=== PATIENT | female | born 1935 | race Caucasian/White ===

== ENCOUNTER 2019-11-23 06:30 | Outpatient (REF) | payer MEDICARE, SELFPAY ==
[2019-11-23 10:46] LABS: INTERNATIONAL NORM RATIO 2.3 (0.9-1.1); Prothrombin Time 27.6 SEC (10.8-13.0)
== END 2019-11-23 06:31 | disposition home or self-care (01) ==
LOC: HO.LHD 06:30
PROVIDERS: Visit Provider Internal Medicine
DX: I26.99 Other pulmonary embolism without acute cor pulmonale (principal)
CPT/HCPCS: 36415; 85610

== ENCOUNTER 2019-11-30 04:01 | Outpatient (REF) | payer MEDICARE, SELFPAY ==
[2019-11-30 10:23] LABS: INTERNATIONAL NORM RATIO 2.7 (0.9-1.1); Prothrombin Time 32.3 SEC (10.8-13.0)
== END 2019-11-30 04:02 | disposition home or self-care (01) ==
LOC: HO.LHD 04:01
PROVIDERS: Visit Provider Internal Medicine
DX: I26.99 Other pulmonary embolism without acute cor pulmonale (principal)
CPT/HCPCS: 36415; 85610

== ENCOUNTER 2019-12-14 06:52 | Outpatient (REF) | payer MEDICARE, SELFPAY ==
[2019-12-14 11:09] LABS: INTERNATIONAL NORM RATIO 2.3 (0.9-1.1)
== END 2019-12-14 06:53 | disposition home or self-care (01) ==
LOC: HO.LHD 06:52
PROVIDERS: Visit Provider Internal Medicine
DX: I26.99 Other pulmonary embolism without acute cor pulmonale (principal)
CPT/HCPCS: 36415; 85610

== ENCOUNTER 2019-12-23 07:10 | Outpatient (REF) | payer MEDICARE, SELFPAY ==
[2019-12-23 10:54] LABS: INTERNATIONAL NORM RATIO 2.2 (0.9-1.1); Prothrombin Time 25.9 SEC (10.8-13.0)
== END 2019-12-23 07:11 | disposition home or self-care (01) ==
LOC: HO.LHD 07:10
PROVIDERS: Visit Provider Internal Medicine
DX: I26.99 Other pulmonary embolism without acute cor pulmonale (principal)
CPT/HCPCS: 36415; 85610

== ENCOUNTER 2020-01-04 05:35 | Outpatient (REF) | payer MEDICARE, SELFPAY ==
[2020-01-04 11:07] LABS: INTERNATIONAL NORM RATIO 2.5 (0.9-1.1); Prothrombin Time 29.7 SEC (10.8-13.0)
== END 2020-01-04 05:36 | disposition home or self-care (01) ==
LOC: HO.LHD 05:35
PROVIDERS: Visit Provider Internal Medicine
DX: I26.99 Other pulmonary embolism without acute cor pulmonale (principal)
CPT/HCPCS: 36415; 85610

== ENCOUNTER 2020-01-25 08:30 | Outpatient (REF) | payer MEDICARE, SELFPAY ==
[2020-01-25 11:19] LABS: INTERNATIONAL NORM RATIO 2.7 (0.9-1.1); Prothrombin Time 31.9 SEC (10.8-13.0)
== END 2020-01-25 08:31 | disposition home or self-care (01) ==
LOC: HO.LHD 08:30
PROVIDERS: Visit Provider Internal Medicine
DX: I26.99 Other pulmonary embolism without acute cor pulmonale (principal)
CPT/HCPCS: 36415; 85610

== ENCOUNTER 2020-02-01 05:40 | Outpatient (REF) | payer MEDICARE, SELFPAY ==
[2020-02-01 11:01] LABS: INTERNATIONAL NORM RATIO 3.7 (0.9-1.1); Prothrombin Time 44.4 SEC (10.8-13.0)
== END 2020-02-01 05:41 | disposition home or self-care (01) ==
LOC: HO.LHD 05:40
PROVIDERS: Visit Provider Internal Medicine
DX: I26.99 Other pulmonary embolism without acute cor pulmonale (principal)
CPT/HCPCS: 36415; 85610

== ENCOUNTER 2020-02-09 08:03 | Outpatient (REF) | payer MEDICARE, SELFPAY ==
[2020-02-09 11:00] LABS: INTERNATIONAL NORM RATIO 3.4 (0.9-1.1); Prothrombin Time 40.3 SEC (10.8-13.0)
== END 2020-02-09 08:04 | disposition home or self-care (01) ==
LOC: HO.LHD 08:03
PROVIDERS: Visit Provider Internal Medicine
DX: I26.99 Other pulmonary embolism without acute cor pulmonale (principal)
CPT/HCPCS: 36415; 85610

== ENCOUNTER 2020-02-13 08:39 | Outpatient (REF) | payer MEDICARE, SELFPAY ==
[2020-02-13 11:50] LABS: INTERNATIONAL NORM RATIO 1.4 (0.9-1.1); Prothrombin Time 16.5 SEC (10.8-13.0)
== END 2020-02-13 08:40 | disposition home or self-care (01) ==
LOC: HO.LHD 08:39
PROVIDERS: Visit Provider Internal Medicine
DX: I26.99 Other pulmonary embolism without acute cor pulmonale (principal)
CPT/HCPCS: 36415; 85610

== ENCOUNTER 2020-02-20 | Outpatient (REF) | payer MEDICARE, SELFPAY ==
[2020-02-20 11:22] LABS: INTERNATIONAL NORM RATIO 1.8 (0.9-1.1); Prothrombin Time 21.8 SEC (10.8-13.0)
== END 2020-02-20 00:01 | disposition home or self-care (01) ==
LOC: HO.LHD
PROVIDERS: Visit Provider Internal Medicine
DX: I26.99 Other pulmonary embolism without acute cor pulmonale (principal)
CPT/HCPCS: 36415; 85610

== ENCOUNTER 2020-02-29 | Outpatient (REF) | payer MEDICARE, SELFPAY ==
[2020-02-29 11:16] LABS: Hematocrit 41.5 % (37-47); Mean Corpuscular HGB Conc 31.3 g/dl (31.0-35.0); Mean Corpuscular Hemoglobin 28.7 pg (27.0-33.0); Mean Corpuscular Volume 91.6 fL (80-98); Mean Platelet Volume 11.2 fL (9.4-12.3); Platelet Count 214 X10*3/uL (160-400); Red Blood Count 4.53 X10*6/uL (4.20-5.50); Red Cell Distribution Width 14.3 % (11.0-16.0)
[2020-02-29 11:23] LABS: WBC ABN SCTR FOR CBC 1
[2020-02-29 11:28] LABS: Estimated Average Glucose 163 mg/dL; Hemoglobin A1c % 7.3 %; INTERNATIONAL NORM RATIO 2.2 (0.9-1.1); Prothrombin Time 26.1 SEC (10.8-13.0)
[2020-02-29 11:41] LABS: Alanine Aminotransferase 17 U/L (0-31); Albumin Level 3.7 g/dL (3.5-5.0); Alkaline Phosphatase 75 U/L (39-117); Anion Gap 12 (12-20); Aspartate Amino Transferase 15 U/L (5-31); Bilirubin Total 1.1 mg/dL (0.0-1.0); Blood Urea Nitrogen 17 mg/dL (9-16); Calcium 8.5 mg/dL (8.4-10.2); Carbon Dioxide 27 mmol/L (22-29); Chloride 107 mmol/L (96-108); Cholesterol 139 mg/dL; Estimated Glomerular Filt Rate > 60; Glucose Fasting 141 mg/dL (60-99); HDL Cholesterol 56 mg/dL; LDL Cholesterol Calculated 64 mg/dl; Potassium 4.2 mmol/l (3.3-5.1); Sodium 142 mmol/L (135-145); Total Protein 6.3 g/dL (6.5-8.0); Triglycerides 98 mg/dL
[2020-02-29 11:56] LABS: Creatinine Urine 87.87 mg/dL; Microalbum/Creatinine Ratio Ur 9.1 ug/mg cr
[2020-02-29 12:03] LABS: TSH reflex Free T4 0.26 mIU/mL (0.32-4.0)
[2020-02-29 12:37] LABS: Free T4 (Free Thyroxine) 1.32 ng/dL (0.71-1.85)
[2020-02-29 13:13] LABS: Band Neutrophils Percent 3 % (3-5); Eosinophils Percent Manual 9 % (0-4); Lymphocytes Percent Manual 37 % (20-40); Monocytes Percent Manual 9 % (2-11); Neutrophils Percent Manual 42 % (45-73)
[2020-02-29 13:14] LABS: RBC Morphology NOTED
[2020-02-29 13:15] LABS: Macrocytosis 1+; Platelet Estimate NORMAL (NORMAL); Platelet Morphology Comment NORMAL
[2020-02-29 14:46] LABS: Eosinophils Absolute Manual 0.4 X10*3/UL (0.0-0.8); Lymphocytes Absolute Manual 1.5 X10*3/uL (0.6-4.8); Monocytes Absolute Manual 0.4 X10*3/uL (0.0-1.2); Neutrophils Absolute Manual 1.8 X10*3/uL (2.2-7.9); White Blood Count 4.1 X10*3/uL (4.8-10.8)
== END 2020-02-29 00:01 | disposition home or self-care (01) ==
LOC: HO.LHD
PROVIDERS: Visit Provider Internal Medicine
DX: E11.9 Type 2 diabetes mellitus without complications (principal); I10 Essential (primary) hypertension; I25.10 Atherosclerotic heart disease of native coronary artery without angina pectoris; E03.9 Hypothyroidism, unspecified; I26.99 Other pulmonary embolism without acute cor pulmonale
CPT/HCPCS: 36415; 80053; 80061; 82043; 83036; 84439; 84443; 85007; 85027; 85610

== ENCOUNTER 2020-03-13 13:39 | Outpatient (REF) | payer MEDICARE, SELFPAY ==
[2020-03-13 09:53] LABS: INTERNATIONAL NORM RATIO 4.2 (0.9-1.1); Prothrombin Time 50.1 SEC (10.8-13.0)
== END 2020-03-13 13:40 | disposition home or self-care (01) ==
LOC: HO.LHD 13:39
PROVIDERS: Visit Provider Internal Medicine
DX: I26.99 Other pulmonary embolism without acute cor pulmonale (principal); Z79.01 Long term (current) use of anticoagulants
CPT/HCPCS: 36415; 85610

== ENCOUNTER 2020-03-21 | Outpatient (REF) | payer MEDICARE, SELFPAY ==
[2020-03-21 10:56] LABS: INTERNATIONAL NORM RATIO 3.5 (0.9-1.1); Prothrombin Time 41.9 SEC (10.8-13.0)
== END 2020-03-21 00:01 | disposition home or self-care (01) ==
LOC: HO.LHD
PROVIDERS: Visit Provider Internal Medicine
DX: I26.99 Other pulmonary embolism without acute cor pulmonale (principal)
CPT/HCPCS: 36415; 85610

== ENCOUNTER 2020-03-28 05:05 | Outpatient (REF) | payer MEDICARE, SELFPAY ==
[2020-03-28 11:27] LABS: INTERNATIONAL NORM RATIO 3.6 (0.9-1.1); Prothrombin Time 43.9 SEC (10.8-13.0)
== END 2020-03-28 05:06 | disposition home or self-care (01) ==
LOC: HO.LHD 05:05
PROVIDERS: Visit Provider Internal Medicine
DX: I26.99 Other pulmonary embolism without acute cor pulmonale (principal)
CPT/HCPCS: 36415; 85610

== ENCOUNTER 2020-04-04 00:25 | Outpatient (REF) | payer MEDICARE, SELFPAY ==
[2020-04-04 12:25] LABS: INTERNATIONAL NORM RATIO 2.1 (0.9-1.1); Prothrombin Time 25.4 SEC (10.8-13.0)
== END 2020-04-04 00:26 | disposition home or self-care (01) ==
LOC: HO.LHD 00:25
PROVIDERS: Visit Provider Internal Medicine
DX: I26.99 Other pulmonary embolism without acute cor pulmonale (principal)
CPT/HCPCS: 36415; 85610

== ENCOUNTER 2020-04-11 00:48 | Outpatient (REF) | payer MEDICARE, SELFPAY ==
[2020-04-11 10:55] LABS: INTERNATIONAL NORM RATIO 2.7 (0.9-1.1); Prothrombin Time 31.9 SEC (10.8-13.0)
== END 2020-04-11 00:49 | disposition home or self-care (01) ==
LOC: HO.LHD 00:48
PROVIDERS: Visit Provider Internal Medicine
DX: I26.99 Other pulmonary embolism without acute cor pulmonale (principal)
CPT/HCPCS: 36415; 85610

== ENCOUNTER 2020-04-18 07:49 | Outpatient (REF) | payer MEDICARE, SELFPAY ==
[2020-04-18 11:54] LABS: Hematocrit 39.2 % (37-47); Hemoglobin 12.1 g/dl (12.0-16.0); Mean Corpuscular HGB Conc 30.9 g/dl (31.0-35.0); Mean Corpuscular Hemoglobin 28.3 pg (27.0-33.0); Mean Corpuscular Volume 91.8 fL (80-98); Platelet Count 198 X10*3/uL (160-400); Red Blood Count 4.27 X10*6/uL (4.20-5.50); Red Cell Distribution Width 14.3 % (11.0-16.0)
[2020-04-18 12:01] LABS: INTERNATIONAL NORM RATIO 2.6 (0.9-1.1); Prothrombin Time 31.6 SEC (10.8-13.0); WBC ABN SCTR FOR CBC 1; White Blood Count 5.2 X10*3/uL (4.8-10.8)
[2020-04-18 12:30] LABS: Band Neutrophils Percent 3 % (3-5); Eosinophils Absolute Manual 0.1 X10*3/UL (0.0-0.8); Eosinophils Percent Manual 2 % (0-4); Lymphocytes Absolute Manual 0.7 X10*3/uL (0.6-4.8); Lymphocytes Percent Manual 13 % (20-40); Monocytes Absolute Manual 0.7 X10*3/uL (0.0-1.2); Monocytes Percent Manual 14 % (2-11); Neutrophils Absolute Manual 3.7 X10*3/uL (2.2-7.9); Neutrophils Percent Manual 68 % (45-73)
[2020-04-18 12:31] LABS: Platelet Estimate NORMAL (NORMAL); Platelet Morphology Comment NORMAL; RBC Morphology NOTED
[2020-04-18 12:32] LABS: Basophilic Stippling 1+; Macrocytosis 1+; Polychromasia 1+
== END 2020-04-18 07:50 | disposition home or self-care (01) ==
LOC: HO.LHD 07:49
PROVIDERS: Visit Provider Internal Medicine
DX: I26.99 Other pulmonary embolism without acute cor pulmonale (principal); E11.9 Type 2 diabetes mellitus without complications; I10 Essential (primary) hypertension; I25.10 Atherosclerotic heart disease of native coronary artery without angina pectoris
CPT/HCPCS: 36415; 85007; 85025; 85027; 85610

== ENCOUNTER 2020-04-25 07:37 | Outpatient (REF) | payer MEDICARE, SELFPAY ==
[2020-04-25 12:19] LABS: INTERNATIONAL NORM RATIO 3.3 (0.9-1.1); Prothrombin Time 39.6 SEC (10.8-13.0)
== END 2020-04-25 07:38 | disposition home or self-care (01) ==
LOC: HO.LHD 07:37
PROVIDERS: Visit Provider Internal Medicine
DX: I26.99 Other pulmonary embolism without acute cor pulmonale (principal)
CPT/HCPCS: 36415; 85610

== ENCOUNTER 2020-05-02 07:08 | Outpatient (REF) | payer MEDICARE, SELFPAY ==
[2020-05-02 12:31] LABS: INTERNATIONAL NORM RATIO 2.6 (0.9-1.1); Prothrombin Time 30.7 SEC (10.8-13.0)
== END 2020-05-02 07:09 | disposition home or self-care (01) ==
LOC: HO.LHD 07:08
PROVIDERS: Visit Provider Internal Medicine
DX: I26.99 Other pulmonary embolism without acute cor pulmonale (principal)
CPT/HCPCS: 36415; 85610

== ENCOUNTER 2020-05-16 07:13 | Outpatient (REF) | payer MEDICARE, SELFPAY ==
[2020-05-16 11:04] LABS: INTERNATIONAL NORM RATIO 2.4 (0.9-1.1)
== END 2020-05-16 07:14 | disposition home or self-care (01) ==
LOC: HO.LHD 07:13
PROVIDERS: Visit Provider Internal Medicine
DX: I26.99 Other pulmonary embolism without acute cor pulmonale (principal); Z79.01 Long term (current) use of anticoagulants; Z51.81 Encounter for therapeutic drug level monitoring
CPT/HCPCS: 36415; 85610

== ENCOUNTER 2020-05-30 01:35 | Outpatient (REF) | payer MEDICARE, SELFPAY ==
[2020-05-30 10:46] LABS: INTERNATIONAL NORM RATIO 2.2 (0.9-1.1)
== END 2020-05-30 01:36 | disposition home or self-care (01) ==
LOC: HO.LHD 01:35
PROVIDERS: Visit Provider Internal Medicine
DX: I26.99 Other pulmonary embolism without acute cor pulmonale (principal); Z79.01 Long term (current) use of anticoagulants; Z51.81 Encounter for therapeutic drug level monitoring
CPT/HCPCS: 36415; 85610

== ENCOUNTER 2020-06-06 00:34 | Outpatient (REF) | payer MEDICARE, SELFPAY ==
[2020-06-06 10:59] LABS: INTERNATIONAL NORM RATIO 2.5 (0.9-1.1); Prothrombin Time 29.8 SEC (10.8-13.0)
== END 2020-06-06 00:35 | disposition home or self-care (01) ==
LOC: HO.LHD 00:34
PROVIDERS: Visit Provider Internal Medicine
DX: I26.99 Other pulmonary embolism without acute cor pulmonale (principal)
CPT/HCPCS: 36415; 85610

== ENCOUNTER 2020-06-13 00:24 | Outpatient (REF) | payer MEDICARE, SELFPAY ==
[2020-06-13 10:48] LABS: Prothrombin Time 23.9 SEC (10.8-13.0)
== END 2020-06-13 00:25 | disposition home or self-care (01) ==
LOC: HO.LHD 00:24
PROVIDERS: Visit Provider Internal Medicine
DX: I26.99 Other pulmonary embolism without acute cor pulmonale (principal); Z79.01 Long term (current) use of anticoagulants; Z51.81 Encounter for therapeutic drug level monitoring
CPT/HCPCS: 36415; 85610

== ENCOUNTER 2020-06-20 00:08 | Outpatient (REF) | payer MEDICARE, SELFPAY ==
[2020-06-20 12:13] LABS: INTERNATIONAL NORM RATIO 2.2 (0.9-1.1); Prothrombin Time 26.7 SEC (10.8-13.0)
== END 2020-06-20 00:09 | disposition home or self-care (01) ==
LOC: HO.LHD 00:08
PROVIDERS: Visit Provider Internal Medicine
DX: I26.99 Other pulmonary embolism without acute cor pulmonale (principal)
CPT/HCPCS: 36415; 85610

== ENCOUNTER 2020-06-27 00:28 | Outpatient (REF) | payer MEDICARE, SELFPAY ==
[2020-06-27 11:01] LABS: INTERNATIONAL NORM RATIO 2.2 (0.9-1.1); Prothrombin Time 26.9 SEC (10.8-13.0)
== END 2020-06-27 00:29 | disposition home or self-care (01) ==
LOC: HO.LHD 00:28
PROVIDERS: Visit Provider Internal Medicine
DX: I26.99 Other pulmonary embolism without acute cor pulmonale (principal)
CPT/HCPCS: 36415; 85610

== ENCOUNTER 2020-07-11 00:11 | Outpatient (REF) | payer MEDICARE, SELFPAY ==
[2020-07-11 10:46] LABS: INTERNATIONAL NORM RATIO 2.8 (0.9-1.1); Prothrombin Time 33.6 SEC (10.8-13.0)
== END 2020-07-11 00:12 | disposition home or self-care (01) ==
LOC: HO.LHD 00:11
PROVIDERS: Visit Provider Internal Medicine
DX: I26.99 Other pulmonary embolism without acute cor pulmonale (principal)
CPT/HCPCS: 36415; 85610

== ENCOUNTER 2020-07-25 01:24 | Outpatient (REF) | payer MEDICARE, SELFPAY ==
[2020-07-25 10:39] LABS: INTERNATIONAL NORM RATIO 2.5 (0.9-1.1); Prothrombin Time 29.7 SEC (10.8-13.0)
== END 2020-07-25 01:25 | disposition home or self-care (01) ==
LOC: HO.LHD 01:24
PROVIDERS: Visit Provider Internal Medicine
DX: I26.99 Other pulmonary embolism without acute cor pulmonale (principal)
CPT/HCPCS: 36415; 85610

== ENCOUNTER 2020-08-08 01:16 | Outpatient (REF) | payer MEDICARE, SELFPAY ==
[2020-08-08 10:41] LABS: INTERNATIONAL NORM RATIO 2.9 (0.9-1.1); Prothrombin Time 34.4 SEC (10.8-13.0)
== END 2020-08-08 01:17 | disposition home or self-care (01) ==
LOC: HO.LHD 01:16
PROVIDERS: Visit Provider Internal Medicine
DX: I26.99 Other pulmonary embolism without acute cor pulmonale (principal)
CPT/HCPCS: 36415; 85610

== ENCOUNTER 2020-08-22 | Outpatient (REF) | payer MEDICARE, SELFPAY ==
[2020-08-22 11:44] LABS: Prothrombin Time 23.2 SEC (9.9-13.0)
== END 2020-08-22 00:01 | disposition home or self-care (01) ==
LOC: HO.10HDLNP
PROVIDERS: Visit Provider Internal Medicine
DX: I26.99 Other pulmonary embolism without acute cor pulmonale (principal)
CPT/HCPCS: 85610

== ENCOUNTER 2020-08-29 07:00 | Outpatient (REF) | payer MEDICARE, SELFPAY ==
[2020-08-29 10:56] LABS: INTERNATIONAL NORM RATIO 2.3 (0.9-1.1); Prothrombin Time 26.5 SEC (9.9-13.0)
== END 2020-08-29 07:01 | disposition home or self-care (01) ==
LOC: HO.LHD 07:00
PROVIDERS: Visit Provider Internal Medicine
DX: I26.99 Other pulmonary embolism without acute cor pulmonale (principal)
CPT/HCPCS: 36415; 85610

== ENCOUNTER 2020-09-05 06:29 | Outpatient (REF) | payer MEDICARE, SELFPAY ==
[2020-09-05 10:45] LABS: INTERNATIONAL NORM RATIO 2.2 (0.9-1.1); Prothrombin Time 25.4 SEC (9.9-13.0)
[2020-09-05 10:56] LABS: Estimated Average Glucose 163 mg/dL; Hemoglobin A1c % 7.3 %
[2020-09-05 11:27] LABS: Alanine Aminotransferase 11 U/L (0-31); Albumin Level 3.6 g/dL (3.5-5.0); Alkaline Phosphatase 70 U/L (39-117); Anion Gap 12 (12-20); Aspartate Amino Transferase 15 U/L (5-31); Bilirubin Total 1.4 mg/dL (0.0-1.0); Blood Urea Nitrogen 17 mg/dL (9-16); Calcium 8.9 mg/dL (8.4-10.2); Carbon Dioxide 27 mmol/L (22-29); Chloride 107 mmol/L (96-108); Estimated Glomerular Filt Rate > 60; Glucose Fasting 154 mg/dL (60-99); Potassium 4.2 mmol/L (3.3-5.1); Sodium 142 mmol/L (135-145); Total Protein 6.2 g/dL (6.5-8.0)
[2020-09-05 11:41] LABS: TSH reflex Free T4 1.36 uIU/mL (0.32-4.0)
== END 2020-09-05 06:30 | disposition home or self-care (01) ==
LOC: HO.LHD 06:29
PROVIDERS: Visit Provider Internal Medicine
DX: I26.99 Other pulmonary embolism without acute cor pulmonale (principal); E03.9 Hypothyroidism, unspecified; E11.9 Type 2 diabetes mellitus without complications; I11.0 Hypertensive heart disease with heart failure; I50.30 Unspecified diastolic (congestive) heart failure
CPT/HCPCS: 36415; 80053; 83036; 84443; 85610

== ENCOUNTER 2020-09-12 07:38 | Outpatient (REF) | payer MEDICARE, SELFPAY ==
[2020-09-12 11:03] LABS: INTERNATIONAL NORM RATIO 2.7 (0.9-1.1); Prothrombin Time 31.8 SEC (9.9-13.0)
== END 2020-09-12 07:39 | disposition home or self-care (01) ==
LOC: HO.LHD 07:38
PROVIDERS: Family Medicine; Visit Provider Internal Medicine
DX: I26.99 Other pulmonary embolism without acute cor pulmonale (principal)
CPT/HCPCS: 36415; 85610

== ENCOUNTER 2020-09-26 07:14 | Outpatient (REF) | payer MEDICARE, SELFPAY ==
[2020-09-26 11:26] LABS: INTERNATIONAL NORM RATIO 2.6 (0.9-1.1); Prothrombin Time 30.6 SEC (9.9-13.0)
== END 2020-09-26 07:15 | disposition home or self-care (01) ==
LOC: HO.LHD 07:14
PROVIDERS: Visit Provider Internal Medicine
DX: I26.99 Other pulmonary embolism without acute cor pulmonale (principal)
CPT/HCPCS: 36415; 85610

== ENCOUNTER 2020-10-02 07:49 | Outpatient (REF) | payer MEDICARE, SELFPAY ==
[2020-10-02 10:12] LABS: INTERNATIONAL NORM RATIO 2.5 (0.9-1.1); Prothrombin Time 29.3 SEC (9.9-13.0)
== END 2020-10-02 07:50 | disposition home or self-care (01) ==
LOC: HO.LHD 07:49
PROVIDERS: Visit Provider Internal Medicine
DX: I26.99 Other pulmonary embolism without acute cor pulmonale (principal)
CPT/HCPCS: 36415; 85610

== ENCOUNTER 2020-10-10 05:00 | Outpatient (REF) | payer MEDICARE, SELFPAY ==
[2020-10-10 12:03] LABS: INTERNATIONAL NORM RATIO 2.6 (0.9-1.1); Prothrombin Time 30.2 SEC (9.9-13.0)
== END 2020-10-10 05:01 ==
LOC: HO.LHD 05:00
PROVIDERS: Visit Provider Internal Medicine
DX: I26.99 Other pulmonary embolism without acute cor pulmonale (principal)
CPT/HCPCS: 36415; 85610

== ENCOUNTER 2020-10-24 07:05 | Outpatient (REF) | payer MEDICARE, SELFPAY ==
[2020-10-24 11:04] LABS: INTERNATIONAL NORM RATIO 2.7 (0.9-1.1); Prothrombin Time 31.9 SEC (9.9-13.0)
== END 2020-10-24 07:06 | disposition home or self-care (01) ==
LOC: HO.LHD 07:05
PROVIDERS: Visit Provider Internal Medicine
DX: I26.99 Other pulmonary embolism without acute cor pulmonale (principal)
CPT/HCPCS: 36415; 85610

== ENCOUNTER 2020-11-07 13:30 | Outpatient (REF) | payer MEDICARE, SELFPAY ==
[2020-11-07 11:49] LABS: Prothrombin Time 35.1 SEC (9.9-13.0)
== END 2020-11-07 13:31 | disposition home or self-care (01) ==
LOC: HO.LHD 13:30
PROVIDERS: Visit Provider Internal Medicine
DX: I26.99 Other pulmonary embolism without acute cor pulmonale (principal)
CPT/HCPCS: 36415; 85610

== ENCOUNTER 2020-11-15 13:32 | Outpatient (REF) | payer MEDICARE, SELFPAY ==
[2020-11-14 10:36] LABS: INTERNATIONAL NORM RATIO 2.3 (0.9-1.1); Prothrombin Time 26.7 SEC (9.9-13.0)
== END 2020-11-15 13:33 | disposition home or self-care (01) ==
LOC: HO.LDS 13:32
PROVIDERS: Visit Provider Internal Medicine
DX: I26.99 Other pulmonary embolism without acute cor pulmonale (principal)
CPT/HCPCS: 36415; 85610

== ENCOUNTER 2020-11-21 12:25 | Outpatient (REF) | payer MEDICARE, SELFPAY ==
[2020-11-21 11:20] LABS: INTERNATIONAL NORM RATIO 2.3 (0.9-1.1); Prothrombin Time 26.1 SEC (9.9-13.0)
== END 2020-11-21 12:26 | disposition home or self-care (01) ==
LOC: HO.LHD 12:25
PROVIDERS: Visit Provider Internal Medicine
DX: I26.99 Other pulmonary embolism without acute cor pulmonale (principal)
CPT/HCPCS: 36415; 85610

== ENCOUNTER 2020-11-28 08:05 | Outpatient (REF) | payer MEDICARE, SELFPAY ==
[2020-11-28 11:08] LABS: INTERNATIONAL NORM RATIO 3.1 (0.9-1.1)
== END 2020-11-28 08:06 | disposition home or self-care (01) ==
LOC: HO.LHD 08:05
PROVIDERS: Visit Provider Internal Medicine
DX: I26.99 Other pulmonary embolism without acute cor pulmonale (principal)
CPT/HCPCS: 36415; 85610

== ENCOUNTER 2020-12-07 07:43 | Outpatient (REF) | payer MEDICARE, SELFPAY ==
[2020-12-06 11:17] LABS: INTERNATIONAL NORM RATIO 2.1 (0.9-1.1)
== END 2020-12-07 07:44 | disposition home or self-care (01) ==
LOC: HO.LHD 07:43
PROVIDERS: Visit Provider Internal Medicine
DX: I26.99 Other pulmonary embolism without acute cor pulmonale (principal)
CPT/HCPCS: 36415; 85610

== ENCOUNTER 2020-12-12 13:41 | Outpatient (REF) | payer MEDICARE, SELFPAY ==
[2020-12-12 11:04] LABS: INTERNATIONAL NORM RATIO 2.3 (0.9-1.1); Prothrombin Time 26.6 SEC (9.9-13.0)
== END 2020-12-12 13:42 | disposition home or self-care (01) ==
LOC: HO.LHD 13:41
PROVIDERS: Visit Provider Internal Medicine
DX: I26.99 Other pulmonary embolism without acute cor pulmonale (principal); Z79.01 Long term (current) use of anticoagulants
CPT/HCPCS: 36415; 85610

== ENCOUNTER 2020-12-19 13:23 | Outpatient (REF) | payer MEDICARE, SELFPAY ==
[2020-12-19 11:03] LABS: Hematocrit 41.9 % (37.0-47.0); Hemoglobin 13.1 g/dl (12.0-16.0); Mean Corpuscular HGB Conc 31.3 g/dl (31.0-35.0); Mean Corpuscular Hemoglobin 28.4 pg (27.0-33.0); Mean Corpuscular Volume 90.7 fL (80.0-98.0); Mean Platelet Volume 11.3 fL (9.4-12.3); Platelet Count 224 X10*3/uL (160-400); Red Blood Count 4.62 X10*6/uL (4.20-5.50); Red Cell Distribution Width 14.2 % (11.0-16.0)
[2020-12-19 11:09] LABS: WBC ABN SCTR FOR CBC 1
[2020-12-19 11:10] LABS: INTERNATIONAL NORM RATIO 2.1 (0.9-1.1); Prothrombin Time 24.8 SEC (9.9-13.0)
[2020-12-19 11:40] LABS: Band Neutrophils Percent 0 % (3-5); Eosinophils Percent Manual 2 % (0-4); Lymphocytes Percent Manual 18 % (20-40); Monocytes Percent Manual 16 % (2-11); Neutrophils Percent Manual 64 % (45-73)
[2020-12-19 11:41] LABS: Platelet Estimate NORMAL (NORMAL); Platelet Morphology Comment NORMAL; RBC Morphology NORMAL
[2020-12-19 11:45] LABS: Eosinophils Absolute Manual 0.1 X10*3/uL (0.0-0.4); Lymphocytes Absolute Manual 0.7 X10*3/uL (1.2-4.9); Monocytes Absolute Manual 0.7 X10*3/uL (0.1-1.2); Neutrophils Absolute Manual 2.6 X10*3/uL (2.0-8.3); White Blood Count 4.1 X10*3/uL (4.8-10.8)
== END 2020-12-19 13:24 | disposition home or self-care (01) ==
LOC: HO.LHD 13:23
PROVIDERS: Internal Medicine; Visit Provider Internal Medicine
DX: I26.99 Other pulmonary embolism without acute cor pulmonale (principal); E11.9 Type 2 diabetes mellitus without complications; I10 Essential (primary) hypertension; I25.10 Atherosclerotic heart disease of native coronary artery without angina pectoris
CPT/HCPCS: 36415; 85007; 85025; 85027; 85610

== ENCOUNTER 2021-01-01 07:14 | Outpatient (REF) | payer MEDICARE, SELFPAY ==
[2021-01-01 10:10] LABS: INTERNATIONAL NORM RATIO 2.5 (0.9-1.1); Prothrombin Time 29.1 SEC (9.9-13.0)
[2021-01-01 10:32] LABS: Hematocrit 39.8 % (37.0-47.0); Hemoglobin 12.7 g/dl (12.0-16.0); Mean Corpuscular HGB Conc 31.9 g/dl (31.0-35.0); Mean Corpuscular Hemoglobin 28.7 pg (27.0-33.0); Mean Platelet Volume 10.9 fL (9.4-12.3); Platelet Count 197 X10*3/uL (160-400); Red Blood Count 4.42 X10*6/uL (4.20-5.50)
[2021-01-01 10:34] LABS: WBC ABN SCTR FOR CBC 1
[2021-01-01 11:28] LABS: Band Neutrophils Percent 0 % (3-5); Eosinophils Percent Manual 4 % (0-4); Lymphocytes Percent Manual 29 % (20-40); Monocytes Percent Manual 11 % (2-11); Neutrophils Percent Manual 56 % (45-73)
[2021-01-01 11:31] LABS: Platelet Estimate NORMAL (NORMAL); Platelet Morphology Comment NORMAL; RBC Morphology NORMAL
[2021-01-01 13:27] LABS: Eosinophils Absolute Manual 0.2 X10*3/uL (0.0-0.4); Lymphocytes Absolute Manual 1.1 X10*3/uL (1.2-4.9); Monocytes Absolute Manual 0.4 X10*3/uL (0.1-1.2); Neutrophils Absolute Manual 2.1 X10*3/uL (2.0-8.3); White Blood Count 3.8 X10*3/uL (4.8-10.8)
== END 2021-01-01 07:15 | disposition home or self-care (01) ==
LOC: HO.LHD 07:14
PROVIDERS: Visit Provider Internal Medicine
DX: I26.99 Other pulmonary embolism without acute cor pulmonale (principal)
CPT/HCPCS: 36415; 85007; 85025; 85027; 85610

== ENCOUNTER 2021-01-16 12:28 | Outpatient (REF) | payer MEDICARE, SELFPAY ==
[2021-01-16 10:56] LABS: Hematocrit 38.1 % (37.0-47.0); Hemoglobin 12.1 g/dl (12.0-16.0); Mean Corpuscular HGB Conc 31.8 g/dl (31.0-35.0); Mean Corpuscular Hemoglobin 28.5 pg (27.0-33.0); Mean Corpuscular Volume 89.9 fL (80.0-98.0); Mean Platelet Volume 11.2 fL (9.4-12.3); Platelet Count 197 X10*3/uL (160-400); Red Blood Count 4.24 X10*6/uL (4.20-5.50); White Blood Count 4.3 X10*3/uL (4.8-10.8)
[2021-01-16 11:34] LABS: Band Neutrophils Percent 2 % (3-5); Basophils Percent Manual 1 % (0-2); Eosinophils Absolute Manual 0.1 X10*3/uL (0.0-0.4); Eosinophils Percent Manual 3 % (0-4); Lymphocytes Absolute Manual 0.6 X10*3/uL (1.2-4.9); Lymphocytes Percent Manual 13 % (20-40); Monocytes Absolute Manual 0.3 X10*3/uL (0.1-1.2); Monocytes Percent Manual 7 % (2-11); Neutrophils Absolute Manual 3.3 X10*3/uL (2.0-8.3); Neutrophils Percent Manual 74 % (45-73)
[2021-01-16 11:35] LABS: RBC Morphology NORMAL
[2021-01-16 11:36] LABS: Platelet Estimate NORMAL (NORMAL); Platelet Morphology Comment NORMAL
== END 2021-01-16 12:29 | disposition home or self-care (01) ==
LOC: HO.LHD 12:28
PROVIDERS: Visit Provider Internal Medicine
DX: I26.99 Other pulmonary embolism without acute cor pulmonale (principal); Z79.01 Long term (current) use of anticoagulants
CPT/HCPCS: 36415; 85007; 85027; 85610

== ENCOUNTER 2021-01-23 07:18 | Outpatient (REF) | payer MEDICARE, SELFPAY ==
[2021-01-23 11:12] LABS: Hemoglobin 12.3 g/dl (12.0-16.0); Mean Corpuscular HGB Conc 31.5 g/dl (31.0-35.0); Mean Corpuscular Hemoglobin 28.3 pg (27.0-33.0); Mean Corpuscular Volume 89.9 fL (80.0-98.0); Platelet Count 200 X10*3/uL (160-400); Red Blood Count 4.34 X10*6/uL (4.20-5.50); Red Cell Distribution Width 13.7 % (11.0-16.0)
[2021-01-23 11:14] LABS: WBC ABN SCTR FOR CBC 1
[2021-01-23 11:26] LABS: INTERNATIONAL NORM RATIO 1.7 (0.9-1.1); Prothrombin Time 19.4 SEC (9.9-13.0)
[2021-01-23 11:58] LABS: Band Neutrophils Percent 0 % (3-5); Basophils Percent Manual 1 % (0-2); Eosinophils Percent Manual 3 % (0-4); Lymphocytes Percent Manual 31 % (20-40); Monocytes Percent Manual 9 % (2-11); Neutrophils Percent Manual 56 % (45-73)
[2021-01-23 12:02] LABS: Macrocytosis 1+ (5-14) /OIF; Platelet Estimate NORMAL (NORMAL); Platelet Morphology Comment NORMAL; RBC Morphology NOTED
[2021-01-23 12:05] LABS: Eosinophils Absolute Manual 0.1 X10*3/uL (0.0-0.4); Monocytes Absolute Manual 0.3 X10*3/uL (0.1-1.2); Neutrophils Absolute Manual 1.8 X10*3/uL (2.0-8.3); White Blood Count 3.3 X10*3/uL (4.8-10.8)
== END 2021-01-23 07:19 | disposition home or self-care (01) ==
LOC: HO.LHD 07:18
PROVIDERS: Visit Provider Internal Medicine
DX: I26.99 Other pulmonary embolism without acute cor pulmonale (principal)
CPT/HCPCS: 36415; 85007; 85027; 85610

== ENCOUNTER 2021-01-30 06:10 | Outpatient (REF) | payer MEDICARE, SELFPAY ==
[2021-01-30 11:23] LABS: INTERNATIONAL NORM RATIO 2.2 (0.9-1.1); Prothrombin Time 25.6 SEC (9.9-13.0)
== END 2021-01-30 06:11 | disposition home or self-care (01) ==
LOC: HO.LHD 06:10
PROVIDERS: Visit Provider Internal Medicine
DX: I26.99 Other pulmonary embolism without acute cor pulmonale (principal)
CPT/HCPCS: 36415; 85610

== ENCOUNTER 2021-02-06 10:44 | Outpatient (REF) | payer MEDICARE, SELFPAY ==
[2021-02-06 10:19] LABS: Hematocrit 36.8 % (37.0-47.0); Hemoglobin 11.6 g/dl (12.0-16.0); Mean Corpuscular HGB Conc 31.5 g/dl (31.0-35.0); Mean Corpuscular Hemoglobin 28.4 pg (27.0-33.0); Mean Corpuscular Volume 90.2 fL (80.0-98.0); Mean Platelet Volume 10.9 fL (9.4-12.3); Platelet Count 169 X10*3/uL (160-400); Red Blood Count 4.08 X10*6/uL (4.20-5.50)
[2021-02-06 10:20] LABS: WBC ABN SCTR FOR CBC 1
[2021-02-06 10:27] LABS: INTERNATIONAL NORM RATIO 2.7 (0.9-1.1); Prothrombin Time 30.8 SEC (9.9-13.0)
[2021-02-06 10:56] LABS: Band Neutrophils Percent 0 % (3-5); Basophils Percent Manual 2 % (0-2); Eosinophils Percent Manual 4 % (0-4); Lymphocytes Percent Manual 34 % (20-40); Monocytes Percent Manual 9 % (2-11); Neutrophils Percent Manual 51 % (45-73)
[2021-02-06 10:57] LABS: Hypochromasia 1+ (5-14) /OIF; Platelet Estimate NORMAL (NORMAL); Platelet Morphology Comment NORMAL; RBC Morphology NOTED
[2021-02-06 10:58] LABS: Basophils Abs Manual 0.1 X10*3/uL (0.0-0.2); Eosinophils Absolute Manual 0.1 X10*3/uL (0.0-0.4); Lymphocytes Absolute Manual 1.2 X10*3/uL (1.2-4.9); Monocytes Absolute Manual 0.3 X10*3/uL (0.1-1.2); Neutrophils Absolute Manual 1.7 X10*3/uL (2.0-8.3); White Blood Count 3.4 X10*3/uL (4.8-10.8)
== END 2021-02-06 10:45 | disposition home or self-care (01) ==
LOC: HO.LHD 10:44
PROVIDERS: Visit Provider Internal Medicine
DX: I26.99 Other pulmonary embolism without acute cor pulmonale (principal)
CPT/HCPCS: 36415; 85007; 85027; 85610

== ENCOUNTER 2021-02-21 11:15 | Outpatient (REF) | payer MEDICARE, SELFPAY ==
[2021-02-20 11:44] LABS: Hematocrit 38.6 % (37.0-47.0); Hemoglobin 12.1 g/dl (12.0-16.0); Mean Corpuscular HGB Conc 31.3 g/dl (31.0-35.0); Mean Corpuscular Hemoglobin 28.3 pg (27.0-33.0); Mean Corpuscular Volume 90.4 fL (80.0-98.0); Mean Platelet Volume 10.8 fL (9.4-12.3); Platelet Count 165 X10*3/uL (160-400); Red Blood Count 4.27 X10*6/uL (4.20-5.50)
[2021-02-20 11:46] LABS: WBC ABN SCTR FOR CBC 1
[2021-02-20 11:53] LABS: INTERNATIONAL NORM RATIO 2.4 (0.9-1.1); Prothrombin Time 27.6 SEC (9.9-13.0)
[2021-02-20 12:10] LABS: Band Neutrophils Percent 0 % (3-5); Lymphocytes Percent Manual 20 % (20-40); Monocytes Percent Manual 10 % (2-11); Neutrophils Percent Manual 70 % (45-73)
[2021-02-20 12:11] LABS: Lymphocytes Absolute Manual 0.7 X10*3/uL (1.2-4.9); Monocytes Absolute Manual 0.4 X10*3/uL (0.1-1.2); Neutrophils Absolute Manual 2.5 X10*3/uL (2.0-8.3); Platelet Estimate NORMAL (NORMAL); Platelet Morphology Comment NORMAL; RBC Morphology NORMAL; White Blood Count 3.5 X10*3/uL (4.8-10.8)
== END 2021-02-21 11:16 | disposition home or self-care (01) ==
LOC: HO.LHD 11:15
PROVIDERS: Visit Provider Internal Medicine
DX: I26.99 Other pulmonary embolism without acute cor pulmonale (principal)
CPT/HCPCS: 36415; 85007; 85027; 85610

== ENCOUNTER 2021-02-27 07:53 | Outpatient (REF) | payer MEDICARE, SELFPAY ==
[2021-02-27 12:30] LABS: Hematocrit 39.5 % (37.0-47.0); Hemoglobin 12.4 g/dl (12.0-16.0); Mean Corpuscular HGB Conc 31.4 g/dl (31.0-35.0); Mean Corpuscular Hemoglobin 28.5 pg (27.0-33.0); Mean Corpuscular Volume 90.8 fL (80.0-98.0); Mean Platelet Volume 11.3 fL (9.4-12.3); Platelet Count 212 X10*3/uL (160-400); Red Blood Count 4.35 X10*6/uL (4.20-5.50); Red Cell Distribution Width 14.1 % (11.0-16.0)
[2021-02-27 12:39] LABS: INTERNATIONAL NORM RATIO 2.2 (0.9-1.1)
[2021-02-27 12:56] LABS: WBC ABN SCTR FOR CBC 1
[2021-02-27 13:09] LABS: Band Neutrophils Percent 2 % (3-5); Eosinophils Percent Manual 3 % (0-4); Lymphocytes Percent Manual 28 % (20-40); Monocytes Percent Manual 14 % (2-11); Neutrophils Percent Manual 53 % (45-73)
[2021-02-27 13:10] LABS: RBC Morphology NOTED
[2021-02-27 13:11] LABS: Acanthocytes 1+ (0-2) /OIF; Platelet Estimate NORMAL (NORMAL); Platelet Morphology Comment NORMAL
[2021-02-27 13:19] LABS: Eosinophils Absolute Manual 0.1 X10*3/uL (0.0-0.4); Lymphocytes Absolute Manual 1.1 X10*3/uL (1.2-4.9); Monocytes Absolute Manual 0.6 X10*3/uL (0.1-1.2); Neutrophils Absolute Manual 2.2 X10*3/uL (2.0-8.3)
== END 2021-02-27 07:54 | disposition home or self-care (01) ==
LOC: HO.LHD 07:53
PROVIDERS: Visit Provider Internal Medicine
DX: I26.99 Other pulmonary embolism without acute cor pulmonale (principal)
CPT/HCPCS: 36415; 85007; 85027; 85610

== ENCOUNTER 2021-03-13 12:02 | Outpatient (REF) | payer MEDICARE, SELFPAY ==
[2021-03-13 12:34] LABS: Hematocrit 39.4 % (37.0-47.0); Hemoglobin 12.4 g/dl (12.0-16.0); Mean Corpuscular HGB Conc 31.5 g/dl (31.0-35.0); Mean Corpuscular Hemoglobin 28.2 pg (27.0-33.0); Mean Corpuscular Volume 89.7 fL (80.0-98.0); Mean Platelet Volume 10.7 fL (9.4-12.3); Platelet Count 199 X10*3/uL (160-400); Red Blood Count 4.39 X10*6/uL (4.20-5.50); Red Cell Distribution Width 14.2 % (11.0-16.0)
[2021-03-13 12:40] LABS: WBC ABN SCTR FOR CBC 1; White Blood Count 3.4 X10*3/uL (4.8-10.8)
[2021-03-13 12:43] LABS: INTERNATIONAL NORM RATIO 2.2 (0.9-1.1); Prothrombin Time 25.8 SEC (9.9-13.0)
[2021-03-13 13:27] LABS: Band Neutrophils Percent 3 % (3-5); Basophils Percent Manual 1 % (0-2); Eosinophils Absolute Manual 0.1 X10*3/uL (0.0-0.4); Eosinophils Percent Manual 2 % (0-4); Lymphocytes Absolute Manual 0.8 X10*3/uL (1.2-4.9); Lymphocytes Percent Manual 24 % (20-40); Monocytes Absolute Manual 0.3 X10*3/uL (0.1-1.2); Monocytes Percent Manual 8 % (2-11); Neutrophils Absolute Manual 2.2 X10*3/uL (2.0-8.3); Neutrophils Percent Manual 62 % (45-73)
[2021-03-13 13:28] LABS: Platelet Estimate NORMAL (NORMAL); Platelet Morphology Comment NORMAL; RBC Morphology NORMAL
[2021-03-13 13:29] LABS: Alanine Aminotransferase 16 U/L (0-31); Albumin Level 3.6 g/dL (3.5-5.0); Alkaline Phosphatase 66 U/L (39-117); Anion Gap 9 (12-20); Aspartate Amino Transferase 17 U/L (5-31); Bilirubin Total 1.5 mg/dL (0.0-1.0); Blood Urea Nitrogen 19 mg/dL (9-16); Calcium 8.6 mg/dL (8.4-10.2); Carbon Dioxide 28 mmol/L (22-29); Chloride 108 mmol/L (96-108); Cholesterol 137 mg/dL; Estimated Glomerular Filt Rate > 60; Glucose Fasting 154 mg/dL (60-99); HDL Cholesterol 47 mg/dL; LDL Cholesterol Calculated 70 mg/dl; Potassium 4.3 mmol/L (3.3-5.1); Sodium 141 mmol/L (135-145); Total Protein 6.2 g/dL (6.5-8.0); Triglycerides 102 mg/dL
[2021-03-13 13:35] LABS: Estimated Average Glucose 163 mg/dL; Hemoglobin A1c % 7.3 %
[2021-03-13 13:39] LABS: TSH reflex Free T4 0.83 uIU/mL (0.32-4.0); Vitamin D 25-OH Total 14.5 ng/mL (>30)
[2021-03-13 14:05] LABS: Folate 11.5 ng/mL (> or = 4.0); Vitamin B12 439 pg/mL (200-900)
== END 2021-03-13 12:03 | disposition home or self-care (01) ==
LOC: HO.LHD 12:02
PROVIDERS: Visit Provider Internal Medicine
DX: E11.9 Type 2 diabetes mellitus without complications (principal); E78.5 Hyperlipidemia, unspecified; I10 Essential (primary) hypertension; I26.99 Other pulmonary embolism without acute cor pulmonale; I25.10 Atherosclerotic heart disease of native coronary artery without angina pectoris
CPT/HCPCS: 36415; 80053; 80061; 82306; 82607; 82746; 83036; 84443; 85007; 85027; 85610

== ENCOUNTER 2021-03-27 12:55 | Outpatient (REF) | payer MEDICARE, SELFPAY ==
[2021-03-27 10:56] LABS: Hematocrit 38.3 % (37.0-47.0); Hemoglobin 12.1 g/dl (12.0-16.0); Mean Corpuscular HGB Conc 31.6 g/dl (31.0-35.0); Mean Corpuscular Hemoglobin 28.3 pg (27.0-33.0); Mean Corpuscular Volume 89.5 fL (80.0-98.0); Mean Platelet Volume 10.9 fL (9.4-12.3); Platelet Count 200 X10*3/uL (160-400); Red Blood Count 4.28 X10*6/uL (4.20-5.50); Red Cell Distribution Width 14.4 % (11.0-16.0); White Blood Count 3.6 X10*3/uL (4.8-10.8)
[2021-03-27 11:01] LABS: INTERNATIONAL NORM RATIO 2.3 (0.9-1.1); Prothrombin Time 27.1 SEC (9.9-13.0)
[2021-03-27 11:31] LABS: Band Neutrophils Percent 1 % (3-5); Basophils Percent Manual 1 % (0-2); Eosinophils Percent Manual 1 % (0-4); Lymphocytes Absolute Manual 1.2 X10*3/uL (1.2-4.9); Lymphocytes Percent Manual 33 % (20-40); Monocytes Absolute Manual 0.5 X10*3/uL (0.1-1.2); Monocytes Percent Manual 13 % (2-11); Neutrophils Absolute Manual 1.9 X10*3/uL (2.0-8.3); Neutrophils Percent Manual 51 % (45-73)
[2021-03-27 11:34] LABS: Platelet Estimate NORMAL (NORMAL); Platelet Morphology Comment NORMAL; RBC Morphology NORMAL
== END 2021-03-27 12:56 | disposition home or self-care (01) ==
LOC: HO.LHD 12:55
PROVIDERS: Visit Provider Internal Medicine
DX: I26.99 Other pulmonary embolism without acute cor pulmonale (principal)
CPT/HCPCS: 36415; 85007; 85025; 85027; 85610

== ENCOUNTER 2021-04-10 13:08 | Outpatient (REF) | payer MEDICARE, SELFPAY ==
[2021-04-10 11:43] LABS: Hematocrit 39.3 % (37.0-47.0); Hemoglobin 12.1 g/dl (12.0-16.0); Mean Corpuscular HGB Conc 30.8 g/dl (31.0-35.0); Mean Corpuscular Hemoglobin 27.9 pg (27.0-33.0); Mean Corpuscular Volume 90.8 fL (80.0-98.0); Platelet Count 193 X10*3/uL (160-400); Red Blood Count 4.33 X10*6/uL (4.20-5.50); Red Cell Distribution Width 14.4 % (11.0-16.0)
[2021-04-10 11:46] LABS: WBC ABN SCTR FOR CBC 1
[2021-04-10 11:47] LABS: White Blood Count 3.6 X10*3/uL (4.8-10.8)
[2021-04-10 12:11] LABS: Atypical Lymphs Percent Manual 1 % (0-6); Band Neutrophils Percent 1 % (3-5); Eosinophils Percent Manual 1 % (0-4); Lymphocytes Absolute Manual 1.3 X10*3/uL (1.2-4.9); Lymphocytes Percent Manual 36 % (20-40); Monocytes Absolute Manual 0.1 X10*3/uL (0.1-1.2); Monocytes Percent Manual 3 % (2-11); Neutrophils Absolute Manual 2.1 X10*3/uL (2.0-8.3); Neutrophils Percent Manual 58 % (45-73)
[2021-04-10 12:12] LABS: INTERNATIONAL NORM RATIO 2.2 (0.9-1.1); Prothrombin Time 25.2 SEC (9.9-13.0)
[2021-04-10 12:13] LABS: Platelet Estimate NORMAL (NORMAL); Platelet Morphology Comment NORMAL; RBC Morphology NORMAL
== END 2021-04-10 13:09 | disposition home or self-care (01) ==
LOC: HO.LHD 13:08
PROVIDERS: Visit Provider Internal Medicine
DX: I26.99 Other pulmonary embolism without acute cor pulmonale (principal)
CPT/HCPCS: 36415; 85007; 85025; 85027; 85610

== ENCOUNTER 2021-04-24 12:11 | Outpatient (REF) | payer MEDICARE, SELFPAY ==
[2021-04-24 12:52] LABS: Hematocrit 39.3 % (37.0-47.0); Hemoglobin 12.3 g/dl (12.0-16.0); Mean Corpuscular HGB Conc 31.3 g/dl (31.0-35.0); Mean Corpuscular Hemoglobin 28.4 pg (27.0-33.0); Mean Corpuscular Volume 90.8 fL (80.0-98.0); Platelet Count 189 X10*3/uL (160-400); Red Blood Count 4.33 X10*6/uL (4.20-5.50); Red Cell Distribution Width 14.6 % (11.0-16.0)
[2021-04-24 12:57] LABS: INTERNATIONAL NORM RATIO 1.9 (0.9-1.1); Prothrombin Time 22.4 SEC (9.9-13.0)
[2021-04-24 13:00] LABS: WBC ABN SCTR FOR CBC 1
[2021-04-24 13:17] LABS: Basophils Percent Manual 1 % (0-2); Eosinophils Percent Manual 5 % (0-4); Lymphocytes Percent Manual 27 % (20-40); Monocytes Percent Manual 11 % (2-11); Neutrophils Percent Manual 56 % (45-73); RBC Morphology NORMAL
[2021-04-24 13:18] LABS: Band Neutrophils Percent 0 % (3-5); Eosinophils Absolute Manual 0.2 X10*3/uL (0.0-0.4); Lymphocytes Absolute Manual 0.9 X10*3/uL (1.2-4.9); Monocytes Absolute Manual 0.4 X10*3/uL (0.1-1.2); Platelet Estimate NORMAL (NORMAL); Platelet Morphology Comment NORMAL; White Blood Count 3.5 X10*3/uL (4.8-10.8)
== END 2021-04-24 12:12 | disposition home or self-care (01) ==
LOC: HO.LHD 12:11
PROVIDERS: Visit Provider Internal Medicine
DX: I26.99 Other pulmonary embolism without acute cor pulmonale (principal)
CPT/HCPCS: 36415; 85007; 85025; 85027; 85610

== ENCOUNTER 2021-05-01 11:33 | Outpatient (REF) | payer MEDICARE, SELFPAY ==
[2021-05-01 10:37] LABS: Hematocrit 40.1 % (37.0-47.0); Hemoglobin 12.5 g/dl (12.0-16.0); Mean Corpuscular HGB Conc 31.2 g/dl (31.0-35.0); Mean Corpuscular Hemoglobin 28.3 pg (27.0-33.0); Mean Corpuscular Volume 90.7 fL (80.0-98.0); Mean Platelet Volume 11.1 fL (9.4-12.3); Platelet Count 191 X10*3/uL (160-400); Red Blood Count 4.42 X10*6/uL (4.20-5.50); Red Cell Distribution Width 14.3 % (11.0-16.0)
[2021-05-01 10:38] LABS: WBC ABN SCTR FOR CBC 1
[2021-05-01 10:45] LABS: INTERNATIONAL NORM RATIO 2.1 (0.9-1.1); Prothrombin Time 24.2 SEC (9.9-13.0)
[2021-05-01 11:01] LABS: Band Neutrophils Percent 1 % (3-5); Eosinophils Percent Manual 2 % (0-4); Lymphocytes Percent Manual 37 % (20-40); Monocytes Percent Manual 6 % (2-11); Neutrophils Percent Manual 54 % (45-73)
[2021-05-01 11:02] LABS: Eosinophils Absolute Manual 0.1 X10*3/uL (0.0-0.4); Lymphocytes Absolute Manual 1.4 X10*3/uL (1.2-4.9); Monocytes Absolute Manual 0.2 X10*3/uL (0.1-1.2); Platelet Estimate NORMAL (NORMAL); Platelet Morphology Comment NORMAL; RBC Morphology NORMAL; White Blood Count 3.7 X10*3/uL (4.8-10.8)
== END 2021-05-01 11:34 | disposition home or self-care (01) ==
LOC: HO.LHD 11:33
PROVIDERS: Visit Provider Internal Medicine
DX: I26.99 Other pulmonary embolism without acute cor pulmonale (principal)
CPT/HCPCS: 36415; 85007; 85027; 85610

== ENCOUNTER 2021-05-15 | Outpatient (REF) | payer MEDICARE, SELFPAY ==
[2021-05-15 12:08] LABS: INTERNATIONAL NORM RATIO 2.4 (0.9-1.1); Prothrombin Time 27.6 SEC (9.9-13.0)
== END 2021-05-15 00:01 | disposition home or self-care (01) ==
LOC: HO.LHD
PROVIDERS: Visit Provider Internal Medicine
DX: I26.99 Other pulmonary embolism without acute cor pulmonale (principal)
CPT/HCPCS: 36415; 85610

== ENCOUNTER 2021-05-29 10:50 | Outpatient (REF) | payer MEDICARE, SELFPAY ==
[2021-05-29 10:49] LABS: Hematocrit 38.1 % (37.0-47.0); Hemoglobin 11.9 g/dl (12.0-16.0); Mean Corpuscular HGB Conc 31.2 g/dl (31.0-35.0); Mean Corpuscular Hemoglobin 28.3 pg (27.0-33.0); Mean Corpuscular Volume 90.7 fL (80.0-98.0); Mean Platelet Volume 11.2 fL (9.4-12.3); Platelet Count 167 X10*3/uL (160-400); Red Cell Distribution Width 14.5 % (11.0-16.0)
[2021-05-29 10:50] LABS: WBC ABN SCTR FOR CBC 1
[2021-05-29 10:51] LABS: INTERNATIONAL NORM RATIO 2.6 (0.9-1.1); Prothrombin Time 29.8 SEC (9.9-13.0)
[2021-05-29 11:20] LABS: Band Neutrophils Percent 3 % (3-5); Basophils Percent Manual 1 % (0-2); Eosinophils Percent Manual 5 % (0-4); Lymphocytes Percent Manual 30 % (20-40); Monocytes Percent Manual 13 % (2-11); Neutrophils Percent Manual 48 % (45-73)
[2021-05-29 11:22] LABS: Platelet Estimate NORMAL (NORMAL); Platelet Morphology Comment NORMAL; RBC Morphology NORMAL
[2021-05-29 11:24] LABS: Eosinophils Absolute Manual 0.2 X10*3/uL (0.0-0.4); Lymphocytes Absolute Manual 1.2 X10*3/uL (1.2-4.9); Monocytes Absolute Manual 0.5 X10*3/uL (0.1-1.2)
== END 2021-05-29 10:51 | disposition home or self-care (01) ==
LOC: HO.LHD 10:50
PROVIDERS: Visit Provider Internal Medicine
DX: I26.99 Other pulmonary embolism without acute cor pulmonale (principal); E11.9 Type 2 diabetes mellitus without complications; I10 Essential (primary) hypertension; I25.10 Atherosclerotic heart disease of native coronary artery without angina pectoris
CPT/HCPCS: 36415; 85007; 85027; 85610

== ENCOUNTER 2021-06-12 07:55 | Outpatient (REF) | payer MEDICARE, SELFPAY ==
[2021-06-12 10:58] LABS: INTERNATIONAL NORM RATIO 2.5 (0.9-1.1); Prothrombin Time 28.8 SEC (9.9-13.0)
== END 2021-06-12 07:56 | disposition home or self-care (01) ==
LOC: HO.LHD 07:55
PROVIDERS: Internal Medicine; Visit Provider Family Medicine
DX: I26.99 Other pulmonary embolism without acute cor pulmonale (principal)
CPT/HCPCS: 36415; 85610

== ENCOUNTER 2021-06-28 06:28 | Outpatient (REF) | payer MEDICARE, SELFPAY ==
[2021-06-26 12:26] LABS: INTERNATIONAL NORM RATIO 2.5 (0.9-1.1); Prothrombin Time 28.4 SEC (9.9-13.0)
== END 2021-06-28 06:29 | disposition home or self-care (01) ==
LOC: HO.LHD 06:28
PROVIDERS: Visit Provider Internal Medicine
DX: I26.99 Other pulmonary embolism without acute cor pulmonale (principal)
CPT/HCPCS: 36415; 85610

== ENCOUNTER 2021-07-10 07:48 | Outpatient (REF) | payer MEDICARE, SELFPAY ==
[2021-07-10 13:20] LABS: INTERNATIONAL NORM RATIO 2.1 (0.9-1.1); Prothrombin Time 24.5 SEC (9.9-13.0)
== END 2021-07-10 07:49 | disposition home or self-care (01) ==
LOC: HO.LHD 07:48
PROVIDERS: Visit Provider Internal Medicine
DX: I26.99 Other pulmonary embolism without acute cor pulmonale (principal)
CPT/HCPCS: 36415; 85610

== ENCOUNTER 2021-07-17 07:36 | Outpatient (REF) | payer MEDICARE, SELFPAY ==
[2021-07-17 12:22] LABS: INTERNATIONAL NORM RATIO 2.4 (0.9-1.1); Prothrombin Time 27.3 SEC (9.9-13.0)
== END 2021-07-17 07:37 | disposition home or self-care (01) ==
LOC: HO.LHD 07:36
PROVIDERS: Visit Provider Internal Medicine
DX: I26.99 Other pulmonary embolism without acute cor pulmonale (principal)
CPT/HCPCS: 36415; 85610

== ENCOUNTER 2021-08-01 07:20 | Outpatient (REF) | payer MEDICARE, SELFPAY ==
[2021-07-31 11:04] LABS: Hematocrit 39.9 % (37.0-47.0); Hemoglobin 12.6 g/dl (12.0-16.0); Mean Corpuscular HGB Conc 31.6 g/dl (31.0-35.0); Mean Corpuscular Hemoglobin 28.5 pg (27.0-33.0); Mean Corpuscular Volume 90.3 fL (80.0-98.0); Mean Platelet Volume 11.5 fL (9.4-12.3); Platelet Count 209 X10*3/uL (160-400); Red Blood Count 4.42 X10*6/uL (4.20-5.50); Red Cell Distribution Width 14.2 % (11.0-16.0)
[2021-07-31 11:05] LABS: Prothrombin Time 47.3 SEC (9.9-13.0); WBC ABN SCTR FOR CBC 1
[2021-07-31 11:39] LABS: Basophils Percent Manual 1 % (0-2); Eosinophils Percent Manual 47 % (0-4); Lymphocytes Percent Manual 20 % (20-40); Monocytes Percent Manual 6 % (2-11); Neutrophils Percent Manual 26 % (45-73); Nucleated Red Blood Cells 1 /100WBC (0-0)
[2021-07-31 11:41] LABS: Band Neutrophils Percent 0 % (3-5); Platelet Estimate NORMAL (NORMAL); Platelet Morphology Comment NORMAL; RBC Morphology NORMAL
[2021-07-31 12:01] LABS: Basophils Abs Manual 0.1 X10*3/uL (0.0-0.2); Eosinophils Absolute Manual 3.7 X10*3/uL (0.0-0.4); Lymphocytes Absolute Manual 1.6 X10*3/uL (1.2-4.9); Monocytes Absolute Manual 0.5 X10*3/uL (0.1-1.2); White Blood Count 7.8 X10*3/uL (4.8-10.8)
== END 2021-08-01 07:21 | disposition home or self-care (01) ==
LOC: HO.LHD 07:20
PROVIDERS: Visit Provider Internal Medicine
DX: I26.99 Other pulmonary embolism without acute cor pulmonale (principal)
CPT/HCPCS: 36415; 85007; 85025; 85027; 85610

== ENCOUNTER 2021-08-07 12:46 | Outpatient (REF) | payer MEDICARE, SELFPAY ==
[2021-08-07 10:44] LABS: Hematocrit 38.9 % (37.0-47.0); Hemoglobin 12.2 g/dl (12.0-16.0); Mean Corpuscular HGB Conc 31.4 g/dl (31.0-35.0); Mean Corpuscular Hemoglobin 28.2 pg (27.0-33.0); Mean Platelet Volume 11.3 fL (9.4-12.3); Platelet Count 169 X10*3/uL (160-400); Red Blood Count 4.32 X10*6/uL (4.20-5.50); Red Cell Distribution Width 14.4 % (11.0-16.0); WBC ABN SCTR FOR CBC 1
[2021-08-07 10:46] LABS: Prothrombin Time 36.3 SEC (10.0-13.1)
[2021-08-07 11:05] LABS: Atypical Lymphs Percent Manual 1 % (0-6); Band Neutrophils Percent 0 % (3-5); Eosinophils Percent Manual 38 % (0-4); Lymphocytes Percent Manual 23 % (20-40); Monocytes Percent Manual 7 % (2-11); Neutrophils Percent Manual 31 % (45-73)
[2021-08-07 11:07] LABS: Alanine Aminotransferase 12 U/L (0-31); Albumin Level 3.4 g/dL (3.5-5.0); Alkaline Phosphatase 86 U/L (39-117); Anion Gap 14 (12-20); Aspartate Amino Transferase 14 U/L (5-31); Bilirubin Total 1.3 mg/dL (0.0-1.0); Blood Urea Nitrogen 17 mg/dL (9-16); Calcium 8.3 mg/dL (8.4-10.2); Carbon Dioxide 26 mmol/L (22-29); Chloride 108 mmol/L (96-108); Cholesterol 134 mg/dL; Estimated Glomerular Filt Rate > 60; Glucose Fasting 151 mg/dL (60-99); HDL Cholesterol 45 mg/dL; LDL Cholesterol Calculated 71 mg/dl; Sodium 144 mmol/L (135-145); Total Protein 5.9 g/dL (6.5-8.0); Triglycerides 94 mg/dL
[2021-08-07 11:16] LABS: Estimated Average Glucose 171 mg/dL; Hemoglobin A1c % 7.6 %; Nucleated Red Blood Cells 1 /100WBC (0-0)
[2021-08-07 11:17] LABS: Platelet Estimate NORMAL (NORMAL); Platelet Morphology Comment NORMAL; RBC Morphology NORMAL
[2021-08-07 11:18] LABS: Eosinophils Absolute Manual 1.8 X10*3/uL (0.0-0.4); Lymphocytes Absolute Manual 1.1 X10*3/uL (1.2-4.9); Monocytes Absolute Manual 0.3 X10*3/uL (0.1-1.2); Neutrophils Absolute Manual 1.5 X10*3/uL (2.0-8.3); White Blood Count 4.8 X10*3/uL (4.8-10.8)
[2021-08-07 11:27] LABS: TSH reflex Free T4 0.24 uIU/mL (0.32-4.0)
[2021-08-07 12:11] LABS: Free T4 (Free Thyroxine) 1.32 ng/dL (0.71-1.85)
== END 2021-08-07 12:47 | disposition home or self-care (01) ==
LOC: HO.LHD 12:46
PROVIDERS: Visit Provider Internal Medicine
DX: E03.9 Hypothyroidism, unspecified (principal); E11.9 Type 2 diabetes mellitus without complications; E78.5 Hyperlipidemia, unspecified; I10 Essential (primary) hypertension; I26.99 Other pulmonary embolism without acute cor pulmonale
CPT/HCPCS: 36415; 80053; 80061; 83036; 84439; 84443; 85007; 85027; 85610

== ENCOUNTER 2021-08-14 06:53 | Outpatient (REF) | payer MEDICARE, SELFPAY ==
[2021-08-14 11:36] LABS: INTERNATIONAL NORM RATIO 2.3 (0.9-1.1); Prothrombin Time 26.8 SEC (10.0-13.1)
== END 2021-08-14 06:54 | disposition home or self-care (01) ==
LOC: HO.LHD 06:53
PROVIDERS: Visit Provider Internal Medicine
DX: I26.99 Other pulmonary embolism without acute cor pulmonale (principal)
CPT/HCPCS: 36415; 85610

== ENCOUNTER 2021-08-23 14:21 | Outpatient (REF) | payer MEDICARE, SELFPAY ==
[2021-08-21 11:54] LABS: Hematocrit 38.3 % (37.0-47.0); Hemoglobin 12.1 g/dl (12.0-16.0); Mean Corpuscular HGB Conc 31.6 g/dl (31.0-35.0); Mean Corpuscular Hemoglobin 28.7 pg (27.0-33.0); Mean Corpuscular Volume 90.8 fL (80.0-98.0); Mean Platelet Volume 10.6 fL (9.4-12.3); Platelet Count 181 X10*3/uL (160-400); Red Blood Count 4.22 X10*6/uL (4.20-5.50); Red Cell Distribution Width 14.2 % (11.0-16.0); White Blood Count 4.9 X10*3/uL (4.8-10.8)
[2021-08-21 12:05] LABS: Prothrombin Time 35.6 SEC (10.0-13.1)
[2021-08-21 12:48] LABS: Band Neutrophils Percent 7 % (3-5); Eosinophils Absolute Manual 0.8 X10*3/uL (0.0-0.4); Eosinophils Percent Manual 16 % (0-4); Lymphocytes Absolute Manual 0.6 X10*3/uL (1.2-4.9); Lymphocytes Percent Manual 12 % (20-40); Monocytes Absolute Manual 0.3 X10*3/uL (0.1-1.2); Monocytes Percent Manual 7 % (2-11); Neutrophils Absolute Manual 3.2 X10*3/uL (2.0-8.3); Neutrophils Percent Manual 58 % (45-73)
[2021-08-21 12:50] LABS: Platelet Estimate NORMAL (NORMAL); Platelet Morphology Comment NORMAL; RBC Morphology NORMAL
== END 2021-08-23 14:22 | disposition home or self-care (01) ==
LOC: HO.LHD 14:21
PROVIDERS: Visit Provider Internal Medicine
DX: I26.99 Other pulmonary embolism without acute cor pulmonale (principal)
CPT/HCPCS: 36415; 85007; 85027; 85610

== ENCOUNTER 2021-08-28 06:01 | Outpatient (REF) | payer MEDICARE, SELFPAY ==
[2021-08-28 12:25] LABS: Hematocrit 37.5 % (37.0-47.0); Hemoglobin 11.6 g/dl (12.0-16.0); Mean Corpuscular HGB Conc 30.9 g/dl (31.0-35.0); Mean Corpuscular Volume 90.4 fL (80.0-98.0); Mean Platelet Volume 10.7 fL (9.4-12.3); Platelet Count 263 X10*3/uL (160-400); Red Blood Count 4.15 X10*6/uL (4.20-5.50); Red Cell Distribution Width 13.7 % (11.0-16.0); White Blood Count 4.5 X10*3/uL (4.8-10.8)
[2021-08-28 12:30] LABS: INTERNATIONAL NORM RATIO 3.8 (0.9-1.1); Prothrombin Time 46.7 SEC (10.0-13.1)
[2021-08-28 13:22] LABS: Band Neutrophils Percent 1 % (3-5); Eosinophils Absolute Manual 0.6 X10*3/uL (0.0-0.4); Eosinophils Percent Manual 13 % (0-4); Lymphocytes Absolute Manual 0.9 X10*3/uL (1.2-4.9); Lymphocytes Percent Manual 20 % (20-40); Monocytes Absolute Manual 0.4 X10*3/uL (0.1-1.2); Monocytes Percent Manual 8 % (2-11); Neutrophils Absolute Manual 2.7 X10*3/uL (2.0-8.3); Neutrophils Percent Manual 58 % (45-73)
[2021-08-28 13:25] LABS: Platelet Estimate NORMAL (NORMAL); Platelet Morphology Comment NORMAL; RBC Morphology NORMAL
== END 2021-08-28 06:02 | disposition home or self-care (01) ==
LOC: HO.LHD 06:01
PROVIDERS: Visit Provider Internal Medicine
DX: I26.99 Other pulmonary embolism without acute cor pulmonale (principal); E11.9 Type 2 diabetes mellitus without complications; I10 Essential (primary) hypertension; I25.10 Atherosclerotic heart disease of native coronary artery without angina pectoris
CPT/HCPCS: 36415; 85007; 85027; 85610

== ENCOUNTER 2021-08-30 12:17 | Outpatient (REF) | payer MEDICARE, SELFPAY ==
[2021-08-30 13:03] LABS: Influenza A PCR NEGATIVE (Negative); Influenza B PCR NEGATIVE (Negative); Resp Syncy Virus RNA Qual PCR NEGATIVE (Negative); SARS COV2 PCR INHOUSE NEGATIVE (Negative)
== END 2021-08-30 12:18 | disposition home or self-care (01) ==
LOC: HO.LNP 12:17
PROVIDERS: Visit Provider Physician Assistant Medical
DX: Z20.822 Contact with and (suspected) exposure to COVID-19 (principal); R05.9 Cough, unspecified
CPT/HCPCS: 0241U

== ENCOUNTER 2021-09-04 | Outpatient (REF) | payer MEDICARE, SELFPAY ==
[2021-09-04 11:30] LABS: INTERNATIONAL NORM RATIO 1.5 (0.9-1.1); Prothrombin Time 17.7 SEC (10.0-13.1)
== END 2021-09-04 00:01 | disposition home or self-care (01) ==
LOC: HO.LHD
PROVIDERS: Visit Provider Internal Medicine
DX: I26.99 Other pulmonary embolism without acute cor pulmonale (principal)
CPT/HCPCS: 36415; 85610

== ENCOUNTER 2021-09-04 09:37 | Outpatient (REF) | payer MEDICARE, SELFPAY ==
[2021-09-11 12:31] LABS: INTERNATIONAL NORM RATIO 1.9 (0.9-1.1); Prothrombin Time 22.3 SEC (10.0-13.1)
== END 2021-09-04 09:38 ==
LOC: HO.LHD 09:37
PROVIDERS: Visit Provider Internal Medicine
DX: I26.99 Other pulmonary embolism without acute cor pulmonale (principal)
CPT/HCPCS: 36415; 85610

== ENCOUNTER 2021-09-18 05:54 | Outpatient (REF) | payer MEDICARE, SELFPAY ==
[2021-09-18 11:30] LABS: INTERNATIONAL NORM RATIO 2.5 (0.9-1.1); Prothrombin Time 29.6 SEC (10.0-13.1)
== END 2021-09-18 05:55 | disposition home or self-care (01) ==
LOC: HO.LHD 05:54
PROVIDERS: Visit Provider Internal Medicine
DX: I26.99 Other pulmonary embolism without acute cor pulmonale (principal)
CPT/HCPCS: 36415; 85610

== ENCOUNTER 2021-09-26 05:42 | Outpatient (REF) | payer MEDICARE, SELFPAY ==
[2021-09-25 11:12] LABS: INTERNATIONAL NORM RATIO 2.2 (0.9-1.1); Prothrombin Time 26.2 SEC (10.0-13.1)
== END 2021-09-26 05:43 | disposition home or self-care (01) ==
LOC: HO.LHD 05:42
PROVIDERS: Visit Provider Internal Medicine
DX: I26.99 Other pulmonary embolism without acute cor pulmonale (principal)
CPT/HCPCS: 36415; 85610

== ENCOUNTER 2021-10-03 09:29 | Outpatient (REF) | payer MEDICARE, SELFPAY ==
[2021-10-03 11:31] LABS: INTERNATIONAL NORM RATIO 2.3 (0.9-1.1); Prothrombin Time 26.9 SEC (10.0-13.1)
== END 2021-10-03 09:30 | disposition home or self-care (01) ==
LOC: HO.HMGCLDS 09:29
PROVIDERS: PCP Internal Medicine; Visit Provider Internal Medicine
DX: Z79.01 Long term (current) use of anticoagulants (principal)
CPT/HCPCS: 36415; 85610

== ENCOUNTER 2021-10-16 14:20 | Outpatient (REF) | payer MEDICARE, SELFPAY ==
[2021-10-16 12:05] LABS: INTERNATIONAL NORM RATIO 1.7 (0.9-1.1); Prothrombin Time 19.5 SEC (10.0-13.1)
== END 2021-10-16 14:21 | disposition home or self-care (01) ==
LOC: HO.LHD 14:20
PROVIDERS: Visit Provider Internal Medicine
DX: I26.99 Other pulmonary embolism without acute cor pulmonale (principal)
CPT/HCPCS: 36415; 85610

== ENCOUNTER 2021-10-23 06:00 | Outpatient (REF) | payer MEDICARE, SELFPAY ==
[2021-10-23 13:09] LABS: INTERNATIONAL NORM RATIO 2.5 (0.9-1.1); Prothrombin Time 29.6 SEC (10.0-13.1)
== END 2021-10-23 06:01 | disposition home or self-care (01) ==
LOC: HO.LHD 06:00
PROVIDERS: Visit Provider Internal Medicine
DX: I26.99 Other pulmonary embolism without acute cor pulmonale (principal)
CPT/HCPCS: 36415; 85610

== ENCOUNTER 2021-10-30 06:58 | Outpatient (REF) | payer MEDICARE, SELFPAY ==
[2021-10-30 11:40] LABS: INTERNATIONAL NORM RATIO 1.9 (0.9-1.1); Prothrombin Time 22.6 SEC (10.0-13.1)
== END 2021-10-30 06:59 | disposition home or self-care (01) ==
LOC: HO.LHD 06:58
PROVIDERS: Visit Provider Internal Medicine
DX: I26.99 Other pulmonary embolism without acute cor pulmonale (principal)
CPT/HCPCS: 36415; 85610

== ENCOUNTER 2021-11-06 11:59 | Outpatient (REF) | payer MEDICARE, SELFPAY ==
[2021-11-06 10:50] LABS: Prothrombin Time 23.4 SEC (10.0-13.1)
== END 2021-11-06 12:00 | disposition home or self-care (01) ==
LOC: HO.LHD 11:59
PROVIDERS: Visit Provider Internal Medicine
DX: I26.99 Other pulmonary embolism without acute cor pulmonale (principal)
CPT/HCPCS: 36415; 85610

== ENCOUNTER 2021-11-18 08:39 | Outpatient (REF) | payer MEDICARE, SELFPAY ==
[2021-11-13 10:44] LABS: INTERNATIONAL NORM RATIO 2.1 (0.9-1.1); Prothrombin Time 24.6 SEC (10.0-13.1)
== END 2021-11-18 08:40 | disposition home or self-care (01) ==
LOC: HO.LHD 08:39
PROVIDERS: Visit Provider Internal Medicine
DX: I26.99 Other pulmonary embolism without acute cor pulmonale (principal); Z79.01 Long term (current) use of anticoagulants
CPT/HCPCS: 36415; 85610

== ENCOUNTER 2021-11-20 08:42 | Outpatient (REF) | payer MEDICARE, SELFPAY ==
[2021-11-20 13:56] LABS: Prothrombin Time 23.4 SEC (10.0-13.1)
== END 2021-11-20 08:43 | disposition home or self-care (01) ==
LOC: HO.LHD 08:42
PROVIDERS: Visit Provider Internal Medicine
DX: I26.99 Other pulmonary embolism without acute cor pulmonale (principal)
CPT/HCPCS: 36415; 85610

== ENCOUNTER 2021-11-27 07:21 | Outpatient (REF) | payer MEDICARE, SELFPAY ==
[2021-11-27 12:54] LABS: INTERNATIONAL NORM RATIO 1.7 (0.9-1.1); Prothrombin Time 20.4 SEC (10.0-13.1)
== END 2021-11-27 07:22 | disposition home or self-care (01) ==
LOC: HO.LHD 07:21
PROVIDERS: Visit Provider Internal Medicine
DX: I26.99 Other pulmonary embolism without acute cor pulmonale (principal)
CPT/HCPCS: 36415; 85610

== ENCOUNTER 2021-12-04 12:29 | Outpatient (REF) | payer MEDICARE, SELFPAY ==
[2021-12-04 10:26] LABS: INTERNATIONAL NORM RATIO 2.2 (0.9-1.1); Prothrombin Time 25.9 SEC (10.0-13.1)
== END 2021-12-04 12:30 | disposition home or self-care (01) ==
LOC: HO.LHD 12:29
PROVIDERS: Visit Provider Internal Medicine
DX: I26.99 Other pulmonary embolism without acute cor pulmonale (principal)
CPT/HCPCS: 36415; 85610

== ENCOUNTER 2021-12-11 06:13 | Outpatient (REF) | payer MEDICARE, SELFPAY ==
[2021-12-11 12:08] LABS: INTERNATIONAL NORM RATIO 2.6 (0.9-1.1); Prothrombin Time 30.6 SEC (10.0-13.1)
== END 2021-12-11 06:14 | disposition home or self-care (01) ==
LOC: HO.LHD 06:13
PROVIDERS: Visit Provider Internal Medicine
DX: I26.99 Other pulmonary embolism without acute cor pulmonale (principal)
CPT/HCPCS: 36415; 85610

== ENCOUNTER 2021-12-18 05:43 | Outpatient (REF) | payer MEDICARE, SELFPAY ==
[2021-12-18 10:28] LABS: INTERNATIONAL NORM RATIO 2.4 (0.9-1.1); Prothrombin Time 28.6 SEC (10.0-13.1)
== END 2021-12-18 05:44 | disposition home or self-care (01) ==
LOC: HO.LHD 05:43
PROVIDERS: Visit Provider Internal Medicine
DX: I26.99 Other pulmonary embolism without acute cor pulmonale (principal)
CPT/HCPCS: 36415; 85610

== ENCOUNTER 2022-01-01 11:04 | Outpatient (REF) | payer MEDICARE, SELFPAY ==
[2022-01-01 10:56] LABS: INTERNATIONAL NORM RATIO 2.4 (0.9-1.1)
== END 2022-01-01 11:05 | disposition home or self-care (01) ==
LOC: HO.LHD 11:04
PROVIDERS: Visit Provider Internal Medicine
DX: I26.99 Other pulmonary embolism without acute cor pulmonale (principal)
CPT/HCPCS: 36415; 85610

== ENCOUNTER 2022-01-15 07:03 | Outpatient (REF) | payer MEDICARE, SELFPAY ==
[2022-01-15 12:30] LABS: INTERNATIONAL NORM RATIO 2.6 (0.9-1.1); Prothrombin Time 30.5 SEC (10.0-13.1)
== END 2022-01-15 07:04 | disposition home or self-care (01) ==
LOC: HO.LHD 07:03
PROVIDERS: Visit Provider Internal Medicine
DX: I26.99 Other pulmonary embolism without acute cor pulmonale (principal)
CPT/HCPCS: 36415; 85610

== ENCOUNTER 2022-01-29 10:45 | Outpatient (REF) | payer MEDICARE, SELFPAY ==
[2022-01-29 10:48] LABS: INTERNATIONAL NORM RATIO 2.4 (0.9-1.1); Prothrombin Time 28.8 SEC (10.0-13.1)
== END 2022-01-29 10:46 | disposition home or self-care (01) ==
LOC: HO.LHD 10:45
PROVIDERS: Visit Provider Internal Medicine
DX: I26.99 Other pulmonary embolism without acute cor pulmonale (principal)
CPT/HCPCS: 36415; 85610

== ENCOUNTER 2022-02-12 06:22 | Outpatient (REF) | payer MEDICARE, SELFPAY ==
[2022-02-12 10:10] LABS: Hematocrit 38.3 % (37.0-47.0); Hemoglobin 12.4 g/dl (12.0-16.0); Mean Corpuscular HGB Conc 32.4 g/dl (31.0-35.0); Mean Corpuscular Hemoglobin 28.3 pg (27.0-33.0); Mean Corpuscular Volume 87.4 fL (80.0-98.0); Mean Platelet Volume 10.9 fL (9.4-12.3); Platelet Count 176 X10*3/uL (160-400); Red Blood Count 4.38 X10*6/uL (4.20-5.50); Red Cell Distribution Width 14.5 % (11.0-16.0)
[2022-02-12 10:16] LABS: WBC ABN SCTR FOR CBC 1
[2022-02-12 10:21] LABS: INTERNATIONAL NORM RATIO 1.7 (0.9-1.1); Prothrombin Time 19.8 SEC (10.0-13.1)
[2022-02-12 10:22] LABS: Estimated Average Glucose 169 mg/dL; Hemoglobin A1c % 7.5 %
[2022-02-12 10:37] LABS: Alanine Aminotransferase 13 U/L (0-31); Albumin Level 3.8 g/dL (3.5-5.0); Alkaline Phosphatase 78 U/L (39-117); Anion Gap 10 (12-20); Aspartate Amino Transferase 14 U/L (5-31); Bilirubin Total 2.1 mg/dL (0.0-1.0); Blood Urea Nitrogen 13 mg/dL (9-16); Calcium 8.9 mg/dL (8.4-10.2); Carbon Dioxide 27 mmol/L (22-29); Chloride 107 mmol/L (96-108); Estimated Glomerular Filt Rate > 60; Glucose Fasting 153 mg/dL (60-99); Potassium 4.3 mmol/L (3.3-5.1); Sodium 140 mmol/L (135-145); Total Protein 6.5 g/dL (6.5-8.0)
[2022-02-12 10:53] LABS: TSH reflex Free T4 1.14 uIU/mL (0.32-4.0)
[2022-02-12 10:54] LABS: Band Neutrophils Percent 0 % (3-5); Eosinophils Percent Manual 2 % (0-4); Lymphocytes Percent Manual 36 % (20-40); Monocytes Percent Manual 6 % (2-11); Neutrophils Percent Manual 56 % (45-73)
[2022-02-12 10:55] LABS: Platelet Estimate NORMAL (NORMAL); Platelet Morphology Comment NORMAL; RBC Morphology NORMAL
[2022-02-12 10:56] LABS: Eosinophils Absolute Manual 0.1 X10*3/uL (0.0-0.4); Lymphocytes Absolute Manual 1.3 X10*3/uL (1.2-4.9); Monocytes Absolute Manual 0.2 X10*3/uL (0.1-1.2); Neutrophils Absolute Manual 2.1 X10*3/uL (2.0-8.3); White Blood Count 3.7 X10*3/uL (4.8-10.8)
== END 2022-02-12 06:23 | disposition home or self-care (01) ==
LOC: HO.LHD 06:22
PROVIDERS: Visit Provider Internal Medicine
DX: E78.5 Hyperlipidemia, unspecified (principal); I10 Essential (primary) hypertension; E11.9 Type 2 diabetes mellitus without complications
CPT/HCPCS: 36415; 80053; 83036; 84443; 85007; 85027; 85610

== ENCOUNTER 2022-02-19 10:49 | Outpatient (REF) | payer MEDICARE, SELFPAY ==
[2022-02-19 10:14] LABS: Hematocrit 38.4 % (37.0-47.0); Hemoglobin 12.2 g/dl (12.0-16.0); Mean Corpuscular HGB Conc 31.8 g/dl (31.0-35.0); Mean Corpuscular Hemoglobin 28.2 pg (27.0-33.0); Mean Corpuscular Volume 88.9 fL (80.0-98.0); Mean Platelet Volume 11.3 fL (9.4-12.3); Platelet Count 174 X10*3/uL (160-400); Red Blood Count 4.32 X10*6/uL (4.20-5.50); Red Cell Distribution Width 14.4 % (11.0-16.0); White Blood Count 3.6 X10*3/uL (4.8-10.8)
[2022-02-19 10:15] LABS: INTERNATIONAL NORM RATIO 2.7 (0.9-1.1); Prothrombin Time 32.2 SEC (10.0-13.1)
[2022-02-19 10:53] LABS: Band Neutrophils Percent 2 % (3-5); Lymphocytes Percent Manual 29 % (20-40); Monocytes Absolute Manual 0.3 X10*3/uL (0.1-1.2); Monocytes Percent Manual 9 % (2-11); Neutrophils Absolute Manual 2.2 X10*3/uL (2.0-8.3); Neutrophils Percent Manual 60 % (45-73)
[2022-02-19 10:54] LABS: RBC Morphology NORMAL
[2022-02-19 10:55] LABS: Platelet Estimate NORMAL (NORMAL)
[2022-02-19 11:46] LABS: Platelet Morphology Comment NORMAL
== END 2022-02-19 10:50 | disposition home or self-care (01) ==
LOC: HO.LHD 10:49
PROVIDERS: Visit Provider Internal Medicine
DX: I26.99 Other pulmonary embolism without acute cor pulmonale (principal)
CPT/HCPCS: 36415; 85007; 85027; 85610

== ENCOUNTER 2022-02-26 13:48 | Outpatient (REF) | payer MEDICARE, SELFPAY ==
[2022-02-26 09:29] LABS: Hematocrit 38.7 % (37.0-47.0); Hemoglobin 12.3 g/dl (12.0-16.0); Mean Corpuscular HGB Conc 31.8 g/dl (31.0-35.0); Mean Corpuscular Hemoglobin 27.9 pg (27.0-33.0); Mean Corpuscular Volume 87.8 fL (80.0-98.0); Mean Platelet Volume 10.8 fL (9.4-12.3); Platelet Count 181 X10*3/uL (160-400); Red Blood Count 4.41 X10*6/uL (4.20-5.50); Red Cell Distribution Width 14.3 % (11.0-16.0)
[2022-02-26 09:32] LABS: WBC ABN SCTR FOR CBC 1
[2022-02-26 09:41] LABS: INTERNATIONAL NORM RATIO 3.3 (0.9-1.1); Prothrombin Time 39.3 SEC (10.0-13.1)
[2022-02-26 10:28] LABS: Band Neutrophils Percent 1 % (3-5); Eosinophils Percent Manual 3 % (0-4); Lymphocytes Percent Manual 37 % (20-40); Monocytes Percent Manual 6 % (2-11); Neutrophils Percent Manual 53 % (45-73)
[2022-02-26 10:29] LABS: Platelet Estimate NORMAL (NORMAL); Platelet Morphology Comment NORMAL; RBC Morphology NORMAL
[2022-02-26 10:30] LABS: Eosinophils Absolute Manual 0.1 X10*3/uL (0.0-0.4); Lymphocytes Absolute Manual 1.5 X10*3/uL (1.2-4.9); Monocytes Absolute Manual 0.2 X10*3/uL (0.1-1.2); Neutrophils Absolute Manual 2.2 X10*3/uL (2.0-8.3); White Blood Count 4.1 X10*3/uL (4.8-10.8)
== END 2022-02-26 13:49 | disposition home or self-care (01) ==
LOC: HO.LHD 13:48
PROVIDERS: Visit Provider Internal Medicine
DX: I26.99 Other pulmonary embolism without acute cor pulmonale (principal)
CPT/HCPCS: 36415; 85007; 85027; 85610

== ENCOUNTER 2022-03-05 11:06 | Outpatient (REF) | payer MEDICARE, SELFPAY ==
[2022-03-05 09:47] LABS: Hematocrit 36.2 % (37.0-47.0); Hemoglobin 11.5 g/dl (12.0-16.0); Mean Corpuscular HGB Conc 31.8 g/dl (31.0-35.0); Mean Corpuscular Hemoglobin 27.8 pg (27.0-33.0); Mean Corpuscular Volume 87.4 fL (80.0-98.0); Mean Platelet Volume 10.9 fL (9.4-12.3); Platelet Count 157 X10*3/uL (160-400); Red Blood Count 4.14 X10*6/uL (4.20-5.50); Red Cell Distribution Width 14.6 % (11.0-16.0); WBC ABN SCTR FOR CBC 1; White Blood Count 3.6 X10*3/uL (4.8-10.8)
[2022-03-05 09:52] LABS: INTERNATIONAL NORM RATIO 2.4 (0.9-1.1); Prothrombin Time 28.3 SEC (10.0-13.1)
[2022-03-05 10:19] LABS: Band Neutrophils Percent 1 % (3-5); Eosinophils Absolute Manual 0.1 X10*3/uL (0.0-0.4); Eosinophils Percent Manual 2 % (0-4); Lymphocytes Absolute Manual 1.1 X10*3/uL (1.2-4.9); Lymphocytes Percent Manual 30 % (20-40); Monocytes Absolute Manual 0.1 X10*3/uL (0.1-1.2); Monocytes Percent Manual 4 % (2-11); Neutrophils Absolute Manual 2.3 X10*3/uL (2.0-8.3); Neutrophils Percent Manual 63 % (45-73)
[2022-03-05 10:21] LABS: RBC Morphology NORMAL
[2022-03-05 10:22] LABS: Platelet Estimate NORMAL (NORMAL); Platelet Morphology Comment NORMAL
== END 2022-03-05 11:07 | disposition home or self-care (01) ==
LOC: HO.LHD 11:06
PROVIDERS: Visit Provider Internal Medicine
DX: I26.99 Other pulmonary embolism without acute cor pulmonale (principal)
CPT/HCPCS: 36415; 85007; 85027; 85610

== ENCOUNTER 2022-03-12 06:10 | Outpatient (REF) | payer MEDICARE, SELFPAY ==
[2022-03-12 12:29] LABS: Hematocrit 37.1 % (37.0-47.0); Hemoglobin 11.7 g/dl (12.0-16.0); Mean Corpuscular HGB Conc 31.5 g/dl (31.0-35.0); Mean Corpuscular Hemoglobin 28.1 pg (27.0-33.0); Mean Platelet Volume 10.8 fL (9.4-12.3); Platelet Count 168 X10*3/uL (160-400); Red Blood Count 4.17 X10*6/uL (4.20-5.50); Red Cell Distribution Width 14.5 % (11.0-16.0)
[2022-03-12 12:30] LABS: WBC ABN SCTR FOR CBC 1
[2022-03-12 12:32] LABS: INTERNATIONAL NORM RATIO 2.3 (0.9-1.1); Prothrombin Time 26.9 SEC (10.0-13.1)
[2022-03-12 13:38] LABS: Band Neutrophils Percent 0 % (3-5); Eosinophils Percent Manual 3 % (0-4); Lymphocytes Percent Manual 31 % (20-40); Monocytes Percent Manual 11 % (2-11); Neutrophils Percent Manual 55 % (45-73)
[2022-03-12 13:39] LABS: Platelet Estimate NORMAL (NORMAL); Platelet Morphology Comment NORMAL; RBC Morphology NOTED
[2022-03-12 13:40] LABS: Hypochromasia 1+ (5-14) /OIF
[2022-03-12 13:45] LABS: Eosinophils Absolute Manual 0.1 X10*3/uL (0.0-0.4); Lymphocytes Absolute Manual 1.1 X10*3/uL (1.2-4.9); Monocytes Absolute Manual 0.4 X10*3/uL (0.1-1.2); Neutrophils Absolute Manual 1.9 X10*3/uL (2.0-8.3); White Blood Count 3.5 X10*3/uL (4.8-10.8)
== END 2022-03-12 06:11 | disposition home or self-care (01) ==
LOC: HO.LHD 06:10
PROVIDERS: Visit Provider Internal Medicine
DX: I26.99 Other pulmonary embolism without acute cor pulmonale (principal)
CPT/HCPCS: 36415; 85007; 85027; 85610

== ENCOUNTER 2022-03-19 13:55 | Outpatient (REF) | payer MEDICARE, SELFPAY ==
[2022-03-19 11:57] LABS: INTERNATIONAL NORM RATIO 2.1 (0.9-1.1); Prothrombin Time 24.9 SEC (10.0-13.1)
== END 2022-03-19 13:56 | disposition home or self-care (01) ==
LOC: HO.LHD 13:55
PROVIDERS: Visit Provider Internal Medicine
DX: I26.99 Other pulmonary embolism without acute cor pulmonale (principal)
CPT/HCPCS: 36415; 85610

== ENCOUNTER 2022-03-26 06:55 | Outpatient (REF) | payer MEDICARE, SELFPAY ==
[2022-03-26 10:54] LABS: INTERNATIONAL NORM RATIO 2.6 (0.9-1.1); Prothrombin Time 31.2 SEC (10.0-13.1)
== END 2022-03-26 06:56 | disposition home or self-care (01) ==
LOC: HO.LHD 06:55
PROVIDERS: Visit Provider Internal Medicine
DX: I26.99 Other pulmonary embolism without acute cor pulmonale (principal)
CPT/HCPCS: 36415; 85610

== ENCOUNTER 2022-04-09 06:07 | Outpatient (REF) | payer MEDICARE, SELFPAY ==
[2022-04-09 12:15] LABS: Prothrombin Time 24.2 SEC (10.0-13.1)
== END 2022-04-09 06:08 | disposition home or self-care (01) ==
LOC: HO.LHD 06:07
PROVIDERS: Visit Provider Internal Medicine
DX: I26.99 Other pulmonary embolism without acute cor pulmonale (principal)
CPT/HCPCS: 36415; 85610

== ENCOUNTER 2022-04-23 05:47 | Outpatient (REF) | payer MEDICARE, SELFPAY ==
[2022-04-23 12:09] LABS: INTERNATIONAL NORM RATIO 1.2 (0.9-1.1); Prothrombin Time 14.2 SEC (10.0-13.1)
== END 2022-04-23 05:48 | disposition home or self-care (01) ==
LOC: HO.LHD 05:47
PROVIDERS: Visit Provider Internal Medicine
DX: I26.99 Other pulmonary embolism without acute cor pulmonale (principal)
CPT/HCPCS: 36415; 85610

== ENCOUNTER 2022-04-30 10:43 | Outpatient (REF) | payer MEDICARE, SELFPAY ==
[2022-04-30 09:28] LABS: INTERNATIONAL NORM RATIO 1.9 (0.9-1.1); Prothrombin Time 22.6 SEC (10.0-13.1)
== END 2022-04-30 10:44 | disposition home or self-care (01) ==
LOC: HO.LHD 10:43
PROVIDERS: Visit Provider Internal Medicine
DX: I26.99 Other pulmonary embolism without acute cor pulmonale (principal)
CPT/HCPCS: 36415; 85610

== ENCOUNTER 2022-05-07 05:34 | Outpatient (REF) | payer MEDICARE, SELFPAY ==
[2022-05-07 10:24] LABS: INTERNATIONAL NORM RATIO 1.7 (0.9-1.1); Prothrombin Time 20.3 SEC (10.0-13.1)
== END 2022-05-07 05:35 | disposition home or self-care (01) ==
LOC: HO.LHD 05:34
PROVIDERS: Visit Provider Internal Medicine
DX: I26.99 Other pulmonary embolism without acute cor pulmonale (principal)
CPT/HCPCS: 36415; 85610

== ENCOUNTER 2022-05-14 05:53 | Outpatient (REF) | payer MEDICARE, SELFPAY ==
[2022-05-14 11:58] LABS: INTERNATIONAL NORM RATIO 2.3 (0.9-1.1); Prothrombin Time 27.2 SEC (10.0-13.1)
== END 2022-05-14 05:54 | disposition home or self-care (01) ==
LOC: HO.LHD 05:53
PROVIDERS: Visit Provider Internal Medicine
DX: I26.99 Other pulmonary embolism without acute cor pulmonale (principal)
CPT/HCPCS: 36415; 85610

== ENCOUNTER 2022-05-21 | Outpatient (REF) | payer MEDICARE, SELFPAY ==
[2022-05-21 11:55] LABS: INTERNATIONAL NORM RATIO 2.5 (0.9-1.1); Prothrombin Time 29.9 SEC (10.0-13.1)
== END 2022-05-21 00:01 | disposition home or self-care (01) ==
LOC: HO.LHD
PROVIDERS: Visit Provider Internal Medicine
DX: I26.99 Other pulmonary embolism without acute cor pulmonale (principal)
CPT/HCPCS: 36415; 85610

== ENCOUNTER 2022-06-04 | Outpatient (REF) | payer MEDICARE, SELFPAY ==
[2022-06-04 12:12] LABS: INTERNATIONAL NORM RATIO 2.2 (0.9-1.1); Prothrombin Time 26.5 SEC (10.0-13.1)
== END 2022-06-04 00:01 ==
LOC: HO.LHD
PROVIDERS: Visit Provider Internal Medicine
DX: I26.99 Other pulmonary embolism without acute cor pulmonale (principal)
CPT/HCPCS: 36415; 85610

== ENCOUNTER 2022-06-18 06:37 | Outpatient (REF) | payer MEDICARE, SELFPAY ==
[2022-06-18 11:53] LABS: INTERNATIONAL NORM RATIO 2.5 (0.9-1.1)
== END 2022-06-18 06:38 | disposition home or self-care (01) ==
LOC: HO.LHD 06:37
PROVIDERS: Visit Provider Internal Medicine
DX: I26.99 Other pulmonary embolism without acute cor pulmonale (principal)
CPT/HCPCS: 36415; 85610

== ENCOUNTER 2022-07-02 07:30 | Outpatient (REF) | payer MEDICARE, SELFPAY ==
[2022-07-02 10:29] LABS: INTERNATIONAL NORM RATIO 2.2 (0.9-1.1); Prothrombin Time 25.7 SEC (10.0-13.1)
== END 2022-07-02 07:31 | disposition home or self-care (01) ==
LOC: HO.LHD 07:30
PROVIDERS: Visit Provider Internal Medicine
DX: I26.99 Other pulmonary embolism without acute cor pulmonale (principal)
CPT/HCPCS: 36415; 85610

== ENCOUNTER 2022-07-26 09:16 | Outpatient (REF) | payer MEDICARE, SELFPAY ==
[2022-07-26 11:12] LABS: Hematocrit 41.4 % (37.0-47.0); Hemoglobin 12.8 g/dl (12.0-16.0); Mean Corpuscular HGB Conc 30.9 g/dl (31.0-35.0); Mean Corpuscular Hemoglobin 27.6 pg (27.0-33.0); Mean Corpuscular Volume 89.2 fL (80.0-98.0); Mean Platelet Volume 11.3 fL (9.4-12.3); Platelet Count 195 X10*3/uL (160-400); Red Blood Count 4.64 X10*6/uL (4.20-5.50); Red Cell Distribution Width 15.1 % (11.0-16.0)
[2022-07-26 11:13] LABS: WBC ABN SCTR FOR CBC 1
[2022-07-26 11:17] LABS: INTERNATIONAL NORM RATIO 1.9 (0.9-1.1); Prothrombin Time 22.8 SEC (10.0-13.1)
[2022-07-26 12:03] LABS: Eosinophils Percent Manual 5 % (0-4); Lymphocytes Percent Manual 37 % (20-40); Monocytes Percent Manual 10 % (2-11); Neutrophils Percent Manual 48 % (45-73)
[2022-07-26 12:05] LABS: RBC Morphology NORMAL
[2022-07-26 12:06] LABS: Large Platelet PRESENT; Nucleated Red Blood Cells 1 /100WBC (0-0); Platelet Estimate NORMAL (NORMAL); Platelet Morphology Comment NOTED
[2022-07-26 12:26] LABS: Eosinophils Absolute Manual 0.2 X10*3/uL (0.0-0.4); Lymphocytes Absolute Manual 1.4 X10*3/uL (1.2-4.9); Monocytes Absolute Manual 0.4 X10*3/uL (0.1-1.2); White Blood Count 3.8 X10*3/uL (4.8-10.8)
[2022-07-26 12:27] LABS: Band Neutrophils Percent 0 % (3-5); Neutrophils Absolute Manual 1.8 X10*3/uL (2.0-8.3)
== END 2022-07-26 09:17 | disposition home or self-care (01) ==
LOC: HO.HMGCLDS 09:16
PROVIDERS: PCP Internal Medicine; Visit Provider Internal Medicine
DX: Z79.01 Long term (current) use of anticoagulants (principal)
CPT/HCPCS: 36415; 85007; 85027; 85610

== ENCOUNTER 2022-08-05 09:55 | Outpatient (REF) | payer MEDICARE, SELFPAY ==
[2022-08-05 11:36] LABS: Hematocrit 38.4 % (37.0-47.0); Hemoglobin 11.9 g/dl (12.0-16.0); Mean Corpuscular Hemoglobin 27.9 pg (27.0-33.0); Mean Corpuscular Volume 90.1 fL (80.0-98.0); Mean Platelet Volume 11.4 fL (9.4-12.3); Platelet Count 195 X10*3/uL (160-400); Red Blood Count 4.26 X10*6/uL (4.20-5.50); WBC ABN SCTR FOR CBC 1
[2022-08-05 13:18] LABS: Eosinophils Percent Manual 4 % (0-4); Lymphocytes Percent Manual 30 % (20-40); Monocytes Percent Manual 8 % (2-11); Neutrophils Percent Manual 58 % (45-73)
[2022-08-05 13:19] LABS: Band Neutrophils Percent 0 % (3-5); Platelet Estimate NORMAL (NORMAL); Platelet Morphology Comment NORMAL; RBC Morphology NORMAL
[2022-08-05 13:21] LABS: Eosinophils Absolute Manual 0.2 X10*3/uL (0.0-0.4); Lymphocytes Absolute Manual 1.2 X10*3/uL (1.2-4.9); Monocytes Absolute Manual 0.3 X10*3/uL (0.1-1.2); Neutrophils Absolute Manual 2.3 X10*3/uL (2.0-8.3)
== END 2022-08-05 09:56 | disposition home or self-care (01) ==
LOC: HO.HMGCLDS 09:55
PROVIDERS: PCP Internal Medicine; Visit Provider Internal Medicine
DX: I10 Essential (primary) hypertension (principal); E78.5 Hyperlipidemia, unspecified; E11.9 Type 2 diabetes mellitus without complications
CPT/HCPCS: 36415; 85007; 85027

== ENCOUNTER 2022-08-13 10:38 | Outpatient (REF) | payer MEDICARE, SELFPAY | END 2022-08-13 10:39 | disposition home or self-care (01) | LOC: HO.HMGCLDS 10:38 | PROVIDERS: PCP Internal Medicine; Visit Provider Internal Medicine | DX: Z79.01 Long term (current) use of anticoagulants (principal) | CPT/HCPCS: 36415; 85610 ==

== ENCOUNTER 2022-08-18 10:03 | Outpatient (AMB) | payer MEDICARE, SELFPAY ==
[2022-08-18 10:15] VITALS: BP 118/70; BMI 38.0
--- NOTE | 2022-08-18 10:15 | MHC.PC.OV ---
Vital Signs 08/18/22 10:15 Height 4 ft 11 in Weight 188 lb BMI 38.0 BP 118/70 Blood Pressure Location Rt brachial Position Sitting Intake Visit Reasons: 6 month follow up Intake Note: Pt is here today for 6 months follow up visit. Allergies duloxetine Allergy (Unknown, Verified 08/18/22 10:16) delusions procaine [From Novocain] Adverse Reaction (Unknown, Verified 08/18/22 10:16) Nausea and Vomiting, fainting Medication List - Last Reconciled 08/18/22 by Rissa Bowling MD aspirin (Adult Low Dose Aspirin) 81 mg PO DAILY benzonatate 100 mg PO TID PRN cetirizine 10 mg (10 mL) PO BEDTIME PRN flu vacc [id number](65yr up)-PF mL IM fluticasone propionate 50 mcg/actuation 1 spray intranasal Q12H PRN gabapentin 600 mg PO Q8H gabapentin 100 mg PO .4 times a day glipizide 10 mg PO BID guaifenesin ER (Mucinex) 600 mg PO BID PRN hydrocortisone 2.5% 1 appl topical BID PRN levothyroxine (Euthyrox) 100 mcg PO DAILY lovastatin 40 mg PO DAILY melatonin 10 mg PO BEDTIME PRN metformin 500 mg PO BID metoprolol tartrate 150 mg (3 x 50 mg) PO DAILY miscellaneous medical supply light walker with wheels and a seat nystatin 1 appl topical BID Saccharomyces boulardii (Daily Probiotic (S. boulardii)) 250 mg PO BID sennosides (Vegetable Laxative) 8.6 mg PO DAILY warfarin 6 mg (1.5 x 4 mg) PO .QD Tobacco use date assessed: 08/18/22 Fall risk assessment: No Falls in past year Last assessed Fall Risk: 08/18/22 Dental Screening Dental Screen Date: 08/18/22 Did you have a dental visit in the last 12 months?: Yes Did you have a dental problem in the last 6 months where you did not have access to dental care?: No Was dental information given to patient?: Patient has dentist HPI 6 month follow up HPI Details Patient presents for the follow-up of type 2 diabetes hypertension hypothyroid peripheral neuropathy controlled on current medications. She continues Coumadin for history of recurrent PEs and cannot afford [employer] COUNT INCLUDES THE [facility] Medical History CAD (coronary artery disease) Cerumen impaction Diastolic CHF HTN (hypertension) Hypothyroidism Osteoarthritis Peripheral neuropathy Recurrent pulmonary embolism Type 2 diabetes mellitus Surgical History H/O Spinal surgery S/P three vessel coronary artery bypass Social History Housing: House Alcohol intake: never Patient Tobacco Use Status: Former Tobacco user Tobacco use type: Cigarette Years Smoked: 3 yrs e-Cigarette/Vaping Use: Never Used Second Hand Smoke Exposure: No Advance Directives Date on File: 06/26/03 service: No Current occupational status: retired and disabled Cognitive needs: No Hearing needs: No Vision needs: Yes Questionnaire Thrive Questionnaire Date Thrive assessed: 03/11/21 AUDIT C Alcohol Use Questionnaire (AUDIT-C) 1. How often do you have a drink containing alcohol?: Never 3. How often do you have six or more drinks on one occasion?: Never Total Score: 0 ANGELINE-7 AMB Questionnaire ANGELINE-7 Date ANGELINE - 7 assessed: 03/11/21 Source: Developed by Drs. Etienne Thao, Tamika Don, Martin Eason and colleagues, with an educational lenny from [employer]. Review of Systems Const All systems reviewed & are unremarkable except as noted in HPI and below Reports no additional complaints Eyes Reports no additional complaints ENT Reports no additional complaints Card Reports no additional complaints Resp Reports no additional complaints Reports no additional complaints Physical exam (Primary Care) BMI result Body Mass Index 38.0 Tobacco/Smoking Status: Tobacco use Status Tobacco use date assessed 02/04/22 05/21/22 13:39 Patient Tobacco Use Status Former Tobacco user 05/21/22 14:36 Tobacco use type Cigarette 05/21/22 13:39 e-Cigarette/Vaping Use Never Used 05/21/22 13:39 Thrive Assessment: Date of Thrive Assessment Date Thrive assessed 03/11/21 05/21/22 13:39 Const General: no acute distress HENMT Head: Yes normal to inspection Neck Neck: Yes supple Resp Effort & Inspection: normal respiratory effort Auscultation: clear to auscultation bilaterally Cardio Rhythm: regular rhythm Heart sounds: S1 normal heart sound present and S2 normal heart sound present GI Inspection: Yes normal to inspection Palpation (GI): Soft to palpation Percussion: Yes normal to percussion Auscultation: normal bowel sounds Assessment and Plan Assessment & Plan (1) Type 2 diabetes mellitus: Code(s): E11.9 - Type 2 diabetes mellitus without complications Plan: Check A1c today, continue ADA diet and current medications. Patient was advised to increase physical activity (2) Diastolic CHF: Comment: Echo 06/2018 nl EF, diastolic dysfunction mild aortic stenosis, mild MR, Code(s): I50.30 - Unspecified diastolic (congestive) heart failure Plan: Continue metoprolol (3) Hypothyroidism: Code(s): E03.9 - Hypothyroidism, unspecified Plan: Continue levothyroxine (4) HTN (hypertension): Code(s): I10 - Essential (primary) hypertension Plan: Continue current medications (5) Recurrent pulmonary embolism: Comment: on Coumadin for lifetime Code(s): I26.99 - Other pulmonary embolism without acute cor pulmonale Plan: Continue Coumadin check INR today Orders: Orders Comprehensive Met. Panel Today E03.9 - Hypothyroidism, unspecified, E11.9 - Type 2 diabetes mellitus without complications, I10 - Essential (primary) hypertension, I50.30 - Unspecified diastolic (congestive) heart failure Hemoglobin A1c Today E03.9 - Hypothyroidism, unspecified, E11.9 - Type 2 diabetes mellitus without complications, I10 - Essential (primary) hypertension, I50.30 - Unspecified diastolic (congestive) heart failure Prothrombin Time INR Today E03.9 - Hypothyroidism, unspecified, E11.9 - Type 2 diabetes mellitus without complications, I10 - Essential (primary) hypertension, I50.30 - Unspecified diastolic (congestive) heart failure TSH reflex Free T4 Today E03.9 - Hypothyroidism, unspecified, E11.9 - Type 2 diabetes mellitus without complications, I10 - Essential (primary) hypertension, I50.30 - Unspecified diastolic (congestive) heart failure Medications: Changed From gabapentin 1/2 tabl in AM, 1 tabl Q lunch, 1/2 tabl QHS 600 mg PO Q8H 180 tabs 3RF To gabapentin 600 mg PO BEDTIME 90 tabs 3RF Refilled gabapentin 100 mg PO .4 times a day 360 caps 3RF Coding Level of Care Code Est Pt Level 4 (83321) Diagnoses Type 2 diabetes mellitus E11.9 Diastolic CHF I50.30 Hypothyroidism E03.9 HTN (hypertension) I10 Recurrent pulmonary embolism I26.99
== END 2022-08-18 10:32 | disposition home or self-care (01) ==
PROVIDERS: PCP Internal Medicine; Visit Provider Internal Medicine
DX: E11.9 Type 2 diabetes mellitus without complications (principal); I11.0 Hypertensive heart disease with heart failure; I50.30 Unspecified diastolic (congestive) heart failure; E03.9 Hypothyroidism, unspecified; I26.99 Other pulmonary embolism without acute cor pulmonale
CPT/HCPCS: 99214

== ENCOUNTER 2022-08-18 10:34 | Outpatient (REF) | payer MEDICARE, SELFPAY | END 2022-08-18 10:35 | disposition home or self-care (01) | LOC: HO.HMGCLDS 10:34 | PROVIDERS: PCP Internal Medicine; Visit Provider Internal Medicine | DX: E03.9 Hypothyroidism, unspecified (principal); E11.9 Type 2 diabetes mellitus without complications; I11.0 Hypertensive heart disease with heart failure; I50.30 Unspecified diastolic (congestive) heart failure | CPT/HCPCS: 36415; 80053; 83036; 84443; 85610 ==

== ENCOUNTER 2022-08-26 10:38 | Outpatient (REF) | payer MEDICARE, SELFPAY ==
[2022-08-26 14:03] LABS: INTERNATIONAL NORM RATIO 2.3 (0.9-1.1); Prothrombin Time 27.9 SEC (10.0-13.1)
== END 2022-08-26 10:39 | disposition home or self-care (01) ==
LOC: HO.HMGCLDS 10:38
PROVIDERS: PCP Internal Medicine; Visit Provider Internal Medicine
DX: I11.0 Hypertensive heart disease with heart failure (principal); I50.30 Unspecified diastolic (congestive) heart failure; Z79.01 Long term (current) use of anticoagulants
CPT/HCPCS: 36415; 85610

== ENCOUNTER 2022-09-02 10:02 | Outpatient (REF) | payer MEDICARE, SELFPAY ==
[2022-09-02 13:13] LABS: INTERNATIONAL NORM RATIO 1.9 (0.9-1.1); Prothrombin Time 23.1 SEC (11.1-13.3)
== END 2022-09-02 10:03 | disposition home or self-care (01) ==
LOC: HO.HMGCLDS 10:02
PROVIDERS: PCP Internal Medicine; Visit Provider Internal Medicine
DX: I11.0 Hypertensive heart disease with heart failure (principal); I50.30 Unspecified diastolic (congestive) heart failure; E03.9 Hypothyroidism, unspecified; E11.9 Type 2 diabetes mellitus without complications; Z79.01 Long term (current) use of anticoagulants
CPT/HCPCS: 36415; 85610

== ENCOUNTER 2022-09-09 08:53 | Outpatient (REF) | payer MEDICARE, SELFPAY ==
[2022-09-09 11:34] LABS: INTERNATIONAL NORM RATIO 1.7 (0.9-1.1); Prothrombin Time 21.2 SEC (11.1-13.3)
== END 2022-09-09 08:54 | disposition home or self-care (01) ==
LOC: HO.HMGCLDS 08:53
PROVIDERS: PCP Internal Medicine; Visit Provider Internal Medicine
DX: I11.0 Hypertensive heart disease with heart failure (principal); I50.30 Unspecified diastolic (congestive) heart failure; E03.9 Hypothyroidism, unspecified; E11.9 Type 2 diabetes mellitus without complications; Z79.01 Long term (current) use of anticoagulants
CPT/HCPCS: 36415; 85610

== ENCOUNTER 2023-02-18 11:24 | Outpatient (AMB) | payer MEDICARE, SELFPAY ==
[2023-02-18 11:56] VITALS: BP 124/76; PULSE 50; O2SAT 100; BMI 38.0
--- NOTE | 2023-02-18 11:56 | A.OFFVIS_ITS ---
Intake Vital Signs 02/18/23 11:56 Height 4 ft 11 in Weight 188 lb BMI 38.0 BP 124/76 Blood Pressure Location Lt brachial Position Sitting Pulse 50 Pulse Source Pulse Oximeter Pulse Oximetry (%) 100 Oxygen Delivery Method Room Air Intake Visit Reasons: SWV G0439 Allergies duloxetine Allergy (Unknown, Verified 02/18/23 12:00) delusions procaine [From Novocain] Adverse Reaction (Unknown, Verified 02/18/23 12:00) Nausea and Vomiting, fainting Medication List - Last Reconciled 02/18/23 by Rissa Bowling MD aspirin (Adult Low Dose Aspirin) 81 mg PO DAILY cetirizine 10 mg (10 mL) PO BEDTIME PRN flu vacc [id number](65yr up)-PF mL IM fluticasone propionate 50 mcg/actuation 1 spray intranasal Q12H PRN gabapentin 100 mg PO .4 times a day gabapentin 600 mg PO BEDTIME glipizide 10 mg PO BID hydrocortisone 2.5% 1 appl topical BID PRN levothyroxine (Euthyrox) 100 mcg PO DAILY lovastatin 40 mg PO DAILY melatonin 10 mg PO BEDTIME PRN metformin 500 mg PO BID metoprolol tartrate 150 mg (3 x 50 mg) PO DAILY miscellaneous medical supply light walker with wheels and a seat nystatin 1 appl topical BID Saccharomyces boulardii (Daily Probiotic (S. boulardii)) 250 mg PO BID sennosides (Vegetable Laxative) 8.6 mg PO DAILY warfarin 6 mg (1.5 x 4 mg) PO .QD HPI SWV G0439 HPI Details Initiated the conversation about Advanced Directives. Advanced Directives help? patients prepare for current and future decisions about their medical treatment? and place of care. Discussed with patient that it is a process where a patients? current condition and prognosis are reviewed, their wishes for information? regarding their illness are elicited, and likely medical dilemmas are presented? and options discussed. The form can be amended as needed, reviewed yearly and? make changes as needed IPPE/AWV ? year old presents? for her ? Annual? Wellness Visit, initial visit.? Medical / Social History Reviewed? Past Medical History ?Yes? . ? [place]? of Care / Care Team list updated ?Yes . ? Surgical/Hospitalization? History ?Yes . ? Current Medications? (including OTC and supplements) ?Yes . ? Family History ?Yes? . ? Tobacco? Control form ?Yes . ? AUDIT-C (Alcohol use) form? ?Yes . ? Illicit drug use in Social? History ?Yes . ? Current diagnosis of? depression? ?No ? Appropriate PHQ2/PHQ9? completed ?Yes . ? Data entered by ?Medical? [employer] and reviewed by provider ? Fall Risk ? Fall? History? Have you had any falls with? injury in the past year? ?No . ? Have you had two or more? falls in the past year? ?No . ? Fall Risk Assessment: ?No? falls in the past year . ? HRA filled out by? the patient, reviewed by Provider and scanned. ? IPPE/AWV ? Balance? [place]? ?Yes . ? Tandem? walk ?Yes . ? Walk and? Turn ?Yes . ? Rise from? sit to stand ?Yes . ?Vision? Corrective? lens ?Yes ? Vision? screen ? Up-to-date, has an appointment [] for vision? screening and glaucoma screening ?Hearing? Whisper? test ?pass .? Initiated the conversation about Advanced Directives. Advanced Directives help? patients prepare for current and future decisions about their medical treatment? and place of care. Discussed with patient that it is a process where a patients? current condition and prognosis are reviewed, their wishes for information? regarding their illness are elicited, and likely medical dilemmas are presented? and options discussed. The form can be amended as needed, reviewed yearly and? make changes as needed Written? Plan?Completed. See Patient? Documents. [facility] Medical History Cerumen impaction Diastolic CHF Hypothyroidism Peripheral neuropathy Recurrent pulmonary embolism CAD (coronary artery disease) Osteoarthritis HTN (hypertension) Type 2 diabetes mellitus Surgical History H/O Spinal surgery S/P three vessel coronary artery bypass Social History Housing: House Alcohol intake: never Patient Tobacco Use Status: Former Tobacco user Tobacco use type: Cigarette Years Smoked: 3 yrs e-Cigarette/Vaping Use: Never Used Second Hand Smoke Exposure: No Advance Directives Date on File: 06/26/03 service: No Current occupational status: retired and disabled Cognitive needs: No Hearing needs: No Vision needs: Yes Questionnaire Medicare Wellness Checkup What is your age?: 80 or older What gender do you identify with?: female During the past 4 weeks, how much have you been bothered by emotional problems such as feeling anxious, depressed, irritable, sad or downhearted, and blue?: slightly During the past 4 weeks, has your physical & emotional health limited your social activities with family, friends, neighbors, or groups?: slightly During the past 4 weeks, how much bodily pain have you generally had?: moderate pain During the past 4 weeks, was someone available to help you if you needed & wanted help?: yes, as much as I wanted During the past 4 weeks, what was the hardest physical activity you could do for at least 2 minutes?: light Can you get to places out of walking distance without help? (For eg., can you travel alone on buses, taxis or drive your car?): No Can you go shopping for groceries or clothes without someone's help?: No Can you prepare your own meals?: Yes Can you do your housework without help?: No Because of any health problems, do you need the help of another person with your personal care needs such as eating, bathing, dressing or getting around the house?: No Can you handle your own money without help?: Yes During the past 4 weeks, how would you rate your health in general?: good During the past 4 weeks how have things been going for you?: pretty well Are you having difficulties driving your car?: not applicable, I don't use a car Do you always fasten your seat belt when you are in a car?: yes, usually During past 4 weeks, have you been bothered by the following: never: Sexual problems?, Trouble eating well?, Teeth or denture problems? and Problems using the telephone? and sometimes: Falling or dizzy when standing up and Tiredness or fatigue? Have you fallen 2 or more times in the past year?: Yes Are you afraid of falling?: Yes Are you a smoker?: no During the past 4 weeks, how many drinks of wine, beer, or other alcoholic beverages did you have?: no alcohol at all Do you exercise for about 20 minutes 3 or more times a week?: no, I usually do not exercise this much Have you been given information to help with the following?: no: Hazards in your house that might hurt you? and no: Keeping track of your medications? How often do you have trouble taking medicines the way you have been told to take them?: I always take medicine as prescribed How confident are you that you can control & manage most of your health problems?: somewhat confident What is your race?: White Mini Mental State Exam (MMSE) Orientation What is the (year) (season) (date) (day) (month)?: year, season, date, day and month Where are we (state) (county) (town or city) (hospital) (floor)?: state, county, town or city, hospital/clinic and floor Registration Name of 3 unrelated objects clearly and slowly, then ask patient to repeat all 3 of them. (1st repeat determines score. Make sure they can repeat all three): object 1, object 2 and object 3 Attention & Calculation (CHOOSE ONE) Spell WORLD backwards (DLROW): 5 letters Recall Ask patient to repeat the 3 items from question #3.: object 1, object 2 and object 3 Language Show patient a wristwatch & ask what it is. Repeat for pencil.: watch and pencil Ask the patient to repeat the phrase 'No ifs, ands, or buts' after you.: correct Ask the patient to 'take a piece of paper with their right hand' 'fold paper in half' 'place paper on floor': take paper in right hand, fold paper in half and place paper on floor Print the sentence 'CLOSE YOUR EYES' on a piece. If patient actually closes eyes then score.: followed written direction Give patient a blank piece of paper & ask to write a sentence. Score if it contains a noun & verb.: sentence contains subject and verb Score Score: 29 Activity of Daily Living Bathing - sponge bath, tub bath or shower: receives no assistance (gets in/out by self, if usual bathing means Dressing - getting clothes from closets & drawers, including inner/outer garments & fasteners.: gets clothes & gets completely dressed without help Toileting - going to the 'toilet room' for urine/bowel elimination & cleaning self/arranging clothes: goes to toilet room, cleans self, arranges clothes without help Transfer: moves in & out of bed and chair without help (may use support object) Continence: controls urination/bowel movements completely by self Feeding: feeds self without help Total Score: 0 Information obtained from: patient Using telephone: independent Traveling: dependent Shopping: dependent Preparing meals: independent Housework: dependent Taking medicine: independent Managing money: independent PHQ-9 Over the last 2 weeks, how often have you been bothered by any of the following problems? 1. Little interest or pleasure in doing things: not at all 2. Feeling down, depressed, or hopeless: several days 3. Trouble falling or staying asleep, or sleeping too much: nearly every day 4. Feeling tired or having little energy: several days 5. Poor appetite or overeating: not at all 6. Feeling bad about yourself - or that you are a failure or have let yourself or your family down: not at all 7. Trouble concentrating on things, such as reading the newspaper or watching television: not at all 8. Moving or speaking so slowly that other people could have noticed. Or the opposite - being so fidgety or restless that you have been moving around a lot more than usual: not at all 9. Thoughts that you would be better off or of hurting yourself in some way: not at all Total score: 5 Depression Screening Interpretation: Negative Depression Screening Done: Yes Source: Developed by Drs. Etienne Thao, Tamika Don, Martin Eason and colleagues, with an educational lenny from [employer]. Review of Systems Const All systems reviewed & are unremarkable except as noted in HPI and below Reports no additional complaints Eyes Reports no additional complaints ENT Reports no additional complaints Card Reports no additional complaints Resp Reports no additional complaints GI Reports no additional complaints Reports no additional complaints Physical Exam Vital Signs: Last Vital Signs Pulse 50 02/18/23 11:56 BP 124/76 02/18/23 11:56 Pulse Ox 100 02/18/23 11:56 Oxygen Delivery Method Room Air 02/18/23 11:56 BMI result Body Mass Index 38.0 Const General: no acute distress HEENT Head: Yes normal to inspection Ears: hearing grossly normal bilaterally Eyes General: appearance normal, both eyes and all related structures Neck Neck: Yes no lymphadenopathy and Yes supple Resp Effort & Inspection: normal respiratory effort Auscultation: clear to auscultation bilaterally Cardio Rhythm: regular rhythm Heart sounds: S1 normal heart sound present and S2 normal heart sound present GI Inspection: Yes normal to inspection Palpation (GI): Soft to palpation Percussion: Yes normal to percussion Auscultation: normal bowel sounds Extrem Other: 2+ nonpitting edema bilaterally Results AMB Hemoglobin A1c AMB Hemoglobin A1c 8.7 % Last Edit by VIRGIL Mackey on 02/18/23 12:4 6 Results Reviewed Results Reviewed: Laboratory Last Values Hgb A1c (Clinic) 8.7 % (4.0-6.0) H 02/18/23 12:46 Assessment & Plan Assessment & Plan (1) HTN (hypertension): Code(s): I10 - Essential (primary) hypertension Plan: Continue current medications (2) Type 2 diabetes mellitus: Code(s): E11.9 - Type 2 diabetes mellitus without complications Plan: A1c is 8.7, ADA diet, increase physical activity weight loss discussed with the patient. She will continue the same medications and follow-up in 4 months with a fasting labs before including A1c (3) Hyperlipidemia: Code(s): E78.5 - Hyperlipidemia, unspecified Plan: Continue statin (4) Recurrent pulmonary embolism: Comment: on Coumadin for lifetime, patient cannot afford Eliquis Code(s): I26.99 - Other pulmonary embolism without acute cor pulmonale Plan: Continue Coumadin (5) Annual physical exam: Code(s): Z00.00 - Encounter for general adult medical examination without abnormal findings Plan: Well-balanced diet regular physical activity weight loss discussed with the patient Orders: Orders AMB Hemoglobin A1c Today Z13.9 - Encounter for screening, unspecified Comprehensive Met. Panel Today E11.9 - Type 2 diabetes mellitus without complications, E78.5 - Hyperlipidemia, unspecified, I10 - Essential (primary) hypertension Complete Blood Count Auto Diff Today E11.9 - Type 2 diabetes mellitus without complications, E78.5 - Hyperlipidemia, unspecified, I10 - Essential (primary) hypertension AMB Hemoglobin A1c Today E11.9 - Type 2 diabetes mellitus without complications, E78.5 - Hyperlipidemia, unspecified, I10 - Essential (primary) hypertension, Z13.9 - Encounter for screening, unspecified TSH reflex Free T4 Today E11.9 - Type 2 diabetes mellitus without complications, E78.5 - Hyperlipidemia, unspecified, I10 - Essential (primary) hypertension Comprehensive [place]. Panel Fast 4 Months E11.9 - Type 2 diabetes mellitus without complications, E78.5 - Hyperlipidemia, unspecified, I10 - Essential (primary) hypertension, I50.30 - Unspecified diastolic (congestive) heart failure Lipid Panel 4 Months E11.9 - Type 2 diabetes mellitus without complications, E78.5 - Hyperlipidemia, unspecified, I10 - Essential (primary) hypertension, I50.30 - Unspecified diastolic (congestive) heart failure Hemoglobin A1c 4 Months E11.9 - Type 2 diabetes mellitus without complications, E78.5 - Hyperlipidemia, unspecified, I10 - Essential (primary) hypertension, I50.30 - Unspecified diastolic (congestive) heart failure Microalbumin, Random (w Creat) 4 Months E11.9 - Type 2 diabetes mellitus without complications, E78.5 - Hyperlipidemia, unspecified, I10 - Essential (primary) hypertension, I50.30 - Unspecified diastolic (congestive) heart failure Quality Reporting (2019) Depression/Bipolar (159/160/161/177) PHQ-9: Total score: 5 Coding Level of Care Code Medicare Subsequent (G0439) Diagnoses HTN (hypertension) I10 Type 2 diabetes mellitus E11.9 Hyperlipidemia E78.5 Recurrent pulmonary embolism I26.99 Annual physical exam Z00.00 CPT Codes Advance Care Planning - Time spent: 1-15 minutes, on File ([id number]) Advance Care Planning Advance Care Planning discussion: Completed/Scanned Forms completed: Comfort care/DNR Time spent: 1-15 minutes, on File
== END 2023-02-18 13:44 | disposition home or self-care (01) ==
PROVIDERS: PCP Internal Medicine; Visit Provider Internal Medicine
DX: Z00.00 Encounter for general adult medical examination without abnormal findings (principal); E11.69 Type 2 diabetes mellitus with other specified complication; I26.99 Other pulmonary embolism without acute cor pulmonale; I10 Essential (primary) hypertension; E78.5 Hyperlipidemia, unspecified
CPT/HCPCS: 1123F; 83036; G0439

== ENCOUNTER 2023-02-18 12:55 | Outpatient (REF) | payer MEDICARE, SELFPAY ==
[2023-02-18 16:13] LABS: Hematocrit 41.1 % (37.0-47.0); Hemoglobin 12.7 g/dl (12.0-16.0); Mean Corpuscular HGB Conc 30.9 g/dl (31.0-35.0); Mean Corpuscular Hemoglobin 28.2 pg (27.0-33.0); Mean Corpuscular Volume 91.3 fL (80.0-98.0); Mean Platelet Volume 11.5 fL (9.4-12.3); Platelet Count 191 X10*3/uL (160-400); Red Cell Distribution Width 13.9 % (11.0-16.0)
[2023-02-18 16:40] LABS: Alanine Aminotransferase 12 U/L (0-31); Albumin Level 3.8 g/dL (3.5-5.0); Alkaline Phosphatase 85 U/L (39-117); Anion Gap 14 (12-20); Aspartate Amino Transferase 15 U/L (5-31); Bilirubin Total 1.4 mg/dL (0.0-1.0); Blood Urea Nitrogen 16 mg/dL (9-16); Calcium 8.9 mg/dL (8.4-10.2); Carbon Dioxide 26 mmol/L (22-29); Chloride 107 mmol/L (96-108); Estimated Glomerular Filt Rate > 60; Glucose Random 166 mg/dL (60-115); Potassium 4.3 mmol/L (3.3-5.1); Sodium 143 mmol/L (135-145); Total Protein 7.1 g/dL (6.5-8.0)
[2023-02-18 17:31] LABS: Band Neutrophils Percent 2 % (3-5); Eosinophils Percent Manual 2 % (0-4); Lymphocytes Percent Manual 25 % (20-40); Monocytes Percent Manual 11 % (2-11); Neutrophils Percent Manual 60 % (45-73)
[2023-02-18 17:32] LABS: Platelet Estimate NORMAL (NORMAL); Platelet Morphology Comment NORMAL; RBC Morphology NORMAL
[2023-02-18 17:34] LABS: Eosinophils Absolute Manual 0.1 X10*3/uL (0.0-0.4); Lymphocytes Absolute Manual 1.3 X10*3/uL (1.2-4.9); Monocytes Absolute Manual 0.6 X10*3/uL (0.1-1.2); Neutrophils Absolute Manual 3.2 X10*3/uL (2.0-8.3); White Blood Count 5.1 X10*3/uL (4.8-10.8)
== END 2023-02-18 12:56 | disposition home or self-care (01) ==
LOC: HO.HMGCLDS 12:55
PROVIDERS: PCP Internal Medicine; Visit Provider Internal Medicine
DX: I10 Essential (primary) hypertension (principal); E11.9 Type 2 diabetes mellitus without complications; E78.5 Hyperlipidemia, unspecified
CPT/HCPCS: 36415; 80053; 84443; 85007; 85027

== ENCOUNTER 2023-05-25 09:31 | Outpatient (AMB) | payer MEDICARE, SELFPAY ==
[2023-05-25 10:55] VITALS: BP 130/80; PULSE 81; TEMP 36.4; O2SAT 95; BMI 36.1
--- NOTE | 2023-05-25 10:55 | MHC.OFFWIV ---
Intake Vital Signs 05/25/23 10:55 Height 4 ft 11 in Weight 179 lb BMI 36.1 BP 130/80 Blood Pressure Location Lt brachial Position Sitting Pulse 81 Pulse Source Pulse Oximeter Temp 97.6 F Temp Source Temporal Artery Scan Pulse Oximetry (%) 95 Oxygen Delivery Method Room Air Intake Visit Reasons: EP cough congestion (lobby) Intake Note: pt is here today for cough congestion started Patient Tobacco Use Status: Former Tobacco user Allergies duloxetine Allergy (Unknown, Verified 05/25/23 10:59) delusions procaine [From Novocain] Adverse Reaction (Unknown, Verified 05/25/23 10:59) Nausea and Vomiting, fainting Do you need a note to return to daycare/school/sports/work: No HPI HPI Comments History of Present Illness Details Patient presents to the walkin today for sick visit c/o cough and chest congestion for last 4 days No known sick contacts denies known fever but does report feeling hot and cold over last couple of days Denies Earache, sore throat, headache, fatigue, weakness, dizziness Denies chest pain, shortness of breath, nausea, vomiting, diarrhea or lower extremity swelling [facility] Medical History Cerumen impaction Diastolic CHF Hypothyroidism Peripheral neuropathy Recurrent pulmonary embolism CAD (coronary artery disease) Osteoarthritis HTN (hypertension) Type 2 diabetes mellitus Surgical History H/O Spinal surgery S/P three vessel coronary artery bypass Social History Housing: House Alcohol intake: never Patient Tobacco Use Status: Former Tobacco user Tobacco use type: Cigarette Years Smoked: 3 yrs e-Cigarette/Vaping Use: Never Used Second Hand Smoke Exposure: No Advance Directives Date on File: 06/26/03 service: No Current occupational status: retired and disabled Cognitive needs: No Hearing needs: No Vision needs: Yes Review of Systems Const All systems reviewed & are unremarkable except as noted in HPI and below Physical Exam Vital Signs: Last Vital Signs Temp 97.6 F 05/25/23 10:55 Pulse 81 05/25/23 10:55 BP 130/80 05/25/23 10:55 Pulse Ox 95 05/25/23 10:55 Oxygen Delivery Method Room Air 05/25/23 10:55 BMI result Body Mass Index 36.1 General: awake, alert, oriented. Answers questions appropriately. Fully engaged in examination. Skin: warm, dry, intact HEENT: TMs intact bilaterally, no redness. Posterior pharynx without erythema or exudate. Sclera without icterus or injection. Cardiac: External chest normal in appearance. Respiratory: +cough. LSCTAB. Abdomen: without gross distension. Neurological: Oriented to person, place, time and situation. Thought process intact. Psychiatric: Appropriate mood and affect. Good judgment and insight. Results Reviewed Results Reviewed: Chest x-ray ordered independently reviewed: No effusion or infiltrate identified Assessment & Plan Assessment & Plan (1) Cough: Code(s): R05.9 - Cough, unspecified Plan Prednisone 40 mg p.o. daily x3 days. Patient advised on cautions for use. Monitor blood sugars closely Z-John as directed SARS-CoV2/FLU/RSV swab collected, results pending. Patient aware she will be called with results. Rest, drink plenty of fluids, tylenol or motrin as needed. Follow up with pcp or in clinic for any new or worsening symptoms. Go to ER for shortness of breath, chest pain, palpitations, weakness, dizziness. Orders: Orders SARS-CoV2/FLU/RSV Today J06.9 - Acute upper respiratory infection, unspecified XR chest 2V Today R05.9 - Cough, unspecified Medications: New prednisone 40 mg (2 x 20 mg) PO DAILY 3 days 6 tabs 0RF azithromycin For 250 mg dose pack: take 500 mg today (day 1), then 250 mg for 4 days (days 2-5) PO 6 tabs 0RF Coding Level of Care Code Est Pt Level 4 (75709) Diagnoses Cough R05.9
== END 2023-05-25 12:54 | disposition home or self-care (01) ==
PROVIDERS: PCP Internal Medicine; Visit Provider Registered Nurse Emergency
DX: R05.9 Cough, unspecified (principal)
CPT/HCPCS: 99213

== ENCOUNTER 2023-05-25 12:32 | Outpatient (REF) | payer MEDICARE, SELFPAY ==
[2023-05-25 16:39] LABS: Influenza A PCR NEGATIVE (Negative); Influenza B PCR NEGATIVE (Negative); Resp Syncy Virus RNA Qual PCR NEGATIVE (Negative); SARS COV2 PCR INHOUSE NEGATIVE (Negative)
== END 2023-05-25 12:33 | disposition home or self-care (01) ==
LOC: HO.LAB 12:32
PROVIDERS: Visit Provider Registered Nurse Emergency
DX: J06.9 Acute upper respiratory infection, unspecified (principal)
CPT/HCPCS: 0241U; 71046

== ENCOUNTER 2023-06-22 11:02 | Outpatient (AMB) | payer MEDICARE, SELFPAY ==
[2023-06-22 11:09] VITALS: BP 130/76; PULSE 69; O2SAT 95; BMI 36.4
--- NOTE | 2023-06-22 11:09 | MHC.PC.OV ---
Vital Signs 06/22/23 11:09 Height 4 ft 11 in Weight 180 lb BMI 36.4 BP 130/76 Blood Pressure Location Lt brachial Position Sitting Pulse 69 Pulse Source Pulse Oximeter Pulse Oximetry (%) 95 Oxygen Delivery Method Room Air Intake Visit Reasons: 4 month follow up Intake Note: Pt is here today for 4 months follow up visit. Allergies duloxetine Allergy (Unknown, Verified 06/22/23 11:20) delusions procaine [From Novocain] Adverse Reaction (Unknown, Verified 06/22/23 11:20) Nausea and Vomiting, fainting Medication List - Last Reconciled 06/22/23 by Rissa Bowling MD aspirin (Adult Low Dose Aspirin) 81 mg PO DAILY gabapentin 100 mg PO .4 times a day gabapentin 600 mg PO BEDTIME glipizide 10 mg PO BID hydrocortisone 2.5% 1 appl topical BID PRN levothyroxine (Euthyrox) 100 mcg PO DAILY lovastatin 40 mg PO DAILY melatonin 10 mg PO BEDTIME PRN metformin 500 mg PO BID metoprolol tartrate 150 mg (3 x 50 mg) PO DAILY miscellaneous medical supply light walker with wheels and a seat nystatin PO Saccharomyces boulardii (Daily Probiotic (S. boulardii)) 250 mg PO BID sennosides (Vegetable Laxative) 8.6 mg PO DAILY warfarin 6 mg (1.5 x 4 mg) PO .QD Tobacco use date assessed: 06/22/23 Fall risk assessment: No Falls in past year Last assessed Fall Risk: 06/22/23 Dental Screening Dental Screen Date: 06/22/23 Did you have a dental visit in the last 12 months?: Yes Did you have a dental problem in the last 6 months where you did not have access to dental care?: No Was dental information given to patient?: Patient has dentist HPI 4 month follow up HPI Details Patient presents for the follow-up on type 2 diabetes hypothyroidism hyperlipidemia hypertension on long-time anticoagulation for history of recurrent PE. [facility] Medical History Cerumen impaction Diastolic CHF Hypothyroidism Peripheral neuropathy Recurrent pulmonary embolism CAD (coronary artery disease) Osteoarthritis HTN (hypertension) Type 2 diabetes mellitus Surgical History H/O Spinal surgery S/P three vessel coronary artery bypass Social History Housing: House Alcohol intake: never Patient Tobacco Use Status: Former Tobacco user Tobacco use type: Cigarette Years Smoked: 3 yrs e-Cigarette/Vaping Use: Never Used Second Hand Smoke Exposure: No Advance Directives Date on File: 06/26/03 service: No Current occupational status: retired and disabled Cognitive needs: No Hearing needs: No Vision needs: Yes Questionnaire Thrive Questionnaire Date Thrive assessed: 03/11/21 AUDIT C Alcohol Use Questionnaire (AUDIT-C) 1. How often do you have a drink containing alcohol?: Never 3. How often do you have six or more drinks on one occasion?: Never Total Score: 0 ANGELINE-7 AMB Questionnaire ANGELINE-7 Date ANGELINE - 7 assessed: 03/11/21 Source: Developed by Drs. Etienne Thao, Tamika Don, Martin Eason and colleagues, with an educational lenny from [employer]. Review of Systems Const All systems reviewed & are unremarkable except as noted in HPI and below ENT Reports no additional complaints Card Reports no additional complaints Resp Reports no additional complaints GI Reports no additional complaints Reports no additional complaints Physical exam (Primary Care) Vital Signs: Last Vital Signs Pulse 69 06/22/23 11:09 BP 130/76 06/22/23 11:09 Pulse Ox 95 06/22/23 11:09 Oxygen Delivery Method Room Air 06/22/23 11:09 BMI result Body Mass Index 36.4 Tobacco/Smoking Status: Tobacco use Status Tobacco use date assessed 06/22/23 06/22/23 11:24 Patient Tobacco Use Status Former Tobacco user 06/22/23 11:13 Tobacco use type Cigarette 06/22/23 11:13 e-Cigarette/Vaping Use Never Used 06/22/23 11:13 Thrive Assessment: Date of Thrive Assessment Date Thrive assessed 03/11/21 06/22/23 11:13 Const General: no acute distress HENMT Face and sinus: Yes normal facial exam Eyes General: appearance normal, both eyes and all related structures Neck Neck: Yes no lymphadenopathy and Yes supple Resp Effort & Inspection: normal respiratory effort Auscultation: clear to auscultation bilaterally Cardio Rhythm: regular rhythm Heart sounds: S1 normal heart sound present and S2 normal heart sound present GI Inspection: Yes normal to inspection Palpation (GI): Soft to palpation Percussion: Yes normal to percussion Assessment and Plan Assessment & Plan (1) Type 2 diabetes mellitus: Code(s): E11.9 - Type 2 diabetes mellitus without complications Plan: A1c was 8.7 in February ADA diet increase physical activity discussed with the patient. metformin will be increased to 500 mg in the morning and 1000 mg at night. Patient will follow-up in 3 months with a fasting labs before (2) HTN (hypertension): Code(s): I10 - Essential (primary) hypertension Plan: Continue current medications (3) Diastolic CHF: Comment: Echo 06/2018 nl EF, diastolic dysfunction mild aortic stenosis, mild MR, Code(s): I50.30 - Unspecified diastolic (congestive) heart failure Plan: Continue current medications, patient declined repeating echocardiogram (4) Hyperlipidemia: Code(s): E78.5 - Hyperlipidemia, unspecified Plan: Continue statin Orders: Orders Hemoglobin A1c 3 Months E11.9 - Type 2 diabetes mellitus without complications, E78.5 - Hyperlipidemia, unspecified, I10 - Essential (primary) hypertension, I50.30 - Unspecified diastolic (congestive) heart failure TSH reflex Free T4 3 Months E11.9 - Type 2 diabetes mellitus without complications, E78.5 - Hyperlipidemia, unspecified, I10 - Essential (primary) hypertension, I50.30 - Unspecified diastolic (congestive) heart failure Comprehensive Met. Panel 3 Months E11.9 - Type 2 diabetes mellitus without complications, E78.5 - Hyperlipidemia, unspecified, I10 - Essential (primary) hypertension, I50.30 - Unspecified diastolic (congestive) heart failure Complete Blood Count Auto Diff 3 Months E11.9 - Type 2 diabetes mellitus without complications, E78.5 - Hyperlipidemia, unspecified, I10 - Essential (primary) hypertension, I50.30 - Unspecified diastolic (congestive) heart failure Medications: Changed From metformin 500 mg PO BID 180 tabs 3RF E11.9 - Type 2 diabetes mellitus without complications To metformin 1 tabl q AM, 2 tabl q PM 500 mg PO BID 270 tabs 3RF E11.9 - Type 2 diabetes mellitus without complications Refilled metoprolol tartrate 2 tablets in am and 1 tablet in pm 150 mg (3 x 50 mg) PO DAILY 270 tabs 3RF I10 - Essential (primary) hypertension warfarin 6 mg (1.5 x 4 mg) PO .QD 180 tabs 3RF gabapentin 100 mg PO .4 times a day 360 caps 3RF gabapentin 600 mg PO BEDTIME 90 tabs 3RF glipizide 10 mg PO BID 180 tabs 3RF levothyroxine (Euthyrox) 100 mcg PO DAILY 90 tabs 3RF E03.9 - Hypothyroidism, unspecified lovastatin 40 mg PO DAILY 90 tabs 3RF E78.5 - Hyperlipidemia, unspecified Coding Level of Care Code Est Pt Level 4 (07101) Diagnoses Type 2 diabetes mellitus E11.9 HTN (hypertension) I10 Diastolic CHF I50.30 Hyperlipidemia E78.5
== END 2023-06-22 12:05 | disposition home or self-care (01) ==
LOC: HO.HMGC 11:02
PROVIDERS: PCP Internal Medicine; Visit Provider Internal Medicine
DX: E11.69 Type 2 diabetes mellitus with other specified complication (principal); I11.0 Hypertensive heart disease with heart failure; I50.30 Unspecified diastolic (congestive) heart failure; E78.5 Hyperlipidemia, unspecified
CPT/HCPCS: 99214

== ENCOUNTER 2023-06-22 12:07 | Outpatient (REF) | payer MEDICARE, SELFPAY ==
[2023-06-22 16:19] LABS: Estimated Average Glucose 177 mg/dL; Hemoglobin A1c % 7.8 % (<6.0)
[2023-06-22 16:39] LABS: Creatinine Urine 169.19 mg/dL; Microalbum/Creatinine Ratio Ur 43.7 ug/mg cr (<30)
[2023-06-22 16:50] LABS: Alanine Aminotransferase 12 U/L (0-31); Albumin Level 3.7 g/dL (3.5-5.0); Alkaline Phosphatase 74 U/L (39-117); Anion Gap 14 (12-20); Aspartate Amino Transferase 13 U/L (5-31); Bilirubin Total 1.2 mg/dL (0.0-1.0); Blood Urea Nitrogen 17 mg/dL (9-16); Calcium 9.3 mg/dL (8.4-10.2); Carbon Dioxide 25 mmol/L (22-29); Chloride 110 mmol/L (96-108); Cholesterol 156 mg/dL (<200); Estimated Glomerular Filt Rate > 60; Glucose Fasting 150 mg/dL (60-99); HDL Cholesterol 55 mg/dL (>40); LDL Cholesterol Calculated 76 mg/dL (<100); Potassium 4.6 mmol/L (3.3-5.1); Sodium 144 mmol/L (135-145); Total Protein 6.9 g/dL (6.5-8.0); Triglycerides 129 mg/dL (<150)
== END 2023-06-22 12:08 | disposition home or self-care (01) ==
LOC: HO.HMGCLDS 12:07
PROVIDERS: PCP Internal Medicine; Visit Provider Internal Medicine
DX: I10 Essential (primary) hypertension (principal); E78.5 Hyperlipidemia, unspecified; E11.9 Type 2 diabetes mellitus without complications; I50.30 Unspecified diastolic (congestive) heart failure
CPT/HCPCS: 36415; 80053; 80061; 82043; 82570; 83036

== ENCOUNTER 2023-09-21 10:13 | Outpatient (REF) | payer MEDICARE, SELFPAY ==
[2023-09-21 13:14] LABS: Hematocrit 38.9 % (37.0-47.0); Hemoglobin 12.4 g/dl (12.0-16.0); Mean Corpuscular HGB Conc 31.9 g/dl (31.0-35.0); Mean Corpuscular Hemoglobin 28.8 pg (27.0-33.0); Mean Corpuscular Volume 90.3 fL (80.0-98.0); Mean Platelet Volume 11.1 fL (9.4-12.3); Platelet Count 184 X10*3/uL (160-400); Red Blood Count 4.31 X10*6/uL (4.20-5.50); Red Cell Distribution Width 14.5 % (11.0-16.0); White Blood Count 3.9 X10*3/uL (4.8-10.8)
[2023-09-21 13:34] LABS: Alanine Aminotransferase 11 U/L (0-31); Albumin Level 3.7 g/dL (3.5-5.0); Alkaline Phosphatase 68 U/L (39-117); Anion Gap 13 (12-20); Aspartate Amino Transferase 16 U/L (5-31); Bilirubin Total 1.4 mg/dL (0.0-1.0); Blood Urea Nitrogen 13 mg/dL (9-16); Calcium 8.8 mg/dL (8.4-10.2); Carbon Dioxide 28 mmol/L (22-29); Chloride 107 mmol/L (96-108); Estimated Glomerular Filt Rate > 60; Glucose Random 134 mg/dL (60-115); Potassium 4.3 mmol/L (3.3-5.1); Sodium 144 mmol/L (135-145); Total Protein 6.7 g/dL (6.5-8.0)
[2023-09-21 13:44] LABS: Estimated Average Glucose 143 mg/dL; Hemoglobin A1c % 6.6 % (<6.0)
[2023-09-21 13:49] LABS: TSH reflex Free T4 0.44 uIU/mL (0.32-4.0)
[2023-09-21 13:57] LABS: Atypical Lymph Absolute Manual 0.2 x10*3/uL; Atypical Lymphs Percent Manual 5 % (0-6); Band Neutrophils Percent 2 % (3-5); Eosinophils Absolute Manual 0.3 X10*3/uL (0.0-0.4); Eosinophils Percent Manual 8 % (0-4); Lymphocytes Percent Manual 26 % (20-40); Metamyelocytes Percent 1 %; Monocytes Absolute Manual 0.5 X10*3/uL (0.1-1.2); Monocytes Percent Manual 12 % (2-11); Myelocytes Percent 1 %; Neutrophils Absolute Manual 1.8 X10*3/uL (2.0-8.3); Neutrophils Percent Manual 44 % (45-73); Promyelocytes Percent 1 %
[2023-09-21 13:58] LABS: Giant Platelet PRESENT; Large Platelet PRESENT; Platelet Estimate NORMAL (NORMAL); Platelet Morphology Comment NORMAL; RBC Morphology NORMAL
== END 2023-09-21 10:14 | disposition home or self-care (01) ==
LOC: HO.HMGCLDS 10:13
PROVIDERS: PCP Internal Medicine; Visit Provider Internal Medicine
DX: I10 Essential (primary) hypertension (principal); E78.5 Hyperlipidemia, unspecified; E11.9 Type 2 diabetes mellitus without complications; I50.30 Unspecified diastolic (congestive) heart failure; Z79.01 Long term (current) use of anticoagulants; E03.9 Hypothyroidism, unspecified
CPT/HCPCS: 36415; 80053; 83036; 84443; 85007; 85027

== ENCOUNTER 2023-09-25 10:35 | Outpatient (AMB) | payer MEDICARE, SELFPAY ==
--- NOTE | 2023-09-25 10:38 | MHC.PC.OV ---
Vital Signs 09/25/23 10:39 Height 4 ft 11 in Weight 178 lb BMI 35.9 BP 130/64 Blood Pressure Location Rt brachial Position Sitting Pulse 74 Pulse Source Pulse Oximeter Pulse Oximetry (%) 96 Oxygen Delivery Method Room Air Intake Visit Reasons: 3 month follow up Intake Note: Pt is here today for 3 months follow up visit. Allergies duloxetine Allergy (Unknown, Verified 09/25/23 10:41) delusions procaine [From Novocain] Adverse Reaction (Unknown, Verified 09/25/23 10:41) Nausea and Vomiting, fainting Medication List - Last Reconciled 09/25/23 by Rissa Bowling MD aspirin (Adult Low Dose Aspirin) 81 mg PO DAILY gabapentin 100 mg PO .4 times a day gabapentin 600 mg PO BEDTIME glipizide 10 mg PO .QD hydrocortisone 2.5% 1 appl topical BID PRN levothyroxine (Euthyrox) 100 mcg PO DAILY lovastatin 40 mg PO DAILY melatonin 10 mg PO BEDTIME PRN metformin 500 mg PO BID metoprolol tartrate 150 mg (3 x 50 mg) PO DAILY miscellaneous medical supply light walker with wheels and a seat nystatin PO Saccharomyces boulardii (Daily Probiotic (S. boulardii)) 250 mg PO BID sennosides (Vegetable Laxative) 8.6 mg PO DAILY warfarin 6 mg (1.5 x 4 mg) PO .QD Tobacco use date assessed: 09/25/23 Dental Screening Dental Screen Date: 09/25/23 Did you have a dental visit in the last 12 months?: Yes Did you have a dental problem in the last 6 months where you did not have access to dental care?: No Was dental information given to patient?: Patient has dentist HPI 3 month follow up HPI Details Patient presents for the follow-up on hypertension hyperlipidemia type 2 diabetes hypothyroidism stable on current medications. She complains of chronic lower back pain worse when sitting for long time or at night. She sleeps in recliner. Patient has been taking gabapentin as needed with some relief. She denies any weakness or numbness in extremities [facility] Medical History Cerumen impaction Diastolic CHF Hypothyroidism Peripheral neuropathy Recurrent pulmonary embolism CAD (coronary artery disease) Osteoarthritis HTN (hypertension) Type 2 diabetes mellitus Surgical History H/O Spinal surgery S/P three vessel coronary artery bypass Social History Housing: House Alcohol intake: never Patient Tobacco Use Status: Former Tobacco user Tobacco use type: Cigarette Years Smoked: 3 yrs e-Cigarette/Vaping Use: Never Used Second Hand Smoke Exposure: No Advance Directives Date on File: 06/26/03 service: No Current occupational status: retired and disabled Cognitive needs: No Hearing needs: No Vision needs: Yes Questionnaire PHQ-9 Over the last 2 weeks, how often have you been bothered by any of the following problems? 1. Little interest or pleasure in doing things: not at all 2. Feeling down, depressed, or hopeless: several days 3. Trouble falling or staying asleep, or sleeping too much: nearly every day 4. Feeling tired or having little energy: several days 5. Poor appetite or overeating: not at all 6. Feeling bad about yourself - or that you are a failure or have let yourself or your family down: not at all 7. Trouble concentrating on things, such as reading the newspaper or watching television: not at all 8. Moving or speaking so slowly that other people could have noticed. Or the opposite - being so fidgety or restless that you have been moving around a lot more than usual: not at all 9. Thoughts that you would be better off or of hurting yourself in some way: not at all Total score: 5 Depression Screening Interpretation: Negative Depression Screening Done: Yes 20280 - PHQ-9 Billing: Yes Source: Developed by Drs. Etienne Thao, Tamika Don, Martin Eason and colleagues, with an educational lenny from [employer]. Thrive Questionnaire Date Thrive assessed: 09/25/23 I am a: Patient What is your living situation today?: I have a steady place to live Within the past 12 months, did the food you bought not last and you didn't have the money to get more?: Never true Within the past 12 months, did you worry whether your food would run out before you got money to buy more?: Never true Do you have trouble paying for medicines?: No Do you have trouble getting transportation to medical appointments?: No Do you have trouble paying your heating and electricity bill?: No Do you have trouble taking care of your child, family member or friend?: No Do you have trouble with day-to-day activities such as bathing, preparing meals, shopping, managing finances, etc.?: No Are you currently unemployed and looking for a job?: No Are you interested in more education?: No Please select the resources that you would like help with: None THRIVE Score: 0 AUDIT C Alcohol Use Questionnaire (AUDIT-C) 1. How often do you have a drink containing alcohol?: Never 3. How often do you have six or more drinks on one occasion?: Never Total Score: 0 ANGELINE-7 AMB Questionnaire ANGELINE-7 Date ANGELINE - 7 assessed: 09/25/23 Feeling nervous, anxious, or on edge: 0 = Not at all Not being able to stop or control worryin = Not at all Worrying too much about different things: 0 = Not at all Trouble relaxin = Not at all Being so restless that it is hard to sit still: 0 = Not at all Becoming easily annoyed or irritable: 0 = Not at all Feeling afraid as if something awful might happen: 0 = Not at all Total ANGELINE-7 score (0-4 normal; 5-9 mild; 10-14 moderate; 15-21 severe): 0 Source: Developed by Drs. Etienne Thao, Tamika Don, Martin Eason and colleagues, with an educational lenny from [employer]. ANGELINE-7 Assessment Billing ANGELINE-7 Assessment Tool: ANGELINE-7 Assessment 97178 Review of Systems Const All systems reviewed & are unremarkable except as noted in HPI and below Eyes Reports no additional complaints ENT Reports no additional complaints Card Reports no additional complaints Resp Reports no additional complaints GI Reports no additional complaints Reports no additional complaints Physical exam (Primary Care) Vital Signs: Last Vital Signs Pulse 74 09/25/23 10:39 BP 130/64 09/25/23 10:39 Pulse Ox 96 09/25/23 10:39 Oxygen Delivery Method Room Air 09/25/23 10:39 BMI result Body Mass Index 35.9 Tobacco/Smoking Status: Tobacco use Status Tobacco use date assessed 09/25/23 09/25/23 10:44 Patient Tobacco Use Status Former Tobacco user 09/25/23 10:44 Tobacco use type Cigarette 09/25/23 10:44 e-Cigarette/Vaping Use Never Used 09/25/23 10:44 PHQ-9: PHQ-9 Score PHQ-9: Total score 5 09/25/23 10:44 Depression Screening Interpretation: Negative Thrive Assessment: Date of Thrive Assessment Date Thrive assessed 09/25/23 09/25/23 10:44 Const General: no acute distress HENMT Head: Yes normal to inspection Face and sinus: Yes normal facial exam Throat: Yes posterior oropharynx normal Resp Effort & Inspection: normal respiratory effort Auscultation: clear to auscultation bilaterally Cardio Rhythm: regular rhythm Heart sounds: S1 normal heart sound present and S2 normal heart sound present GI Inspection: Yes normal to inspection Palpation (GI): Soft to palpation Percussion: Yes normal to percussion Auscultation: normal bowel sounds Assessment and Plan Assessment & Plan (1) Type 2 diabetes mellitus: Code(s): E11.9 - Type 2 diabetes mellitus without complications Plan: A1c is 6.6. Patient will decrease glipizide to once a day and continue metformin, ADA diet discussed with the patient follow-up in 4 months with a fasting labs before (2) Hyperlipidemia: Code(s): E78.5 - Hyperlipidemia, unspecified Plan: Continue statin (3) HTN (hypertension): Code(s): I10 - Essential (primary) hypertension Plan: Continue current medications (4) Diastolic CHF: Comment: Echo 06/2018 nl EF, diastolic dysfunction mild aortic stenosis, mild MR, Code(s): I50.30 - Unspecified diastolic (congestive) heart failure Plan: Continue current medications (5) Hypothyroidism: Code(s): E03.9 - Hypothyroidism, unspecified Plan: Continue levothyroxine Medications: Changed From glipizide 10 mg PO BID 180 tabs 3RF To glipizide 10 mg PO .QD 90 tabs 0RF Coding Level of Care Code Est Pt Level 4 (80981) Diagnoses Type 2 diabetes mellitus E11.9 Hyperlipidemia E78.5 HTN (hypertension) I10 Diastolic CHF I50.30 Hypothyroidism E03.9 Additional Codes ANGELINE-7 Assessment Billing - ANGELINE-7 Assessment Tool: ANGELINE-7 Assessment 96317 ([id number])
[2023-09-25 10:39] VITALS: BP 130/64; PULSE 74; O2SAT 96; BMI 35.9
== END 2023-09-25 11:12 | disposition home or self-care (01) ==
PROVIDERS: PCP Internal Medicine; Visit Provider Internal Medicine
DX: I11.0 Hypertensive heart disease with heart failure (principal); E11.69 Type 2 diabetes mellitus with other specified complication; I50.30 Unspecified diastolic (congestive) heart failure; E78.5 Hyperlipidemia, unspecified; E03.9 Hypothyroidism, unspecified
CPT/HCPCS: 99214

== ENCOUNTER 2023-10-27 10:30 | Outpatient (AMB) | payer MEDICARE, SELFPAY ==
--- NOTE | 2023-10-27 10:44 | MHC.OFFWIV ---
Intake Vital Signs 10/27/23 10:46 Height 4 ft 11 in Weight 176 lb BMI 35.5 BP 132/90 H Blood Pressure Location Lt brachial Position Sitting Pulse 71 Pulse Source Pulse Oximeter Pulse Oximetry (%) 98 Oxygen Delivery Method Room Air Intake Visit Reasons: EP arm pain-both Intake Note: Patient here for bilat arm pain which started last week. She stated that her left hand is numb but right arm is the one thats really bad. Patient Tobacco Use Status: Former Tobacco user Allergies duloxetine Allergy (Unknown, Verified 10/27/23 10:47) delusions procaine [From Novocain] Adverse Reaction (Unknown, Verified 10/27/23 10:47) Nausea and Vomiting, fainting Do you need a note to return to daycare/school/sports/work: No HPI HPI Comments History of Present Illness Details Patient is an 88-year-old female with a past medical history of arthritis complaining of right arm pain, weakness and numbness as well as left hand weakness and pain as well as heaviness in her shoulders for 5 days. She states she takes warfarin so she can not take NSAIDs however she has been taking Tylenol here and there to try to manage the pain. She states she very often sleeps in a recliner because since she had low back surgery, it is difficult for her to get into her bed. She states that the recliner is not anything new for her and she does not have any cervical neck pain or tenderness. [facility] Medical History Cerumen impaction Diastolic CHF Hypothyroidism Peripheral neuropathy Recurrent pulmonary embolism CAD (coronary artery disease) Osteoarthritis HTN (hypertension) Type 2 diabetes mellitus Surgical History H/O Spinal surgery S/P three vessel coronary artery bypass Social History Housing: House Alcohol intake: never Patient Tobacco Use Status: Former Tobacco user Tobacco use type: Cigarette Years Smoked: 3 yrs e-Cigarette/Vaping Use: Never Used Second Hand Smoke Exposure: No Advance Directives Date on File: 06/26/03 service: No Current occupational status: retired and disabled Cognitive needs: No Hearing needs: No Vision needs: Yes Review of Systems Const All systems reviewed & are unremarkable except as noted in HPI and below Physical Exam Vital Signs: Last Vital Signs Pulse 71 10/27/23 10:46 BP 132/90 H 10/27/23 10:46 Pulse Ox 98 10/27/23 10:46 Oxygen Delivery Method Room Air 10/27/23 10:46 BMI result Body Mass Index 35.5 Const General: cooperative, healthy appearing and comfortable Orientation/consciousness: patient oriented x3 HEENT Head: Yes normal to inspection and Yes normocephalic General nose exam: Normal external nose present Face and sinus: Yes normal facial exam Eyes General: appearance normal, both eyes and all related structures Resp Effort & Inspection: normal respiratory effort and able to speak in complete sentences Back/Spine/Pelvis Cervical Spine: cervical ROM normal, No cervical muscular tenderness, No pain with cervical ROM and No Cervical spine tenderness Neuro General: patient oriented x3 Extrem Other: Left upper extremity and right upper extremity both have 4/5 strength, sensation intact, no ecchymosis, no abrasions, no edema Right upper extremity, shoulder: patient unable to abduct 2/2 weakness/pain. Elbow: Full ROM. Hands: full ROM, NVI. Left upper extremity, hand: full rom, NVI General: Yes normal to inspection Assessment & Plan Assessment & Plan (1) Arthritis: Code(s): M19.90 - Unspecified osteoarthritis, unspecified site Plan: We will prescribe prednisone burst as patient can not take NSAIDs, also recommended she continue with her extra strength Tylenol for the next few days. If no resolution in her symptoms, she should follow up with her PCP for possible physical therapy or further workup Plan See above Medications: New prednisone 20 mg PO DAILY 5 tabs 0RF Coding Level of Care Code Est Pt Level 3 (64927) Diagnoses Arthritis M19.90
[2023-10-27 10:46] VITALS: BP 132/90; PULSE 71; O2SAT 98; BMI 35.5
== END 2023-10-27 11:45 | disposition home or self-care (01) ==
PROVIDERS: PCP Internal Medicine; Visit Provider Physician Assistant
DX: M19.90 Unspecified osteoarthritis, unspecified site (principal)

== ENCOUNTER → 2023-10-27 10:30 | Outpatient (BNVA) | payer MEDICARE, SELFPAY | PROVIDERS: PCP Internal Medicine | DX: M19.90 Unspecified osteoarthritis, unspecified site (principal) | CPT/HCPCS: 99212 ==

== ENCOUNTER 2023-12-23 09:51 | Outpatient (REF) | payer MEDICARE, SELFPAY ==
[2023-12-23 14:17] LABS: Erythrocyte Sedimentation Rate 20 MM/HR (0-20)
== END 2023-12-23 09:52 | disposition home or self-care (01) ==
LOC: HO.HMGCLDS 09:51
PROVIDERS: PCP Internal Medicine; Visit Provider Internal Medicine
DX: M25.519 Pain in unspecified shoulder (principal)
CPT/HCPCS: 36415; 85652

== ENCOUNTER 2024-01-19 11:05 | Outpatient (REF) | payer MEDICARE, SELFPAY ==
[2024-01-19 13:16] LABS: Prothrombin Time 34.8 SEC (10.9-12.4)
== END 2024-01-19 11:06 | disposition home or self-care (01) ==
LOC: HO.HMGCLDS 11:05
PROVIDERS: PCP Internal Medicine; Visit Provider Internal Medicine
DX: Z79.01 Long term (current) use of anticoagulants (principal); E11.9 Type 2 diabetes mellitus without complications; I50.30 Unspecified diastolic (congestive) heart failure; E03.9 Hypothyroidism, unspecified; I10 Essential (primary) hypertension
CPT/HCPCS: 36415; 85610

== ENCOUNTER 2024-01-26 11:11 | Outpatient (AMB) | payer MEDICARE, SELFPAY ==
[2024-01-26 11:16] VITALS: BP 120/66; PULSE 89; O2SAT 96; BMI 35.9
--- NOTE | 2024-01-26 11:16 | MHC.PC.OV ---
Vital Signs 01/26/24 11:16 Height 4 ft 11 in Weight 178 lb BMI 35.9 BP 120/66 Blood Pressure Location Lt brachial Position Sitting Pulse 89 Pulse Source Pulse Oximeter Pulse Oximetry (%) 96 Oxygen Delivery Method Room Air Intake Visit Reasons: 4 month Intake Note: Pt is here today for 4 months follow up visit. Allergies duloxetine Allergy (Unknown, Verified 01/26/24 11:17) delusions procaine [From Novocain] Adverse Reaction (Unknown, Verified 01/26/24 11:17) Nausea and Vomiting, fainting Medication List - Last Reconciled 01/26/24 by Rissa Bowling MD aspirin (Adult Low Dose Aspirin) 81 mg PO DAILY gabapentin 100 mg PO .4 times a day gabapentin 600 mg PO BEDTIME glipizide 10 mg PO .QD hydrocortisone 2.5% 1 appl topical BID PRN levothyroxine (Euthyrox) 100 mcg PO DAILY lovastatin 40 mg PO DAILY melatonin 10 mg PO BEDTIME PRN metformin 500 mg PO BID metoprolol tartrate 150 mg (3 x 50 mg) PO DAILY miscellaneous medical supply light walker with wheels and a seat nystatin PO Saccharomyces boulardii (Daily Probiotic (S. boulardii)) 250 mg PO BID sennosides (Vegetable Laxative) 8.6 mg PO DAILY warfarin 6 mg (1.5 x 4 mg) PO .QD Tobacco use date assessed: 01/26/24 Dental Screening Dental Screen Date: 09/25/23 HPI 4 month HPI Details Patient presents for the follow-up on type 2 diabetes hypertension hyperlipidemia. She complains of chronic bilateral shoulder pain worse when using her arms. Patient to prednisone taper for 10 days with temporary relief. She used to get cortisone injections without significant relief. [facility] Medical History Cerumen impaction Diastolic CHF Hypothyroidism Peripheral neuropathy Recurrent pulmonary embolism CAD (coronary artery disease) Osteoarthritis HTN (hypertension) Type 2 diabetes mellitus Surgical History H/O Spinal surgery S/P three vessel coronary artery bypass Social History Housing: House Alcohol intake: never Patient Tobacco Use Status: Former Tobacco user Tobacco use type: Cigarette Years Smoked: 3 yrs e-Cigarette/Vaping Use: Never Used Second Hand Smoke Exposure: No Advance Directives Date on File: 06/26/03 service: No Current occupational status: retired and disabled Cognitive needs: No Hearing needs: No Vision needs: Yes Questionnaire PHQ-9 Over the last 2 weeks, how often have you been bothered by any of the following problems? 1. Little interest or pleasure in doing things: not at all 2. Feeling down, depressed, or hopeless: not at all 3. Trouble falling or staying asleep, or sleeping too much: several days 5. Poor appetite or overeating: not at all Source: Developed by Drs. Etienne Thao, Tamika Don, Martin Eason and colleagues, with an educational lenny from [employer]. Thrive Questionnaire Date Thrive assessed: 09/25/23 I am a: Patient What is your living situation today?: I have a steady place to live Within the past 12 months, did the food you bought not last and you didn't have the money to get more?: Never true Within the past 12 months, did you worry whether your food would run out before you got money to buy more?: Never true Do you have trouble paying for medicines?: No Do you have trouble getting transportation to medical appointments?: No Do you have trouble paying your heating and electricity bill?: No Do you have trouble taking care of your child, family member or friend?: No Do you have trouble with day-to-day activities such as bathing, preparing meals, shopping, managing finances, etc.?: I choose not to answer this question Are you currently unemployed and looking for a job?: No Are you interested in more education?: No Please select the resources that you would like help with: None Currently or been in a relationship where the following occur: I choose not to answer THRIVE Score: 0 AUDIT C Alcohol Use Questionnaire (AUDIT-C) 1. How often do you have a drink containing alcohol?: Never Total Score: 0 ANGELINE-7 AMB Questionnaire ANGELINE-7 Date ANGELINE - 7 assessed: 09/25/23 Feeling nervous, anxious, or on edge: 0 = Not at all Not being able to stop or control worryin = Not at all Worrying too much about different things: 0 = Not at all Trouble relaxin = Not at all Being so restless that it is hard to sit still: 0 = Not at all Becoming easily annoyed or irritable: 0 = Not at all Feeling afraid as if something awful might happen: 0 = Not at all Total ANGELINE-7 score (0-4 normal; 5-9 mild; 10-14 moderate; 15-21 severe): 0 Source: Developed by Drs. Etienne Thao, Tamika Don, Martin Eason and colleagues, with an educational lenny from [employer]. Review of Systems Const All systems reviewed & are unremarkable except as noted in HPI and below ENT Reports no additional complaints Card Reports no additional complaints Resp Reports no additional complaints GI Reports no additional complaints Reports no additional complaints Physical exam (Primary Care) Vital Signs: Last Vital Signs Pulse 89 01/26/24 11:16 BP 120/66 01/26/24 11:16 Pulse Ox 96 01/26/24 11:16 Oxygen Delivery Method Room Air 01/26/24 11:16 BMI result Body Mass Index 35.9 Tobacco/Smoking Status: Tobacco use Status Tobacco use date assessed 01/26/24 01/26/24 11:17 Patient Tobacco Use Status Former Tobacco user 01/26/24 11:16 Tobacco use type Cigarette 01/26/24 11:16 e-Cigarette/Vaping Use Never Used 01/26/24 11:16 Thrive Assessment: Date of Thrive Assessment Date Thrive assessed 09/25/23 01/26/24 11:16 Currently or been in a relationship where the following occur: I choose not to answer Const General: no acute distress HENMT Head: Yes normal to inspection Face and sinus: Yes normal facial exam Neck Neck: Yes supple Resp Effort & Inspection: normal respiratory effort Auscultation: clear to auscultation bilaterally Cardio Rhythm: regular rhythm Heart sounds: S1 normal heart sound present and S2 normal heart sound present GI Inspection: Yes normal to inspection Palpation (GI): Soft to palpation Percussion: Yes normal to percussion Auscultation: normal bowel sounds Coding Level of Care Code Est Pt Level 4 (79511) Diagnoses Shoulder pain M25.519 Type 2 diabetes mellitus E11.9 Diastolic CHF I50.30 Hypothyroidism E03.9 Assessment & Plan Assessment & Plan (1) Shoulder pain: Code(s): M25.519 - Pain in unspecified shoulder Category: Medical Plan: For bilateral shoulder pain obtain x-rays check sedimentation rate and CRP, patient declined physical therapy Celebrex 200 mg daily as needed will be started. Patient will continue gabapentin (2) Type 2 diabetes mellitus: Code(s): E11.9 - Type 2 diabetes mellitus without complications Category: Medical Plan: ADA diet discussed with the patient continue metformin and glipizide check A1c today (3) Diastolic CHF: Comment: Echo 06/2018 nl EF, diastolic dysfunction mild aortic stenosis, mild MR, Code(s): I50.30 - Unspecified diastolic (congestive) heart failure Category: Medical Plan: Continue current medications (4) Hypothyroidism: Code(s): E03.9 - Hypothyroidism, unspecified Category: Medical Plan: Continue levothyroxine check TSH Orders: Orders XR shoulder RT min 2V Today M25.519 - Pain in unspecified shoulder Hemoglobin A1c Today E03.9 - Hypothyroidism, unspecified, E11.9 - Type 2 diabetes mellitus without complications, I50.30 - Unspecified diastolic (congestive) heart failure, M25.519 - Pain in unspecified shoulder Comprehensive Met. Panel Today E03.9 - Hypothyroidism, unspecified, E11.9 - Type 2 diabetes mellitus without complications, I50.30 - Unspecified diastolic (congestive) heart failure, M25.519 - Pain in unspecified shoulder XR shoulder LT min 2V Today M25.519 - Pain in unspecified shoulder C Reactive Protein Today E03.9 - Hypothyroidism, unspecified, E11.9 - Type 2 diabetes mellitus without complications, I50.30 - Unspecified diastolic (congestive) heart failure, M25.519 - Pain in unspecified shoulder Complete Blood Count Auto Diff Today E03.9 - Hypothyroidism, unspecified, E11.9 - Type 2 diabetes mellitus without complications, I50.30 - Unspecified diastolic (congestive) heart failure, M25.519 - Pain in unspecified shoulder Erythrocyte Sedimentation Rate Today M25.519 - Pain in unspecified shoulder Medications: Refilled lovastatin 40 mg PO DAILY 90 tabs 3RF E78.5 - Hyperlipidemia, unspecified metformin 1 tabl q AM, 2 tabl q PM 500 mg PO BID 270 tabs 3RF E11.9 - Type 2 diabetes mellitus without complications gabapentin 100 mg PO .4 times a day 360 caps 3RF metoprolol tartrate 2 tablets in am and 1 tablet in pm 150 mg (3 x 50 mg) PO DAILY 270 tabs 3RF I10 - Essential (primary) hypertension gabapentin 600 mg PO BEDTIME 90 tabs 3RF
== END 2024-01-26 12:14 | disposition home or self-care (01) ==
PROVIDERS: PCP Internal Medicine; Visit Provider Internal Medicine
DX: M25.519 Pain in unspecified shoulder (principal); E11.9 Type 2 diabetes mellitus without complications; I50.30 Unspecified diastolic (congestive) heart failure; E03.9 Hypothyroidism, unspecified

== ENCOUNTER 2024-01-26 11:11 | Outpatient (REF) | payer MEDICARE, SELFPAY ==
--- NOTE | ~2024-01-26 | XR_ITS ---
EXAMINATION: XR RIGHT SHOULDER AND XR LEFT SHOULDER CLINICAL INFORMATION: Pain in unspecified shoulder M25.519. COMPARISON: XR Right shoulder 04/13/2017; MR Left shoulder without IV contrast 10/08/2017 TECHNIQUE: 2 views of left shoulder and 2 views of right shoulder. FINDINGS: Right shoulder: Mild to moderate osteoarthritis of the acromioclavicular joint. Mild osteoarthritis of the glenohumeral joint. Sternotomy wires incidentally noted. Left shoulder: Glenohumeral joint: Joint space narrowing prominent marginal osteophytes indicative of moderate to severe osteoarthritis. Possible loose body versus ossification of the joint capsule. Mild osteoarthritis of the acromioclavicular joint. XR/XR shoulder RT min 2V IMPRESSION: RIGHT SHOULDER: Mild to moderate osteoarthritis. LEFT SHOULDER: Advanced osteoarthritis Electronically signed by: Reed Sommers MD 02/01/2024 07:35 AM MAHAMED
--- NOTE | ~2024-01-26 | XR_ITS ---
EXAMINATION: XR RIGHT SHOULDER AND XR LEFT SHOULDER CLINICAL INFORMATION: Pain in unspecified shoulder M25.519. COMPARISON: XR Right shoulder 04/13/2017; MR Left shoulder without IV contrast 10/08/2017 TECHNIQUE: 2 views of left shoulder and 2 views of right shoulder. FINDINGS: Right shoulder: Mild to moderate osteoarthritis of the acromioclavicular joint. Mild osteoarthritis of the glenohumeral joint. Sternotomy wires incidentally noted. Left shoulder: Glenohumeral joint: Joint space narrowing prominent marginal osteophytes indicative of moderate to severe osteoarthritis. Possible loose body versus ossification of the joint capsule. Mild osteoarthritis of the acromioclavicular joint. XR/XR shoulder LT min 2V IMPRESSION: RIGHT SHOULDER: Mild to moderate osteoarthritis. LEFT SHOULDER: Advanced osteoarthritis Electronically signed by: Reed Sommers MD 02/01/2024 07:35 AM MAHAMED
[2024-01-26 13:26] LABS: Hematocrit 38.9 % (37.0-47.0); Hemoglobin 12.4 g/dl (12.0-16.0); Mean Corpuscular HGB Conc 31.9 g/dl (31.0-35.0); Mean Corpuscular Hemoglobin 28.6 pg (27.0-33.0); Mean Corpuscular Volume 89.6 fL (80.0-98.0); Mean Platelet Volume 10.8 fL (9.4-12.3); Platelet Count 223 X10*3/uL (160-400); Red Blood Count 4.34 X10*6/uL (4.20-5.50); Red Cell Distribution Width 14.3 % (11.0-16.0); White Blood Count 4.9 X10*3/uL (4.8-10.8)
[2024-01-26 13:38] LABS: Estimated Average Glucose 171 mg/dL; Hemoglobin A1c % 7.6 % (<6.0); Total Hemoglobin (HGBA1C) 3239.2145 umol/L
[2024-01-26 14:02] LABS: Alanine Aminotransferase 12 U/L (0-31); Albumin Level 3.7 g/dL (3.5-5.0); Alkaline Phosphatase 71 U/L (39-117); Anion Gap 12 (12-20); Aspartate Amino Transferase 17 U/L (5-31); Bilirubin Total 1.2 mg/dL (0.0-1.0); Blood Urea Nitrogen 22 mg/dL (9-16); C Reactive Protein 0.94 mg/dL (< or = 0.50); Calcium 8.8 mg/dL (8.4-10.2); Carbon Dioxide 26 mmol/L (22-29); Chloride 106 mmol/L (96-108); Estimated Glomerular Filt Rate > 60; Glucose Random 246 mg/dL (60-115); Potassium 4.1 mmol/L (3.3-5.1); Sodium 140 mmol/L (135-145); Total Protein 6.9 g/dL (6.5-8.0)
[2024-01-26 14:08] LABS: Erythrocyte Sedimentation Rate 25 MM/HR (0-20)
[2024-01-26 14:10] LABS: Atypical Lymph Absolute Manual 0.1 x10*3/uL; Atypical Lymphs Percent Manual 2 % (0-6); Band Neutrophils Percent 8 % (3-5); Eosinophils Absolute Manual 0.1 X10*3/uL (0.0-0.4); Eosinophils Percent Manual 2 % (0-4); Large Platelet PRESENT; Lymphocytes Absolute Manual 0.8 X10*3/uL (1.2-4.9); Lymphocytes Percent Manual 16 % (20-40); Metamyelocytes Percent 1 %; Monocytes Absolute Manual 0.2 X10*3/uL (0.1-1.2); Monocytes Percent Manual 4 % (2-11); Neutrophils Absolute Manual 3.6 X10*3/uL (2.0-8.3); Neutrophils Percent Manual 66 % (45-73); Platelet Estimate NORMAL (NORMAL); Platelet Morphology Comment NOTED; Promyelocytes Percent 1 %; RBC Morphology NOTED
[2024-01-26 14:11] LABS: Basophilic Stippling 1+ (0-2) /OIF; Polychromasia 1+ (0-2) /OIF
== END 2024-01-26 11:12 | disposition home or self-care (01) ==
LOC: HO.HMGCX 11:11
PROVIDERS: PCP Internal Medicine; Visit Provider Internal Medicine
DX: M25.511 Pain in right shoulder (principal); M25.512 Pain in left shoulder; E11.9 Type 2 diabetes mellitus without complications; I50.30 Unspecified diastolic (congestive) heart failure; E03.9 Hypothyroidism, unspecified; Z79.84 Long term (current) use of oral hypoglycemic drugs; Z79.899 Other long term (current) drug therapy
CPT/HCPCS: 36415; 73030; 80053; 83036; 85007; 85027; 85652; 86140; 99212

== ENCOUNTER 2024-03-01 14:48 | Outpatient (AMB) | payer MEDICARE, SELFPAY ==
--- NOTE | 2024-03-01 14:51 | MHC.OFFVIS ---
Vital Signs 03/01/24 15:01 Height 4 ft 11 in Weight 178 lb BMI 35.9 Handedness Right Intake Visit Reasons: New Pt - B/L shoulder pain Intake Note: Shikha is a 88 year old right hand dominant female who presents today as a new patient for a evaluation of her bilateral shoulder pain. Hx of injection with NE more than 3 years ago. Hx of Injection with x ray with [facility]. Patient reports having ongoing for about for a couple months. She mentions that her pain is worse on the right shoulder than the left shoulder. Patient informed me that her pain in her right shoulder starts at her neck. Patient states that her pain is worse when she is lifting her arms up and when she is laying down. She has tried prednisone. Allergies duloxetine Allergy (Unknown, Verified 01/26/24 11:17) delusions procaine [From Novocain] Adverse Reaction (Unknown, Verified 01/26/24 11:17) Nausea and Vomiting, fainting HPI HPI New Pt - B/L shoulder pain: Details: Ms. Flores is an 88-year-old right-hand dominant female who presents to the office today for evaluation of bilateral shoulder pain. Patient reports in the past that she has had an intra-articular injection with imaging guidance at [facility]. She reports that this helped her in the past and is looking for repeat injection. She does also report that she was on prednisone in the past which has helped with her pain greatly but is unable to stay on it for long-term use. Of note the patient is also on warfarin at baseline for a recurrent PE. [facility] Medical History Cerumen impaction Diastolic CHF Hypothyroidism Peripheral neuropathy Recurrent pulmonary embolism CAD (coronary artery disease) Osteoarthritis HTN (hypertension) Type 2 diabetes mellitus Surgical History H/O Spinal surgery S/P three vessel coronary artery bypass Social History Housing: House Alcohol intake: never Patient Tobacco Use Status: Former Tobacco user Tobacco use type: Cigarette Years Smoked: 3 yrs e-Cigarette/Vaping Use: Never Used Second Hand Smoke Exposure: No Advance Directives Date on File: 06/26/03 service: No Current occupational status: retired and disabled Cognitive needs: No Hearing needs: No Vision needs: Yes Review of Systems Const All systems reviewed & are unremarkable except as noted in HPI and below Physical Exam Vital Signs: BMI result Body Mass Index 35.9 Extrem Other: Bilateral shoulders normal to inspection no ecchymosis erythema or edema. 45 degrees of forward flexion abduction. Pain with cross-body reach. Unable to assess empty can and drop arm due to range of motion restrictions. NVI. Assessment & Plan Assessment & Plan (1) Arthritis of left glenohumeral joint: Code(s): M19.012 - Primary osteoarthritis, left shoulder Category: Medical (2) Arthritis of right glenohumeral joint: Code(s): M19.011 - Primary osteoarthritis, right shoulder Category: Medical (3) Bilateral acromioclavicular joint arthritis: Code(s): M19.011 - Primary osteoarthritis, right shoulder; M19.012 - Primary osteoarthritis, left shoulder Category: Medical (4) Diabetes: Code(s): E11.9 - Type 2 diabetes mellitus without complications Category: Medical (5) Chronic anticoagulation: Code(s): Z79.01 - group home (current) use of anticoagulants Category: Medical Plan Ms. Flores is an 88-year-old right-hand dominant female who presents to the office today for evaluation of bilateral shoulder pain. Patient reports in the past that she has had an intra-articular injection with imaging guidance at [facility]. She reports that this helped her in the past and is looking for repeat injection. She does also report that she was on prednisone in the past which has helped with her pain greatly but is unable to stay on it for long-term use. Of note the patient is also on warfarin at baseline for recurrent PE. I discussed with the patient the option to do repeat cortisone injections into bilateral glenohumeral joints. Patient does have a history of diabetes and therefore 40 mg of Depo will be recommended. This will be done under imaging guidance at the hospital. Patient understands and would like to move forward with the process of booking. I did educate the patient after the injection she will have to monitor her sugar levels as the cortisone may increase her glucose levels. Her follow-up will be p.r.n., sooner if needed. X-rays obtained on 01/26/2024 are available for my review and reveal bilateral shoulder AC joint arthritis and glenohumeral joint arthritis. Orders: Orders FL Guided Asp Inj Major Jt BI Today M19.011 - Primary osteoarthritis, right shoulder, M19.012 - Primary osteoarthritis, left shoulder Coding Level of Care Code New Pt Level 4 (90852) Diagnoses Arthritis of left glenohumeral joint M19.012 Arthritis of right glenohumeral joint M19.011 Bilateral acromioclavicular joint arthritis M19.011; M19.012 Diabetes E11.9 Chronic anticoagulation Z79.01
[2024-03-01 15:01] VITALS: BMI 35.9
--- OUTSIDE RECORDS SUMMARY | 2024-03-01 16:51 | XMS_ITS ---
Author Organization [facility] Address [address] [place] [address] Care Team Providers Care Building Performance Consultant Name Role Phone Dash PRAKASH, Rissa Primary Care Provider Aleshia Mccracken Unavailable [phone] Ede Grant [phone] Hinojosa Encounters Encounter Location Date Provider Diagnosis [address] [id number] 11/25/2023 Ede Grant Plan Of Treatment Next Appt Details Provider Name:Eli kramer, 04/06/2024 11:00:00 AM, [address] [place] [address], [phone], Provider Name:Aleshia cha, 06/08/2024 10:15:00 AM, [address] [place] [address], [phone], Progress Notes * Sherry FLORESDOB:[birth year] (88 yo F)Acc No.[id number]:11/25/2023 Progress Note Patient:?Sherry FLORES Provider:?Ede Grant DPM :1935???Age:88 Y???Sex:Female D ate:11/25/2023 Address:[address] [place], [place] [address]evan [phone] Pcp:Rissa Bowling MD Subjective: * Chief Complaints: * ???1. Dr Hinojosa. * Medical History:? Objective: * Vitals:? Assessment: Plan: * Treatment: * Images: * The named appointment provid er may or may not be the originator of this progress note, and it is not deemed complete until electronically signed by the appointment provider. Sign off status: Pending * Provider:Jammie Grant DPM Date:? 024 Generated for Karen baird/Han/Vincenzo on:?03/01/2024 04:51 PM EST
--- OUTSIDE RECORDS SUMMARY | 2024-03-01 16:51 | XMS_ITS ---
Author Organization [facility] khris Castillo Address [address] [place] [address] Care Team Providers Care Customer Care Specialist Name Role Phone Dash PRAKASH, Rissa Primary Care Provider Aleshia Mccracken Unavailable [phone] Allergies Allergen (clinical drug ingredient) Drug/Non Drug Allergy documented on EMR Reaction Allergy Type Onset Date Status Novocain sick Drug Allergy Active Duloxetine & Lidocaine-Menthol Unknown Drug Allergy Active REASON FOR VISIT At Risk Footcare, Skin Problem Medications Medication SIG (Take, Route, Frequency, Duration) Notes Start Date End Date Status Levothyroxine Sodium Active Lovastatin Active Metoprolol & Diet Manage Prod Active Metformin & Diet Manage Prod Active hydroCHLOROthiazide Active Voltaren 1 % as directed Externally Active Aspir-81 Active Gabapentin Active glipiZIDE 5 MG as directed Orally Twice a day Active Keflex 500 MG 1 capsule Orally every 12 hrs for 5 days 03/22/2014 Not-Taking oxyCODONE HCl Not-Ta chinedu Tyzine Not-Taking Monique Aspirin Not-Ta chinedu Coumadin Not-Taking Metoprolol Succinate Not-Taking Pravastatin Sodium N ot-Taking Clotrimazole-Betamethasone 1-0.05 % 1 application to affected area Externally Twice a day to affected areas on feet for 30 days Not-Taking predniSONE Not-Takin g Diabetic Insoles Not -Taking Physical Therapy . . . 2-3x/week; remove cast and start on 10/24/19 Not-Taking Ciclopirox Olamine 0.77 % 1 application to affected area Externally Twice a day to effected areas on feet for 30 days Not-Taking Celecoxib 100 MG TAKE 1 CAPSULE BY MOUTH 2 TIMES A DAY Oral for 10 Days Active Desoximetasone 0.25 % APPLY TOPICALLY TO AFFECTED AREA ON FEET TWICE DAILY FOR 30 DAYS for 30 Not-Taking HYDROcodone-Acetaminophen Not-Taking Ciclopirox Olamine 0.77 % 1 application Externally Twice a day to skin of feet including between the toes for 30 days Active Warfarin Sodium Acti ve Social History Tobacco Use: Social History Observation Description Date Details (start date - stop date) Former Smoker NA - NA Tobacco Use/Smoking Question Answer Notes Are you a: former smoker Additional Findings: Tobacco Non-User Current no n-smoker Tobacco use other than smoking: Question Answer Notes Are you an other tobacco user? No Problems Problem Type SNOMED Code ICD Code Onset Dates Problem Status W/U Status Risk Notes Problem Polyneuropathy due to diabetes mellitus type I (961789480) Type 1 diabetes mellitus with diabetic polyneuropathy (E10.42) Active confirmed Vital Signs Height 4ft9in in 02/01/2024 Weight 179 lbs 02/01/2024 BMI 38.73 kg/m2 02/01/2024 Blood pressure systolic 120 mm Hg 02/01/20 24 Blood pressure diastolic 75 mm Hg 024 Procedures Procedure Date Ordered Date Performed Result Body Sit e 92401-QFMQQQI NAIL, 6 OR MORE 02/01/2024 N/A 76207-RYKX SKIN LESIONS, OVER 4 02/01/2024 N/A Encounters Encounter Location Date Provider Diagnosis [facility] [address] [address] 02/01/2024 Aleshia Lagunas Type 2 diabetes mellitus with diabetic polyneuropathy E11.42 ; Tinea unguium B35.1 and Tinea pedis of both feet B35.3 Assessments Encounter Date Diagnosis (ICD Code) Assessment Notes Treatment Notes Treatment Clinical Notes Section Notes 02/01/2024 Type 2 diabetes mellitus with diabetic polyneuropathy (ICD-10 - E11.42) 02/01/2024 Tinea unguium (ICD-10 - B35.1) 02/01/2024 Tinea pedis of both feet (ICD-10 - B35.3) Plan Of Treatment Medication Medication Name Sig Start Date Stop Date Notes Ciclopirox Olamine 0.77 % 1 application Externally Twice a day to skin of feet including between the toes for 30 days Pending Test Test Name Order Date 40474-MURDHID NAIL, 6 OR MORE 02/01/2024 10951-[id number] SKIN LESIONS, OVER 4 02/01/20 24 Next Appt Details Follow Up: 3 Months, Reason: Provider Name:Eli kramer, 04/06/2024 11:00:00 AM, [address] [place] [address], [phone], Provider Name:Aleshia cha, 06/08/2024 10:15:00 AM, [address] [place] [address], [phone], Procedure Notes * Category Sub-Category Detail Notes Debride Nail 6-10 Nail debridement Due to the cl inical pathology outlined in the exam findings, performance of this nail treatment is medically necessary as its management by an unskilled/untrained nonprofessional would put this patients foot and overall health at risk. Therefore, debridement to affected nail(s), as described in exam (T1, T2, T3, T4, T6, T7, T8, T9), was performed exclusively by the physician of record to reduce/remove overall nail length, girth, thickness, subungual debris, and necrotic tissue, by manual and/or electrical means through the use of a nail nipper and/or dremel-type miter grinder operator, to a more viable healthy nail plate or bed tissue 6-10 nails in total. Silver nitrate was used for any petechial bleeding as necessary. Definitive antifungal treatment options, both pharmaceutical and surgical, have been reviewed and discussed with the patient. The patient solely prefers the use of intermittent/as needed professional debridement services for their nail condition and understands the need for additional periodic treatments to maintain effectiveness in symptomatic relief - 95019 Keratoma Treatment Parring or Cutting o f Benign Hyperkeratotic Lesion(s) (-57) More than 4 Lesions - Due to the at risk nature of the patients medical condition as documented in the exam findings, performance of this keratoderma treatment is medically necessary as its management by an unskilled/untrained nonprofessional would put this patients foot and overall health at risk. Therefore, the benign hyperkeratotic lesions, ( 5) in total, locations as stated and described in the exam ( _Medial plantar, TA, T5, plantar Midfoot LEFT, Heel(s), B/L ), were pared, and/or cut utilizing a sterile 15 blade, tissue nippers, and/or power dremel instrumentation by the physician of record - 16688 Progress Notes * Sherry FLORESDOB:[birth year] (88 yo F)Acc No.[id number]:02/01/2024 Progress Note Patient:Sherry LOREDO Provider:?Aleshia Lagunas DPM :1935???Age:88 Y???Sex:Female D ate:02/01/2024 Address:[address] [place], [place] [id number] Pcp:Rissa Bowling MD Subjective: * Chief Complaints: * ???At Risk FootcareSkin Prob alejandra * HPI: ???At Risk footcare:?Pt States Last PCP Visit:?Date?01/19/2024 ???Skin problems:?Nature:?scaling , redness, itching.?Location:?B/L .?Duration:?several days.?Course:?worse.? * ROS:?General/Constitutional:?Nausea?denies.?Vomiting?denies.?Hunger Thirst?denies.?Loss appetite?denies.?Chills?denies.?Fatigue?denies.?Fever?denies.?Night Sweats?denies.?Unexplained weight loss?denies.?Ophthalmologic:?Blurred vision?denies.?Red eye?denies.?HEENTM:?Dentures?denies.?Dizziness?denies.?Glasses/contacts?admits.?Retinopathy?den ies.?Blurred/double vision?denies.?TMJ?denies.?Discharge/drainage?denies.?Implants?denies.?Hard of hearing denies.?Difficulty chewing/swallowing/speaking?denies.?Nose bleeds?denies.?Sore mouth?denies.?Swollen glands?denies.?Respiratory:?On O xygen?denies.?Pneumonia/pleurisy?denies.?Bronchitis?denies.?Emphysema?denies.?Co ughing?denies.?Cough blood?denies.?Shortness of breath?denies.?Wheezing?denies.?Cardiovascular:?Pacemaker?denies.?MVP?denies.?WPW?denies.?CHF?denies.?Heart attack?denies.?Septal defect?denies.?Rapid beat?denies.?Chest pain ?denies.?Atrial Fib.?denies.?Murmur/Palpitations?denies.?Gastrointestinal:?Hemorrhoids?denies.?Stomach/Abdominal pain?denies.?Dark blood stool?denies.?Irritable bowel ?denies.?Constipation?denies.?Diarrhea?denies.?Vomiting?denies.?Hematology:?Swelling?denies.?Bruising?denies.?Bleeding problem?denies.?Genitourinary:?Blood urine?denies.?Frequent/Painfu/urination/bladder control?denies.?Kidney stones?denies.?Infection (UTI)?denies.?Nephropathy?denies.?Musculoskeletal:?Hammertoes?denies.?Bunions?denies.?Scoliosis/kyphosis?denies.?Muscle cramps / walking?denies.?Generalized aches and pains?denies.?Weakness?denies.?Integ.:?White?denies.?Scars?denies.?Corns/calluses?denies.?Ingrown nails?admits.?Painful nails?admits.?Rashes?denies.?Neurologic:?Difficulty sleeping?denies.?Bipolar?denies.?Brain disorder?denies.?Balance t rouble?denies.?Confusion?denies.?Fainting/blackouts?denies.?Headache?denies.?Virgilio mors?denies.? * Medical History:? * Surgical History:?heart surg elsa unspecified 10/2005cataract surgery 11/2011carpel tunnel surgery 12/19/2014lumber fusion 08/04/16cancer basal cell removal biopsy 02/20/20cancer basal cell removal 2 spost R side forhead 04/15/22 * Hospitalization/Major Diagno stic Procedure:?Patient admitted to [facility] for chest pain. 06/2013lumber fusion 08/04-08/09/16rehab lumber fusion 08/09-08/16/16Urgent care -Bleeding ear bug in ear 02/05/20PCP/Walk in clinic -covid-19 meds for cough 2021 * Family History:?Mother: dece ased, diagnosed with Diabetic - NIDDM.?Father: , diagnosed with Unspecified heart disease.?Siblings: cancer, foot problems, diabetes mellitus, hypertension, stroke.?Spouse: .?2 son(s) , 2 daughter(s) . .? * Social History:?Tobacco Use:?Tobacco Use/Smoking?Are you a:?former smoker ?Additional Findings: Tobacco Non-User?Current non-smoker ?Tobacco use other than smoking?Are you an other tobacco user??No * Medications:?TakingVoltaren 1 % Gel as directed Externally Aspir-81 glipiZIDE 5 MG Tablet as directed Orally Twice a day Gabapentin hydroCHLOROthiazide Metoprolol & Diet Manage Prod Metformin & Diet Manage Prod Levothyroxine Sodium Lovastatin Warfarin Sodium Celecoxib 100 MG Capsule TAKE 1 CAPSULE BY MOUTH 2 TIMES A DAY Oral Taking Voltaren 1 % Gel as directed Externally Taking Aspir-81 Taking glipiZIDE 5 MG Tablet as directed Orally Twice a day Taking Gabapentin Taking hydroCHLOROthiazide Taking Metoprolol & Diet Manage Prod Taking Metformin & Diet Manage Prod Taking Levothyroxine Sodium Taking Lovastatin Taking Warfarin Sodium Taking Celecoxib 100 MG Capsule TAKE 1 CAPSULE BY MOUTH 2 TIMES A DAY Oral Not-Taking/PRNCiclopirox Olamine 0.77 % Cream 1 application to affected area Externally Twice a day to effected areas on feet Desoximetasone 0.25 % Cream APPLY TOPICALLY TO AFFECTED AREA ON FEET TWICE DAILY FOR 30 DAYS HYDROcodone-Acetaminophen Diabetic Insoles Physical Therapy . . . . 2-3x/week; remove cast and start on 10/24/19 Clotrimazole-Betamethasone 1-0.05 % Cream 1 application to affected area Externally Twice a day to affected areas on feet predniSONE Pravastatin Sodium Monique Aspirin oxyCODONE HCl Tyzine Metoprolol Succinate Coumadin Keflex 500 MG Capsule 1 capsule Orally every 12 hrs Medication List reviewed and reconciled with the patientNot-Taking/PRN Ciclopirox Olamine 0.77 % Cream 1 application to affected area Externally Twice a day to effected areas on feet Not-Taking/PRN Desoximetasone 0.25 % Cream APPLY TOPICALLY TO AFFECTED AREA ON FEET TWICE DAILY FOR 30 DAYS Not-Taking/PRN HYDROcodone-Acetaminophen Not-Taking/PRN Diabetic Insoles Not-Taking/PRN Physical Therapy . . . . 2-3x/week; remove cast and start on 10/24/19 Not-Taking/PRN Clotrimazole-Betamethasone 1-0.05 % Cream 1 application to affected area Externally Twice a day to affected areas on feet Not-Taking/PRN predniSONE Not-Taking/PRN Pravastatin Sodium Not-Taking/PRN Monique Aspirin Not-Taking/PRN oxyCODONE HCl Not-Taking/PRN Tyzine Not-Taking/PRN Metoprolol Succinate Not-Taking/PRN Coumadin Not-Taking/PRN Keflex 500 MG Capsule 1 capsule Orally every 12 hrs Medication List reviewed and reconciled with the patient * Allergies:?Duloxetine & Lido mely-MentholNovocain: sickyes[Allergies Verified] Objective: * Vitals:?Ht: 4ft9in, Wt: 179, BMI: 38.73, Shoe size: 7.5W, BP: 120/75 mm Hg, BS: 178, Ht-cm: 144.78 cm, Wt-k.19 kg. * Examination: ???General Examination: ?GENERAL APPEARANCE:?Reveals a pleasant, alert, well nourished, well- developed, well hydrated individual, who demonstrates proper attention to hygiene/body habitus, and is in no acute distress, Pt serves as own historian for office visit today.?ORIENTED:?person, place, and time.?Neurological: ?SENSORY:? Neurological exam demonstrates, reduced light touch sensation, reduced sharp/dull pin prick discrimination , B/L, 5.07 monofilament test performed at plantar aspects of 5 varied sites per foot shows sensation, reduced , B/L.?Dermatologic: ?SKIN FINDINGS:?Skin exam reveals Keratotic lesion(s) located at?Medial plantar, TA, T5, plantar Midfoot LEFT, Heel(s), B/L , Skin shows sign(s) of, erythema, scaling, in a moccasin fashion, no fissure(s) present, B/L.?Nails: ?NAILS are:?Elongated, overgrown, dystrophic, lytic, greater than 3mm thick, discolored and friable with crumbly malodorous subungual debris, T1, T2, T3, T4, T6, T7, T8, T9.?Vascular: ?DP PULSES (B):?1/4, B/L.?PT PULSES (B):?0/4.?CAPILLARY FILL TIME:?3 secs. per digit, b/l.?Orthopedic: ?MUSCLE STRENGTH:?5/5 all groups in a symmetrical fashion, B/L.?Ophthalmology Referral: ?DIABETES EYE EXAM? Assessment: * Assessment: 1.?Type 2 diabetes mellitus with diabetic polyneuropathy - E11.42 (Primary)???2.?Tinea unguium - B35.1???3.?Tinea pedis of both feet - B35.3???Specify :Acute problem, Uncomplicated (3),Rx drug management (4)??? Plan: * Treatment: 2.?Tinea pedis of both feet? Start Ciclopirox Olamine Cream, 0.77 %, 1 application, Externally, Twice a day to skin of feet including between the toes, 30 days, 60, Refills 2.?? * Procedures:?Debride Nail 6-10:?Nail debridement?Due to the clinical pathology outlined in the exam findings, performance of this nail treatment is medically necessary as its management by an unskilled/untrained nonprofessional would put this patients foot and overall health at risk. Therefore, debridement to affected nail(s), as described in exam (T1, T2, T3, T4, T6, T7, T8, T9), was performed exclusively by the physician of record to reduce/remove overall nail length, girth, thickness, subungual debris, and necrotic tissue, by manual and/or electrical means through the use of a nail nipper and/or dremel-type miter grinder operator, to a more viable healthy nail plate or bed tissue 6-10 nails in total. Silver nitrate was used for any petechial bleeding as necessary. Definitive antifungal treatment options, both pharmaceutical and surgical, have been reviewed and discussed with the patient. The patient solely prefers the use of intermittent/as needed professional debridement services for their nail condition and understands the need for additional periodic treatments to maintain effectiveness in symptomatic relief - 35346.?Keratoma Treatment:?Parring or Cutting of Benign Hyperkeratotic Lesion(s)?(-57) More than 4 Lesions - Due to the at risk nature of the patients medical condition as documented in the exam findings, performance of this keratoderma treatment is medically necessary as its management by an unskilled/untrained nonprofessional would put this patients foot and overall health at risk. Therefore, the benign hyperkeratotic lesions, ( 5) in total, locations as stated and described in the exam ( _Medial plantar, TA, T5, plantar Midfoot LEFT, Heel(s), B/L ), were pared, and/or cut utilizing a sterile 15 blade, tissue nippers, and/or power dremel instrumentation by the physician of record - 48984.? * Procedure Codes:?96263 DEBRI DE NAIL, 6 OR MORE, Modifiers: XS 15319 TRIM SKIN LESIONS, OVER 4, Modifiers: XS * Preventive Medicine:? ??Counseling:?Discussion:?-13: Office or other outpatient visit for the evaluation and management of an established patient, which required a medically appropriate history and/or examination and LOW level of DECISION MAKING for: 1 STABLE ACUTE UNCOMPLICATED PROBLEM, 2 OR MORE MINOR PROBLEMS, OR 1 STABLE CHRONIC PROBLEM, THAT POSE(S) A LOW RISK FOR MORBIDITY/MORTALITY. The visit on the day of the encounter encompassed interpreting the data and educating the patient as to the nature of their condition, treatment options available according to their individual PMH, meds, allergies, and overall health/living conditions, as well as any potential risks or complications that may occur from a failure to adhere to, and participate in, the recommended course of therapy. The discussion included a complete verbal, and/or written explanation of the examination results, any x-rays taken, the proposed diagnosis, and outline of the treatment plan. A schedule for future care needs was also explained. The patient verbalized an understanding of the instructions at this time and agreed to be an active participant in their treatment. If the patient should think of any questions or concerns after the visit, I have encouraged the patient to call the office.?Tinea Pedis:?The patient was counseled on the diagnosis, potential etiologies, and treatment options for their skin condition. We discussed the risks and benefits of each option from performing no treatment, to utilizing OTC topical skin creams, prescription topical creams, customized compounded topical medications, and, if necessary, to utilize oral antifungal therapy. We discussed the advantages and disadvantages of each possible treatment and importance for adherence to all the recommended therapies for optimum success and avoid potential complications such as open sore/infection/possible hospitalization. We discussed the potential effectiveness of each topical preparation as well as each ones possible side effects and/or patient medication interactions if oral therapy is selected. Patient questions re: the advantages and disadvantages of each treatment choice, medication use/dosage, successful outcomes, and application consistency were reviewed and the patient verbalized that all answers were clearly understood. The patient was told they can help alleviate symptoms by utilizing moisture absorbant innersoles with activated charcoal and baking soda, applying antifungal sprays daily, aerating toe web spaces at night by putting cotton or lambs wool between the toes, alternating shoe gear daily if possible so they can dry out, changing socks at least once during the day, wearing well-ventilated shoes or sandals. The patient has decided to apply antifungal skin creams to their feet as directed. Rx was sent to their pharmacy at the time of visit.? * Follow Up:?3 Months * Images: * Sign off status: Completed true * Provider:?Aleshia Lagunas DPM Date:?04/03/2023 Generated for Karen baird/Han/Vincenzo on:?03/01/2024 04:51 PM EST History and Physical Notes * HPI (History of Present Illness) Category Sub-Category Detail Notes Category Not es Skin problems Nature: scaling , redness, itching Location: B/L Duration: several days Course: worse At Risk footcare Pt States Last PCP Visit: Date: 4 Examination Category Sub-Category Detail Notes Category Not es Neurological SENSORY: Neurological exa m demonstrates, reduced light touch sensation, reduced sharp/dull pin prick discrimination , B/L, 5.07 monofilament test performed at plantar aspects of 5 varied sites per foot shows sensation, reduced , B/L Dermatologic SKIN FINDINGS: Skin exam reveal s Keratotic lesion(s) located at Medial plantar, TA, T5, plantar Midfoot LEFT, Heel(s), B/L , Skin shows sign(s) of, erythema, scaling, in a moccasin fashion, no fissure(s) present, B/L Orthopedic MUSCLE STRENGTH: 5/5 all groups in a symmetrical fashion, B/L General Examination GENERAL APPEARANCE: Reveals a pleasant, alert, well nourished, well-developed, well hydrated individual, who demonstrates proper attention to hygiene/body habitus, and is in no acute distress, Pt serves as own historian for office visit today ORIENTED: person, place, and t alexy Ophthalmology Referral DIABETES EYE EXAM Procedure Perform ed:: Yes ?Date of Exam Performed: 06/10/2023 Findings of Diabetic Eye Exam:: no retin opathy Vascular DP PULSES (B): 1/4, B/L PT PULSES (B): 0/4 CAPILLARY FILL TIME: 3 secs. per digit, b/l Nails NAILS are: Elongated, overg rown, dystrophic, lytic, greater than 3mm thick, discolored and friable with crumbly malodorous subungual debris, T1, T2, T3, T4, T6, T7, T8, T9
--- OUTSIDE RECORDS SUMMARY | 2024-03-01 16:51 | XMS_ITS | Clinical Summary ---
Author Organization [facility] Address [address] [place] [address] Care Team Providers Care Arcade Attendant Name Role Phone Unavailable Primary Care Provider Unavailabl e Surgical History Surgery Date Site/Laterality Comments CORONARY ARTERY BYPASS GRAFT 2006 PROCEDURE: HISTORICAL CABG; COMMENT: triple bypass Medical History Medical History Date Comments Heart disease DX:Heart disease Diabetes (CMS/HCC) DX:Diabetes ( HCC) Hypertension DX:Hypertension Thyroid disease DX:Thyroid disea se Family History Medical History Relation Name Comments Stroke Father Relation Name Status Comments Father Mother Social History Tobacco Use Types Packs/Day Years Used Date Smoking Tobacco: Never Smokeless Tobacco: Never Alcohol Use Standard Drinks/Week Comments No 0 (1 standard drink = 0.6 oz pur e alcohol) Sex and Gender Information Value Date Recorded Sex Assigned at Not on file Gender Identity Not on file Sexual Orientation Not on file Obstetrics History Plan of Treatment Health Maintenance Due Date Last Done Comments DTaP,Tdap,and Td Vaccines (1 - Tdap) 1954 Zoster Vaccines (1 of 2) 1984 Pneumococcal Vaccine: 65+ Ye ars (1 of 1 - PCV) 08/23/1999 RSV Immunization Patients 60 + Years Old (1 - 1-dose 75+ series) 2009 COVID-19 Vaccine ( - 2023-2 5 season) 2023 Influenza Vaccine (#1) 2023 HIB Vaccines Aged Out No longer eligi ble based on patient's age to complete this topic HPV Vaccines Aged Out No longer eligi ble based on patient's age to complete this topic Hepatitis A Vaccines Aged Out No long er eligible based on patient's age to complete this topic Hepatitis B Vaccines Aged Out No long er eligible based on patient's age to complete this topic IPV Vaccines Aged Out No longer eligi ble based on patient's age to complete this topic MMR Vaccines Aged Out No longer eligi ble based on patient's age to complete this topic Meningococcal ACWY Vaccine Aged Out N o longer eligible based on patient's age to complete this topic RSV Immunization Patients Un tamara 20 months Aged Out No longer eligible b ased on patient's age to complete this topic Varicella Vaccines Aged Out No longer eligible based on patient's age to complete this topic
--- OUTSIDE RECORDS SUMMARY | 2024-03-01 16:51 | XMS_ITS ---
Author Organization [facility] [place] Address [address] [place] [address] Care Team Providers Care Police Dispatcher Name Role Phone Rissa Bowling MD Primary Care Provider Ramonitaa Aleshia Robles Unavailable [phone] Ede Grant Unavailable [phone] Allergies Allergen (clinical drug ingredient) Drug/Non Drug Allergy documented on EMR Reaction Allergy Type Onset Date Status Novocain sick Drug Allergy Active Duloxetine & Lidocaine-Menthol Unknown Drug Allergy Active REASON FOR VISIT Painful nail(s) aggrevated by shoes and causing difficulty standing/walking. Medications Medication SIG (Take, Route, Frequency, Duration) Notes Start Date End Date Status Pravastatin Sodium N ot-Taking predniSONE Not-Takin g Clotrimazole-Betamethasone 1-0.05 % 1 application to affected area Externally Twice a day to affected areas on feet for 30 days Not-Taking Voltaren 1 % as directed Externally Active Physical Therapy . . . 2-3x/week; remove cast and start on 10/24/19 Not-Taking Diabetic Insoles Not -Taking HYDROcodone-Acetaminophen Not-Taking Desoximetasone 0.25 % APPLY TOPICALLY TO AFFECTED AREA ON FEET TWICE DAILY FOR 30 DAYS for 30 Not-Taking Ciclopirox Olamine 0.77 % 1 application to affected area Externally Twice a day to effected areas on feet for 30 days Not-Taking Warfarin Sodium Acti ve Metformin & Diet Manage Prod Active Metoprolol & Diet Manage Prod Active hydroCHLOROthiazide Active Lovastatin Active Levothyroxine Sodium Active Gabapentin Active glipiZIDE 5 MG as directed Orally Twice a day Active Aspir-81 Active Keflex 500 MG 1 capsule Orally every 12 hrs for 5 days 03/22/2014 Not-Taking Coumadin Not-Taking Metoprolol Succinate Not-Taking Tyzine Not-Taking oxyCODONE HCl Not-Ta chinedu Monique Aspirin Not-Ta chinedu Social History Tobacco Use: Social History Observation Description Date Details (start date - stop date) Former Smoker NA - NA Tobacco Use/Smoking Question Answer Notes Are you a: former smoker Additional Findings: Tobacco Non-User Current no n-smoker Alcohol Screen Question Answer Notes Did you have a drink containing alcohol in the p ast year? No Points 0 Interpretation Negative Tobacco use other than smoking: Question Answer Notes Are you an other tobacco user? No Vital Signs Height 4ft9in in 11/26/2023 Weight 170 lbs 11/26/2023 BMI 36.78 kg/m2 11/26/2023 Encounters Encounter Location Date Provider Diagnosis [facility] [address] [address] 11/26/2023 Ede Grant Tinea unguium B35.1 ; Ingrowing nail L60.0 ; Type 2 diabetes mellitus with diabetic polyneuropathy E11.42 ; Pain in right toe(s) M79.674 ; Pain in left toe(s) M79.675 ; Hallux valgus (acquired), right foot M20.11 ; Other hammer toe(s) (acquired), left foot M20.42 ; Other hammer toe(s) (acquired), right foot M20.41 ; Tinea pedis B35.3 and Dermatitis L30.9 Assessments Encounter Date Diagnosis (ICD Code) Assessment Notes Treatment Notes Treatment Clinical Notes Section Notes 11/26/2023 Tinea unguium (ICD-10 - B35.1) 11/26/2023 Ingrowing nail (ICD-10 - L60.0) 11/26/2023 Type 2 diabetes mellitus with diabetic polyneuropathy (ICD-10 - E11.42) 11/26/2023 Pain in right toe(s) (ICD-10 - M79.674) 11/26/2023 Pain in left toe(s) (ICD-10 - M79.675) 11/26/2023 Hallux valgus (acquired), right foot (ICD-10 - M20.11) 11/26/2023 Other hammer toe(s) (acquired), left foot (ICD-10 - M20.42) 11/26/2023 Other hammer toe(s) (acquired), right foot (ICD-10 - M20.41) 11/26/2023 Tinea pedis (ICD-10 - B35.3) 11/26/2023 Dermatitis (ICD-10 - L30.9) Plan Of Treatment Medication Medication Name Sig Start Date Stop Date Notes Voltaren 1 % as directed Externally Next Appt Details Follow Up: 2 Months, Reason: Provider Name:Eli kramer, 04/06/2024 11:00:00 AM, [address] [place] [address], [phone], Provider Name:Aleshia cha, 06/08/2024 10:15:00 AM, [address] [place] [address], [phone], Procedure Notes * Category Sub-Category Detail Notes Debride Nail 6-10 Nail debridement Nail debridem ent performed extensively to reduce/remove overall nail length and girth, subungual debris, and necrotic tissue, by manual and electrical means with use of a nail nipper and/or dremel, to more viable healthy nail plate or bed tissue 6-10. Silver nitrate used for any petechial bleeding as necessary. Patient chooses, no pharmaceutical tx (74362) Keratoma Treatment Parring or Cutting o f Benign Hyperkeratotic Lesion(s) 52180 ( >4 Lesions) - The Benign hyperkeratotic lesions, as described above were pared, and/or cut utilizing a sterile #15 blade, tissue nippers, and/or dremel Progress Notes * Sherry FLORESDOB:[birth year] (88 yo F)Acc No.[id number]:11/26/2023 Progress Note Patient:?Shikha Floresann Provider:?Ede Grant DPM :[id number]???Age:88 Y???Sex:Female D ate:11/26/2023 Address:[address] [place] [id number] Pcp:Rissa Bowling MD Subjective: * Chief Complaints: * ??? Painful nail(s) aggrevat ed by shoes and causing difficulty standing/walking. * HPI: ???Painful Nails:?Pt States Last PCP Visit:?Date:?09/10/2023 ???Skin problems:?Nature:?itching, redness.?Location:?Bottom, Left , Midfoot, Heel/Rearfoot.?Onset/Cause:?unknown.?Course:?intermittent, unresolved.?Aggravated by:?any pressure.?Treatments:?pt is using? occasional otc hc cream for itching.?Severity/Quality:?moderate.?Foot Pain:?Nature:?burning.?Location:?B/L.?Duration:?several months.?Onset:?dpn.?Course:?worse, progressive.?Aggravated:?rest.?Treatments:?gabapentin.? * ROS:?General/Constitutional:?Nausea?denies.?Vomiting?denies.?Hunger Thirst?denies.?Loss appetite?denies.?Chills?denies.?Fatigue?denies.?Fever?denies.?Night Sweats?denies.?Unexplained weight loss?denies.?Ophthalmologic:?Blurred vision?denies.?Red eye?denies.?HEENTM:?Dentures?denies.?Dizziness?denies.?Glasses/contacts?admits.?Retinopathy?de nies.?Blurred/double vision?denies.?TMJ?denies.?Discharge/drainage?denies.?Implants?denies.?Hard of hearing denies.?Difficulty chewing/swallowing/speaking?denies.?Nose bleeds?denies.?Sore mouth?denies.?Swollen glands?denies.?Respiratory:?On Oxygen?denies.?Pneumonia/pleurisy?denies.?Bronchitis?denies.?Emphysema?denies.?C oughing?denies.?Cough blood?denies.?Shortness of breath?denies.?Wheezing?denies.?Cardiovascular:?Pacemaker?denies.?MVP?denies.?WPW?denies.?CHF?denies.?Heart attack?denies.?Septal defect?denies.?Rapid beat?denies.?Chest pain ?denies.?Atrial Fib.?denies.?Murmur/Palpitations?denies.?Gastrointestinal:?Hemorrhoids?denies.?Stomach/Abdominal pain?denies.?Dark blood stool?denies.?Irritable bowel ?denies.?Constipation?denies.?Diarrhea?denies.?Vomiting?denies.?Hematology:?Swelling?denies.?Bruising?denies.?Bleeding problem?denies.?Genitourinary:?Blood urine?denies.?Frequent/Painfu/urination/bladder control?denies.?Kidney stones?denies.?Infection (UTI)?denies.?Nephropathy?denies.?Musculoskeletal:?Hammertoes?denies.?Bunions?denies.?Scoliosis/kyphosis?denies.?Muscle cramps / walking?denies.?Generalized aches and pains?denies.?Weakness?denies.?Integ.:?White?denies.?Scars?denies.?Corns/calluses?denies.?Ingrown nails?admits.?Painful nails?admits.?Rashes?denies.?Neurologic:?Difficulty sleeping?denies.?Bipolar?denies.?Brain disorder?denies.?Balance trouble?denies.?Confusion?denies.?Fainting/blackouts?denies.?Headache?denies.?Tr emors?denies.? * Medical History:? * Surgical History:?heart surg elsa unspecified 10/2005cataract surgery 11/2011carpel tunnel surgery 12/19/2014lumber fusion 08/04/16cancer basal cell removal biopsy 02/20/20cancer basal cell removal 2 spost R side forhead 04/15/22 * Hospitalization/Major Diagno stic Procedure:?Patient admitted to [facility] for chest pain. 06/2013lumber fusion 08/04-08/09/16rehab lumber [...] than smoking?Are you an other tobacco user??No ???Drugs/Alcohol:?Drugs?Have you used drugs other than those for medical reasons in the past 12 months??No ?Alcohol Screen?Did you have a drink containing alcohol in the past year??No ?Points?0 ?Interpretation?Negative ???Miscellaneous:?Caffeine: yes, frequency: every other week. ?Children: yes. ?no Exercise. ?Marital status: . 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 * Medications:?TakingVoltaren 1 % Gel as directed Externally Aspir-81 glipiZIDE 5 MG Tablet as directed Orally Twice a dayGabapentin hydroCHLOROthiazide Metoprolol & Diet Manage Prod Metformin & Diet Manage Prod Levothyroxine Sodium Lovastatin Warfarin Sodium Taking Voltaren 1 % Gel as directed Externally Taking Aspir-81 Taking glipiZIDE 5 MG Tablet as directed Orally Twice a dayTaking Gabapentin Taking hydroCHLOROthiazide Taking Metoprolol & Diet Manage Prod Taking Metformin & Diet Manage Prod Taking Levothyroxine Sodium Taking Lovastatin Taking Warfarin Sodium Not-Taking/PRNCiclopirox Olamine 0.77 % Cream 1 application to affected area Externally Twice a day to effected areas on feetDesoximetasone 0.25 % Cream APPLY TOPICALLY TO AFFECTED AREA ON FEET TWICE DAILY FOR 30 DAYS HYDROcodone- Acetaminophen Diabetic Insoles Physical Therapy . . . . 2-3x/week; remove cast and start on 10/24/19Clotrimazole-Betamethasone 1-0.05 % Cream 1 application to affected area Externally Twice a day to affected areas on feetpredniSONE Pravastatin Sodium Monique Aspirin oxyCODONE HCl Tyzine Metoprolol Succinate Coumadin Keflex 500 MG Capsule 1 capsule Orally every 12 hrsMedication List reviewed and reconciled with the patientNot-Taking/PRN Ciclopirox Olamine 0.77 % Cream 1 application to affected area Externally Twice a day to effected areas on feetNot-Taking/PRN Desoximetasone 0.25 % Cream APPLY TOPICALLY TO AFFECTED AREA ON FEET TWICE DAILY FOR 30 DAYS Not- Taking/PRN HYDROcodone-Acetaminophen Not-Taking/PRN Diabetic Insoles Not-Taking/PRN Physical Therapy . . . . 2-3x/week; remove cast and start on 10/24/19Not-Taking/PRN Clotrimazole-Betamethasone 1-0.05 % Cream 1 application to affected area Externally Twice a day to affected areas on feetNot-Taking/PRN predniSONE Not-Taking/PRN Pravastatin Sodium Not-Taking/PRN Monique Aspirin Not-Taking/PRN oxyCODONE HCl Not-Taking/PRN Tyzine Not-Taking/PRN Metoprolol Succinate Not-Taking/PRN Coumadin Not-Taking/PRN Keflex 500 MG Capsule 1 capsule Orally every 12 hrsMedication List reviewed and reconciled with the patient * Allergies:?Duloxetine & Lido mely-MentholNovocain: daisy[Allergies Verified] Objective: * Vitals:?Ht: 4ft9in, Wt: 170, BMI: 36.78, Shoe size: 7.5W, BS: 140, Ht-cm: 144.78 cm, Wt-k.11 kg. * ???Past Orders: ???Lab:HEMOGLOBIN A1C (GLYCO HEMOGLOBIN) (Order Date - 02/09/2023) (Collection Date - 02/09/2023) ? Value Reference Range ?HEMOGLOBIN A1C % (HH) 8.0 * Examination: ???Neurological: ?SENSORY:? Neurological exam demonstrates, reduced vibration sensation, B/L, at Forefoot, 5.07 monofilament test performed at plantar aspects of 5 varied sites per foot shows sensation, reduced , B/L.?Vascular: ?DP PULSES(B):?1/4, B/L.?PT PULSES(B):?0/4.?CAPILLARY FILL TIME:?3 secs. per digit, b/l.?Nails: ?NAILS are:?elongated,overgrown,dystrophic,greater than 3mm thick,discolored and friable with crumbly malodorous subungual debris, with dull pain on palpation due to neuropathy, 1-5 B/L.?Dermatologic: ?SKIN FINDINGS:?Skin exam reveals Keratotic lesion(s) located at, Medial plantar, TA, T5; and plantar of Midfoot, Heel(s), B/L, Plantar, T7, T8 , Skin shows sign(s) of, erythema, scaling, in a moccasin fashion, no fissure(s) present, B/L.?General Examination: ?GENERAL APPEARANCE:?alert, well hydrated, in no distress , good attention to hygiene.?ORIENTED:?person,place, and time.?FOOT EXAM:?Orthopedic: ?BUNION:?Medially prominent 1st MPJ, Dorsally prominent 1st MPJ , RIGHT, Lateral tracking 1st MPJ incompletely reducable.?DIGITAL DEFORMITIES:?Digital contracture, PIPJ, 2-5 B/L, incompl-reducable to push-up test, no over, nor underlapping.?Ophthalmology Referral: ?DIABETES EYE EXAM? Assessment: * Assessment: 1.?Tinea unguium - B35.1 (Pr imary)?2.?Ingrowing nail - L60.0?3.?Type 2 diabetes mellitus with diabetic polyneuropathy - E11.42?4.?Pain in right toe(s) - M79.674?5.?Pain in left toe(s) - M79.675?6.?Hallux valgus (acquired), right foot - M20.11 7.?Other hammer toe(s) (acquired), left foot - M20.42?8.?Other hammer toe(s) (acquired), right foot - M20.41?9.?Tinea pedis - B35.3?10.?Dermatitis - L30.9? Plan: * Treatment: * Procedures:?Debride Nail 6-10:?Nail debridement?Nail debridement performed extensively to reduce/remove overall nail length and girth, subungual debris, and necrotic tissue, by manual and electrical means with use of a nail nipper and/or dremel, to more viable healthy nail plate or bed tissue 6-10. Silver nitrate used for any petechial bleeding as necessary. Patient chooses, no pharmaceutical tx (29505).?Keratoma Treatment:?Parring or Cutting of Benign Hyperkeratotic Lesion(s)?57470 ( >4 Lesions) - The Benign hyperkeratotic lesions, as described above were pared, and/or cut utilizing a sterile #15 blade, tissue nippers, and/or dremel.? * Procedure Codes:?30363 DEBRI DE NAIL, 6 OR MORE, Modifiers: XS 27068 TRIM SKIN LESIONS, OVER 4, Modifiers: XS * Follow Up:?2 Months * Images: * Sign off status: Completed true * Provider:Jammie Grant DPM Date:? 024 Generated for Printi ng/Fayesseniag/eTransmitting on:?03/01/2024 04:51 PM EST History and Physical Notes * HPI (History of Present Illness) Category Sub-Category Detail Notes Category Not es Painful Nails Pt States Last PCP Visit: Date:: 09/10/2023 Skin problems Nature: itching, redness Location: Bottom, Left , Midfo ot, Heel/Rearfoot Onset/Cause: unknown Course: intermittent, unreso lved Aggravated by: any pressure Treatments: pt is using occasion al otc hc cream for itching Severity/Quality: moderate Foot Pain Nature: burning Location: B/L Duration: several months Onset: dpn Course: worse, progressive Aggravated: rest Treatments: gabapentin Examination Category Sub-Category Detail Notes Category Not es Neurological SENSORY: Neurological exa m demonstrates, reduced vibration sensation, B/L, at Forefoot, 5.07 monofilament test performed at plantar aspects of 5 varied sites per foot shows sensation, reduced , B/L Dermatologic SKIN FINDINGS: Skin exam reveal s Keratotic lesion(s) located at, Medial plantar, TA, T5; and plantar of Midfoot, Heel(s), B/L, Plantar, T7, T8 , Skin shows sign(s) of, erythema, scaling, in a moccasin fashion, no fissure(s) present, B/L Orthopedic BUNION: Medially promine nt 1st MPJ, Dorsally prominent 1st MPJ , RIGHT, Lateral tracking 1st MPJ incompletely reducable DIGITAL DEFORMITIES: Digital contracture , PIPJ, 2-5 B/L, incompl-reducable to push-up test, no over, nor underlapping General Examination GENERAL APPEARANCE: alert, w ell hydrated, in no distress , good attention to hygiene FOOT EXAM: Lower Extremity Neurological Exa m performed:: Yes Visual exam of foot performed:: Yes Date: 11/26/2023 Sensory testing performed:: sensations d iminished Pedal pulse taking performed:: 1+ ORIENTED: person,place, and ti me Ophthalmology Referral DIABETES EYE EXAM Diabeti c Retinopathy Screening:: Yes 07/2023 Findings of Diabetic Eye Exam:: no retin opathy Vascular DP PULSES (B): 1/4, B/L PT PULSES (B): 0/4 CAPILLARY FILL TIME: 3 secs. per digit, b/l Nails NAILS are: elongated,overgr own,dystrophic,greater than 3mm thick,discolored and friable with crumbly malodorous subungual debris, with dull pain on palpation due to neuropathy, 1-5 B/L
--- OUTSIDE RECORDS SUMMARY | 2024-03-01 16:52 | XMS_ITS | Patient Health Record ---
Author Organization [facility] Malik Castillo Address [address] [place] [address] Care Team Providers Care Salesperson Sheet Music Name Role Phone Rissa Bowling MD Primary Care Provider Aleshia Mccracken Unavailable [phone] Ede Grant Unavailable [phone] Allergies Allergen (clinical drug ingredient) Drug/Non Drug Allergy documented on EMR Reaction Allergy Type Onset Date Status Novocain sick Drug Allergy Active Duloxetine & Lidocaine-Menthol Unknown Drug Allergy Active Reason For Referral No Information Medications Medication SIG (Take, Route, Frequency, Duration) Notes Start Date End Date Status Gabapentin Active hydroCHLOROthiazide Active Coumadin Not-Taking glipiZIDE 5 MG as directed Orally Twice a day Active Keflex 500 MG 1 capsule Orally every 12 hrs for 5 days 03/22/2014 Not-Taking Metoprolol Succinate Not-Taking Ciclopirox Olamine 0.77 % 1 application to affected area Externally Twice a day to effected areas on feet for 30 days Not-Taking Warfarin Sodium Acti ve Celecoxib 100 MG TAKE 1 CAPSULE BY MOUTH 2 TIMES A DAY Oral for 10 Days Active Levothyroxine Sodium Active Lovastatin Active Metoprolol & Diet Manage Prod Active Metformin & Diet Manage Prod Active Diabetic Insoles Not -Taking Physical Therapy . . . 2-3x/week; remove cast and start on 10/24/19 Not-Taking Desoximetasone 0.25 % APPLY TOPICALLY TO AFFECTED AREA ON FEET TWICE DAILY FOR 30 DAYS for 30 Not-Taking HYDROcodone-Acetaminophen Not-Taking Voltaren 1 % as directed Externally Active Aspir-81 Active oxyCODONE HCl Not-Ta Tyzine Not-Taking Pravastatin Sodium N ot-Taking Monique Aspirin Not-Ta Clotrimazole-Betamethasone 1-0.05 % 1 application to affected area Externally Twice a day to affected areas on feet for 30 days Not-Taking predniSONE Not-Takin g Ciclopirox Olamine 0.77 % 1 application Externally Twice a day to skin of feet including between the toes for 30 days Active Immunizations Vaccine Route Administration Date Status Comme nts COVID-19 Moderna Vaccine Unknown 09/17/2021 Administered 1st 03/20/2020 2nd 04/17/2020 3rd 01/01/21 Influenza Unknown 11/28/2014 Administered Influenza Unknown 10/05/2015 Administered Influenza Unknown 12/01/2016 Administered Influenza Unknown 11/09/2017 Administered Influenza Unknown 10/12/2021 Administered Influenza Unknown 10/10/2022 Administered Social History Tobacco Use: Social History Observation [...] Polyneuropathy due to diabetes mellitus type I (031684313) Type 1 diabetes mellitus with diabetic polyneuropathy (E10.42) Active confirmed Problem Acquired hallux valgus (54655049) Hallux valgus (acquired), right foot (M20.11) Active confirmed Problem Polyneuropathy due to type 2 diabetes mellitus (740919920) Type 2 diabetes mellitus with diabetic polyneuropathy (E11.42) Active confirmed Problem Acquired hammer toe of right foot (1713266844415316 ) Other hammer toe(s) (acquired), right foot (M20.41) Active confirmed Problem Acquired hammer toe of left foot (0964352839723987 ) Other hammer toe(s) (acquired), left foot (M20.42) Active confirmed Vital Signs Blood pressure diastolic 75 mm Hg 02/01/2024 Height 4ft9in in 02/01/2024 Blood pressure systolic 120 mm Hg 02/01/2024 Weight 179 lbs 02/01/2024 BMI 38.73 kg/m2 02/01/2024 Procedures Procedure Date Ordered Date Performed Result Body Sit e 26262-WQMZGSV NAIL, 6 OR MORE 02/01/2024 N/A 58526-DZYB SKIN LESIONS, OVER 4 02/01/2024 N/A Encounters Encounter Location Date Provider Diagnosis [address] [address] 03/12/2023 Ede Grant Tinea unguium B35.1 ; Ingrowing nail L60.0 ; Type 2 diabetes mellitus with diabetic polyneuropathy E11.42 ; Pain in right toe(s) M79.674 ; Pain in left toe(s) M79.675 ; Hallux valgus (acquired), right foot M20.11 ; Other hammer toe(s) (acquired), left foot M20.42 ; Other hammer toe(s) (acquired), right foot M20.41 ; Tinea pedis B35.3 and Dermatitis L30.[address] [address] 05/14/2023 Ede Grant Tinea unguium B35.1 ; Ingrowing nail L60.0 ; Type 2 diabetes mellitus with diabetic polyneuropathy E11.42 ; Pain in right toe(s) M79.674 ; Pain in left toe(s) M79.675 ; Hallux valgus (acquired), right foot M20.11 ; Other hammer toe(s) (acquired), left foot M20.42 ; Other hammer toe(s) (acquired), right foot M20.41 ; Tinea pedis B35.3 and Dermatitis L30.[address] [address] 07/16/2023 Ede Grant Tinea unguium B35.1 ; Ingrowing nail L60.0 ; Type 2 diabetes mellitus with diabetic polyneuropathy E11.42 ; Pain in right toe(s) M79.674 ; Pain in left toe(s) M79.675 ; Hallux valgus (acquired), right foot M20.11 ; Other hammer toe(s) (acquired), left foot M20.42 ; Other hammer toe(s) (acquired), right foot M20.41 ; Tinea pedis B35.3 and Dermatitis L30.[address] [address] 09/21/2023 Ede Grant Tinea unguium B35.1 ; Ingrowing nail L60.0 ; Type 2 diabetes mellitus with diabetic polyneuropathy E11.42 ; Pain in right toe(s) M79.674 ; Pain in left toe(s) M79.675 ; Hallux valgus (acquired), right foot M20.11 ; Other hammer toe(s) (acquired), left foot M20.42 ; Other hammer toe(s) (acquired), right foot M20.41 ; Tinea pedis B35.3 and Dermatitis L30.[address] [address] 11/26/2023 Ede Grant Tinea unguium B35.1 ; Ingrowing nail L60.0 ; Type 2 diabetes mellitus with diabetic polyneuropathy E11.42 ; Pain in right toe(s) M79.674 ; Pain in left toe(s) M79.675 ; Hallux valgus (acquired), right foot M20.11 ; Other hammer toe(s) (acquired), left foot M20.42 ; Other hammer toe(s) (acquired), right foot M20.41 ; Tinea pedis B35.3 and Dermatitis L30.[address] [address] 02/01/2024 Aleshia Lagunas Type 2 diabetes mellitus with diabetic polyneuropathy E11.42 ; Tinea unguium B35.1 and Tinea pedis of both feet B35.3 Assessments Encounter Date Diagnosis (ICD Code) Assessment Notes Treatment Notes Treatment Clinical Notes Section Notes 03/12/2023 Tinea unguium (ICD-10 - B35.1) 05/14/2023 Tinea unguium (ICD-10 - B35.1) 07/16/2023 Tinea unguium (ICD-10 - B35.1) 09/21/2023 Tinea unguium (ICD-10 - B35.1) 09/21/2023 Ingrowing nail (ICD-10 - L60.0) 11/26/2023 Tinea unguium (ICD-10 - B35.1) 02/01/2024 Type 2 diabetes mellitus with diabetic polyneuropathy (ICD-10 - E11.42) 02/01/2024 Tinea unguium (ICD-10 - B35.1) 02/01/2024 Tinea pedis of both feet (ICD-10 - B35.3) 11/26/2023 Ingrowing nail (ICD-10 - L60.0) 09/21/2023 Type 2 diabetes mellitus with diabetic polyneuropathy (ICD-10 - E11.42) 07/16/2023 Ingrowing nail (ICD-10 - L60.0) 05/14/2023 Ingrowing nail (ICD-10 - L60.0) 03/12/2023 Ingrowing nail (ICD-10 - L60.0) 03/12/2023 Type 2 diabetes mellitus with diabetic polyneuropathy (ICD-10 - E11.42) 05/14/2023 Type 2 diabetes mellitus with diabetic polyneuropathy (ICD-10 - E11.42) 07/16/2023 Type 2 diabetes mellitus with diabetic polyneuropathy (ICD-10 - E11.42) 09/21/2023 Pain in right toe(s) (ICD-10 - M79.674) 11/26/2023 Type 2 diabetes mellitus with diabetic polyneuropathy (ICD-10 - E11.42) 09/21/2023 Pain in left toe(s) (ICD-10 - M79.675) 11/26/2023 Pain in right toe(s) (ICD-10 - M79.674) 07/16/2023 Pain in right toe(s) (ICD-10 - M79.674) 05/14/2023 Pain in right toe(s) (ICD-10 - M79.674) 03/12/2023 Pain in right toe(s) (ICD-10 - M79.674) 03/12/2023 Pain in left toe(s) (ICD-10 - M79.675) 05/14/2023 Pain in left toe(s) (ICD-10 - M79.675) 07/16/2023 Pain in left toe(s) (ICD-10 - M79.675) 11/26/2023 Pain in left toe(s) (ICD-10 - M79.675) 09/21/2023 Hallux valgus (acquired), right foot (ICD-10 - M20.11) 07/16/2023 Hallux valgus (acquired), right foot (ICD-10 - M20.11) 09/21/2023 Other hammer toe(s) (acquired), left foot (ICD-10 - M20.42) 11/26/2023 Hallux valgus (acquired), right foot (ICD-10 - M20.11) 03/12/2023 Hallux valgus (acquired), right foot (ICD-10 - M20.11) 05/14/2023 Hallux valgus (acquired), right foot (ICD-10 - M20.11) 03/12/2023 Other hammer toe(s) (acquired), left foot (ICD-10 - M20.42) 05/14/2023 Other hammer toe(s) (acquired), left foot (ICD-10 - M20.42) 11/26/2023 Other hammer toe(s) (acquired), left foot (ICD-10 - M20.42) 09/21/2023 Other hammer toe(s) (acquired), right foot (ICD-10 - M20.41) 07/16/2023 Other hammer toe(s) (acquired), left foot (ICD-10 - M20.42) 09/21/2023 Tinea pedis (ICD-10 - B35.3) 11/26/2023 Other hammer toe(s) (acquired), right foot (ICD-10 - M20.41) 07/16/2023 Other hammer toe(s) (acquired), right foot (ICD-10 - M20.41) 05/14/2023 Other hammer toe(s) (acquired), right foot (ICD-10 - M20.41) 03/12/2023 Other hammer toe(s) (acquired), right foot (ICD-10 - M20.41) 03/12/2023 Tinea pedis (ICD-10 - B35.3) 05/14/2023 Tinea pedis (ICD-10 - B35.3) 07/16/2023 Tinea pedis (ICD-10 - B35.3) 09/21/2023 Dermatitis (ICD-10 - L30.9) 11/26/2023 Tinea pedis (ICD-10 - B35.3) 07/16/2023 Dermatitis (ICD-10 - L30.9) 11/26/2023 Dermatitis (ICD-10 - L30.9) 05/14/2023 Dermatitis (ICD-10 - L30.9) 03/12/2023 Dermatitis (ICD-10 - L30.9) Plan Of Treatment Pending Test Test Name Order Date X ray : Ankle, left 3V 10/13/2019 X ray : Foot, right 3V 12/26/2013 15444-LFBSQVB NAIL, 6 OR MORE 11/16/2013 02558-IWYKLRJ NAIL, 6 OR MORE 08/09/2014 68979-GIQVCSP NAIL, 6 OR MORE 01/17/2015 95092-VFTRDBG NAIL, 6 OR MORE 03/22/2015 24315-VOHKRZU NAIL, 6 OR MORE 05/24/2015 68924-GYHSITX NAIL, 6 OR MORE 08/02/2015 21461-EUBSVDS NAIL, 6 OR MORE 10/04/2015 78618-JHAWOHL NAIL, 6 OR MORE 09/16/2012 56922-YPNBCLA NAIL, 6 OR MORE 12/02/2012 91150-SZKROVG NAIL, 6 OR MORE 02/10/2013 84932-JSFGQJB NAIL, 6 OR MORE 04/27/2013 43057-RXMAKTW NAIL, 6 OR MORE 07/13/2013 84106-PZWKPZF NAIL, 6 OR MORE 09/15/2013 28425-MZCFOME NAIL, 6 OR MORE 10/04/2010 01010-HSARXOA NAIL, 6 OR MORE 12/12/2010 50754-WQJUBAR NAIL, 6 OR MORE 02/19/2011 64614-WMWHMUQ NAIL, 6 OR MORE 05/12/2011 68881-LYRYRSP NAIL, 6 OR MORE 07/21/2011 42559-OJKEDYF NAIL, 6 OR MORE 10/08/2011 21021-QFVBVNP NAIL, 6 OR MORE 12/10/2011 27385-EQAREKZ NAIL, 6 OR MORE 02/23/2012 55244-FCWPJMX NAIL, 6 OR MORE 05/12/2012 06324-QPOCXUE NAIL, 6 OR MORE 07/14/2012 65683-MGUFUBH NAIL, 6 OR MORE 07/29/2017 85833-XGILKJV NAIL, 6 OR MORE 03/18/2017 36324-XUUFHUU NAIL, 6 OR MORE 05/20/2017 93932-WBILDVI NAIL, 6 OR MORE 04/21/2016 35916-TIRYNWJ NAIL, 6 OR MORE 02/13/2016 13903-JXIRCNZ NAIL, 6 OR MORE 08/27/2016 24711-TKKKUJZ NAIL, 6 OR MORE 09/30/2017 89490-VWUQPIC NAIL, 6 OR MORE 02/01/2024 34026-FEEVIAK NAIL, 6 OR MORE 01/07/2017 76505-TVGFDFM NAIL, 6 OR MORE 11/05/2016 95801-NECJVVO NAIL, 6 OR MORE 12/06/2015 20123-YNQMACM NAIL, 6 OR MORE 11/13/2014 27701-JYPQYSU NAIL, 6 OR MORE 06/05/2014 16623-FQOAXCM NAIL, 6 OR MORE 03/22/2014 91177-KKRFNLS NAIL, 6 OR MORE 01/18/2014 72886-RPEELOK NAIL, 6 OR MORE 12/09/2017 82431-Twve Destruction, 1-14 07/14/2012 59465-Zbhg Destruction, 1-14 05/12/2012 23287-Lkmc Destruction, 1-14 12/10/2011 76019-Cuct Destruction, 1-14 10/08/2011 15550-Boln Destruction, 1-14 07/21/2011 50010-Iaes Destruction, 1-14 09/16/2012 62011-Omgobguh Plate 09/16/2012 50786-Ifsenhzu Plate 02/10/2013 38390-Nrjltaft Plate 12/02/2012 41506-Gdxcbilz Plate 07/13/2013 09446-Nyudbbfs Plate 09/15/2013 54565-Iqxgmqnb Plate 11/16/2013 32123-Tutxiejl Plate 10/08/2011 88250-Wbenebqo Plate 02/19/2011 14334-Khsffxaz Plate 10/04/2010 96221-Kxorvvbl Plate 12/12/2010 12261-Owpvpzhv Plate 12/10/2011 38725-Ticnzlee Plate 02/23/2012 60702-Ixzcmmww Plate 05/12/2011 19961-Vveebzuk Plate 07/21/2011 82751-Qvorisvx Plate 05/12/2012 57371-Dktghftw Plate 07/14/2012 28594-Uxdpyzfv Plate 01/18/2014 49606-Ooellrhk Plate 08/09/2014 99859-Zxflzual Plate 11/13/2014 98925-YDDWCEV SKIN/TISSUE 04/10/2014 67813 I&D ABSCESS- SIMPLE,SINGLE 015 45386-GCSB SKIN LESIONS, OVER 4 03/22/19 15 53099-BHLP SKIN LESIONS, OVER 4 11/14/19 15 48282-YLZQ SKIN LESIONS, OVER 4 06/06/19 15 57988-YCBH SKIN LESIONS, OVER 4 12/06/19 16 37063-MDFX SKIN LESIONS, OVER 4 11/06/19 17 76197-UCCP SKIN LESIONS, OVER 4 02/01/20 24 51822-QXGP SKIN LESIONS, OVER 4 11/09/19 19 98549-NTTX SKIN LESIONS, OVER 4 01/08/20 17 04788-CBBK SKIN LESIONS, OVER 4 01/19/20 14 21406-SZNC SKIN LESIONS, OVER 4 12/10/19 18 64624-BNCF SKIN LESIONS, OVER 4 02/17/19 19 71407-FQVU SKIN LESIONS, OVER 4 04/22/19 19 75857-QXRR SKIN LESIONS, OVER 4 06/24/19 19 91346-EGEB SKIN LESIONS, OVER 4 09/02/19 19 65998-UTGB SKIN LESIONS, OVER 4 01/18/20 19 23088-QIZE SKIN LESIONS, OVER 4 03/21/19 20 71539-OOFJ SKIN LESIONS, OVER 4 06/06/19 20 79733-VNLS SKIN LESIONS, OVER 4 08/08/19 20 02679-QOTC SKIN LESIONS, OVER 4 03/18/19 18 52442-JRAV SKIN LESIONS, OVER 4 02/12/19 17 20351-FLWE SKIN LESIONS, OVER 4 04/22/19 17 55417-ALKE SKIN LESIONS, OVER 4 06/24/19 17 89318-MIYI SKIN LESIONS, OVER 4 08/28/19 17 26706-ZDEP SKIN LESIONS, OVER 4 07/30/19 18 17042-UEDL SKIN LESIONS, OVER 4 05/21/19 18 39276-OGSC SKIN LESIONS, OVER 4 10/01/19 18 07421-QKSY SKIN LESIONS, OVER 4 10/13/19 20 02615-EEPN SKIN LESIONS, OVER 4 12/22/19 20 49313-LPYV SKIN LESIONS, OVER 4 02/22/19 21 28452-QOCG SKIN LESIONS, OVER 4 04/27/19 21 33991-LSXF SKIN LESIONS, OVER 4 06/29/19 21 98291-KANM SKIN LESIONS, OVER 4 08/31/19 21 75563-HLBP SKIN LESIONS, OVER 4 11/02/19 21 10851-NNKI SKIN LESIONS, OVER 4 01/08/20 21 04080-MBYD SKIN LESIONS, OVER 4 03/11/19 22 56036-JQYB SKIN LESIONS, OVER 4 05/14/19 22 67112-UXZT SKIN LESIONS, OVER 4 08/10/19 15 11796-LOIK SKIN LESIONS, OVER 4 10/04/19 16 57856-SIHT SKIN LESIONS, OVER 4 08/02/19 16 36018-LGSF SKIN LESIONS, OVER 4 05/24/19 16 98614-CTJF SKIN LESIONS, OVER 4 03/22/19 16 42450-CPIZ SKIN LESIONS, OVER 4 07/14/19 14 63990-OWTR SKIN LESIONS, OVER 4 04/28/19 14 85702-ALEC SKIN LESIONS, OVER 4 12/03/19 13 26429-QMHE SKIN LESIONS, OVER 4 02/10/19 14 54434-VXCS SKIN LESIONS, OVER 4 02/22/19 13 46397-ZWTQ SKIN LESIONS, OVER 4 12/10/19 12 42132-CLWP SKIN LESIONS, OVER 4 12/13/19 11 69730-YPZK SKIN LESIONS, OVER 4 10/05/19 11 51624-UDTI SKIN LESIONS, OVER 4 02/19/19 12 75141-DIJB SKIN LESIONS, OVER 4 10/08/19 12 24571-CWWE SKIN LESIONS, OVER 4 07/21/19 12 82686-VFCS SKIN LESIONS, OVER 4 05/12/19 12 57270-UBKK SKIN LESIONS, 2 TO 4 07/15/19 13 07555-BZWV SKIN LESIONS, 2 TO 4 05/13/19 13 41160-AXAD SKIN LESIONS, 2 TO 4 09/17/19 13 86093-DOOI SKIN LESIONS, 2 TO 4 09/16/19 14 33100-LLAA SKIN LESIONS, 2 TO 4 01/18/20 15 31299-FNMC SKIN LESIONS, 2 TO 4 11/17/19 14 86993- Unna Boot 10/13/2019 10893- Nail Unit Biopsy 05/20/2017 X ray : Ankle, right 3V 07/22/2021 Next Appt Details Provider Name:Eli Cyndee kramer, 04/06/2024 11:00:00 AM, [address] [place] [address], [phone], Provider Name:Aleshia cha, 06/08/2024 10:15:00 AM, [address] [place] [address], [phone], Insurance Providers Payer Name Payer Address Payer Phone Subscriber Number Group Number Insured Name Patient Relationship to Insured Coverage Start Date Coverage End Date Medicare [facility] [employer] [address] [place] [address] [id number] Sherry Flores Self - patient is the insured 0 [employer] [address] [place] [address] [id number] Sherry Flores Self - patient is the insured Medical (General) History Medical History History ICD Code thyroid disorder sciatica psoriasis eczema neuropathy mumps measles heart disease chicken pox angina hypertension back, hip, knee pain Arthritis type II diabetes covid-19 Surgical History Surgery Date(Month/Year) heart surgery unspecified 10/2005 cataract surgery 11/2011 carpel tunnel surgery 12/19/2014 lumber fusion 08/04/16 cancer basal cell removal biopsy 02/20/20 cancer basal cell removal 2 spost R side forhead 04/15/22 Hospitalization History Reason Date(Month/Year) PCP/Walk in clinic -covid-19 [facility] 2021 Urgent care -[facility] lumber fusion 08/09-08/16/16 lumber fusion 08/04-08/09/16 Patient admitted to [facility] for chest p ain. 06/2013
== END 2024-03-01 15:20 | disposition home or self-care (01) ==
PROVIDERS: PCP Internal Medicine; Visit Provider Physician Assistant
DX: M19.012 Primary osteoarthritis, left shoulder (principal); M19.011 Primary osteoarthritis, right shoulder; E11.9 Type 2 diabetes mellitus without complications; Z79.01 Long term (current) use of anticoagulants
CPT/HCPCS: 99204

== ENCOUNTER → 2024-03-01 14:48 | Outpatient (BNVA) | payer MEDICARE, SELFPAY | PROVIDERS: PCP Internal Medicine; Visit Provider Physician Assistant | DX: M19.011 Primary osteoarthritis, right shoulder (principal); M19.012 Primary osteoarthritis, left shoulder; E11.9 Type 2 diabetes mellitus without complications; Z79.01 Long term (current) use of anticoagulants | CPT/HCPCS: 99202 ==

== ENCOUNTER 2024-03-09 10:57 | Outpatient (AMB) | payer MEDICARE, SELFPAY ==
[2024-03-09 10:58] VITALS: BP 126/70; PULSE 70; RESP 18; TEMP 36.4; O2SAT 97; BMI 36.8
--- NOTE | 2024-03-09 10:58 | AM.OFFVISMDC ---
Intake Vital Signs 03/09/24 10:58 Height 4 ft 11 in Weight 182 lb BMI 36.8 BP 126/70 Blood Pressure Location Lt brachial Position Sitting Respiration 18 Pulse 70 Pulse Source Pulse Oximeter Temp 97.6 F Temp Source Oral Pulse Oximetry (%) 97 Oxygen Delivery Method Room Air Intake Visit Reasons: SWV G0439 Allergies duloxetine Allergy (Unknown, Verified 03/09/24 10:59) delusions procaine [From Novocain] Adverse Reaction (Unknown, Verified 03/09/24 10:59) Nausea and Vomiting, fainting Medication List - Last Reconciled 03/09/24 by Rissa Bowling MD acetaminophen ER (Tylenol Arthritis Pain) 650 mg PO Q12H celecoxib (Celebrex) 100 mg PO BID gabapentin 100 mg PO .4 times a day gabapentin 600 mg PO BEDTIME glipizide 10 mg PO .QD hydrocortisone 2.5% 1 appl topical BID PRN levothyroxine (Euthyrox) 100 mcg PO DAILY lovastatin 40 mg PO DAILY melatonin 10 mg PO BEDTIME PRN metformin 500 mg orally; 1 tabl q AM, 2 tabl q PM metoprolol tartrate 150 mg (3 x 50 mg) PO DAILY miscellaneous medical supply light walker with wheels and a seat nystatin PO Saccharomyces boulardii (Daily Probiotic (S. boulardii)) 250 mg PO BID sennosides (Vegetable Laxative) 8.6 mg PO DAILY warfarin 6 mg (1.5 x 4 mg) PO .QD HPI V G0439 HPI Details Initiated the conversation about Advanced Directives. Advanced Directives help? patients prepare for current and future decisions about their medical treatment? and place of care. Discussed with patient that it is a process where a patients? current condition and prognosis are reviewed, their wishes for information? regarding their illness are elicited, and likely medical dilemmas are presented? and options discussed. The form can be amended as needed, reviewed yearly and? make changes as needed IPPE/AWV ? year old presents? for her ? Annual? Wellness Visit, initial visit.? Medical / Social History Reviewed? Past Medical History ?Yes? . ? [place]? of Care / Care Team list updated ?Yes . ? Surgical/Hospitalization? History ?Yes . ? Current Medications? (including OTC and supplements) ?Yes . ? Family History ?Yes? . ? Tobacco? Control form ?Yes . ? AUDIT-C (Alcohol use) form? ?Yes . ? Illicit drug use in Social? History ?Yes . ? Current diagnosis of? depression? ?No ? Appropriate PHQ2/PHQ9? completed ?Yes . ? Data entered by ?Medical? Architectural Modeler and reviewed by provider ? Fall Risk ? Fall? History? Have you had any falls with? injury in the past year? ?No . ? Have you had two or more? falls in the past year? ?No . ? Fall Risk Assessment: ?No? falls in the past year . ? HRA filled out by? the patient, reviewed by Provider and scanned. ? IPPE/AWV ? Balance? [place]? ?Yes . ? Tandem? walk ?Yes . ? Walk and? Turn ?Yes . ? Rise from? sit to stand ?Yes . ?Vision? Corrective? lens ?Yes ? Vision? screen ? Up-to-date, has an appointment [] for vision? screening and glaucoma screening ?Hearing? Whisper? test ?pass .? Initiated the conversation about Advanced Directives. Advanced Directives help? patients prepare for current and future decisions about their medical treatment? and place of care. Discussed with patient that it is a process where a patients? current condition and prognosis are reviewed, their wishes for information? regarding their illness are elicited, and likely medical dilemmas are presented? and options discussed. The form can be amended as needed, reviewed yearly and? make changes as needed Written? Plan?Completed. See Patient? Documents. [facility] Medical History (Updated 03/09/24 @ 11:22 by Rissa Bowling MD) Cerumen impaction Diastolic CHF Hypothyroidism Peripheral neuropathy Recurrent pulmonary embolism CAD (coronary artery disease) Osteoarthritis HTN (hypertension) Type 2 diabetes mellitus Surgical History H/O Spinal surgery S/P three vessel coronary artery bypass Social History Housing: House Alcohol intake: never Patient Tobacco Use Status: Former Tobacco user Tobacco use type: Cigarette Years Smoked: 3 yrs e-Cigarette/Vaping Use: Never Used Second Hand Smoke Exposure: No Advance Directives Date on File: 06/26/03 service: No Current occupational status: retired and disabled Cognitive needs: No Hearing needs: No Vision needs: Yes Questionnaire Medicare Wellness Checkup What is your age?: 80 or older What gender do you identify with?: female During the past 4 weeks, how much have you been bothered by emotional problems such as feeling anxious, depressed, irritable, sad or downhearted, and blue?: slightly During the past 4 weeks, has your physical & emotional health limited your social activities with family, friends, neighbors, or groups?: slightly During the past 4 weeks, how much bodily pain have you generally had?: moderate pain During the past 4 weeks, was someone available to help you if you needed & wanted help?: yes, as much as I wanted During the past 4 weeks, what was the hardest physical activity you could do for at least 2 minutes?: light Can you get to places out of walking distance without help? (For eg., can you travel alone on buses, taxis or drive your car?): No Can you go shopping for groceries or clothes without someone's help?: No Can you prepare your own meals?: Yes Can you do your housework without help?: No Because of any health problems, do you need the help of another person with your personal care needs such as eating, bathing, dressing or getting around the house?: No Can you handle your own money without help?: Yes During the past 4 weeks, how would you rate your health in general?: good During the past 4 weeks how have things been going for you?: pretty well Are you having difficulties driving your car?: not applicable, I don't use a car Do you always fasten your seat belt when you are in a car?: yes, usually During past 4 weeks, have you been bothered by the following: never: Sexual problems?, Trouble eating well?, Teeth or denture problems? and Problems using the telephone? and sometimes: Falling or dizzy when standing up and Tiredness or fatigue? Have you fallen 2 or more times in the past year?: Yes Are you afraid of falling?: Yes Are you a smoker?: no During the past 4 weeks, how many drinks of wine, beer, or other alcoholic beverages did you have?: no alcohol at all Do you exercise for about 20 minutes 3 or more times a week?: no, I usually do not exercise this much Have you been given information to help with the following?: no: Hazards in your house that might hurt you? and no: Keeping track of your medications? How often do you have trouble taking medicines the way you have been told to take them?: I always take medicine as prescribed How confident are you that you can control & manage most of your health problems?: somewhat confident What is your race?: White Mini Mental State Exam (MMSE) Orientation What is the (year) (season) (date) (day) (month)?: year, season, date, day and month Where are we (state) (county) (town or city) (hospital) (floor)?: state, county, town or city, hospital/clinic and floor Registration Name of 3 unrelated objects clearly and slowly, then ask patient to repeat all 3 of them. (1st repeat determines score. Make sure they can repeat all three): object 1, object 2 and object 3 Attention & Calculation (CHOOSE ONE) Spell WORLD backwards (DLROW): 5 letters Recall Ask patient to repeat the 3 items from question #3.: object 1, object 2 and object 3 Language Show patient a wristwatch & ask what it is. Repeat for pencil.: watch and pencil Ask the patient to repeat the phrase 'No ifs, ands, or buts' after you.: correct Ask the patient to 'take a piece of paper with their right hand' 'fold paper in half' 'place paper on floor': take paper in right hand, fold paper in half and place paper on floor Print the sentence 'CLOSE YOUR EYES' on a piece. If patient actually closes eyes then score.: followed written direction Give patient a blank piece of paper & ask to write a sentence. Score if it contains a noun & verb.: sentence contains subject and verb Score Score: 29 PHQ-9 Over the last 2 weeks, how often have you been bothered by any of the following problems? 1. Little interest or pleasure in doing things: not at all 2. Feeling down, depressed, or hopeless: not at all 3. Trouble falling or staying asleep, or sleeping too much: not at all 4. Feeling tired or having little energy: several days 5. Poor appetite or overeating: not at all 6. Feeling bad about yourself - or that you are a failure or have let yourself or your family down: not at all 7. Trouble concentrating on things, such as reading the newspaper or watching television: not at all 8. Moving or speaking so slowly that other people could have noticed. Or the opposite - being so fidgety or restless that you have been moving around a lot more than usual: not at all 9. Thoughts that you would be better off or of hurting yourself in some way: not at all Total score: 1 Depression Screening Interpretation: Negative Depression Screening Done: Yes 64421 - PHQ-9 Billing: Yes Source: Developed by Drs. Etienne LTamika Jimenez, Martin Eason and colleagues, with an educational lenny from [employer]. Review of Systems Const All systems reviewed & are unremarkable except as noted in HPI and below Reports no additional complaints Eyes Reports no additional complaints ENT Reports no additional complaints Card Reports no additional complaints Resp Reports no additional complaints GI Reports no additional complaints Reports no additional complaints Physical Exam Vital Signs: Last Vital Signs Temp 97.6 F 03/09/24 10:58 Pulse 70 03/09/24 10:58 Resp 18 03/09/24 10:58 BP 126/70 03/09/24 10:58 Pulse Ox 97 03/09/24 10:58 Oxygen Delivery Method Room Air 03/09/24 10:58 BMI result Body Mass Index 36.8 Const General: no acute distress HEENT Head: Yes normal to inspection Neck Neck: Yes no lymphadenopathy and Yes supple Resp Effort & Inspection: normal respiratory effort Auscultation: clear to auscultation bilaterally Cardio Rhythm: regular rhythm Heart sounds: S1 normal heart sound present and S2 normal heart sound present GI Inspection: Yes normal to inspection Palpation (GI): Soft to palpation Percussion: Yes normal to percussion Auscultation: normal bowel sounds Extrem General: Yes no clubbing, cyanosis or edema Assessment & Plan Assessment & Plan (1) Recurrent pulmonary embolism: Comment: on Coumadin for lifetime, patient cannot afford Eliquis Code(s): I26.99 - Other pulmonary embolism without acute cor pulmonale Plan: Patient has been on Coumadin. She will check with the insurance if Eliquis became formulary so she can switch from Coumadin (2) Type 2 diabetes mellitus: Code(s): E11.9 - Type 2 diabetes mellitus without complications Plan: A1c is 7.5. ADA diet increase exercise discussed with the patient continue current medications follow-up in 4 months with a fasting labs before (3) Diastolic CHF: Comment: Echo 06/2018 nl EF, diastolic dysfunction mild aortic stenosis, mild MR, Code(s): I50.30 - Unspecified diastolic (congestive) heart failure Plan: Continue metoprolol check echocardiogram (4) Hypothyroidism: Code(s): E03.9 - Hypothyroidism, unspecified Plan: Continue levothyroxine check TSH level Orders: Orders Lipid Panel 4 Months E11.9 - Type 2 diabetes mellitus without complications, E78.5 - Hyperlipidemia, unspecified, I10 - Essential (primary) hypertension Comprehensive [place]. Panel Fast 4 Months E11.9 - Type 2 diabetes mellitus without complications, E78.5 - Hyperlipidemia, unspecified, I10 - Essential (primary) hypertension Hemoglobin A1c 4 Months E11.9 - Type 2 diabetes mellitus without complications, E78.5 - Hyperlipidemia, unspecified, I10 - Essential (primary) hypertension TSH reflex Free T4 4 Months E11.9 - Type 2 diabetes mellitus without complications, E78.5 - Hyperlipidemia, unspecified, I10 - Essential (primary) hypertension [place] echo transthoracic complete 3 Months I50.30 - Unspecified diastolic (congestive) heart failure Medications: New apixaban (Eliquis) 5 mg PO BID 180 tabs 3RF Quality Reporting (2019) Depression/Bipolar (159/160/161/177) PHQ-9: Total score: 1 Coding Level of Care Code Medicare Subsequent (G0439) Diagnoses Recurrent pulmonary embolism I26.99 Type 2 diabetes mellitus E11.9 Diastolic CHF I50.30 Hypothyroidism E03.9 CPT Codes Advance Care Planning - Advance Care Planning discussion: On file, no changes ([id number]) Advance Care Planning - Time spent: 1-15 minutes, on File ([id number]) Additional Codes PHQ-9 - 01592 - PHQ-9 Billing: Yes ([id number]) Advance Care Planning Advance Care Planning discussion: On file, no changes Forms completed: Health Care Proxy Time spent: 1-15 minutes, on File Did not discuss due to Cultural/Spiritual beliefs: Yes
--- OUTSIDE RECORDS SUMMARY | 2024-03-09 13:10 | XMS_ITS ---
Author Organization [facility] Address [address] [place] [address] Care Team Providers Care Specification Manager Name Role Phone Dash PRAKASH, Rissa Primary Care Provider Aleshia Mccracken Unavailable [phone] Ede Grant [phone] Hinojosa Encounters Encounter Location Date Provider Diagnosis [address] [address] 11/25/2023 Ede Grant Plan Of Treatment Next Appt Details Provider Name:Eli kramer, 04/06/2024 11:00:00 AM, [address] [place] [address], [phone], Provider Name:Aleshia cha, 06/08/2024 10:15:00 AM, [address] [place] [address], [phone], Progress Notes * Sherry FLORESDOB:[birth year] (88 yo F)Acc No.[id number]:11/25/2023 Progress Note Patient:?Sherry FLORES Provider:?Ede Grant DPM :1935???Age:88 Y???Sex:Female D ate:11/25/2023 Address:[address] [place], [place] [address]ev[id number] Pcp:Rissa Bowling MD Subjective: * Chief Complaints: [...] DPM Date:? 024 Generated for Karen baird/Han/Vincenzo on:?03/09/2024 01:10 PM EST
--- OUTSIDE RECORDS SUMMARY | 2024-03-09 13:10 | XMS_ITS | Clinical Summary ---
Author Organization [facility] [employer] [facility] Address [address] [place] [address] Care Team Providers Care Postmaster Relief Name Role Phone Unavailable Primary Care Provider [...]
--- OUTSIDE RECORDS SUMMARY | 2024-03-09 13:11 | XMS_ITS ---
[facility] khris Castillo Address [address] [place] [address] Care Team Providers Care Merchandise Adjustment Clerk Name Role Phone Dash PRAKASH, Rissa Primary Care Provider Aleshia Mccracken Unavailable [phone] Allergies Allergen (clinical drug ingredient) Drug/Non Drug [...] Polyneuropathy due to diabetes mellitus type I ([id number]) Type 1 diabetes mellitus with diabetic polyneuropathy (E10.42) Active confirmed Vital Signs Height 4ft9in in 02/01/2024 Weight 179 lbs 02/01/2024 BMI 38.73 kg/m2 02/01/2024 Blood pressure systolic 120 mm Hg 02/01/20 24 Blood pressure diastolic 75 mm Hg 024 Procedures Procedure Date Ordered Date Performed Result Body Sit e 31904-DRJFSRB NAIL, 6 OR MORE 02/01/2024 N/A 33453-OZFC SKIN LESIONS, OVER 4 02/01/2024 N/A Encounters Encounter Location Date Provider Diagnosis [facility] [address] [address] 02/01/2024 Aleshia Lagunas Type 2 diabetes mellitus [...] days Pending Test Test Name Order Date 15757-QKDXUOB NAIL, 6 OR MORE 02/01/2024 33679-YIML SKIN LESIONS, OVER 4 02/01/20 24 Next Appt Details Follow Up: 3 Months, Reason: Provider Name:Eli kramer, 04/06/2024 11:00:00 AM, [address] [place] [address], [phone], Provider Name:Aleshia cha, 06/08/2024 10:15:00 AM, [address] [place] [address], [phone], Procedure Notes * Category Sub-Category Detail Notes [...] use of a nail nipper and/or dremel-type loader magazine grinder, to a more viable healthy nail plate [...] to maintain effectiveness in symptomatic relief - 04766 Keratoma Treatment Parring or Cutting o f [...] instrumentation by the physician of record - 13087 Progress Notes * Sherry FLORESDOB:[birth year] (88 yo F)Acc No.[id number]:02/01/2024 Progress Note Patient:Sherry LOREDO Provider:?Aleshia Lagunas DPM :1935???Age:88 Y???Sex:Female D ate:02/01/2024 Address:[address] [place], [place] [phone] Pcp:Rissa Bowling MD Subjective: * Chief Complaints: [...] * Hospitalization/Major Diagno stic Procedure:?Patient admitted to [facility] for chest pain. 06/2013lumber fusion 08/04-08/09/16rehab [...] use of a nail nipper and/or dremel-type loader magazine grinder, to a more viable healthy nail plate [...] to maintain effectiveness in symptomatic relief - 13968.?Keratoma Treatment:?Parring or Cutting of Benign Hyperkeratotic Lesion(s)?(-57) [...] instrumentation by the physician of record - 22864.? * Procedure Codes:?09917 DEBRI DE NAIL, 6 OR MORE, Modifiers: XS 25967 TRIM SKIN LESIONS, OVER 4, Modifiers: XS [...] Lagunas DPM Date:?04/03/2023 Generated for Karen baird/Han/Vincenzo on:?03/09/2024 01:10 PM EST History and Physical Notes * [...]
--- OUTSIDE RECORDS SUMMARY | 2024-03-09 13:11 | XMS_ITS ---
Author Organization [facility] khris [place] Address [address] [place] [address] Care Team Providers Care Sales Applications Engineer Name Role Phone Rissa Bowling MD Primary Care Provider Ramonitaa Aleshia Robles Unavailable [phone] Ede Grant Unavailable [phone] Allergies Allergen (clinical drug ingredient) Drug/Non Drug [...] 11/26/2023 Encounters Encounter Location Date Provider Diagnosis [facility] [address] [address] 11/26/2023 Ede Grant Tinea unguium B35.1 ; [...] Reason: Provider Name:Eli kramer, 04/06/2024 11:00:00 AM, [address] [place] [address], [phone], Provider Name:Aleshia cha, 06/08/2024 10:15:00 AM, [address] [place] [address], [phone], Procedure Notes * Category Sub-Category Detail Notes [...] as necessary. Patient chooses, no pharmaceutical tx (65048) Keratoma Treatment Parring or Cutting o f Benign Hyperkeratotic Lesion(s) 66253 ( >4 Lesions) - The Benign hyperkeratotic lesions, as described above were pared, and/or cut utilizing a sterile #15 blade, tissue nippers, and/or dremel Progress Notes * Sherry FLORESDOB:[birth year] (88 yo F)Acc No.[id number]:11/26/2023 Progress Note Patient:?Shikha Floresann Provider:?Ede Grant DPM :1935???Age:88 Y???Sex:Female D ate:11/26/2023 Address:[address] [place] [phone] Pcp:Rissa Bowling MD Subjective: * Chief Complaints: [...] * Hospitalization/Major Diagno stic Procedure:?Patient admitted to [facility] for chest pain. 06/2013lumber fusion 08/04-08/09/16rehab [...] yes. ?no Exercise. ?Marital status: . 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 * Medications:?TakingVoltaren 1 % Gel as directed [...] as necessary. Patient chooses, no pharmaceutical tx (80512).?Keratoma Treatment:?Parring or Cutting of Benign Hyperkeratotic Lesion(s)?86464 ( >4 Lesions) - The Benign hyperkeratotic lesions, as described above were pared, and/or cut utilizing a sterile #15 blade, tissue nippers, and/or dremel.? * Procedure Codes:?00751 DEBRI DE NAIL, 6 OR MORE, Modifiers: XS 84029 TRIM SKIN LESIONS, OVER 4, Modifiers: XS * Follow Up:?2 Months * Images: * Sign off status: Completed true * Provider:Jammie Grant DPM Date:? 024 Generated for Printi ng/Fayesseniag/eTransmitting on:?03/09/2024 01:10 PM EST History and Physical [...]
== END 2024-03-09 11:25 | disposition home or self-care (01) ==
PROVIDERS: PCP Internal Medicine; Visit Provider Internal Medicine
DX: Z00.00 Encounter for general adult medical examination without abnormal findings (principal); I26.99 Other pulmonary embolism without acute cor pulmonale; E11.9 Type 2 diabetes mellitus without complications; I50.30 Unspecified diastolic (congestive) heart failure; E03.9 Hypothyroidism, unspecified

== ENCOUNTER → 2024-03-09 10:57 | Outpatient (BNVA) | payer MEDICARE, SELFPAY | PROVIDERS: PCP Internal Medicine; Visit Provider Internal Medicine | DX: Z00.00 Encounter for general adult medical examination without abnormal findings (principal); E11.9 Type 2 diabetes mellitus without complications; E78.5 Hyperlipidemia, unspecified; E03.9 Hypothyroidism, unspecified; I26.99 Other pulmonary embolism without acute cor pulmonale; I11.0 Hypertensive heart disease with heart failure; I50.30 Unspecified diastolic (congestive) heart failure; Z79.01 Long term (current) use of anticoagulants | CPT/HCPCS: 96127 ==

== ENCOUNTER 2024-03-21 12:30 | Outpatient (REF) | payer MEDICARE, SELFPAY ==
--- NOTE | ~2024-03-21 | FL_ITS ---
EXAMINATION: Bilateral shoulder joint steroid injection. Clinical indication: Bilateral shoulder pain with severe degenerative osteoarthritis. COMPARISON: Bilateral shoulders 11/26/2023. TECHNIQUE: Following explaining fluoroscopy-guided bilateral shoulder joint steroid injection procedure, benefits and risk aerated and consent was obtained. Initially the anterior left shoulder joint skin was cleaned and draped in usual sterile manner. Sterile drape was placed over the glenoid area. 1% lidocaine was inserted puncture site. A 22-gauge spinal needle was inserted from the skin into the right shoulder joint and 2 mL of nonionic contrast was injected and single image obtained. After confirming contrast in the joint space 40 mg of Depo-Medrol and 8 mL of 2% lidocaine was injected in the joint space and needle withdrawn. Complete hemostasis achieved at puncture site and sterile bandage placed at puncture site. The left shoulder joint was then cleaned and draped in the usual sterile manner. Sterile drape was applied. 1% lidocaine inserted over the puncture site overlying the left shoulder joint. A 22-gauge needle was inserted in the left shoulder and 2 minimal amount of contrast injected. A single image was obtained for documentation. After confirming contrast in the joint space, 40 mg of Depo-Medrol and 10 mL of 2% lidocaine was injected and needle withdrawn. Complete hemostasis was achieved at puncture site. Simple bandage applied post procedure. Patient tolerated the entire procedure well. FINDINGS: There is severe bilateral loss of glenohumeral joint space with inferior periarticular moderate-sized spurring. Successful fluoroscopy-guided bilateral shoulder joint steroid injections performed without immediate complications. Electronically signed by: Allan Giraldo MD 03/21/2024 04:02 PM MAHAMED
--- OUTSIDE RECORDS SUMMARY | 2024-03-21 13:33 | XMS_ITS | Clinical Summary ---
Author Organization [facility] [employer] [facility] Address [address] [place] [address] Care Team Providers Care Sheriffs Detective Name Role Phone Unavailable Primary Care Provider [...] drink = 0.6 oz pur e alcohol) Comments Unknown Sex and Gender Information Value Date Recorded Sex Assigned at Not on file Legal Sex Female 7:23 AM EST Gender Identity Not on file Sexual Orientation Not on file Obstetrics History Plan of Treatment Health Maintenance Due Date Last Done Comments DTaP,Tdap,and Td Vaccines (1 - Tdap) 1941 Pneumococcal Vaccine: 50+ Ye ars (1 of 1 - PCV) 1984 Zoster Vaccines (1 of 2) 1984 RSV Immunization Patients 60 + Years Old [...] patient's age to complete this topic Meningococcal B Vacine Aged Out No lo nger eligible based on patient's age to complete this topic RSV Immunization Patients Un tamara 20 months Aged Out No longer eligible b ased on patient's age to complete this topic Varicella Vaccines Aged Out No longer eligible based on patient's age to complete this topic
[2024-03-21] MEDS: iohexoL 300 MG/ML 50 ML INFUS..BTL 70 ML INTRAARTIC (14:39)
[2024-03-21] MEDS: methylPREDNISolone acetate 80 MG VIAL INTRAARTIC (14:41)
[2024-03-21] MEDS: Lidocaine HCl 1 % MPF 30 ML VIAL 10 ML INTRAARTIC (14:43)
== END 2024-03-21 12:31 | disposition home or self-care (01) ==
LOC: HO.XRAY 12:30
PROVIDERS: PCP Internal Medicine; Visit Provider Physician Assistant
DX: M19.011 Primary osteoarthritis, right shoulder (principal); M19.012 Primary osteoarthritis, left shoulder
CPT/HCPCS: 20610; 77002; J1010; J2003; Q9967

== ENCOUNTER → 2024-03-21 12:32 | Outpatient (BNV) | payer MEDICARE, SELFPAY | PROVIDERS: PCP Internal Medicine; Visit Provider Radiology Diagnostic Radiology | DX: M25.511 Pain in right shoulder (principal); M25.512 Pain in left shoulder | CPT/HCPCS: 20610; 77002 ==

== ENCOUNTER 2024-06-01 10:01 | Emergency (ER) | payer MEDICARE, SELFPAY ==
--- NOTE | ~2024-06-01 | CT_ITS ---
EXAMINATION: CT SOFT TISSUE NECK WITH CONTRAST CLINICAL INFORMATION: Jaw pain status post dental extractions. Patient had 8 teeth extracted. COMPARISON: None available. TECHNIQUE: Following the intravenous administration of 60 mL of Omnipaque 350 intravenous contrast, helical imaging was performed in the axial plane with generation of coronal and sagittal reformatted images. This CT examination was performed using dose optimization techniques as appropriate, variously including the following: *Automated exposure control *Adjustment of mA and/or kV according to patient size (this includes techniques or standardized protocols for targeted exams where dose is matched to indication/reason for exam; i.e. extremities or head) *Use of iterative reconstruction technique FINDINGS: Lymph Nodes: -No abnormal or pathologic lymphadenopathy.. Carotid Sheath Structures: -Moderate to heavy carotid bulb calcifications bilaterally. -Proximal great vessels are tortuous. -Jugular veins are patent. Salivary Glands: -Fatty change of the parotid glands bilaterally. No lesions. -Submandibular glands demonstrating duct ectasia. Tongue Base/Floor of Mouth: -Normal Mucosal Space: -Mild prominence and enhancement of the left palatine tonsil without fluid collection. (Series 5, images 28-31). This is slightly asymmetric. -Mucosal space otherwise normal. Visceral Space: -Thyroid gland: Normal. -Normal. Retropharangeal Space: -Normal. Parapharyngeal Fat Planes: -Normal. Insurance Office Supervisor Spaces: -Normal. No infiltrative changes to suggest infection. Anterior Cervical Space: -Normal. Imaged Intracranial Contents: -No mass effect, edema, or abnormal enhancement. Cortical and dural venous sinuses are patent. Prominence of the ventricles and sulci in keeping with patient age. The skull base is normal. Globes and Orbits: -Globes are aphakic. Globes and orbital structures appear normal otherwise. Paranasal Sinuses/Mastoids/Tympanic Spaces: -Chronic appearing opacity of the right sphenoid sinus with thickened ernandez. Remainder of the paranasal sinuses, and mastoid air cells are normally pneumatized. Lung Apices and Superior Mediastinal Structures: -Imaged lung apices are clear allowing for mild motion artifact. -Superior mediastinal structures demonstrate postoperative changes of CABG. The main pulmonary artery is prominent. The aorta is nonaneurysmal. There are no abnormal lymph nodes. Bony Structures: -No suspicious bone lesions. No fractures. -Normal TM joints. -Patient is edentulous. No subperiosteal abscess is identified. -Cervical spinal degenerative changes. -Prior sternotomy partially imaged. CT/CT soft tissue neck w IV con IMPRESSION: 1. Edentulous appearance. No subperiosteal abscess or inflammatory changes surrounding the maxilla or mandible, or within the consulting utility forester spaces. 2. Prominence of the left palatine tonsil with associated mild nodular enhancement. No fluid collection evident. Given the asymmetric appearance and enhancement, direct visualization suggested. 3. No abnormal lymphadenopathy. 4. No abnormal fluid collection. 5. Chronic right sphenoid sinus disease. Electronically signed by: Reilly Hudson MD 06/01/2024 01:40 PM EDT
--- NOTE | ~2024-06-01 | XR_ITS ---
EXAMINATION: XR CHEST CLINICAL INFORMATION: weakness COMPARISON: 05/25/2023 TECHNIQUE: Frontal view of the chest was obtained. FINDINGS: There is been prior median sternotomy and CABG. The cardiac, hilar, and mediastinal contours are normal. The lungs are clear bilaterally. Mildly elevated left hemidiaphragm. No pneumothorax or effusion. No focal osseous or soft tissue abnormality. Degenerative changes in the left greater than right shoulder joints and throughout the spine. XR/XR chest 1V IMPRESSION: No active pulmonary disease. Electronically signed by: Reilly Hudson MD 06/01/2024 12:02 PM EDT
[2024-06-01 10:14] VITALS: BP 188/64; PULSE 86; RESP 14; TEMP 36.1; O2SAT 97; BMI 29.0
--- NOTE | 2024-06-01 10:17 | ECG_ITS ---
Test Reason : weakness Blood Pressure : */* mmHG Vent. Rate : 82 BPM Atrial Rate : * BPM P-R Int : * ms QRS Dur : 82 ms QT Int : 366 ms P-R-T Axes : * -12 11 degrees QTcB Int : 427 ms Atrial fibrillation Moderate voltage criteria for LVH, may be normal variant ( R in aVL , Tej product ) Inferior infarct (cited on or before 06-Oct-2005) Cannot rule out Anterior infarct , age undetermined Abnormal ECG When compared with ECG of 01-Dec-2014 08:18, Atrial fibrillation has replaced Sinus rhythm Referred By: Generic ED Physician Electronically Signed By: TAMI MITCHELL
[2024-06-01 11:04] LABS: Hematocrit 32.6 % (37.0-47.0); Hemoglobin 10.4 g/dl (12.0-16.0); Mean Corpuscular HGB Conc 31.9 g/dl (31.0-35.0); Mean Corpuscular Hemoglobin 28.1 pg (27.0-33.0); Mean Corpuscular Volume 88.1 fL (80.0-98.0); Mean Platelet Volume 10.6 fL (9.4-12.3); Platelet Count 291 X10*3/uL (160-400); Red Cell Distribution Width 14.2 % (11.0-16.0)
[2024-06-01 11:07] LABS: WBC ABN SCTR FOR CBC 1
--- NOTE | 2024-06-01 11:08 | ED.GENADULT ---
HPI - General Adult General Chief complaint: Weakness Stated complaint: WEAKNESS SINCE 8 TEETH REMOVE LAST WEEK Time Seen by Provider: 06/01/24 11:08 History of Present Illness ED Provider: Real SALINAS narrative: The patient is an 88-year-old woman who was normally on warfarin because of atrial fibrillation and a history of pulmonary emboli. Nine days ago she had 8 teeth extracted from her draw. These were her last remaining teeth. The patient lives at home with her son. She says that since the surgery she has had ongoing pain in her jaw that has made eating difficult. She says she has been taking fluids including milk shakes and Ensure but has had ongoing pain in her jaw that is very uncomfortable and she feels that she has gotten very weak. She had held her warfarin because of the procedure but resumed the warfarin following the procedure. She says that today she received a call from the nurse who helps her monitor her INR. She told the nurse that she has been feeling very weak ever since the procedure and the nurse encouraged her to come to the hospital by ambulance and called an ambulance. The patient is not think she has had a fever. She has had ongoing pain in the jaw at the site of her dental extractions. She has not really had any other symptoms aside from feeling very weak and run down. No nausea or vomiting. No chest pain. No abdominal pain. Related Data Home Medications ?Medication ?Instructions ?Recorded ?Confirmed Saccharomyces boulardii 250 mg 250 mg PO BID 08/31/20 03/09/24 capsule (Daily Probiotic (S. boulardii)) sennosides 8.6 mg tablet 8.6 mg PO DAILY 08/31/20 03/09/24 (Vegetable Laxative) nystatin 100,000 unit/mL oral PO 06/22/23 03/09/24 suspension acetaminophen 650 mg 650 mg PO Q12H 03/09/24 03/09/24 tablet,extended release (Tylenol Arthritis Pain) Previous Rx's ?Medication ?Instructions ?Recorded miscellaneous medical supply See Rx Instructions miscellaneous 02/24/20 .COMPLEX #1 ea hydrocortisone 2.5 % topical cream 1 appl topical BID PRN skin 03/11/21 irritation #30 grams melatonin 10 mg capsule 10 mg PO BEDTIME PRN sleep #90 caps 04/09/21 levothyroxine 100 mcg tablet 100 mcg PO DAILY #90 tabs 06/22/23 (Euthyrox) warfarin 4 mg tablet 6 mg (1.5 x 4 mg) PO .QD #180 tabs 06/22/23 gabapentin 100 mg capsule 100 mg PO .4 times a day #360 caps 01/26/24 gabapentin 600 mg tablet 600 mg PO BEDTIME #90 tabs 01/26/24 lovastatin 40 mg tablet 40 mg PO DAILY #90 tabs 01/26/24 metoprolol tartrate 50 mg tablet 150 mg (3 x 50 mg) PO DAILY #270 01/26/24 tabs celecoxib 100 mg capsule (Celebrex) 100 mg PO BID #20 caps 01/27/24 metformin 500 mg tablet 500 mg PO .COMPLEX #270 tabs 02/04/24 apixaban 5 mg tablet (Eliquis) 5 mg PO BID #180 tabs 03/09/24 glipizide 10 mg tablet 10 mg PO DAILY #90 tabs 04/04/24 amoxicillin 875 mg tablet 875 mg PO BID #14 tabs 05/02/24 Allergies Allergy/AdvReac Type Severity Reaction Status Date / Time duloxetine Allergy Unknown delusions Verified 06/01/24 10:14 procaine [From Novocain] AdvReac Unknown Nausea and Verified 06/01/24 10:14 Vomiting, fainting Review of Systems Review of Systems: Yes all other systems are reviewed and are negative [facility] Past Medical History Medical History (Updated 06/01/24 @ 15:45 by Alfonso Noble MD) Cerumen impaction Diastolic CHF Hypothyroidism Peripheral neuropathy Recurrent pulmonary embolism CAD (coronary artery disease) Osteoarthritis HTN (hypertension) Type 2 diabetes mellitus Surgical History (Updated 06/01/24 @ 15:45 by Alfonso Noble MD) H/O Spinal surgery S/P three vessel coronary artery bypass Social History Social History Housing: House Alcohol intake: never Patient Tobacco Use Status: Former Tobacco user Tobacco use type: Cigarette Years Smoked: 3 yrs e-Cigarette/Vaping Use: Never Used Second Hand Smoke Exposure: No Advance Directives Date on File: 06/26/03 service: No Current occupational status: retired and disabled Cognitive needs: No Hearing needs: No Vision needs: Yes Physical Exam ED Vital Signs: Vital Signs - 24 hr 06/01/24 10:14 06/01/24 11:51 06/01/24 15:25 Temperature 97.0 F 99.7 F 97.8 F Pulse Rate 86 78 Respiratory Rate 14 14 Blood Pressure 188/64 H 184/57 H Pulse Oximetry 97 92 Oxygen Delivery Method Room Air Room Air 06/01/24 16:06 Temperature 97.8 F Pulse Rate 78 Respiratory Rate 14 Blood Pressure 184/57 H Pulse Oximetry 92 Oxygen Delivery Method Room Air BMI result Body Mass Index 29.0 Const Other: The patient is a somewhat chronically ill-appearing 88-year-old. She is awake and alert and seems to have a clear mental status. She does not seem in any respiratory difficulty. She looks quite weak and worn out however. HENMT Other: The patient is edentulous. Mucous membranes seem moist. The anterior mouth shows the site of multiple dental extractions of the incisors and canines. There is some mild excoriation to the tissues of the gum in this region but there is no obvious soft tissue swelling to suggest an abscess. No pus. Nevertheless the anterior jaw is diffusely tender. There is no elevation of the floor of the mouth. There is no trismus. The posterior pharynx appears normal. There is some tenderness with palpation of the submental region. There is some scattered bruising to the skin below the left lower lip. Eyes General: appearance normal, both eyes and all related structures Alignment and Position: alignment normal Periorbital: periorbital findings normal Eyelids: Yes eyelids normal Conjunctivae: conjunctivae normal Pupils: Equal, round and reactive pupils present EOM: EOMs intact bilaterally Neck Neck: Yes full ROM, Yes no lymphadenopathy and Yes no JVD Resp Effort & Inspection: normal respiratory effort Auscultation: clear to auscultation bilaterally Cardio Rate: regular rate Rhythm: regular rhythm Heart sounds: S1 normal heart sound present and S2 normal heart sound present GI Other: The abdomen is soft and nontender Skin Other: There is some faint scattered bruising to the skin of the left chin below the left lower lip. Otherwise the skin is pale and dry Neuro Other: The patient is awake and alert. Mental status is clear. GCS is 15. She seems fatigued but not toxic. Cranial nerves 2-12 are intact. She moves her extremities symmetrically and seems to be without a focal neurological deficit. Cranial nerves: Yes Equal, round and reactive pupils present Extrem Other: No calf swelling or tenderness, no asymmetry, no peripheral edema Medications Administered Discontinued Medications Generic Name Dose Route Start Last Admin Trade Name [place] PRN Reason Stop Dose Admin Acetaminophen 1,000 mg in 100 mls @ 400 mls/hr 06/01/24 11:24 06/01/24 13:28 Ofirmev IV 06/01/24 11:38 Infused ONCE ONE Infusion Iohexol 100 ml 06/01/24 13:07 06/01/24 13:12 Iohexol 350 Mg/Ml 100 Ml Infus..Btl IV 06/01/24 13:08 60 ml ONCE ONE Administration Ketorolac Tromethamine 7.5 mg 06/01/24 12:56 06/01/24 13:34 Ketorolac Tromethamine 15 Mg/Ml Vial IVPUSH 06/01/24 12:57 7.5 mg ONCE ONE Administration Medical Decision Making Medical Decision Making [facility] Narrative: The patient is an 88-year-old female who is 9 days status post dental extractions of multiple teeth from the jaw. She was on a course of prophylactic amoxicillin which she finished yesterday. She has been feeling weak and having pain in the mouth but she does not seem to has been having fevers. Clinically the patient looks somewhat washed out but not toxic. A rectal temperature was 99.7 degrees. She is not tachycardic. She does not have any significant respiratory symptoms. Clinically the patient did not have obvious signs of any infectious complications at the site of the dental extractions on the jaw. My impression was that she would likely have some kind of a metabolic derangement due to poor oral intake. However the patient had said that she was able to take milk shakes and Ensure. I was somewhat surprised that the patient's electrolytes were normal and that her renal function was normal. There was no sign of acidosis. Additionally she has a white count of 3.1 (slightly low) with a differential which would not suggest a bacterial infection. She had 58% neutrophils, 23% lymphocytes, and 16% monocytes. No bands. A CT of the neck was done to look for some possible surgical complication or infection. The only significant finding on the CT was a question of left tonsillar swelling with the recommendation for clinical correlation. On exam the patient does not have any significant tonsillar swelling or signs of swelling or abnormality in the posterior pharynx. She also does not have any significant adenopathy. Nevertheless a strep swab was sent. Rapid strep was negative. For treatment the patient was given 1 L of IV fluids, a dose of IV acetaminophen, and a very small dose of ketorolac IV. The patient seemed to feel somewhat better. The patient feels that she would like to try and manage her symptoms at home. I do not see an indication for antibiotics. She will therefore be discharged with the advice to use acetaminophen 1000 mg t.i.d. for her to discomfort and to do your best to try to keep yourself well hydrated. She should return if worse, otherwise follow up with the regular doctor. The patient has been prescribed oxycodone over the phone by her dentist yesterday. She took a dose yesterday and another dose today. It was only after taking the oxycodone dose this morning that she decided to come to the emergency room. Perhaps she is having some degree of an adverse reaction to the oxycodone and she is advised not to use it again. Lab Data 06/01/24 10:58 06/01/24 10:58 Labs: Lab Results 06/01/24 06/01/24 06/01/24 Range/Units 10:58 13:49 15:28 WBC 3.1 L (4.8-10.8) X10*3/uL RBC 3.70 L (4.20-5.50) X10*6/uL Hgb 10.4 L (12.0-16.0) g/dl Hct 32.6 L (37.0-47.0) % MCV 88.1 (80.0-98.0) fL MCH 28.1 (27.0-33.0) pg MCHC 31.9 (31.0-35.0) g/dl RDW 14.2 (11.0-16.0) % Plt Count 291 D (160-400) X10*3/uL MPV 10.6 (9.4-12.3) fL Immature Gran % (Auto) Cancelled Neut % (Auto) Cancelled Lymph % (Auto) Cancelled Gillespie % (Auto) Cancelled Eos % (Auto) Cancelled Baso % (Auto) Cancelled Lymph # (Auto) Cancelled Gillespie # (Auto) Cancelled Eos # (Auto) Cancelled Baso # (Auto) Cancelled Abs Immat Gran (auto) Cancelled Absolute Neuts (auto) Cancelled Absolute Nucleated RBC 0.000 (0.0-0.012) X10*3/uL Nucleated RBC % (auto) 0.0 (0.0-0.2) /100WBC Neutrophils % (Manual) 58 (45-73) % Band Neutrophils % 0 L (3-5) % Lymphocytes % (Manual) 23 (20-40) % Monocytes % (Manual) 16 H (2-11) % Basophils % (Manual) 1 (0-2) % Metamyelocytes % 1 % Myelocytes % 1 % Abs Neuts (Manual) 1.8 L (2.0-8.3) X10*3/uL Lymphocytes # (Manual) 0.7 L (1.2-4.9) X10*3/uL Monocytes # (Manual) 0.5 (0.1-1.2) X10*3/uL Platelet Estimate NORMAL (NORMAL) Plt Morphology Comment NORMAL RBC Morphology NOTED Hypochromasia 1+ (5-14) /OIF PT 40.1 H (10.9-12.4) SEC INR 3.4 H (0.9-1.1) Sodium 138 (135-145) mmol/L Potassium 4.6 (3.3-5.1) mmol/L Chloride 102 (96-108) mmol/L Carbon Dioxide 28 (22-29) mmol/L Anion Gap 13 (12-20) BUN 16 (9-16) mg/dL Creatinine 0.68 (0.5-1.4) mg/dL Estim Creat Clear Calc 56.2 Estimated GFR > 60 Random Glucose 250 H (60-115) mg/dL Calcium 9.2 (8.4-10.2) mg/dL Total Bilirubin 0.8 (0.0-1.0) mg/dL AST 15 (5-31) U/L ALT < 6 (0-31) U/L Alkaline Phosphatase 65 (39-117) U/L Troponin I High Sens < 2.7 (<3.5-17.0) ng/L C-Reactive Protein 10.08 H (< or = 0.50) mg/dL B-Natriuretic Peptide 171 H (<100) pg/mL Total Protein 6.7 (6.5-8.0) g/dL Albumin 3.1 L (3.5-5.0) g/dL Urine Color Yellow Urine Appearance Clear Urine pH 5.5 (5.0-9.0) Ur Specific [place] >= 1.030 H (1.005-1.025) Urine Protein 30 (1+) H (Neg-Trace) mg/dL Urine Glucose (UA) 100 H (Negative) mg/dL Urine Ketones Trace (Negative) mg/dL Urine Blood Trace H (Negative) Urine Nitrite Negative (Negative) Ur Leukocyte Esterase Negative (Negative) Urine RBC 0-2 (0-2) /HPF Urine WBC 0-5 (0-5) /HPF Ur Squamous Epith Cells 6-10 (0-2) /HPF Urine Bacteria None Seen (None Seen) Hyaline Casts 0-2 (0-2) /LPF S. pyogenes GrpA IRLANDA Negative (Negative) Discharge Plan Discharge Clinical Impression: Acute oral pain, H/O tooth extraction Patient Disposition: Home, Self-Care Additional Instructions: I think that your evaluation in the emergency room today is very reassuring. I do not think you have any infectious complication of your dental extraction. Please continue to use acetaminophen (Tylenol) as needed for pain. You may take 2 extra-strength acetaminophen per dose (500 mg x 2 = 1000 mg). You may do this up to 3 times per day. Continue to try to take fluids and food as much as best as you can. I think I would stop using the oxycodone you were prescribed. This may be making you feel worse. If you develop a fever or feel significantly worse in any way please return to the emergency room for another evaluation. Prescriptions: No Action melatonin 10 mg capsule 10 mg PO BEDTIME PRN (Reason: sleep) Qty: 90 1RF celecoxib [Celebrex] 100 mg capsule 100 mg PO BID Qty: 20 0RF metformin 500 mg tablet 500 mg PO .COMPLEX Qty: 270 3RF Rx Instructions: 500 mg orally; 1 tabl q AM, 2 tabl q PM glipizide 10 mg tablet 10 mg PO DAILY Qty: 90 3RF amoxicillin 875 mg tablet 875 mg PO BID Qty: 14 0RF Saccharomyces boulardii [Daily Probiotic (S. boulardii)] 250 mg capsule 250 mg PO BID sennosides [Vegetable Laxative] 8.6 mg tablet 8.6 mg PO DAILY miscellaneous medical supply Misc See Rx Instructions miscellaneous .COMPLEX Qty: 1 0RF Rx Instructions: light walker with wheels and a seat hydrocortisone 2.5 % cream 1 appl topical BID PRN (Reason: skin irritation) Qty: 30 0RF nystatin 100,000 unit/mL suspension PO warfarin 4 mg tablet 6 mg PO .QD Qty: 180 3RF levothyroxine [Euthyrox] 100 mcg tablet 100 mcg PO DAILY Qty: 90 3RF metoprolol tartrate 50 mg tablet 150 mg PO DAILY Qty: 270 3RF Rx Instructions: 2 tablets in am and 1 tablet in pm lovastatin 40 mg tablet 40 mg PO DAILY Qty: 90 3RF gabapentin 600 mg tablet 600 mg PO BEDTIME Qty: 90 3RF gabapentin 100 mg capsule 100 mg PO .4 times a day Qty: 360 3RF acetaminophen [Tylenol Arthritis Pain] 650 mg tablet extended release 650 mg PO Q12H Eliquis 5 mg tablet 5 mg PO BID Qty: 180 3RF Interventions: ED Discharge Assessment Last Done: 06/01/24 16:06 Discharge Date/Time: 06/01/24 16:07 Print Language: Sinhala
[2024-06-01 11:09] LABS: INTERNATIONAL NORM RATIO 3.4 (0.9-1.1); Prothrombin Time 40.1 SEC (10.9-12.4)
[2024-06-01 11:21] LABS: Alanine Aminotransferase < 6 U/L (0-31); Albumin Level 3.1 g/dL (3.5-5.0); Alkaline Phosphatase 65 U/L (39-117); Anion Gap 13 (12-20); Aspartate Amino Transferase 15 U/L (5-31); Bilirubin Total 0.8 mg/dL (0.0-1.0); Blood Urea Nitrogen 16 mg/dL (9-16); Calcium 9.2 mg/dL (8.4-10.2); Carbon Dioxide 28 mmol/L (22-29); Chloride 102 mmol/L (96-108); Creatinine Clr Calc Pharmacy 56.2; Estimated Glomerular Filt Rate > 60; Glucose Random 250 mg/dL (60-115); Potassium 4.6 mmol/L (3.3-5.1); Sodium 138 mmol/L (135-145); Total Protein 6.7 g/dL (6.5-8.0)
[2024-06-01] MEDS: Acetaminophen 1,000 MG/100 ML PIGGYBACK 400 MG IV (11:50)
[2024-06-01 11:51] VITALS: TEMP 37.6
--- NOTE | 2024-06-01 11:57 | PC.NURSE ---
attempted to have patient use bedpan for urine sample unsuccessfully. rectal temp of 99.7. xray at bedside, IV Tylenol infusing
[2024-06-01 12:11] LABS: Band Neutrophils Percent 0 % (3-5); Basophils Percent Manual 1 % (0-2); Lymphocytes Percent Manual 23 % (20-40); Metamyelocytes Percent 1 %; Monocytes Percent Manual 16 % (2-11); Myelocytes Percent 1 %; Neutrophils Percent Manual 58 % (45-73)
[2024-06-01 12:13] LABS: Hypochromasia 1+ (5-14) /OIF; Lymphocytes Absolute Manual 0.7 X10*3/uL (1.2-4.9); Monocytes Absolute Manual 0.5 X10*3/uL (0.1-1.2); Neutrophils Absolute Manual 1.8 X10*3/uL (2.0-8.3); Platelet Estimate NORMAL (NORMAL); Platelet Morphology Comment NORMAL; RBC Morphology NOTED; White Blood Count 3.1 X10*3/uL (4.8-10.8)
--- OUTSIDE RECORDS SUMMARY | 2024-06-01 12:16 | XMS_ITS | Patient Health Record ---
Author Organization [facility] Malik Castillo Address [address] [place] [address] Care Team Providers Care Family Day Care Provider Name Role Phone Rissa Bowling MD Primary Care Provider Unavaila Aleshia Robles Unavailable [phone] Ede Grant Unavailable [phone] Eli Crump Unavailable [phone] Allergies Allergen (clinical drug ingredient) Drug/Non Drug Allergy documented on EMR Reaction Allergy Type Onset Date Status Novocain sick Drug Allergy Active Duloxetine & Lidocaine-Menthol Unknown Drug Allergy Active Reason For Referral No Information Medications Medication SIG (Take, Route, Frequency, Duration) Notes Start Date End Date Status Celecoxib 100 MG TAKE 1 CAPSULE BY MOUTH 2 TIMES A DAY Oral for 10 Days Not-Taking Ciclopirox Olamine 0.77 % 1 application Externally Twice a day to skin of feet including between the toes for 30 days Not-Taking Ciclopirox Olamine 0.77 % 1 application to affected area Externally Twice a day to effected areas on feet for 30 days Not-Taking Desoximetasone 0.25 % APPLY TOPICALLY TO AFFECTED AREA ON FEET TWICE DAILY FOR 30 DAYS for 30 Not-Taking Lovastatin Active Warfarin Sodium Acti ve HYDROcodone-Acetaminophen Not-Taking Diabetic Insoles Not -Taking Physical Therapy . . . 2-3x/week; remov e cast and start on 10/24/19 Not-Taking Clotrimazole-Betamethasone 1-0.05 % 1 application to affected area Externally Twice a day to affected areas on feet for 30 days Not-Taking Voltaren 1 % as directed Externally Active Aspir-81 Active glipiZIDE 5 MG as directed Orally Twice a day Active Levothyroxine Sodium Active predniSONE Not-Takin g Pravastatin Sodium N ot-Taking Monique Aspirin Not-Ta chinedu Extra Depth Orthopedic Shoes (1 Pair) with Customized Heat Molded Multidensity Innersoles (3 Pair) as directed Dx: NIDDM/Polyneuropathy (E11.42), Hammertoe Foot Deformity (M20.41,M20.42), Preulcerative Skin Lesion(s) (L85.1 04/06/2024 Active oxyCODONE HCl Not-Ta chinedu Gabapentin Active hydroCHLOROthiazide Active Metoprolol & Diet Manage Prod Active Metformin & Diet Manage Prod Active Tyzine Not-Taking Metoprolol Succinate Not-Taking Coumadin Not-Taking Keflex 500 MG 1 capsule Orally every 12 hrs for 5 days 03/22/2014 Not-Taking Immunizations Vaccine Route Administration Date Status Comme nts COVID-19 Moderna Vaccine Unknown 09/17/2021 Administered 1st 03/20/2020 2nd 04/17/2020 3rd 01/01/21 Influenza Unknown 11/28/2014 Administered Influenza Unknown 10/05/2015 Administered Influenza Unknown 12/01/2016 Administered Influenza Unknown 11/09/2017 Administered Influenza Unknown 10/12/2021 Administered Influenza Unknown 10/10/2022 Administered Social History Tobacco Use: Social History Observation Description Date Details (start date - stop date) Never Smoker NA - NA Alcohol Screen Question Answer Notes Did you have a drink containing alcohol in the p ast year? No Points 0 Interpretation Negative Tobacco use other than smoking: Question Answer Notes Are you an other tobacco user? No Tobacco Control (Standard) Question Answer Notes Tobacco use: Nonsmoker Problems Problem Type SNOMED Code ICD Code Onset Dates Problem Status W/U Status Risk Notes Problem Polyneuropathy due to diabetes mellitus type I (831004714) Type 1 diabetes mellitus with diabetic polyneuropathy (E10.42) Active confirmed Problem Acquired hallux valgus (49319577) Hallux valgus (acquired), right foot (M20.11) Active confirmed Problem Polyneuropathy due to type 2 diabetes mellitus (974551501) Type 2 diabetes mellitus with diabetic polyneuropathy (E11.42) Active confirmed Problem Acquired hammer toe of right foot (6134711126227731 ) Other hammer toe(s) (acquired), right foot (M20.41) Active confirmed Problem Acquired hammer toe of left foot (0183898602665389 ) Other hammer toe(s) (acquired), left foot (M20.42) Active confirmed Vital Signs Blood pressure diastolic 78 mm Hg 04/06/2024 Height 4ft9in in 04/06/2024 Blood pressure systolic 120 mm Hg 04/06/2024 Weight 180 lbs 04/06/2024 BMI 38.95 kg/m2 04/06/2024 Procedures Procedure Date Ordered Date Performed Result Body Sit e 70402-OTYZALJ NAIL, 6 OR MORE 02/01/2024 N/A 51034-MKIL SKIN LESIONS, OVER 4 02/01/2024 N/A Encounters Encounter Location Date Provider Diagnosis [address] [address] 07/16/2023 Ede Grant Tinea unguium B35.1 ; Ingrowing nail L60.0 ; Type 2 diabetes mellitus with diabetic polyneuropathy E11.42 ; Pain in right toe(s) M79.674 ; Pain in left toe(s) M79.675 ; Hallux valgus (acquired), right foot M20.11 ; Other hammer toe(s) (acquired), left foot M20.42 ; Other hammer toe(s) (acquired), right foot M20.41 ; Tinea pedis B35.3 and Dermatitis L30.[address] [address] 09/21/2023 Ede Grant Tinea unguium B35.1 ; Ingrowing nail L60.0 ; Type 2 diabetes mellitus with diabetic polyneuropathy E11.42 ; Pain in right toe(s) M79.674 ; Pain in left toe(s) M79.675 ; Hallux valgus (acquired), right foot M20.11 ; Other hammer toe(s) (acquired), left foot M20.42 ; Other hammer toe(s) (acquired), right foot M20.41 ; Tinea pedis B35.3 and Dermatitis L30.[address] [address] 11/26/2023 Ede Grant Tinea unguium B35.1 ; Ingrowing nail L60.0 ; Type 2 diabetes mellitus with diabetic polyneuropathy E11.42 ; Pain in right toe(s) M79.674 ; Pain in left toe(s) M79.675 ; Hallux valgus (acquired), right foot M20.11 ; Other hammer toe(s) (acquired), left foot M20.42 ; Other hammer toe(s) (acquired), right foot M20.41 ; Tinea pedis B35.3 and Dermatitis L30.[address] [address] 02/01/2024 Aleshia Lagunas Type 2 diabetes mellitus with diabetic polyneuropathy E11.42 ; Tinea unguium B35.1 and Tinea pedis of both feet B35.[address] [address] 04/06/2024 Eli Crump Type 2 diabetes mellitus with diabetic polyneuropathy E11.42 ; Other hammer toe(s) (acquired), left foot M20.42 ; Tinea unguium B35.1 ; Tinea pedis of both feet B35.3 and Other hammer toe(s) (acquired), right foot M20.[address] [address] 04/22/2024 Eli Crump Assessments Encounter Date Diagnosis (ICD Code) Assessment Notes Treatment Notes Treatment Clinical Notes Section Notes 07/16/2023 Tinea unguium (ICD-10 - B35.1) 09/21/2023 Tinea unguium (ICD-10 - B35.1) 09/21/2023 Ingrowing nail (ICD-10 - L60.0) 11/26/2023 Tinea unguium (ICD-10 - B35.1) 02/01/2024 Type 2 diabetes mellitus with diabetic polyneuropathy (ICD-10 - E11.42) 02/01/2024 Tinea unguium (ICD-10 - B35.1) 04/06/2024 Other hammer toe(s) (acquired), left foot (ICD-10 - M20.42) 04/06/2024 Type 2 diabetes mellitus with diabetic polyneuropathy (ICD-10 - E11.42) 04/06/2024 Tinea unguium (ICD-10 - B35.1) 02/01/2024 Tinea pedis of both feet (ICD-10 - B35.3) 11/26/2023 Ingrowing nail (ICD-10 - L60.0) 09/21/2023 Type 2 diabetes mellitus with diabetic polyneuropathy (ICD-10 - E11.42) 07/16/2023 Ingrowing nail (ICD-10 - L60.0) 07/16/2023 Type 2 diabetes mellitus with diabetic polyneuropathy (ICD-10 - E11.42) 09/21/2023 Pain in right toe(s) (ICD-10 - M79.674) 11/26/2023 Type 2 diabetes mellitus with diabetic polyneuropathy (ICD-10 - E11.42) 04/06/2024 Tinea pedis of both feet (ICD-10 - B35.3) 04/06/2024 Other hammer toe(s) (acquired), right foot (ICD-10 - M20.41) Patient Educated with: DIABETIC FOOT CARE INSTRUCTIONS. pdf (DIABETIC FOOT CARE INSTRUCTIONS. pdf) 09/21/2023 Pain in left toe(s) (ICD-10 - M79.675) 11/26/2023 Pain in right toe(s) (ICD-10 - M79.674) 07/16/2023 Pain in right toe(s) (ICD-10 - M79.674) 07/16/2023 Pain in left toe(s) (ICD-10 - [...] (acquired), right foot (ICD-10 - M20.41) 07/16/2023 Tinea pedis (ICD-10 - B35.3) 09/21/2023 Dermatitis (ICD-10 - L30.9) 11/26/2023 Tinea pedis (ICD-10 - B35.3) 07/16/2023 Dermatitis (ICD-10 - L30.9) 11/26/2023 Dermatitis (ICD-10 - L30.9) Plan Of Treatment Pending Test Test Name Order Date X ray : Ankle, left 3V 10/13/2019 X ray : Foot, right 3V 12/26/2013 32736-SYQFJNL NAIL, 6 OR MORE 01/18/2014 35318-ULLIFHX NAIL, 6 OR MORE 11/16/2013 44003-VQDVVST NAIL, 6 OR MORE 03/22/2014 63755-SMFXADD NAIL, 6 OR MORE 06/05/2014 25794-ZRQMDOH NAIL, 6 OR MORE 08/09/2014 97930-MXILNMY NAIL, 6 OR MORE 11/13/2014 11694-VJFBBPH NAIL, 6 OR MORE 09/16/2012 24358-KZKWERG NAIL, 6 OR MORE 12/02/2012 18162-FCCZNFH NAIL, 6 OR MORE 02/10/2013 07088-QMQEFFZ NAIL, 6 OR MORE 04/27/2013 77320-YNJWLFR NAIL, 6 OR MORE 07/13/2013 51430-LLOKKYV NAIL, 6 OR MORE 09/15/2013 28995-CSPGACY NAIL, 6 OR MORE 10/04/2010 75305-AGDQRAS NAIL, 6 OR MORE 12/12/2010 11865-VPSFYRL NAIL, 6 OR MORE 02/19/2011 31448-QACCNQU NAIL, 6 OR MORE 05/12/2011 09677-VZCQQTU NAIL, 6 OR MORE 07/21/2011 13747-CYCHAOO NAIL, 6 OR MORE 10/08/2011 77065-GFGXZVC NAIL, 6 OR MORE 12/10/2011 13491-AKJTIAK NAIL, 6 OR MORE 02/23/2012 98762-GTSHXRX NAIL, 6 OR MORE 05/12/2012 70780-TTRRQDE NAIL, 6 OR MORE 07/14/2012 56413-GKKDQHA NAIL, 6 OR MORE 02/01/2024 82949-USOGSJS NAIL, 6 OR MORE 12/09/2017 80676-XKRSKDD NAIL, 6 OR MORE 01/17/2015 70851-MNJZLUI NAIL, 6 OR MORE 03/22/2015 01231-GILQHQO NAIL, 6 OR MORE 05/24/2015 98000-KSJJBUS NAIL, 6 OR MORE 08/02/2015 83824-YPQNWCK NAIL, 6 OR MORE 10/04/2015 32502-UFXNEGT NAIL, 6 OR MORE 12/06/2015 70731-VGQVYPO NAIL, 6 OR MORE 04/21/2016 61297-MCHOZHK NAIL, 6 OR MORE 02/13/2016 27698-NRFKXGS NAIL, 6 OR MORE 08/27/2016 12288-QLWAQOP NAIL, 6 OR MORE 11/05/2016 57216-ISZFQTX NAIL, 6 OR MORE 01/07/2017 43990-SXVGBES NAIL, 6 OR MORE 03/18/2017 04578-IRTGODJ NAIL, 6 OR MORE 05/20/2017 61409-DFRRYOQ NAIL, 6 OR MORE 07/29/2017 26009-ACGFRRG NAIL, 6 OR MORE 09/30/2017 90355-Asav Destruction, 1-14 07/14/2012 67884-Esvo Destruction, -14 05/12/2012 49425-Zmjy Destruction, -14 12/10/2011 67935-Fpxl Destruction, -14 10/08/2011 46912-Ylmw Destruction, -14 07/21/2011 90033-Kfvc Destruction, -14 09/16/2012 81023-Aowcigex Plate 09/16/2012 41358-Nnhmseef Plate 02/10/2013 16741-Tbrgvuzl Plate 12/02/2012 13311-Ikvgxefe Plate 07/13/2013 33962-Xuynyibw Plate 09/15/2013 14557-Mmouaqgz Plate 11/13/2014 99167-Fzjslmnw Plate 11/16/2013 65669-Qvxsbpbt Plate 01/18/2014 81034-Sahwkhhv Plate 10/08/2011 38588-Nuadmegh Plate 02/19/2011 61863-Rualscoz Plate 10/04/2010 08146-Fflaafkc Plate 12/12/2010 13732-Snetxtog Plate 12/10/2011 59764-Lsvuqyrx Plate 02/23/2012 45769-Shfxdjrj Plate 05/12/2011 68003-Xphvxxok Plate 07/21/2011 32271-Sgqrjfph Plate 05/12/2012 83422-Pdwwdmkg Plate 07/14/2012 70079-Xfsskrli Plate 08/09/2014 79299-QSJBAYD SKIN/TISSUE 04/10/2014 24345 I&D ABSCESS- SIMPLE,SINGLE 015 48663-YOUK SKIN LESIONS, OVER 4 06/06/19 15 38876-CAZE SKIN LESIONS, OVER 4 11/14/19 15 62488-BKLW SKIN LESIONS, OVER 4 08/10/19 15 83250-FUPL SKIN LESIONS, OVER 4 01/19/20 14 77648-TJEU SKIN LESIONS, OVER 4 03/22/19 15 53387-JKII SKIN LESIONS, OVER 4 07/14/19 14 89094-MCZW SKIN LESIONS, OVER 4 04/28/19 14 75812-MOPD SKIN LESIONS, OVER 4 12/03/19 13 62621-OQAI SKIN LESIONS, OVER 4 02/10/19 14 11750-ABST SKIN LESIONS, OVER 4 02/22/19 13 87352-KAGX SKIN LESIONS, OVER 4 12/10/19 12 55759-DQWG SKIN LESIONS, OVER 4 12/13/19 11 46449-TNLB SKIN LESIONS, OVER 4 10/05/19 11 06635-UISD SKIN LESIONS, OVER 4 02/19/19 12 30536-KAHB SKIN LESIONS, OVER 4 10/08/19 12 76388-ZKVY SKIN LESIONS, OVER 4 07/21/19 12 92682-SETD SKIN LESIONS, OVER 4 05/12/19 12 46208-EYEZ SKIN LESIONS, OVER 4 02/01/20 24 29156-DMQF SKIN LESIONS, OVER 4 02/17/19 19 14447-HRIZ SKIN LESIONS, OVER 4 04/22/19 19 05238-SKUV SKIN LESIONS, OVER 4 06/24/19 19 12245-LJWX SKIN LESIONS, OVER 4 09/02/19 19 32126-XMOP SKIN LESIONS, OVER 4 11/09/19 19 55173-DWFT SKIN LESIONS, OVER 4 01/18/20 19 74894-XOUS SKIN LESIONS, OVER 4 03/21/19 20 18363-UOZO SKIN LESIONS, OVER 4 06/06/19 20 08678-NLRI SKIN LESIONS, OVER 4 08/08/19 20 00130-EEGS SKIN LESIONS, OVER 4 10/13/19 20 58077-HTTF SKIN LESIONS, OVER 4 12/22/19 38528-JMVD SKIN LESIONS, OVER 4 02/22/19 77853-NWZY SKIN LESIONS, OVER 4 04/27/19 57055-FYLD SKIN LESIONS, OVER 4 06/29/19 21 69197-AMHA SKIN LESIONS, OVER 4 08/31/19 84008-WLMF SKIN LESIONS, OVER 4 11/02/19 21 39519-FHOK SKIN LESIONS, OVER 4 01/08/20 21 12809-WQSI SKIN LESIONS, OVER 4 03/11/19 22 67972-CIVI SKIN LESIONS, OVER 4 05/14/19 34279-EZRV SKIN LESIONS, OVER 4 12/10/19 18 16370-IMWO SKIN LESIONS, OVER 4 10/01/19 18 23887-SVCW SKIN LESIONS, OVER 4 07/30/19 18 04164-AWSN SKIN LESIONS, OVER 4 05/21/19 18 60917-VVBM SKIN LESIONS, OVER 4 03/18/19 18 34038-NIDD SKIN LESIONS, OVER 4 01/08/20 17 13876-PAAW SKIN LESIONS, OVER 4 11/06/19 17 11393-LXUH SKIN LESIONS, OVER 4 02/12/19 17 83406-QHBK SKIN LESIONS, OVER 4 04/22/19 17 45223-EADM SKIN LESIONS, OVER 4 06/24/19 17 05859-UZAL SKIN LESIONS, OVER 4 08/28/19 17 97229-FOAA SKIN LESIONS, OVER 4 12/06/19 16 92106-ZRBO SKIN LESIONS, OVER 4 10/04/19 16 51816-FZYZ SKIN LESIONS, OVER 4 08/02/19 16 17980-NAXN SKIN LESIONS, OVER 4 05/24/19 16 60078-SPOY SKIN LESIONS, OVER 4 03/22/19 16 29558-OYVV SKIN LESIONS, 2 TO 4 01/18/20 15 24062-MOVV SKIN LESIONS, 2 TO 4 07/15/19 13 08504-XPAX SKIN LESIONS, 2 TO 4 05/13/19 13 75228-KNPB SKIN LESIONS, 2 TO 4 09/17/19 13 59051-WYFF SKIN LESIONS, 2 TO 4 09/16/19 14 62471-WDYM SKIN LESIONS, 2 TO 4 11/17/19 14 76718- Unna Boot 10/13/2019 36862- Nail Unit Biopsy 05/20/2017 X ray : Ankle, right 3V 07/22/2021 Next Appt Details Provider Name:Aleshia cha, 06/08/2024 10:15:00 AM, [address] [place] [address], [phone], Provider Name:Aleshia cha, 08/10/2024 11:15:00 AM, [address] [place] [address], [phone], Insurance Providers Payer Name Payer Address Payer Phone Subscriber Number Group Number Insured Name Patient Relationship to Insured Coverage Start Date Coverage End Date Medicare National [employer]t [employer] [address] [place] [address] [id number] Sherry Flores Self - patient is the insured 0 [employer] [address] [place] [address] [id number] Sherry Flores Self - patient is the [...] PCP/Walk in clinic -covid-19 meds for [facility] 2021 Urgent care -Bleeding ear bug in ear rehab [facility] 08/09-08/16/16 [facility] 08/04-08/09/16 Patient admitted to [facility] for chest p ain. 06/2013
--- OUTSIDE RECORDS SUMMARY | 2024-06-01 12:16 | XMS_ITS ---
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 Generated for Printi ng/Faxing/eTransmitting on:?06/01/2024 12:16 PM EDT
--- OUTSIDE RECORDS SUMMARY | 2024-06-01 12:16 | XMS_ITS ---
Author Organization [facility] [place]ris [place] Address [address] [place] [address] Care Team Providers Care Aerosol Line Operator Name Role Phone Dash PRAKASH, Rissa Primary Care Provider Aleshia Mccracken Unavailable [phone] Theron Eli Unavailable [phone] Allergies Allergen (clinical drug ingredient) Drug/Non Drug Allergy documented on EMR Reaction Allergy Type Onset Date Status Novocain sick Drug Allergy Active Duloxetine & Lidocaine-Menthol Unknown Drug Allergy Active REASON FOR VISIT At Risk Footcare, Skin Problem, Toe Irritation Medications Medication SIG (Take, Route, Frequency, Duration) Notes Start Date End Date Status Extra Depth Orthopedic Shoes (1 Pair) with Customized Heat Molded Multidensity Innersoles (3 Pair) as directed Dx: NIDDM/Polyneuropathy (E11.42), Hammertoe Foot Deformity (M20.41,M20.42), Preulcerative Skin Lesion(s) (L85.1 04/06/2024 Active Tyzine Not-Taking Metoprolol Succinate Not-Taking Coumadin Not-Taking Keflex 500 MG 1 capsule Orally every 12 hrs for 5 days 03/22/2014 Not-Taking predniSONE Not-Takin g Pravastatin Sodium N ot-Taking Monique Aspirin Not-Ta oxyCODONE HCl Not-Ta Clotrimazole-Betamethasone 1-0.05 % 1 application to affected area Externally Twice a day to affected areas on feet for 30 days Not-Taking HYDROcodone-Acetaminophen Not-Taking Diabetic Insoles Not -Taking Physical Therapy . . . 2-3x/week; remov e cast and start on 10/24/19 Not-Taking Ciclopirox Olamine 0.77 % 1 application to affected area Externally Twice a day to effected areas on feet for 30 days Not-Taking Desoximetasone 0.25 % APPLY TOPICALLY TO AFFECTED AREA ON FEET TWICE DAILY FOR 30 DAYS for 30 Not-Taking Levothyroxine Sodium Active Celecoxib 100 MG TAKE 1 CAPSULE BY MOUTH 2 TIMES A DAY Oral for 10 Days Not-Taking Ciclopirox Olamine 0.77 % 1 application Externally Twice a day to skin of feet including between the toes for 30 days Not-Taking Lovastatin Active Warfarin Sodium Acti ve Gabapentin Active hydroCHLOROthiazide Active Metoprolol & Diet Manage Prod Active Metformin & Diet Manage Prod Active glipiZIDE 5 MG as directed Orally Twice a day Active Voltaren 1 % as directed Externally Active Aspir-81 Active Social History Tobacco Use: Social History Observation Description Date Details (start date - stop date) Never Smoker NA - NA Tobacco use other than smoking: Question Answer Notes Are you an other tobacco user? No Tobacco Control (Standard) Question Answer Notes Tobacco use: Nonsmoker Vital Signs Height 4ft9in in 04/06/2024 Weight 180 lbs 04/06/2024 BMI 38.95 kg/m2 04/06/2024 Blood pressure systolic 120 mm Hg 04/06/19 25 Blood pressure diastolic 78 mm Hg 025 Encounters Encounter Location Date Provider Diagnosis [facility] [address] [address] 04/06/2024 Eli Crump Type 2 diabetes mellitus with diabetic polyneuropathy E11.42 ; Other hammer toe(s) (acquired), left foot M20.42 ; Tinea unguium B35.1 ; Tinea pedis of both feet B35.3 and Other hammer toe(s) (acquired), right foot M20.41 Assessments Encounter Date Diagnosis (ICD Code) Assessment Notes Treatment Notes Treatment Clinical Notes Section Notes 04/06/2024 Type 2 diabetes mellitus with diabetic polyneuropathy (ICD-10 - E11.42) 04/06/2024 Other hammer toe(s) (acquired), left foot (ICD-10 - M20.42) 04/06/2024 Tinea unguium (ICD-10 - B35.1) 04/06/2024 Tinea pedis of both feet (ICD-10 - B35.3) 04/06/2024 Other hammer toe(s) (acquired), right foot (ICD-10 - M20.41) Patient Educated with: DIABETIC FOOT CARE INSTRUCTIONS. pdf (DIABETIC FOOT CARE INSTRUCTIONS. pdf) Plan Of Treatment Medication Medication Name Sig Start Date Stop Date Notes Extra Depth Orthopedic Shoes (1 Pair) with Customized Heat Molded Multidensity Innersoles (3 Pair) as directed Dx: NIDDM/Polyneuropathy (E11.42), Hammertoe Foot Deformity (M20.41,M20.42), Preulcerative Skin Lesion(s) (L85.1 04/06/2024 Treatment Notes Assessment Notes Other hammer toe(s) (acquired), right fo ot Patient Educated with: DIABETIC FOOT CARE INSTRUCTIONS.pdf (DIABETIC FOOT CARE INSTRUCTIONS.pdf) Next Appt Details Follow Up: 2 Months, Reason: Provider Name:Aleshiakenyetta cha, 06/08/2024 10:15:00 AM, [address] [place] [address], [phone], Provider Name:Aleshia Harriswilliams cha, 08/10/2024 11:15:00 AM, [address] [place] [address], [phone], Procedure Notes * Category Sub-Category Detail Notes [...] use of a nail nipper and/or dremel-type lens edge grinder machine, to a more viable healthy nail plate [...] to maintain effectiveness in symptomatic relief - 22181 Keratoma Treatment Parring or Cutting o f [...] instrumentation by the physician of record - 35704 Progress Notes * LAVERNESherryDOB:[birth year] (88 yo F)Acc No.[id number]:04/06/2024 Progress Note Patient:?Sherry FLORES Provider:?Eli Crump DPM :1935???Age:88 Y???Sex:Female D ate:04/06/2024 Address:[address] [place], [place] [phone] Pcp:Rissa Bowling MD Subjective: * Chief Complaints: * ???At Risk FootcareSkin Prob lemToe Irritation * HPI: ???At Risk footcare:?Pt States Last PCP Visit:?Date?01/19/2024 ???Skin problems:?Nature:?scaling , redness, itching.?Location:?B/L .?Duration:?, several months.?Course:?, unchanged.?Treatments:?admits nonadherence to recommended application.?Toe pain:?Location:?B/L feet.?Duration:?several years.?Course:?worse.?Aggravated by:?shoes, any pressure.?Treatments:?change in shoes.? * ROS:?General/Constitutional:?Nausea?denies.?Vomiting?denies.?Hunger Thirst?denies.?Loss appetite?denies.?Chills?denies.?Fatigue?denies.?Fever?denies.?Night Sweats?denies.?Unexplained weight loss?denies.?Ophthalmologic:?Blurred [...] * Hospitalization/Major Diagno stic Procedure:?Patient admitted to [facility] for chest pain. 06/2013lumber fusion 08/04-08/09/16rehab lumber fusion 08/09-08/16/16Urgent care -Bleeding ear bug in ear 02/05/20PCP/Walk in clinic -covid-19 meds for cough 2021 * Family History:?Mother: dece ased, diagnosed with Diabetic - NIDDM.?Father: , diagnosed with Unspecified heart disease.?Siblings: cancer, foot problems, diabetes mellitus, hypertension, stroke.?Spouse: .?2 son(s) , 2 daughter(s) . .? * Social History:?Tobacco Use:?Tobacco use other than smoking?Are you an other tobacco user??No ?Tobacco Control (Standard)?Tobacco use:?Nonsmoker ???Miscellaneous:?Caffeine: yes, frequency: every other week. ?Children: yes. ?Exercise: no. ?Marital status: . 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 * Medications:?TakingVoltaren 1 % Gel as directed [...] Levothyroxine Sodium Taking Lovastatin Taking Warfarin Sodium Not-Taking/PRNCelecoxib 100 MG Capsule TAKE 1 CAPSULE BY MOUTH 2 TIMES A DAY Oral Ciclopirox Olamine 0.77 % Cream 1 application Externally Twice a day to skin of feet including between the toes Ciclopirox Olamine 0.77 % Cream 1 application [...] List reviewed and reconciled with the patientNot-Taking/PRN Celecoxib 100 MG Capsule TAKE 1 CAPSULE BY MOUTH 2 TIMES A DAY Oral Not-Taking/PRN Ciclopirox Olamine 0.77 % Cream 1 application Externally Twice a day to skin of feet including between the toes Not-Taking/PRN Ciclopirox Olamine 0.77 % Cream 1 application [...] sickyes[Allergies Verified] Objective: * Vitals:?Ht: 4ft9in, Wt: 180, BMI: 38.95, Shoe size: 7.5W, BP: 120/78 mm Hg, BS: 122, Ht-cm: 144.78 cm, Wt-k.65 kg. * Examination: ???Ophthalmology Referral: ?DIABETES EYE EXAM?Procedure Performed:?Yes ?Date of Exam Performed?06/10/2023 ?Findings of Diabetic Eye Exam:?no retinopathy?General Examination: ?GENERAL APPEARANCE:?Reveals a pleasant, alert, well nourished, well- developed, well hydrated individual, who demonstrates proper attention to hygiene/body habitus, and is in no acute distress, Pt serves as own historian for office visit today.?ORIENTED:?person, place, and time.?FOOT EXAM:?Lower Extremity Neurological Exam performed:?Yes Date ?Visual exam of foot performed:?Yes ?Date?04/06/2024 ?Footwear Evaluation?Footwear Evaluation performed:?Yes?Neurological: ?SENSORY:? Neurological exam demonstrates, reduced light touch sensation, reduced sharp/dull pin prick discrimination , B/L, 5.07 monofilament test performed at plantar aspects of 5 varied sites per foot shows sensation, reduced , B/L.?Dermatologic: ?SKIN FINDINGS:?Skin exam reveals Keratotic lesion(s) located at?Medial plantar, TA, T5, plantar Midfoot LEFT, Heel(s), B/L , Skin shows sign(s) of, erythema, scaling, in a moccasin fashion, no fissure(s) present, L>R.?Nails: ?NAILS are:?Elongated, overgrown, dystrophic, lytic, greater than 3mm thick, discolored and friable with crumbly malodorous subungual debris, T1, T2, T3, T4, T6, T7, T8, T9.?Vascular: ?DP PULSES (B):?1/4, B/L.?PT PULSES (B):?0/4.?CAPILLARY FILL TIME:?3 secs. per digit, b/l.?Orthopedic: ?MUSCLE STRENGTH:?5/5 all groups in a symmetrical fashion, B/L.?DIGITAL DEFORMITIES:?Digital contracture, PIPJ, 2-5 B/L, incompl-reducible to push-up test, no over, nor underlapping,?there is?evidence of shoe producing skin irritation.?FOOTWEAR:?worn, non-supportive, shoe gear properties exacerbate patient's foot/toe deformity.? Assessment: * Assessment: 1.?Other hammer toe(s) (acqu ired), left foot - M20.42 (Primary)???Specify :Chronic problem, Worse (4),Rx Management (4)???2.?Type 2 diabetes mellitus with diabetic polyneuropathy - E11.42???3.?Tinea unguium - B35.1???4.?Tinea pedis of both feet - B35.3???Specify :Acute problem, Uncomplicated (3),Rx drug management (4)???5.?Other hammer toe(s) (acquired), right foot - M20.41???Specify :Chronic problem, Worse (4),Rx Management (4)??? Plan: * Treatment: * Procedures:?Debride Nail 6-10:?Nail debridement?Due to the [...] use of a nail nipper and/or dremel-type lens edge grinder machine, to a more viable healthy nail plate [...] to maintain effectiveness in symptomatic relief - 62952.?Keratoma Treatment:?Parring or Cutting of Benign Hyperkeratotic Lesion(s)?(-57) [...] instrumentation by the physician of record - 86627.? * Procedure Codes:?94605 DEBRI DE NAIL, 6 OR MORE, Modifiers: XS 93000 TRIM SKIN LESIONS, OVER 4, Modifiers: XS * Preventive Medicine:? ??Counseling:?Discussion:?-14: Office or other outpatient visit for the evaluation and management of an established patient, which required a medically appropriate history and/or examination and MODERATE level of DECISION MAKING for: 1 OR MORE CHRONIC PROBLEM(S) THATS WORSENING, 2 STABLE CHRONIC PROBLEMS, A NEWLY DIAGNOSED PROBLEM WITH UNCERTAIN PROGNOSIS, AN ACUTE COMPLICATED INJURY WITH MULTIPLE TREATMENT OPTIONS, OR AN ACUTE PROBLEM WITH ACCOMPANYING SYSTEMIC SYMPTOMS, THAT POSE(S) A MODERATE RISK OF MORBIDITY. THIS CONDITION MAY ALSO INCLUDE RX DRUG MANAGEMENT, OR A DECISON FOR MINOR SURGERY. The visit on the day of the [...] have encouraged the patient to call the office.?Digital Surgery:?Digital surgery was discussed with the patient, We elected to try conservative treatment at the present time, due to the patients medical history and increased asssociated post-operative risks.?Digital Treatment:?HT- I explained to the patient the possible etiologies of Hammertoes, including genetics/foot type/shoegear/activity level/exercise routine and the risks/benefits of all the different treatment options for their pain including: No treatment at all, Rest, Ice, New/supportive/wider/deeper Shoegear, Digital Padding/Strapping/Taping/Bracing/Gel protective sleeves, Foot/Ankle AFO Bracing, Stretching exercises, Deep Tissue Massage, Arch support/shoe inserts with splay metatarsal padding, and Custom orthoses. I insisted that any digital devices be removed daily and not worn overnight for safety. The patient is to carefully examine the toes daily for any skin irritation while using any splinting or padding device. The advantages and disadvantages of each option were discussed and the patients questions re: shoegear, padding, custom vs prefabricated inserts, activity level, and consistency in home treatment regimens for optimal success were answered to their verbally confirmed satisfaction.?Shoe Gear Counseling:?SHOE Rx - The patient was counseled in great detail on their muscoloskeletal foot and toe deformities which coincided with the dermatological presentations visualized on exam. We discussed how their deformities put the integrity of their feet at risk for potential pedal complications which makes the accomidative diabetic shoes and cutomizable inserts medically necessary. We discussed the different shoe and insert treatment types and options, as well as the important advantages for adhering to regularly wearing these accomidative devices daily. The patient was made aware of the fact that a failure to abide by these recommedations may be deleterious to their foot health as they are able to prevent many pedal complications such as skin irritation, skin ulceration, infection, and even loss of toe/foot/leg/or life. Time was also spent with the patient dispensing and discussing proper diabetic footcare techniques including daily skin moisturization, daily foot inspection for any interruption in skin integrity including open lesions, or sign of infection such as redness/malodor/drainage/swelling. Also discussed and recommended were procedures regarding daily shoe inspection for the presence of internal foreign bodies as well as any visualized irregular shoe or insert wear. Patient questions re: shoes, inserts, and self foot inspections were answered to their satisfaction as the patient verbally confirmed a full understanding of the above information. A Rx for Extra Depth Orthopedic Shoes with 3 pair of custom heat-molded inserts was dispensed.?Tinea Pedis:?The patient was counseled on the diagnosis, [...] skin creams to their feet as directed. Discussed with the Patient the issues that may arise if he/she does not treat their condition : Pain, fissues, infection and further break down of skin. Pt still defers a rx, Recommended to secure a painters sponge to a yard stick in order to properly and effectively reach feet for cream application.? ??Screening/Special Tests:?Fall Risk?Screening:?No falls in the past year ?FALLS: Screening for Future Fall Risk?Have you had any falls with injury in the past year??No * Follow Up:?2 Months * Images: * Sign off status: Completed true * Provider:?Eli Crump DPM Date:? Generated for Karen baird/Han/Vincenzo on:?06/01/2024 12:15 PM EDT History and Physical Notes * HPI (History of Present Illness) Category Sub-Category Detail Notes Category Not es Toe pain Location: B/L feet Duration: several years Course: worse Aggravated by: shoes, any pressure Treatments: change in shoes Skin problems Nature: scaling , redness, itching Location: B/L Duration: , several months Course: , unchanged Treatments: admits nonadherence to recommended application At Risk footcare Pt States Last PCP [...] in a moccasin fashion, no fissure(s) present, L>R Orthopedic FOOTWEAR EVALUATION: worn, non-s upportive, shoe gear properties exacerbate patient's foot/toe deformity DIGITAL DEFORMITIES: Digital contracture , PIPJ, 2-5 B/L, incompl-reducible to push-up test, no over, nor underlapping, there is evidence of shoe producing skin irritation MUSCLE STRENGTH: 5/5 all groups in a symmetrical fashion, B/L General Examination GENERAL APPEARANCE: Reveals a pleasant, alert, well nourished, well-developed, well hydrated individual, who demonstrates proper attention to hygiene/body habitus, and is in no acute distress, Pt serves as own historian for office visit today FOOT EXAM: Lower Extremity Neurological Exa m performed:: Yes Date Visual exam of foot performed:: Yes Date: 04/06/2024 ORIENTED: person, place, and t alexy Footwear Evaluation Footwear Evaluation performe d:: Yes Ophthalmology Referral DIABETES EYE EXAM Procedure Perform [...]
--- OUTSIDE RECORDS SUMMARY | 2024-06-01 12:16 | XMS_ITS ---
[facility] Organization [facility] khris Castillo Address [address] [place] [address] Care Team Providers Care Assembly Mechanic Name Role Phone Dash PRAKASH, Rissa Primary Care Provider Aleshia Mccracken Unavailable [phone] Allergies Allergen (clinical drug ingredient) Drug/Non Drug [...] Polyneuropathy due to diabetes mellitus type I ([id number]) Type 1 diabetes mellitus with diabetic polyneuropathy (E10.42) Active confirmed Vital Signs Height 4ft9in in 02/01/2024 Weight 179 lbs 02/01/2024 BMI 38.73 kg/m2 02/01/2024 Blood pressure systolic 120 mm Hg 02/01/20 24 Blood pressure diastolic 75 mm Hg 024 Procedures Procedure Date Ordered Date Performed Result Body Sit e 02388-NDDDPLD NAIL, 6 OR MORE 02/01/2024 N/A 49099-WKRV SKIN LESIONS, OVER 4 02/01/2024 N/A Encounters Encounter Location Date Provider Diagnosis [facility] [address] [address] 02/01/2024 Aleshia Lagunas Type 2 diabetes mellitus [...] days Pending Test Test Name Order Date 26970-AVTRMVN NAIL, 6 OR MORE 02/01/2024 82927-CEHF SKIN LESIONS, OVER 4 02/01/20 24 Next Appt Details Follow Up: 3 Months, Reason: Provider Name:Aleshia cha, 06/08/2024 10:15:00 AM, [address] [place] [address], [phone], Provider Name:Aleshia cha, 08/10/2024 11:15:00 AM, [address] [place] [address], [phone], Procedure Notes * Category Sub-Category Detail Notes [...] use of a nail nipper and/or dremel-type bench grinder, to a more viable healthy nail [...] to maintain effectiveness in symptomatic relief - 48770 Keratoma Treatment Parring or Cutting o f [...] instrumentation by the physician of record - 11220 Progress Notes * Sherry FLORESDOB:[birth year] (88 yo F)Acc No.[id number]:02/01/2024 Progress Note Patient:Sherry LOREDO Provider:?Aleshia Lagunas DPM :1935???Age:88 Y???Sex:Female D ate:02/01/2024 Address:[address] [place], [place] [phone] Pcp:Rissa Bowling MD Subjective: * Chief Complaints: [...] * Hospitalization/Major Diagno stic Procedure:?Patient admitted to [facility] for chest pain. 06/2013lumber fusion 08/04-08/09/16rehab [...] a symmetrical fashion, B/L.?Ophthalmology Referral: ?DIABETES EYE EXAM?Procedure Performed:?Yes ?Date of Exam Performed?06/10/2023 ?Findings of Diabetic Eye Exam:?no retinopathy??? Assessment: * Assessment: 1.?Type 2 diabetes mellitus [...] use of a nail nipper and/or dremel-type bench grinder, to a more viable healthy nail [...] to maintain effectiveness in symptomatic relief - 87372.?Keratoma Treatment:?Parring or Cutting of Benign Hyperkeratotic Lesion(s)?(-57) [...] instrumentation by the physician of record - 84691.? * Procedure Codes:?04296 DEBRI DE NAIL, 6 OR MORE, Modifiers: XS 28999 TRIM SKIN LESIONS, OVER 4, Modifiers: XS [...] Lagunas DPM Date:?04/03/2023 Generated for Karen baird/Han/Vincenzo on:?06/01/2024 12:16 PM EDT History and Physical Notes * [...]
--- OUTSIDE RECORDS SUMMARY | 2024-06-01 12:16 | XMS_ITS | Clinical Summary ---
Author Organization [facility] Address [address] [place] [address] Care Team Providers Care Chip Tester Name Role Phone Unavailable Primary Care Provider Unavailabl e Surgical History Surgery Date Site/Laterality Comments CORONARY ARTERY BYPASS GRAFT 2006 PROCEDURE: HISTORICAL CABG; COMMENT: triple bypass Medical History Medical History Date Comments Heart disease DX:Heart disease Diabetes (CMS/HCC V24, CMS/HCC V28) DX:Diabetes (HCC) Hypertension DX:Hypertension Thyroid disease DX:Thyroid disea se [...] DTaP,Tdap,and Td Vaccines (1 - Tdap) 1953 Pneumococcal Vaccine: 50+ Ye ars (1 of 1 - PCV) 1984 Zoster Vaccines (1 of 2) 1984 RSV Immunization Adult Patie nts (1 - 1-dose 75+ series) 2009 COVID-19 Vaccine ( - 2023-2 5 season) 2023 Influenza Vaccine (Season Ended) 2024 HIB Vaccines Aged Out No longer eligi [...] age to complete this topic Meningococcal B Vaccine Aged Out No l onger eligible based on patient's age to complete this topic RSV Immunization Patients Un tamara 20 months Aged Out No longer eligible b ased on patient's age to complete this topic Varicella Vaccines Aged Out No longer eligible based on patient's age to complete this topic
[2024-06-01 12:42] LABS: B Type Natriuretic Peptide 171 pg/mL (<100); Troponin-I High Sensitivity < 2.7 ng/L (<3.5-17.0)
[2024-06-01 13:11] LABS: C Reactive Protein 10.08 mg/dL (< or = 0.50)
[2024-06-01] MEDS: iohexoL 350 MG/ML 100 ML INFUS..BTL IV (13:12)
[2024-06-01] MEDS: Ketorolac Tromethamine 15 MG/ML VIAL 7.5 MG IVPUSH (13:34)
[2024-06-01 13:57] LABS: Appearance Urine Clear; Color Urine Yellow; Glucose Urine UA 100 mg/dL (Negative); Leukocyte Esterase Urine Negative (Negative); Nitrite Urine Negative (Negative); PH 5.5 (5.0-9.0); Specific Gravity - Urine >= 1.030 (1.005-1.025); UMIC TRIGGER UACC YES; Urine Blood Trace (Negative); Urine Ketones Trace mg/dL (Negative); Urine Protein 30 (1+) mg/dL (Neg-Trace)
[2024-06-01 14:13] LABS: Bacteria Urine None Seen (None Seen); Hyaline Casts Urine 0-2 /LPF (0-2); RBC Urine 0-2 /HPF (0-2); WBC Urine 0-5 /HPF (0-5)
[2024-06-01 15:25] VITALS: BP 184/57; PULSE 78; RESP 14; TEMP 36.6; O2SAT 92
[2024-06-01 15:41] LABS: IDNOW Serial# 58CA691E; Strep A Nucleic Acid Negative (Negative)
--- NOTE | 2024-06-01 15:58 | PC.NURSE ---
patient able to ambulate in room utilizing walker
[2024-06-01 16:06] VITALS: BP 184/57; PULSE 78; RESP 14; TEMP 36.6; O2SAT 92
== END 2024-06-01 16:07 | disposition home or self-care (01) ==
PROVIDERS: Emergency Provider Emergency Medicine; PCP Internal Medicine
DX: R68.84 Jaw pain (principal); I48.91 Unspecified atrial fibrillation; E03.9 Hypothyroidism, unspecified; I11.0 Hypertensive heart disease with heart failure; I50.30 Unspecified diastolic (congestive) heart failure; E11.9 Type 2 diabetes mellitus without complications; Z79.01 Long term (current) use of anticoagulants; Z86.711 Personal history of pulmonary embolism; Z79.899 Other long term (current) drug therapy
CPT/HCPCS: 36415; 70491; 71045; 80053; 81001; 83880; 84484; 85007; 85027; 85610; 86140; 87651; 93005; 96365; 96366; 96375; 99284; 99285; J0131; J1885; Q9967

== ENCOUNTER → 2024-06-01 10:17 | Outpatient (BNV) | payer MEDICARE, SELFPAY | PROVIDERS: Emergency Provider Emergency Medicine; PCP Internal Medicine; Visit Provider Internal Medicine | DX: I48.91 Unspecified atrial fibrillation (principal); I51.7 Cardiomegaly; I25.2 Old myocardial infarction | CPT/HCPCS: 93010 ==

== ENCOUNTER → 2024-06-01 11:28 | Outpatient (BNV) | payer MEDICARE, SELFPAY | PROVIDERS: Emergency Provider Emergency Medicine; PCP Internal Medicine; Visit Provider Radiology Diagnostic Radiology | DX: J34.89 Other specified disorders of nose and nasal sinuses (principal); R53.1 Weakness | CPT/HCPCS: 70491; 71045 ==

== ENCOUNTER 2024-06-09 11:56 | Emergency (ER) | payer MEDICARE, SELFPAY ==
--- NOTE | ~2024-06-09 | XR_ITS ---
CLINICAL HISTORY: fever 2 view chest x-ray. Comparison: 06/09/2024 Findings: Heart size normal. Pulmonary vasculature approaches limits of normal. No consolidations. No acute fracture. There is degenerative narrowing of the shoulder joints. . Median sternotomy wires are vertically aligned. Impression: Lungs are clear. This document has been electronically signed by: Дмитрий Paredes MD on 06/11/2024 12:19:12
--- NOTE | ~2024-06-09 | CT_ITS ---
CLINICAL HISTORY: headache, patient with supratherapeutic INR CT head without contrast Comparison: None Findings: No evidence of acute territorial infarct. There is patchy low density in the periventricular and subcortical white matter. Diffuse volume loss is noted. No hydrocephalus. No hemorrhage, mass effect, mass lesion or midline shift. No abnormal extra-axial fluid. No calvarial fracture. Paranasal sinuses and mastoid air cells are clear. Impression: No evidence of acute process. Ischemic microangiopathy and diffuse volume loss. This document has been electronically signed by: Benny Bean MD on 06/09/2024 17:53:04
--- NOTE | ~2024-06-09 | CT_ITS ---
CLINICAL HISTORY: back pain afet fall, supratherapeutic INR CT abdomen and pelvis with contrast Comparison: None Findings: The lung bases are clear. The liver, spleen, adrenal glands and pancreas are unremarkable. Multiple calculi layer dependently within the gallbladder. No pericholecystic stranding. No bowel obstruction, free air, free fluid, abscess or adenopathy. No pelvic mass. Uterus and adnexa appear within expected limits. The hardware transfixing L4 and L5 appears intact. There is a mild superior endplate compression fracture at T12, age-indeterminate. Prominent chronic changes throughout the pelvis. The femoral heads are well directed towards their respective acetabula. No hip fracture identified. Impression: There is a very mild age-indeterminate superior endplate compression fracture at T12. No acute process within the abdomen or pelvis. Several incidental findings. This document has been electronically signed by: Benny Bean MD on 06/09/2024 17:52:19
--- NOTE | ~2024-06-09 | XR_ITS ---
EXAMINATION: XR CHEST 1 VIEW HISTORY: near syncope COMPARISON: Comparison is made with the prior examination dated 06/01/2024. FINDINGS: A single AP portable view of the chest performed at 3:12 PM is submitted. The lungs are expanded and clear. There is no pleural effusion, pneumothorax, or pulmonary vascular congestion. The heart is normal in size. 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 XR/XR chest 1V IMPRESSION: No acute cardiopulmonary abnormality. Electronically signed by: Eitenne Mckeon MD 06/09/2024 03:30 PM EDT
[2024-06-09 12:14] VITALS: BP 193/64; BP 200/100; PULSE 82; PULSE 92; RESP 16; TEMP 37.1; O2SAT 92; O2SAT 97; BMI 35.2
[2024-06-09 12:42] VITALS: BP 167/64; PULSE 81; RESP 15; TEMP 37.2; O2SAT 97
[2024-06-09 14:35] VITALS: BP 158/55; PULSE 78; RESP 15; TEMP 37; O2SAT 94
--- NOTE | 2024-06-09 14:36 | ED_ITS ---
HPI - General Adult General Chief complaint: Fall Stated complaint: DIZZY,WEAK,ZHU W/FALL,+THINNER PER EMS Time Seen by Provider: 06/09/24 14:36 History of Present Illness ED Provider: Real SALINAS narrative: The patient is an 88-year-old female who has been feeling somewhat weak for about 2 weeks. Two weeks ago she had extraction of the last of her remaining teeth. This was 8 teeth on the jaw. The patient has a history of recurrent pulmonary emboli and is normally on warfarin. She had held the warfarin for the procedure. She did not feel very well after the procedure and came to the hospital 1 week ago on June 01. She had an essentially negative workup in the emergency room. She was treated and released. The patient has not returned to a normal diet since the dental procedure. Her daughter says she has been taking mostly broth and no solid foods. Today the patient had an episode of weakness when she was going to the bathroom. She had used her walker to get to the bathroom as she usually does. She then went into the bathroom (her walker does not fit through the doorway) with a plan to start using the hand rails with in the bathroom. However as she made the transition from her walker to the handrail she felt very weak and somewhat dizzy. Her legs gave out and she went down to the ground. She says she did not go down very hard and she did not strike her head. When she was on the ground she banged on the floor until her son, with whom she lives, came and found her. He called an ambulance. The son says that the patient had not seems particularly worse than usual earlier in the morning. The son says he did not feel that she seemed particularly injured when he found her on the bathroom floor. She had told him that she had not hurt herself. Here in the emergency room the patient says that she has a bit of a headache but she had not had any particular headache at the time that she collapsed in the bathroom. She did not feel that she collapsed because of the headache. She also has some low back pain. She also says that she did not feel that she fell because of the low back pain or that the low back pain started at the time of the fall. She says she often has problems with low back pain. No fever, sweats, chills. No chest pain or shortness of breath. No abdominal pain, nausea, vomiting. Related Data Home Medications ?Medication ?Instructions ?Recorded ?Confirmed sennosides 8.6 mg tablet 8.6 mg PO DAILY 08/31/20 06/09/24 (Vegetable Laxative) acetaminophen 650 mg 650 mg PO Q12H 03/09/24 06/09/24 tablet,extended release (Tylenol Arthritis Pain) aspirin 81 mg capsule 81 mg PO DAILY 06/09/24 06/09/24 metformin 500 mg tablet 1,000 mg PO BEDTIME 06/10/24 06/10/24 metformin 500 mg tablet 500 mg PO DAILY 06/10/24 06/10/24 warfarin 4 mg tablet 4 mg PO Q48H 06/10/24 06/10/24 warfarin 4 mg tablet 6 mg PO Q48H 06/10/24 06/10/24 Previous Rx's ?Medication ?Instructions ?Recorded miscellaneous medical supply See Rx Instructions miscellaneous 02/24/20 .COMPLEX #1 ea melatonin 10 mg capsule 10 mg PO BEDTIME PRN sleep #90 caps 04/09/21 levothyroxine 100 mcg tablet 100 mcg PO DAILY #90 tabs 06/22/23 (Euthyrox) gabapentin 100 mg capsule 100 mg PO .4 times a day #360 caps 01/26/24 gabapentin 600 mg tablet 600 mg PO BEDTIME #90 tabs 01/26/24 lovastatin 40 mg tablet 40 mg PO DAILY #90 tabs 01/26/24 metoprolol tartrate 50 mg tablet 150 mg (3 x 50 mg) PO DAILY #270 01/26/24 tabs glipizide 10 mg tablet 10 mg PO DAILY #90 tabs 04/04/24 Allergies Allergy/AdvReac Type Severity Reaction Status Date / Time duloxetine Allergy Unknown delusions Verified 06/09/24 12:19 procaine [From Novocain] AdvReac Unknown Nausea and Verified 06/09/24 12:19 Vomiting, fainting Review of Systems 2 Review of Systems: Yes all other systems are reviewed and are negative [facility] Past Medical History Medical History Cerumen impaction Diastolic CHF Hypothyroidism Peripheral neuropathy Recurrent pulmonary embolism CAD (coronary artery disease) Osteoarthritis HTN (hypertension) Type 2 diabetes mellitus Surgical History H/O Spinal surgery S/P three vessel coronary artery bypass Social History Social History Housing: House Alcohol intake: never Patient Tobacco Use Status: Former Tobacco user Tobacco use type: Cigarette Years Smoked: 3 yrs e-Cigarette/Vaping Use: Never Used Second Hand Smoke Exposure: No Advance Directives Date on File: 06/26/03 service: No Current occupational status: retired and disabled Cognitive needs: No Hearing needs: No Vision needs: Yes Physical Exam ED Vital Signs: Vital Signs - 24 hr 06/10/24 18:03 06/10/24 19:22 06/10/24 22:19 Temperature 98.0 F 98.0 F Pulse Rate 79 81 90 Respiratory Rate 14 16 Blood Pressure 185/56 H 192/72 H 196/61 H Pulse Oximetry 94 95 Oxygen Delivery Method Room Air Room Air 06/11/24 06:20 06/11/24 08:20 06/11/24 08:30 Temperature 98.2 F 100.6 F H Pulse Rate 84 91 91 Respiratory Rate 16 20 Blood Pressure 179/68 H 143/85 H 143/85 H Pulse Oximetry 94 94 Oxygen Delivery Method Room Air Room Air 06/11/24 10:22 06/11/24 11:21 06/11/24 12:49 Temperature 98.2 F 98.3 F Pulse Rate 87 73 69 Respiratory Rate 22 H 15 Blood Pressure 143/85 H 166/62 H 150/82 H Pulse Oximetry 94 94 95 Oxygen Delivery Method Room Air Room Air 06/11/24 13:50 06/11/24 14:20 06/11/24 14:36 Temperature 98.3 F 98.1 F 98.1 F Pulse Rate 81 72 72 Respiratory Rate 18 16 16 Blood Pressure 158/77 H 144/68 H 144/68 H Pulse Oximetry 99 99 99 Oxygen Delivery Method Room Air Room Air Room Air BMI result Body Mass Index 35.2 Const Other: The patient is a frail looking older woman. She is awake and alert. She looks somewhat chronically ill and quite pale but not obviously acutely ill. HENMT Other: Face is symmetrical. Mucous membranes not obviously dry. The patient is edentulous Eyes General: appearance normal, both eyes and all related structures Neck Neck: Yes full ROM and Yes no JVD Resp Other: I hear no crackles Effort & Inspection: normal respiratory effort Auscultation: clear to auscultation bilaterally Cardio Rate: regular rate Rhythm: regular rhythm Heart sounds: S1 normal heart sound present and S2 normal heart sound present GI Other: Abdomen is soft and nontender Back/Spine/Pelvis Other: There is tenderness in the right lower back Skin Other: Skin is pale and dry Neuro Other: The patient is awake and alert. She seems reasonably well oriented. Eye movements are intact, pupils are normal, face is symmetrical, speech is clear, she is able to move her extremities symmetrically but seems quite frail. With the assistance she was able to stand and hold onto a walker and take a few steps very slowly and with discomfort. She seems deconditioned but does not seem to have a focal neurological deficit. Extrem Other: No deformities to the extremities. No significant edema to lower extremities. No calf swelling or tenderness or asymmetry Course Course Course Narrative: 06/10/2024 1012 Enma Harris PA-C ---> Observation continues. Case management continues to follow. Physical therapy was going to evaluate the patient however, they had concerns regarding her elevated blood pressure. Consulted with my attending physician Dr. Jensen who recommended starting 5mg of PO Amlodipine QD and monitoring her blood pressure. 06/10/2024 1403 Enma Harris PA-C ---> Patient's systolic blood pressure remains >180 and therefore, the physical therapy team continues to refuse to evaluate the patient. I spoke with my attending physician Dr. Jensen, who recommended continuing the 5 mg of PO Amlodipine daily and following the patient for her systolic blood pressure to be less than 180 so she is able to be evaluated by physical therapy. Reevaluation(s) Reevaluation #1: 06/11 [id number] Denise Fontenot COMPUTER OPERATIONS SUPERVISOR-nursing informed me at 10:30 the patient had a temperature of 100.6 degrees this morning. She has no complaints. Her vitals are unremarkable with the exception of some mild hypertension. She received Tylenol prior to my assessment. I did order labs which are unchanged from previous. I did a repeat urine sample with a straight cath which shows no signs of infection. Her chest x-ray is negative for pneumonia. Her viral swab is negative. I did send an add on respiratory pathogen panel. Patient had improvement of her temperature with a dose of Tylenol. I did review her previous labs and urine sample. Her urine sample from 2 days ago looked to be contaminated but did grow Klebsiella. Patient was not treated with any antibiotics. At this time I do not have any source of infection. I did go in to examine the patient. She has no wounds anywhere. She has no complaints. I discussed this case with Dr. Kamara. At this time we will monitor the patient. She is overall nontoxic appearing. We will continue with case management involvement. CM was updated. Reevaluation #2: Time: 13:43 Date: 06/11/24 Provider: Denise Fontenot NP Physician observation ended at __[id number]___. Patient has been cleared for discharge by CM. CM spoke to patient and family. Will follow up as an outpatient with resources. Medications Administered Discontinued Medications Generic Name Dose Route Start Last Admin Trade Name Freq PRN Reason Stop Dose Admin Acetaminophen 650 mg 06/10/24 00:30 06/11/24 08:19 Acetaminophen 325 Mg Tablet PO 650 mg BID YAHIR Administration Acetaminophen 650 mg 06/10/24 12:23 06/10/24 12:25 Acetaminophen 325 Mg Tablet PO 06/10/24 12:24 650 mg ONCE ONE Administration Amlodipine Besylate 5 mg 06/10/24 10:16 06/10/24 11:16 Amlodipine Besylate 5 Mg Tablet PO 06/10/24 10:17 Not Given ONCE ONE Protocol Amlodipine Besylate 5 mg 06/11/24 09:00 06/10/24 11:14 Amlodipine Besylate 5 Mg Tablet PO 5 mg DAILY YAHIR Administration Protocol Aspirin 81 mg 06/10/24 09:00 06/11/24 08:20 Aspirin Enteric Coated 81 Mg Tablet. PO 81 mg DAILY YAHIR Administration Ceftriaxone Sodium 1 gm 06/11/24 10:48 06/11/24 11:18 Ceftriaxone Sodium 1 Gm Vial IVPUSH 06/11/24 10:49 1 gm ONCE ONE Administration Gabapentin 600 mg 06/09/24 22:30 06/09/24 22:31 Gabapentin 600 Mg Tablet PO 06/09/24 22:31 600 mg ONCE ONE Administration Gabapentin 100 mg 06/09/24 22:30 06/09/24 22:31 Gabapentin 100 Mg Capsule PO 06/09/24 22:31 100 mg ONCE ONE Administration Gabapentin 100 mg 06/10/24 09:00 06/11/24 13:45 Gabapentin 100 Mg Capsule PO 100 mg QID@0900,1200,1500,1800 YAHIR Administration Gabapentin 600 mg 06/10/24 21:00 06/10/24 22:19 Gabapentin 600 Mg Tablet PO 600 mg BEDTIME YAHIR Administration Glipizide 10 mg 06/10/24 07:30 06/11/24 08:41 Glipizide 10 Mg Tablet PO 10 mg DAILY@0730 YAHIR Administration Acetaminophen 1,000 mg in 100 mls @ 400 mls/hr 06/09/24 16:40 06/09/24 16:50 Ofirmev IV 06/09/24 16:54 400 mls/hr ONCE ONE Administration Lactated Ringer's 1,000 mls @ 999 mls/hr 06/09/24 18:15 06/09/24 18:33 Lr IV 06/09/24 19:15 999 mls/hr .Q1H1M YAHIR Administration Lactated Ringer's 1,000 mls @ 80 mls/hr 06/09/24 22:00 06/11/24 13:45 Lr IVCONT Infused .[id number] YAHIR Infusion Sodium Chloride 1,000 mls @ 999 mls/hr 06/11/24 10:49 06/11/24 13:26 Ns IV 06/11/24 11:49 Infused .Q1H1M STA Infusion Iohexol 85 ml 06/09/24 17:10 06/09/24 17:10 Iohexol 350 Mg/Ml 75 Ml Infus..Btl IV 06/09/24 17:11 85 ml ONCE ONE Administration Levothyroxine Sodium 100 mcg 06/10/24 06:30 06/11/24 08:19 Levothyroxine Sodium 100 Mcg Tablet PO 100 mcg DAILY@0630 YAHIR Administration Melatonin 9 mg 06/09/24 21:59 06/09/24 22:31 Melatonin 3 Mg Tablet PO 06/09/24 22:00 9 mg ONCE ONE Administration Metformin HCl 500 mg 06/10/24 08:00 06/11/24 08:19 Metformin Hcl 500 Mg Tablet PO 500 mg DAILY@0800 YAHIR Administration Metformin HCl 1,000 mg 06/10/24 17:00 06/10/24 18:21 Metformin Hcl 1,000 Mg Tablet PO 1,000 mg DAILY@1700 YAHIR Administration Metoprolol Tartrate 100 mg 06/10/24 09:00 06/11/24 08:20 Metoprolol Tartrate 100 Mg Tablet PO 100 mg DAILY YAHIR Administration Protocol Metoprolol Tartrate 50 mg 06/10/24 21:00 06/10/24 22:19 Metoprolol Tartrate 50 Mg Tablet PO 50 mg BEDTIME YAHIR Administration Protocol Pravastatin Sodium 40 mg 06/10/24 09:00 06/11/24 08:41 Pravastatin Sodium 40 Mg Tablet PO 40 mg DAILY YAHIR Administration Senna 8.6 mg 06/10/24 09:00 06/11/24 08:20 Sennosides 8.6 Mg Tablet PO 8.6 mg DAILY YAHIR Administration Medical Decision Making Medical Decision Making [facility] Narrative: The patient is an 88-year-old woman who has been eating very little over the last 2 weeks following a dental procedure when she had all of her remaining teeth on her jaw removed. She had a total of 8 teeth removed 2 weeks ago. She was here a week ago with pain related to her jaw and had a negative workup and was discharged from the emergency room to return home. She lives at home with her son. She is normally able to get around somewhat with a walker. Today she use your walker to get to the bathroom but then fell in the bathroom when she felt suddenly weak reaching for the hand rails in the bathroom. She did not initially think that she would hurt herself significantly in the fall. She did not hit her head. She has no neck pain. However she has subsequently developed right-sided lower back pain since the fall. She has had no fever, sweats, chills. No chest pain or shortness breath. She does not have any focal neurological deficits on exam. The patient is on warfarin because of a history of atrial fibrillation and previous pulmonary emboli. Her INR has been supratherapeutic recently. The patient has been eating very little since her dental procedure. The patient's workup in the emergency room is largely negative. Her white count today is 3.7 which is similar to her white count last week of 3.1. Her differential is unremarkable with 60% neutrophils, 22% lymphocytes, 17% monocytes, and 1% eosinophils. No bands. Her hemoglobin is 10.4 which is the same as her hemoglobin 1 week ago. Chemistries show normal electrolytes and renal function. Creatinine and BUN are similar to values from 1 week ago. Her CRP today is 7.57 which is a drop from her CRP of 10 1 week ago. I saw the patient at that visit and attributed her elevated CRP to postsurgical changes from her dental procedure. The fact that her CRP has improved I think supports the idea that her presentation today is not a consequence of an infectious process. Troponins are flat. BNP is higher today at 339 compared to 171 a week ago. I do not have a good explanation for this rise in her BNP but there was no sign of heart failure on her exam or on her x-ray. Urinalysis shows negative nitrites, 1+ leukocyte esterase, 6-10 white cells, and no bacteria. I think it is unlikely this represents an acute UTI. The patient is not complaining of urinary symptoms. The patient was complaining of a bit of a headache. She has a negative head CT. Given that she has a supratherapeutic INR I think it is very unlikely that she could have a CT negative intracranial hemorrhage of any kind. She was complaining of right lower back pain. A CT of the abdomen and pelvis was done to ensure there was no pathology potentially causing this pain such as a possible retroperitoneal hematoma. No acute findings were found on the IV contrast CT. Overall I feel might workup is negative. The patient was given IV fluids and a dose of acetaminophen IV to see if this might be at all salutary in terms of making her feel stronger and able to walk. Although the patient was able to stand with assistance and could take a couple of steps with a walker she really seemed to have a great deal of discomfort moving around and I did not feel she was safe for discharge. The patient will be kept in the emergency department overnight for evaluation by physical therapy and case management. I will order repeat labs in the morning including a repeat INR to see if her supratherapeutic INR is improving. The patient will be placed in physician observation as of 10:30PM melvin, 06/09/2024. Lab Data 06/11/24 11:18 06/11/24 11:18 Labs: Lab Results 06/09/24 06/09/24 06/09/24 Range/Units 14:57 16:53 19:25 WBC 3.7 L (4.8-10.8) X10*3/uL RBC 3.82 L (4.20-5.50) X10*6/uL Hgb 10.4 L (12.0-16.0) g/dl Hct 34.1 L (37.0-47.0) % MCV 89.3 (80.0-98.0) fL MCH 27.2 (27.0-33.0) pg MCHC 30.5 L (31.0-35.0) g/dl RDW 14.6 (11.0-16.0) % Plt Count 299 (160-400) X10*3/uL MPV 10.3 (9.4-12.3) fL Immature Gran % (Auto) Cancelled Neut % (Auto) Cancelled Lymph % (Auto) Cancelled [place] % (Auto) Cancelled Eos % (Auto) Cancelled Baso % (Auto) Cancelled Lymph # (Auto) Cancelled [place] # (Auto) Cancelled Eos # (Auto) Cancelled Baso # (Auto) Cancelled Abs Immat Gran (auto) Cancelled Absolute Neuts (auto) Cancelled Absolute Nucleated RBC 0.000 (0.0-0.012) X10*3/uL Nucleated RBC % (auto) 0.0 (0.0-0.2) /100WBC Neutrophils % (Manual) 60 (45-73) % Band Neutrophils % 0 L (3-5) % Lymphocytes % (Manual) 22 (20-40) % Atypical Lymphs % (Man) (0-6) % Monocytes % (Manual) 17 H (2-11) % Eosinophils % (Manual) 1 (0-4) % Metamyelocytes % % Abs Neuts (Manual) 2.2 (2.0-8.3) X10*3/uL Lymphocytes # (Manual) 0.8 L (1.2-4.9) X10*3/uL Atyp Lymphs # (Manual) x10*3/uL Monocytes # (Manual) 0.6 (0.1-1.2) X10*3/uL Eosinophils # (Manual) (0.0-0.4) X10*3/uL Toxic Vacuolation Platelet Estimate NORMAL (NORMAL) Plt Morphology Comment NORMAL RBC Morphology NORMAL PT 60.1 H D (10.9-12.4) SEC INR 5.1 H* (0.9-1.1) Sodium 144 (135-145) mmol/L Potassium 4.4 (3.3-5.1) mmol/L Chloride 106 (96-108) mmol/L Carbon Dioxide 27 (22-29) mmol/L Anion Gap 15 (12-20) BUN 16 (9-16) mg/dL Creatinine 0.60 (0.5-1.4) mg/dL Estim Creat Clear Calc 60.1 Estimated GFR > 60 Random Glucose 161 H (60-115) mg/dL Lactic Acid (0.5-2.0) mmol/L Calcium 8.7 (8.4-10.2) mg/dL Magnesium 1.5 L (1.6-2.6) mg/dL Total Bilirubin 0.7 (0.0-1.0) mg/dL Direct Bilirubin 0.3 (0.0-0.5) mg/dL AST 33 H (5-31) U/L ALT 16 (0-31) U/L Alkaline Phosphatase 65 (39-117) U/L Troponin I High Sens 4.4 D 4.6 (<3.5-17.0) ng/L C-Reactive Protein 7.57 H (< or = 0.50) mg/dL B-Natriuretic Peptide 339 H (<100) pg/mL Total Protein 6.5 (6.5-8.0) g/dL Albumin 3.0 L (3.5-5.0) g/dL Urine Color Yellow Urine Appearance Clear Urine pH 5.5 (5.0-9.0) Ur Specific [place] >= 1.030 H (1.005-1.025) Urine Protein 30 (1+) H (Neg-Trace) mg/dL Urine Glucose (UA) 500 H (Negative) mg/dL Urine Ketones Trace (Negative) mg/dL Urine Blood Trace H (Negative) Urine Nitrite Negative (Negative) Ur Leukocyte Esterase Small (1+) H (Negative) Urine RBC 3-5 H (0-2) /HPF Urine WBC 6-10 H (0-5) /HPF Ur Squamous Epith Cells 11-20 (0-2) /HPF Urine Bacteria None Seen (None Seen) Hyaline Casts 0-2 (0-2) /LPF Ethyl Alcohol < 10 mg/dL Respiratory Panel Munoz Adenovirus (Rapid PCR) (Not Detect.) B.pert (TEM-PCR) (Not Detect.) B.parapertussis DNA PCR (Not Detect.) C. pneumoniae DNA (PCR) (Not Detect.) Coronavirus OC43 (PCR) (Not Detect.) Coronavirus HKU1 (PCR) (Not Detect.) Coronavirus 229E (PCR) (Not Detect.) Coronavirus NL63 (PCR) (Not Detect.) Human Metapneumovir PCR (Not Detect.) Influenza A (RT-PCR) (Not Detect.) Influenza A (H1) PCR (Not Detect.) Influ A (H1/09) PCR (Not Detect.) Influenza A (H3) PCR (Not Detect.) Influenza Type A (PCR) NEGATIVE (Negative) Influenza B (RT-PCR) (Not Detect.) Influenza Type B (PCR) NEGATIVE (Negative) M. pneumoniae (PCR) (Not Detect.) Parainfluenza 1 (PCR) (Not Detect.) Parainfluenza 2 (PCR) (Not Detect.) Parainfluenza 3 (PCR) (Not Detect.) Parainfluenza 4 (PCR) (Not Detect.) RSV (PCR) (Not Detect.) RSV RNA Qual (PCR) NEGATIVE (Negative) Entero/Rhino (PCR) (Not Detect.) SARS-CoV-2 RNA (RT-PCR) NEGATIVE (Negative) 06/10/24 06/11/24 06/11/24 Range/Units 08:11 06:30 11:18 WBC 3.0 L 3.5 L (4.8-10.8) X10*3/uL RBC 3.43 L 3.63 L (4.20-5.50) X10*6/uL Hgb 9.6 L 10.0 L (12.0-16.0) g/dl Hct 29.9 L 31.4 L (37.0-47.0) % MCV 87.2 86.5 (80.0-98.0) fL MCH 28.0 27.5 (27.0-33.0) pg MCHC 32.1 31.8 (31.0-35.0) g/dl RDW 14.6 14.5 (11.0-16.0) % Plt Count 260 283 (160-400) X10*3/uL MPV 10.2 10.6 (9.4-12.3) fL Immature Gran % (Auto) Cancelled Cancelled Neut % (Auto) Cancelled Cancelled Lymph % (Auto) Cancelled Cancelled [place] % (Auto) Cancelled Cancelled Eos % (Auto) Cancelled Cancelled Baso % (Auto) Cancelled Cancelled Lymph # (Auto) Cancelled Cancelled [place] # (Auto) Cancelled Cancelled Eos # (Auto) Cancelled Cancelled Baso # (Auto) Cancelled Cancelled Abs Immat Gran (auto) Cancelled Cancelled Absolute Neuts (auto) Cancelled Cancelled Absolute Nucleated RBC 0.000 0.000 (0.0-0.012) X10*3/uL Nucleated RBC % (auto) 0.0 0.0 (0.0-0.2) /100WBC Neutrophils % (Manual) 58 49 (45-73) % Band Neutrophils % 0 L 1 L (3-5) % Lymphocytes % (Manual) 23 24 (20-40) % Atypical Lymphs % (Man) 4 (0-6) % Monocytes % (Manual) 16 H 18 H (2-11) % Eosinophils % (Manual) 3 3 (0-4) % Metamyelocytes % 1 % Abs Neuts (Manual) 1.7 L 1.8 L (2.0-8.3) X10*3/uL Lymphocytes # (Manual) 0.7 L 0.8 L (1.2-4.9) X10*3/uL Atyp Lymphs # (Manual) 0.1 x10*3/uL Monocytes # (Manual) 0.5 0.6 (0.1-1.2) X10*3/uL Eosinophils # (Manual) 0.1 0.1 (0.0-0.4) X10*3/uL Toxic Vacuolation PRESENT Platelet Estimate NORMAL NORMAL (NORMAL) Plt Morphology Comment NORMAL NORMAL RBC Morphology NORMAL NORMAL PT 46.9 H D 26.2 H D (10.9-12.4) SEC INR 4.0 H 2.2 H (0.9-1.1) Sodium 142 142 (135-145) mmol/L Potassium 3.9 4.0 (3.3-5.1) mmol/L Chloride 105 104 (96-108) mmol/L Carbon Dioxide 28 27 (22-29) mmol/L Anion Gap 13 15 (12-20) BUN 9 7 L (9-16) mg/dL Creatinine 0.53 0.55 (0.5-1.4) mg/dL Estim Creat Clear Calc 68.1 65.6 Estimated GFR > 60 > 60 Random Glucose 182 H 148 H (60-115) mg/dL Lactic Acid 1.1 (0.5-2.0) mmol/L Calcium 8.5 8.6 (8.4-10.2) mg/dL Magnesium (1.6-2.6) mg/dL Total Bilirubin (0.0-1.0) mg/dL Direct Bilirubin (0.0-0.5) mg/dL AST (5-31) U/L ALT (0-31) U/L Alkaline Phosphatase (39-117) U/L Troponin I High Sens (<3.5-17.0) ng/L C-Reactive Protein (< or = 0.50) mg/dL B-Natriuretic Peptide (<100) pg/mL Total Protein (6.5-8.0) g/dL Albumin (3.5-5.0) g/dL Urine Color Yellow Urine Appearance Clear Urine pH 7.5 (5.0-9.0) Ur Specific [place] 1.015 (1.005-1.025) Urine Protein 30 (1+) H (Neg-Trace) mg/dL Urine Glucose (UA) Negative (Negative) mg/dL Urine Ketones 15 (Negative) mg/dL Urine Blood Trace H (Negative) Urine Nitrite Negative (Negative) Ur Leukocyte Esterase Negative (Negative) Urine RBC 3-5 H (0-2) /HPF Urine WBC 0-5 (0-5) /HPF Ur Squamous Epith Cells 0-2 (0-2) /HPF Urine Bacteria None Seen (None Seen) Hyaline Casts 0-2 (0-2) /LPF Ethyl Alcohol mg/dL Respiratory Panel Munoz See Note Adenovirus (Rapid PCR) Not Detected (Not Detect.) B.pert (TEM-PCR) Not Detected (Not Detect.) B.parapertussis DNA PCR Not Detected (Not Detect.) C. pneumoniae DNA (PCR) Not Detected (Not Detect.) Coronavirus OC43 (PCR) Not Detected (Not Detect.) Coronavirus HKU1 (PCR) Not Detected (Not Detect.) Coronavirus 229E (PCR) Not Detected (Not Detect.) Coronavirus NL63 (PCR) Not Detected (Not Detect.) Human Metapneumovir PCR Not Detected (Not Detect.) Influenza A (RT-PCR) Not Detected (Not Detect.) Influenza A (H1) PCR Not Detected (Not Detect.) Influ A (H1/09) PCR Not Detected (Not Detect.) Influenza A (H3) PCR Not Detected (Not Detect.) Influenza Type A (PCR) NEGATIVE (Negative) Influenza B (RT-PCR) Not Detected (Not Detect.) Influenza Type B (PCR) NEGATIVE (Negative) M. pneumoniae (PCR) Not Detected (Not Detect.) Parainfluenza 1 (PCR) Not Detected (Not Detect.) Parainfluenza 2 (PCR) Not Detected (Not Detect.) Parainfluenza 3 (PCR) Not Detected (Not Detect.) Parainfluenza 4 (PCR) Not Detected (Not Detect.) RSV (PCR) Not Detected (Not Detect.) RSV RNA Qual (PCR) NEGATIVE (Negative) Entero/Rhino (PCR) Not Detected (Not Detect.) SARS-CoV-2 RNA (RT-PCR) NEGATIVE (Negative) 06/11/24 Range/Units 11:18 WBC (4.8-10.8) X10*3/uL RBC (4.20-5.50) X10*6/uL Hgb (12.0-16.0) g/dl Hct (37.0-47.0) % MCV (80.0-98.0) fL MCH (27.0-33.0) pg MCHC (31.0-35.0) g/dl RDW (11.0-16.0) % Plt Count (160-400) X10*3/uL MPV (9.4-12.3) fL Immature Gran % (Auto) Neut % (Auto) Lymph % (Auto) [place] % (Auto) Eos % (Auto) Baso % (Auto) Lymph # (Auto) [place] # (Auto) Eos # (Auto) Baso # (Auto) Abs Immat Gran (auto) Absolute Neuts (auto) Absolute Nucleated RBC (0.0-0.012) X10*3/uL Nucleated RBC % (auto) (0.0-0.2) /100WBC Neutrophils % (Manual) (45-73) % Band Neutrophils % (3-5) % Lymphocytes % (Manual) (20-40) % Atypical Lymphs % (Man) (0-6) % Monocytes % (Manual) (2-11) % Eosinophils % (Manual) (0-4) % Metamyelocytes % % Abs Neuts (Manual) (2.0-8.3) X10*3/uL Lymphocytes # (Manual) (1.2-4.9) X10*3/uL Atyp Lymphs # (Manual) x10*3/uL Monocytes # (Manual) (0.1-1.2) X10*3/uL Eosinophils # (Manual) (0.0-0.4) X10*3/uL Toxic Vacuolation Platelet Estimate (NORMAL) Plt Morphology Comment RBC Morphology PT (10.9-12.4) SEC INR (0.9-1.1) Sodium (135-145) mmol/L Potassium (3.3-5.1) mmol/L Chloride (96-108) mmol/L Carbon Dioxide (22-29) mmol/L Anion Gap (12-20) BUN (9-16) mg/dL Creatinine (0.5-1.4) mg/dL Estim Creat Clear Calc Estimated GFR Random Glucose (60-115) mg/dL Lactic Acid (0.5-2.0) mmol/L Calcium (8.4-10.2) mg/dL Magnesium (1.6-2.6) mg/dL Total Bilirubin (0.0-1.0) mg/dL Direct Bilirubin (0.0-0.5) mg/dL AST (5-31) U/L ALT (0-31) U/L Alkaline Phosphatase (39-117) U/L Troponin I High Sens (<3.5-17.0) ng/L C-Reactive Protein (< or = 0.50) mg/dL B-Natriuretic Peptide (<100) pg/mL Total Protein (6.5-8.0) g/dL Albumin (3.5-5.0) g/dL Urine Color Urine Appearance Urine pH (5.0-9.0) Ur Specific [place] (1.005-1.025) Urine Protein (Neg-Trace) mg/dL Urine Glucose (UA) (Negative) mg/dL Urine Ketones (Negative) mg/dL Urine Blood (Negative) Urine Nitrite (Negative) Ur Leukocyte Esterase (Negative) Urine RBC (0-2) /HPF Urine WBC (0-5) /HPF Ur Squamous Epith Cells (0-2) /HPF Urine Bacteria (None Seen) Hyaline Casts (0-2) /LPF Ethyl Alcohol mg/dL Respiratory Panel Munoz Adenovirus (Rapid PCR) (Not Detect.) B.pert (TEM-PCR) (Not Detect.) B.parapertussis DNA PCR (Not Detect.) C. pneumoniae DNA (PCR) (Not Detect.) Coronavirus OC43 (PCR) (Not Detect.) Coronavirus HKU1 (PCR) (Not Detect.) Coronavirus 229E (PCR) (Not Detect.) Coronavirus NL63 (PCR) (Not Detect.) Human Metapneumovir PCR (Not Detect.) Influenza A (RT-PCR) (Not Detect.) Influenza A (H1) PCR (Not Detect.) Influ A (H1/09) PCR (Not Detect.) Influenza A (H3) PCR (Not Detect.) Influenza Type A (PCR) (Negative) Influenza B (RT-PCR) (Not Detect.) Influenza Type B (PCR) (Negative) M. pneumoniae (PCR) (Not Detect.) Parainfluenza 1 (PCR) (Not Detect.) Parainfluenza 2 (PCR) (Not Detect.) Parainfluenza 3 (PCR) (Not Detect.) Parainfluenza 4 (PCR) (Not Detect.) RSV (PCR) (Not Detect.) RSV RNA Qual (PCR) (Negative) Entero/Rhino (PCR) (Not Detect.) SARS-CoV-2 RNA (RT-PCR) Not Detected (Negative) Independent Interpretation I performed an independent interpretation of an: EKG Interpretation: EKG at 1455 shows sinus rhythm with a first-degree AV block at 80 beats per minute. Compared to previous EKG the patient is no longer in atrial fibrillation. EKG morphology is not remarkably different from previous EKG otherwise Discharge Plan Discharge Clinical Impression: Fall, Weakness, Right-sided back pain, Supratherapeutic INR Patient Disposition: Home, Self-Care Instructions: Weakness (ED) Additional Instructions: Continue your home medications as prescribed Follow-up with your outpatient provider Return for worsening symptoms or any other concerns Prescriptions: No Action melatonin 10 mg capsule 10 mg PO BEDTIME PRN (Reason: sleep) Qty: 90 1RF glipizide 10 mg tablet 10 mg PO DAILY Qty: 90 3RF aspirin 81 mg Capsule 81 mg PO DAILY warfarin 4 mg tablet 4 mg PO Q48H warfarin 4 mg tablet 6 mg PO Q48H metformin 500 mg tablet 500 mg PO DAILY metformin 500 mg tablet 1,000 mg PO BEDTIME sennosides [Vegetable Laxative] 8.6 mg tablet 8.6 mg PO DAILY miscellaneous medical supply Misc See Rx Instructions miscellaneous .COMPLEX Qty: 1 0RF Rx Instructions: light walker with wheels and a seat levothyroxine [Euthyrox] 100 mcg tablet 100 mcg PO DAILY Qty: 90 3RF metoprolol tartrate 50 mg tablet 150 mg PO DAILY Qty: 270 3RF Rx Instructions: 2 tablets in am and 1 tablet in pm lovastatin 40 mg tablet 40 mg PO DAILY Qty: 90 3RF gabapentin 600 mg tablet 600 mg PO BEDTIME Qty: 90 3RF gabapentin 100 mg capsule 100 mg PO .4 times a day Qty: 360 3RF acetaminophen [Tylenol Arthritis Pain] 650 mg tablet extended release 650 mg PO Q12H Referrals: Rissa Bowling MD [Primary Care Provider] - 1 week Interventions: ED Discharge Assessment Last Done: 06/11/24 14:36 Discharge Date/Time: 06/11/24 14:37 Print Language: Marshallese
--- NOTE | 2024-06-09 14:48 | ECG_ITS ---
Test Reason : syncope Blood Pressure : */* mmHG Vent. Rate : 80 BPM Atrial Rate : 80 BPM P-R Int : 220 ms QRS Dur : 86 ms QT Int : 364 ms P-R-T Axes : 0 -21 158 degrees QTcB Int : 419 ms Sinus rhythm with 1st degree A-V block Minimal voltage criteria for LVH, may be normal variant ( R in aVL ) Inferior infarct (cited on or before 06-Oct-2005) Cannot rule out Anterior infarct (cited on or before 01-Jun-2024) Abnormal ECG When compared with ECG of 01-Jun-2024 10:26, Sinus rhythm has replaced Atrial fibrillation Nonspecific T wave abnormality now evident in Lateral leads Referred By: Alfonso Noble Electronically Signed By: Saul Hays
[2024-06-09 15:12] LABS: Hematocrit 34.1 % (37.0-47.0); Hemoglobin 10.4 g/dl (12.0-16.0); Mean Corpuscular HGB Conc 30.5 g/dl (31.0-35.0); Mean Corpuscular Hemoglobin 27.2 pg (27.0-33.0); Mean Corpuscular Volume 89.3 fL (80.0-98.0); Mean Platelet Volume 10.3 fL (9.4-12.3); Platelet Count 299 X10*3/uL (160-400); Red Blood Count 3.82 X10*6/uL (4.20-5.50); Red Cell Distribution Width 14.6 % (11.0-16.0); White Blood Count 3.7 X10*3/uL (4.8-10.8)
[2024-06-09 15:24] LABS: Prothrombin Time 60.1 SEC (10.9-12.4)
[2024-06-09 15:30] LABS: B Type Natriuretic Peptide 339 pg/mL (<100)
[2024-06-09 15:31] LABS: Alanine Aminotransferase 16 U/L (0-31); Alkaline Phosphatase 65 U/L (39-117); Anion Gap 15 (12-20); Aspartate Amino Transferase 33 U/L (5-31); Bilirubin Direct 0.3 mg/dL (0.0-0.5); Bilirubin Total 0.7 mg/dL (0.0-1.0); Blood Urea Nitrogen 16 mg/dL (9-16); C Reactive Protein 7.57 mg/dL (< or = 0.50); Calcium 8.7 mg/dL (8.4-10.2); Carbon Dioxide 27 mmol/L (22-29); Chloride 106 mmol/L (96-108); Creatinine Clr Calc Pharmacy 60.1; Estimated Glomerular Filt Rate > 60; Ethanol < 10 mg/dL; Glucose Random 161 mg/dL (60-115); Magnesium 1.5 mg/dL (1.6-2.6); Potassium 4.4 mmol/L (3.3-5.1); Sodium 144 mmol/L (135-145); Total Protein 6.5 g/dL (6.5-8.0); Troponin-I High Sensitivity 4.4 ng/L (<3.5-17.0)
[2024-06-09 15:34] LABS: Eosinophils Percent Manual 1 % (0-4); Lymphocytes Absolute Manual 0.8 X10*3/uL (1.2-4.9); Lymphocytes Percent Manual 22 % (20-40); Monocytes Absolute Manual 0.6 X10*3/uL (0.1-1.2); Monocytes Percent Manual 17 % (2-11); Neutrophils Percent Manual 60 % (45-73)
[2024-06-09 15:36] LABS: Band Neutrophils Percent 0 % (3-5); INTERNATIONAL NORM RATIO 5.1 (0.9-1.1); Neutrophils Absolute Manual 2.2 X10*3/uL (2.0-8.3); Platelet Estimate NORMAL (NORMAL); Platelet Morphology Comment NORMAL; RBC Morphology NORMAL
[2024-06-09 15:47] LABS: Influenza A PCR NEGATIVE (Negative); Influenza B PCR NEGATIVE (Negative); Resp Syncy Virus RNA Qual PCR NEGATIVE (Negative); SARS COV2 PCR INHOUSE NEGATIVE (Negative)
--- OUTSIDE RECORDS SUMMARY | 2024-06-09 15:47 | XMS_ITS | Patient Health Record ---
Author Organization [facility] Cheyvince Castillo Address [address] [place] [address] Care Team Providers Care High Density Press Operator Name Role Phone Rissa Bowling MD Primary Care Provider Unavaila Aleshia Robles Unavailable [phone] Ede Grant Unavailable [phone] Eli Crump Unavailable [phone] Allergies Allergen (clinical drug ingredient) Drug/Non Drug Allergy documented on EMR Reaction Allergy Type Onset Date Status Novocain sick Drug Allergy Active Duloxetine & Lidocaine-Menthol Unknown Drug Allergy Active Results Component Value Reference Range Notes HEMOGLOBIN A1C (GLYCOHEMOGLO BIN) Reviewed date:06/08/2024 10:30:24 AM Interpretation: Performing Lab: Notes/Report: HEMOGLOBIN A1C % (HH) 7.1 Reason For Referral No Information Medications Medication SIG (Take, Route, Frequency, Duration) Notes Start Date End Date Status HYDROcodone-Acetaminophen Not-Taking Desoximetasone 0.25 % APPLY TOPICALLY TO AFFECTED AREA ON FEET TWICE DAILY FOR 30 DAYS for 30 Not-Taking predniSONE Not-Takin g Clotrimazole-Betamethasone 1-0.05 % 1 application to affected area Externally Twice a day to affected areas on feet for 30 days Not-Taking Physical Therapy . . . 2-3x/week; remov e cast and start on 10/24/19 Not-Taking Diabetic Insoles Not -Taking Aspir-81 Active Tyzine Not-Taking Voltaren 1 % as directed Externally Active oxyCODONE HCl Not-Ta chinedu Monique Aspirin Not-Ta chinedu Pravastatin Sodium N ot-Taking Gabapentin Active glipiZIDE 5 MG as directed Orally Twice a day Active hydroCHLOROthiazide Active Keflex 500 MG 1 capsule Orally every 12 hrs for 5 days 03/22/2014 Not-Taking Coumadin Not-Taking Metoprolol Succinate Not-Taking Lovastatin Active Levothyroxine Sodium Active Metformin & Diet Manage Prod Active Metoprolol & Diet Manage Prod Active Ciclopirox Olamine 0.77 % 1 application Externally Twice a day to skin of feet including between the toes for 30 days Not-Taking Celecoxib 100 MG TAKE 1 CAPSULE BY MOUTH 2 TIMES A DAY Oral for 10 Days Not-Taking Extra Depth Orthopedic Shoes (1 Pair) with Customized Heat Molded Multidensity Innersoles (3 Pair) as directed Dx: NIDDM/Polyneuropathy (E11.42), Hammertoe Foot Deformity (M20.41,M20.42), Preulcerative Skin Lesion(s) (L85.1 04/06/2024 Active Warfarin Sodium Acti ve Ciclopirox Olamine 0.77 % 1 application to affected area Externally Twice a day to effected areas on feet for 30 days Not-Taking Immunizations Vaccine Route Administration Date Status [...] (Standard) Question Answer Notes Tobacco use: Nonsmoker AUDIT-C (Standard) Question Answer Notes Did you have a drink containing alcohol in the p ast year? No Points 0 Interpretation Negative Problems Problem Type SNOMED Code ICD Code Onset Dates Problem Status W/U Status Risk Notes Problem Polyneuropathy due to diabetes mellitus type I (888057182) Type 1 diabetes mellitus with diabetic polyneuropathy (E10.42) Active confirmed Problem Acquired hallux valgus (54973591) Hallux valgus (acquired), right foot (M20.11) Active confirmed Problem Polyneuropathy due to type 2 diabetes mellitus (497829790) Type 2 diabetes mellitus with diabetic polyneuropathy (E11.42) Active confirmed Problem Acquired hammer toe of right foot (6550689207582237 ) Other hammer toe(s) (acquired), right foot (M20.41) Active confirmed Problem Acquired hammer toe of left foot (3343644631874905 ) Other hammer toe(s) (acquired), left foot (M20.42) Active confirmed Vital Signs Blood pressure diastolic 60 mm Hg 06/08/2024 Height 4ft9in in 06/08/2024 Blood pressure systolic 130 mm Hg 06/08/2024 Weight 180 lbs 06/08/2024 BMI 38.95 kg/m2 06/08/2024 Procedures Procedure Date Ordered Date Performed Result Body Sit e 74055-XQBTCDU NAIL, 6 OR MORE 02/01/2024 N/A 68773-CZDM SKIN LESIONS, OVER 4 02/01/2024 N/A 95902-NZTCJHA NAIL, 6 OR MORE 06/08/2024 N/A 10416-FNSU SKIN LESIONS, OVER 4 06/08/2024 N/A Encounters Encounter Location Date Provider Diagnosis [address] [address] 07/16/2023 Ede Grant Tinea unguium B35.1 ; Ingrowing nail L60.0 ; Type 2 diabetes mellitus with diabetic polyneuropathy E11.42 ; Pain in right toe(s) M79.674 ; Pain in left toe(s) M79.675 ; Hallux valgus (acquired), right foot M20.11 ; Other hammer toe(s) (acquired), left foot M20.42 ; Other hammer toe(s) (acquired), right foot M20.41 ; Tinea pedis B35.3 and Dermatitis L30.[address] [address] 09/21/2023 Ede Grant Tinea unguium B35.1 ; Ingrowing nail L60.0 ; Type 2 diabetes mellitus with diabetic polyneuropathy E11.42 ; Pain in right toe(s) M79.674 ; Pain in left toe(s) M79.675 ; Hallux valgus (acquired), right foot M20.11 ; Other hammer toe(s) (acquired), left foot M20.42 ; Other hammer toe(s) (acquired), right foot M20.41 ; Tinea pedis B35.3 and Dermatitis L30.[address] [address] 11/26/2023 EdeLarios Tinea unguium B35.1 ; Ingrowing nail L60.0 ; Type 2 diabetes mellitus with diabetic polyneuropathy E11.42 ; Pain in right toe(s) M79.674 ; Pain in left toe(s) M79.675 ; Hallux valgus (acquired), right foot M20.11 ; Other hammer toe(s) (acquired), left foot M20.42 ; Other hammer toe(s) (acquired), right foot M20.41 ; Tinea pedis B35.3 and Dermatitis L30.[address] [address] 02/01/2024 Aleshia Lagunas Type 2 diabetes mellitus with diabetic polyneuropathy E11.42 ; Tinea unguium B35.1 and Tinea pedis of both feet B35.[address] [address] 04/06/2024 Eli Crump Type 2 diabetes mellitus with diabetic polyneuropathy E11.42 ; Other hammer toe(s) (acquired), left foot M20.42 ; Tinea unguium B35.1 ; Tinea pedis of both feet B35.3 and Other hammer toe(s) (acquired), right foot M20.[address] [address] 06/08/2024 Aleshia Lagunas Type 2 diabetes mellitus with diabetic polyneuropathy E11.42 and Tinea unguium B35.[address] [address] 04/22/2024 Eli Crump Assessments Encounter Date Diagnosis [...] mellitus with diabetic polyneuropathy (ICD-10 - E11.42) 06/08/2024 Type 2 diabetes mellitus with diabetic polyneuropathy (ICD-10 - E11.42) 06/08/2024 Tinea unguium (ICD-10 - B35.1) 04/06/2024 Tinea unguium (ICD-10 - B35.1) 02/01/2024 [...] X ray : Foot, right 3V 12/26/2013 31889-JDDPGUR NAIL, 6 OR MORE 01/18/2014 91866-AFCGEZZ NAIL, 6 OR MORE 11/16/2013 82942-NPXYFIR NAIL, 6 OR MORE 03/22/2014 89039-QSWUFBO NAIL, 6 OR MORE 06/05/2014 50872-EIIBVDY NAIL, 6 OR MORE 08/09/2014 89945-TQAUADY NAIL, 6 OR MORE 11/13/2014 58448-SBSTUCN NAIL, 6 OR MORE 09/16/2012 04416-QBLPLSC NAIL, 6 OR MORE 12/02/2012 71363-XEUWPZI NAIL, 6 OR MORE 02/10/2013 07129-WNVIRPM NAIL, 6 OR MORE 04/27/2013 64899-TPVSBOV NAIL, 6 OR MORE 07/13/2013 43958-FGWADRI NAIL, 6 OR MORE 09/15/2013 62118-FPMEXKH NAIL, 6 OR MORE 10/04/2010 05980-LKGYNZQ NAIL, 6 OR MORE 12/12/2010 85411-VDRPVVH NAIL, 6 OR MORE 02/19/2011 65253-VJFQCUR NAIL, 6 OR MORE 05/12/2011 92711-QQZJLNA NAIL, 6 OR MORE 07/21/2011 82107-DDQMDRO NAIL, 6 OR MORE 10/08/2011 35301-FKWYRNP NAIL, 6 OR MORE 12/10/2011 36841-RHIHFSZ NAIL, 6 OR MORE 02/23/2012 64324-GYPNWIT NAIL, 6 OR MORE 05/12/2012 42405-IWBSPKZ NAIL, 6 OR MORE 07/14/2012 13319-DLHDIMR NAIL, 6 OR MORE 02/01/2024 57771-WFOGDNA NAIL, 6 OR MORE 06/08/2024 35746-CGSUDLL NAIL, 6 OR MORE 12/09/2017 34343-XSBMOBZ NAIL, 6 OR MORE 01/17/2015 44681-TAIHSXW NAIL, 6 OR MORE 03/22/2015 65869-ADEQTUR NAIL, 6 OR MORE 05/24/2015 73644-DWBAFFE NAIL, 6 OR MORE 08/02/2015 70278-YZKZFOL NAIL, 6 OR MORE 10/04/2015 29343-RWLGBZR NAIL, 6 OR MORE 12/06/2015 56494-KCXGIXF NAIL, 6 OR MORE 04/21/2016 15082-ZVOPFUL NAIL, 6 OR MORE 02/13/2016 26478-VSHGXFQ NAIL, 6 OR MORE 08/27/2016 51990-BJBHZSU NAIL, 6 OR MORE 11/05/2016 01651-EEDCIMM NAIL, 6 OR MORE 01/07/2017 22673-XBGAQCX NAIL, 6 OR MORE 03/18/2017 94302-WNORBUY NAIL, 6 OR MORE 05/20/2017 73315-UTTOWKK NAIL, 6 OR MORE 07/29/2017 95260-ETMWKWM NAIL, 6 OR MORE 09/30/2017 25462-Ndxg Destruction, 1-14 07/14/2012 57499-Kurl Destruction, 1-14 05/12/2012 91887-Gtkm Destruction, 1-14 12/10/2011 11021-Zswy Destruction, 1-14 10/08/2011 75416-Optr Destruction, 1-14 07/21/2011 74279-Bujq Destruction, 1-14 09/16/2012 14890-Dpzcxbvj Plate 09/16/2012 55462-Chaxawsl Plate 02/10/2013 19221-Kntfgcyd Plate 12/02/2012 76247-Svtszjgu Plate 07/13/2013 48156-Ipwmseug Plate 09/15/2013 84004-Ilypdfuh Plate 11/13/2014 25055-Wdkjrwlo Plate 11/16/2013 59837-Dmlnypjh Plate 01/18/2014 78307-Gbqxdqea Plate 10/08/2011 35156-Qqaezytm Plate 02/19/2011 90207-Hsrvmevb Plate 10/04/2010 97633-Yvhimlkj Plate 12/12/2010 18760-Euwlswad Plate 12/10/2011 40431-Tbblfzbl Plate 02/23/2012 48086-Ixrvxzvi Plate 05/12/2011 48175-Xkqlcgvh Plate 07/21/2011 18769-Bicpebpa Plate 05/12/2012 40835-Hlcdqqvj Plate 07/14/2012 38045-Uctugxyd Plate 08/09/2014 56058-ORQTQHO SKIN/TISSUE 04/10/2014 31015 I&D ABSCESS- SIMPLE,SINGLE 015 45517-LGRZ SKIN LESIONS, OVER 4 06/06/19 15 17010-JSPI SKIN LESIONS, OVER 4 11/14/19 15 49699-PLUW SKIN LESIONS, OVER 4 08/10/19 15 82546-BLMV SKIN LESIONS, OVER 4 01/19/20 14 45710-NVDX SKIN LESIONS, OVER 4 03/22/19 15 33076-XUWT SKIN LESIONS, OVER 4 07/14/19 14 86630-SPBS SKIN LESIONS, OVER 4 04/28/19 14 86674-DHGD SKIN LESIONS, OVER 4 12/03/19 13 70576-YRKH SKIN LESIONS, OVER 4 02/10/19 14 90215-PLGH SKIN LESIONS, OVER 4 02/22/19 13 82348-KUSN SKIN LESIONS, OVER 4 12/10/19 12 08641-KMOC SKIN LESIONS, OVER 4 12/13/19 11 78721-AFWE SKIN LESIONS, OVER 4 10/05/19 11 61951-OZLU SKIN LESIONS, OVER 4 02/19/19 12 74607-ZCLX SKIN LESIONS, OVER 4 10/08/19 12 06077-EYBY SKIN LESIONS, OVER 4 07/21/19 12 43225-PSPG SKIN LESIONS, OVER 4 05/12/19 12 85235-DIXS SKIN LESIONS, OVER 4 06/09/19 25 45908-OVTD SKIN LESIONS, OVER 4 02/01/20 24 27370-AAFW SKIN LESIONS, OVER 4 02/17/19 19 67354-HHDT SKIN LESIONS, OVER 4 04/22/19 19 58945-ODEW SKIN LESIONS, OVER 4 06/24/19 19 49089-FTWL SKIN LESIONS, OVER 4 09/02/19 19 82086-TKDH SKIN LESIONS, OVER 4 11/09/19 19 87253-PFBN SKIN LESIONS, OVER 4 01/18/20 19 58454-GSNT SKIN LESIONS, OVER 4 03/21/19 20 84526-MXFH SKIN LESIONS, OVER 4 06/06/19 20 94822-BJIZ SKIN LESIONS, OVER 4 08/08/19 20 89461-GCBV SKIN LESIONS, OVER 4 10/13/19 20 24691-AHQX SKIN LESIONS, OVER 4 12/22/19 20 96315-ACES SKIN LESIONS, OVER 4 02/22/19 21 07459-IUMW SKIN LESIONS, OVER 4 04/27/19 21 17749-GZNT SKIN LESIONS, OVER 4 06/29/19 21 88878-PKYU SKIN LESIONS, OVER 4 08/31/19 21 23822-ISDB SKIN LESIONS, OVER 4 11/02/19 21 57196-THCT SKIN LESIONS, OVER 4 01/08/20 41033-SZWW SKIN LESIONS, OVER 4 03/11/19 39815-DIXI SKIN LESIONS, OVER 4 05/14/19 19658-QOHO SKIN LESIONS, OVER 4 12/10/19 18 28467-DFCT SKIN LESIONS, OVER 4 10/01/19 18 78989-VAIB SKIN LESIONS, OVER 4 07/30/19 18 59945-EVKU SKIN LESIONS, OVER 4 05/21/19 18 42846-GWHL SKIN LESIONS, OVER 4 03/18/19 18 17091-KELF SKIN LESIONS, OVER 4 01/08/20 17 48332-ITIO SKIN LESIONS, OVER 4 11/06/19 17 96646-XVTZ SKIN LESIONS, OVER 4 02/12/19 17 01093-FKXU SKIN LESIONS, OVER 4 04/22/19 17 98504-KODG SKIN LESIONS, OVER 4 06/24/19 17 93196-IPMG SKIN LESIONS, OVER 4 08/28/19 17 34275-XPDJ SKIN LESIONS, OVER 4 12/06/19 16 12018-RWXE SKIN LESIONS, OVER 4 10/04/19 16 49436-NLFT SKIN LESIONS, OVER 4 08/02/19 16 65436-YEZO SKIN LESIONS, OVER 4 05/24/19 16 45230-VEVZ SKIN LESIONS, OVER 4 03/22/19 16 15456-DLXV SKIN LESIONS, 2 TO 4 01/18/20 15 74206-NCAQ SKIN LESIONS, 2 TO 4 07/15/19 13 79113-XQNN SKIN LESIONS, 2 TO 4 05/13/19 13 83147-KBGU SKIN LESIONS, 2 TO 4 09/17/19 13 97352-YAFM SKIN LESIONS, 2 TO 4 09/16/19 14 21144-IQKD SKIN LESIONS, 2 TO 4 11/17/19 14 52163- Unna Boot 10/13/2019 82081- Nail Unit Biopsy 05/20/2017 X ray : Ankle, right 3V 07/22/2021 Next Appt Details Provider Name:Aleshia Zeinab cha, 08/10/2024 11:15:00 AM, [address] [place] [address], [phone], Provider Name:Aleshia cha, 10/17/2024 11:00:00 AM, [address] [place] [address], [phone], Insurance Providers Payer Name Payer Address Payer Phone Subscriber Number Group Number Insured Name Patient Relationship to Insured Coverage Start Date Coverage End Date Medicare National Govt [facility] [address] [place] [address] [id number] Sherry Flores Self - patient is the insured 0 [employer] [address] [place] [address] [id number] Sherry Flores Self - patient is the [...] PCP/Walk in clinic -covid-19 meds for co [facility] 2021 Urgent care -Bleeding ear bug in ear rehab lumber fusion 08/09-08/16/16 lumber fusion 08/04-08/09/16 Patient admitted to [facility] for chest p ain. 06/2013
--- OUTSIDE RECORDS SUMMARY | 2024-06-09 15:48 | XMS_ITS ---
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 Generated for Printi ng/Fayesseniag/eTransmitting on:?06/09/2024 03:48 PM EDT
--- OUTSIDE RECORDS SUMMARY | 2024-06-09 15:48 | XMS_ITS | Clinical Summary ---
Author Organization [facility] Address [address] [place] [address] Care Team Providers Care Natural Gas Trader Name Role Phone Unavailable Primary Care Provider [...]
--- OUTSIDE RECORDS SUMMARY | 2024-06-09 15:48 | XMS_ITS ---
Author Organization [facility] khris AquinoJonathan Address [address] [place] [address] Care Team Providers Care Cashier Host/Hostess Name Role Phone Dash PRAKASH, Rissa Primary Care Provider Aleshia Mccracken Unavailable [phone] Theron Eli Unavailable [phone] Allergies Allergen (clinical drug ingredient) Drug/Non Drug [...] 025 Encounters Encounter Location Date Provider Diagnosis [facility] [address] [address] 04/06/2024 Eli Crump Type 2 diabetes mellitus [...] Up: 2 Months, Reason: Provider Name:Aleshiakenyetta cha, 08/10/2024 11:15:00 AM, [address] [place] [address], [phone], Provider Name:Aleshia Zeinab cha, 10/17/2024 11:00:00 AM, [address] [place] [address], [phone], Procedure Notes * Category Sub-Category Detail Notes [...] use of a nail nipper and/or dremel-type sample grinder, to a more viable healthy nail [...] to maintain effectiveness in symptomatic relief - 38408 Keratoma Treatment Parring or Cutting o f [...] instrumentation by the physician of record - 97505 Progress Notes * LAVERNESherryDOB:[birth year] (88 yo F)Acc No.[id number]:04/06/2024 Progress Note Patient:?Sherry FLORES Provider:?Eli Crump DPM :1935???Age:88 Y???Sex:Female D ate:04/06/2024 Address:[address] [place], [place] [address] Pcp:Rissa Bowling MD Subjective: * Chief Complaints: [...] * Hospitalization/Major Diagno stic Procedure:?Patient admitted to [facility] for chest pain. 06/2013lumber fusion [...] yes. ?Exercise: no. ?Marital status: . 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 * Medications:?TakingVoltaren 1 % Gel as directed [...] use of a nail nipper and/or dremel-type sample grinder, to a more viable healthy nail [...] to maintain effectiveness in symptomatic relief - 03822.?Keratoma Treatment:?Parring or Cutting of Benign Hyperkeratotic Lesion(s)?(-57) [...] instrumentation by the physician of record - 99392.? * Procedure Codes:?24758 DEBRI DE NAIL, 6 OR MORE, Modifiers: XS 39375 TRIM SKIN LESIONS, OVER 4, Modifiers: XS [...] Crump DPM Date:? Generated for Karen baird/Han/Vincenzo on:?06/09/2024 03:47 PM EDT History and Physical Notes * [...]
--- OUTSIDE RECORDS SUMMARY | 2024-06-09 15:48 | XMS_ITS ---
Author Organization [facility] Jonathan Address [address] [place] [address] Care Team Providers Care Apprise Counselor Name Role Phone Rissa Bowling MD Primary Care Provider Aleshia Mccracken Unavailable [phone] Allergies Allergen (clinical drug ingredient) Drug/Non Drug Allergy documented on EMR Reaction Allergy Type Onset Date Status Novocain sick Drug Allergy Active Duloxetine & Lidocaine-Menthol Unknown Drug Allergy Active REASON FOR VISIT At Risk Footcare Medications Medication SIG (Take, Route, Frequency, Duration) Notes Start Date End Date Status Lovastatin Active Levothyroxine Sodium Active Metformin & Diet Manage Prod Active Metoprolol & Diet Manage Prod Active Warfarin Sodium Acti ve hydroCHLOROthiazide Active Aspir-81 Active Voltaren 1 % as directed Externally Active Gabapentin Active glipiZIDE 5 MG as directed Orally Twice a day Active Keflex 500 MG 1 capsule Orally every 12 hrs for 5 days 03/22/2014 Not-Taking Coumadin Not-Taking Metoprolol Succinate Not-Taking Tyzine Not-Taking oxyCODONE HCl Not-Demarcus che predniSONE Not-Takin g Clotrimazole-Betamethasone 1-0.05 % 1 application to affected area Externally Twice a day to affected areas on feet for 30 days Not-Taking Physical Therapy . . . 2-3x/week; remov e cast and start on 10/24/19 Not-Taking Monique Aspirin Not-Demarcus che Pravastatin Sodium N ot-Taking HYDROcodone-Acetaminophen Not-Taking Desoximetasone 0.25 % APPLY TOPICALLY TO AFFECTED AREA ON FEET TWICE DAILY FOR 30 DAYS for 30 Not-Taking Diabetic Insoles Not -Taking Ciclopirox Olamine 0.77 % 1 application Externally [...] (M20.41,M20.42), Preulcerative Skin Lesion(s) (L85.1 04/06/2024 Active Social History Tobacco Use: Social History [...] ast year? No Points 0 Interpretation Negative Vital Signs Height 4ft9in in 06/08/2024 Weight 180 lbs 06/08/2024 BMI 38.95 kg/m2 06/08/2024 Blood pressure systolic 130 mm Hg 06/09/19 25 Blood pressure diastolic 60 mm Hg 025 Procedures Procedure Date Ordered Date Performed Result Body Sit e 42695-DDUMYCH NAIL, 6 OR MORE 06/08/2024 N/A 32896-KBPM SKIN LESIONS, OVER 4 06/08/2024 N/A Encounters Encounter Location Date Provider Diagnosis [facility] [place] [address] [place] [address] 06/08/2024 Aleshia Lagunas Type 2 diabetes mellitus with diabetic polyneuropathy E11.42 and Tinea unguium B35.1 Assessments Encounter Date Diagnosis (ICD Code) Assessment Notes Treatment Notes Treatment Clinical Notes Section Notes 06/08/2024 Type 2 diabetes mellitus with diabetic polyneuropathy (ICD-10 - E11.42) 06/08/2024 Tinea unguium (ICD-10 - B35.1) Plan Of Treatment Pending Test Test Name Order Date 14012-BAYNZQQ NAIL, 6 OR MORE 06/08/2024 21086-TYKS SKIN LESIONS, OVER 4 06/09/19 25 Next Appt Details Follow Up: 3 Months, Reason: Provider Name:Aleshia cha, 08/10/2024 11:15:00 AM, [address] [place] [address], [phone], Provider Name:Aleshia cha, 10/17/2024 11:00:00 AM, [address] [place] [address], [phone], Procedure Notes * Category Sub-Category Detail Notes [...] of a nail nipper and/or dremel-type sample tester grinder, to a more viable healthy nail [...] to maintain effectiveness in symptomatic relief - 63403 Keratoma Treatment Parring or Cutting o f [...] instrumentation by the physician of record - 68700 Progress Notes * Delfino FLORES:[birth year] (88 yo F)Acc No.[id number]:06/08/2024 Progress Note Patient:?Sherry FLORES Provider:?Aleshia Lagunas DPM :1935???Age:88 Y???Sex:Female D ate:06/08/2024 Address:[address] [place], [place] [id number] Pcp:Rissa Bowling MD Subjective: * Chief Complaints: * ???At Risk Footcare * HPI: ???At Risk footcare:?Pt States Last PCP Visit:?Date?01/19/2024 * ROS:?General/Constitutional:?Nausea?denies.?Vomiting?denies.?Hunger Thirst?denies.?Loss appetite?denies.?Chills?denies.?Fatigue?denies.?Fever?denies.?Night Sweats?denies.?Unexplained weight loss?denies.?Ophthalmologic:?Blurred [...] * Hospitalization/Major Diagno stic Procedure:?Patient admitted to [facility] for chest pain. 06/2013lumber fusion [...] other tobacco user??No ?Tobacco Control (Standard)?Tobacco use:?Nonsmoker ???Drugs/Alcohol:?Drugs?Have you used drugs other than those for medical reasons in the past 12 months??No ???Miscellaneous:?Caffeine: yes, frequency: every other week. ?Children: yes. ?Exercise: no. ?Marital status: . 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 ???Drug/Alcohol:?AUDIT-C (Standard)?Did you have a drink containing alcohol in the past year??No ?Points?0 ?Interpretation?Negative * Medications:?TakingVoltaren 1 % Gel as directed Externally Aspir-81 glipiZIDE 5 MG Tablet as directed Orally Twice a day Gabapentin hydroCHLOROthiazide Metoprolol & Diet Manage Prod Metformin & Diet Manage Prod Levothyroxine Sodium Lovastatin Warfarin Sodium Extra Depth Orthopedic Shoes (1 Pair) with Customized Heat Molded Multidensity Innersoles (3 Pair) as directed Dx: NIDDM/Polyneuropathy (E11.42), Hammertoe Foot Deformity (M20.41,M20.42), Preulcerative Skin Lesion(s) (L85.1 Taking Voltaren 1 % Gel as directed Externally Taking Aspir-81 Taking glipiZIDE 5 MG Tablet as directed Orally Twice a day Taking Gabapentin Taking hydroCHLOROthiazide Taking Metoprolol & Diet Manage Prod Taking Metformin & Diet Manage Prod Taking Levothyroxine Sodium Taking Lovastatin Taking Warfarin Sodium Taking Extra Depth Orthopedic Shoes (1 Pair) with Customized Heat Molded Multidensity Innersoles (3 Pair) as directed Dx: NIDDM/Polyneuropathy (E11.42), Hammertoe Foot Deformity (M20.41,M20.42), Preulcerative Skin Lesion(s) (L85.1 Not-Taking/PRNCelecoxib 100 MG Capsule TAKE 1 CAPSULE [...] TWICE DAILY FOR 30 DAYS Not-Taking/PRN HYDROcodone-Acetaminophen Not- Taking/PRN Diabetic Insoles Not-Taking/PRN Physical Therapy . . [...] mely-MentholNovocain: daisy[Allergies Verified] Objective: * Vitals:?Ht: 4ft9in, Wt:180, BMI: 38.95, Shoe size:7.5W, BP:130/60mm Hg, BS:162, Ht-cm: 144.78 cm, Wt-k.65 kg. * ???Past Orders: ???Lab:HEMOGLOBIN A1C (GLYCO HEMOGLOBIN) (Order Date - 04/11/2024) (Collection Date & Time - 06/08/2024 10:29 AM) ? Value Reference Range ?HEMOGLOBIN A1C % (HH) 7.1 * Examination: ???General Examination: ?GENERAL APPEARANCE:?Reveals a [...] diabetic polyneuropathy - E11.42 (Primary)???2.?Tinea unguium - B35.1??? Plan: * Treatment: * Procedures:?Debride Nail 6-10:?Nail [...] of a nail nipper and/or dremel-type sample tester grinder, to a more viable healthy nail [...] to maintain effectiveness in symptomatic relief - 95224.?Keratoma Treatment:?Parring or Cutting of Benign Hyperkeratotic Lesion(s)?(-57) [...] instrumentation by the physician of record - 15348.? * Procedure Codes:?01434 DEBRI DE NAIL, 6 OR MORE, Modifiers: XS 93888 TRIM SKIN LESIONS, OVER 4, Modifiers: XS * Follow Up:?3 Months * Images: * Sign off status: Completed true * Provider:Lauren Lagunas DPM Date:?0 06/08/2024 Generated for Karen baird/Han/eTlandy on:?06/09/2024 03:47 PM EDT History and Physical Notes * HPI (History of Present Illness) Category Sub-Category Detail Notes Category Not es At Risk footcare Pt States Last PCP [...]
[2024-06-09] MEDS: Acetaminophen 1,000 MG/100 ML PIGGYBACK 400 MG IV (16:50)
[2024-06-09 17:04] LABS: Appearance Urine Clear; Color Urine Yellow; Glucose Urine UA 500 mg/dL (Negative); Leukocyte Esterase Urine Small (1+) (Negative); Nitrite Urine Negative (Negative); PH 5.5 (5.0-9.0); Specific Gravity - Urine >= 1.030 (1.005-1.025); UMIC TRIGGER UACC YES; Urine Blood Trace (Negative); Urine Ketones Trace mg/dL (Negative); Urine Protein 30 (1+) mg/dL (Neg-Trace)
[2024-06-09] MEDS: iohexoL 350 MG/ML 75 ML INFUS..BTL 85 ML IV (17:10)
[2024-06-09 18:18] VITALS: BP 171/49; PULSE 75; RESP 14; TEMP 36.6; O2SAT 94
[2024-06-09] MEDS: Lactated Ringers 1,000 ML 999 ML IV (18:33)
[2024-06-09 18:35] LABS: Bacteria Urine None Seen (None Seen); Hyaline Casts Urine 0-2 /LPF (0-2); UACC Culture Trigger YES
[2024-06-09 19:55] LABS: Troponin-I High Sensitivity 4.6 ng/L (<3.5-17.0)
[2024-06-09 20:41] VITALS: BP 159/76; PULSE 97
[2024-06-09] MEDS: Gabapentin 600 MG TABLET PO (22:31)
[2024-06-09] MEDS: Melatonin 3 MG TABLET 9 MG PO (22:31)
[2024-06-09] MEDS: Gabapentin 100 MG CAPSULE PO (22:31)
[2024-06-09] MEDS: Lactated Ringers 1,000 ML 80 ML IVCONT (22:32)
--- NOTE | 2024-06-09 23:16 | PC.NURSE ---
This RN assumed pt care @ 2300. Plan of care ongoing.
--- NOTE | 2024-06-09 23:20 | MHC.CM.ED ---
CM met with patient. PT is pending. Trial ambulation poor. Pt very deconditioned. Fall. Had 8 teeth removed 2 weeks ago. Very poor po intake. Pt normally independent at home. Son lives with her. Pt uses a rollator. No services. Pt continues to cook and complete all ADL's. No Q.S. HCP Luis Frey ([phone]). Referral made to acute rehab. Son David Flores lives with her ([phone]). Daughter, Galen in [place] ( ). Daughter, Angélica ([phone]). PCP verified. PT is pending. CM will follow for safe discharge plan.
[2024-06-10] VITALS (10 sets, daily range): BP systolic 180–206; BP diastolic 46–78; PULSE 72–90; RESP 14–18; TEMP 36.7–36.9; O2SAT 92–96
--- NOTE | 2024-06-10 00:12 | PC.NURSE ---
This RN called and spoke with pharmacy regarding verifying meds due @ 8841. Per pharmacy will work on verifying meds. Plan of care ongoing.
[2024-06-10] MEDS: Acetaminophen 325 MG TABLET 650 MG PO ×4 (02:04→22:21)
--- NOTE | 2024-06-10 02:08 | PC.NURSE ---
Pt medicated per [facility] Plan of care ongoing.
[2024-06-10] MEDS: Levothyroxine Sodium 100 MCG TABLET PO (05:56)
[2024-06-10] MEDS: Metoprolol Tartrate 100 MG TABLET PO (05:56)
--- NOTE | 2024-06-10 05:58 | PC.NURSE ---
pt remains hypertensive at this time. otherwise vss and up to date. provider notified/aware. pt also verbalizing increase in generalized pain despite being turned/repositioned/having pillow placed to right side. scheduled BP medication/tylenol not due until 0900 - early administration per provider order. pt medicated per provider order. effectiveness pending. pt otherwise remains on RA w/o difficulty. no sob/wob noted. respirations even/unlabored. plan of care ongoing. call miranda placed within reach.
[2024-06-10] MEDS: glipiZIDE 10 MG TABLET PO (07:36)
[2024-06-10 08:17] LABS: Hematocrit 29.9 % (37.0-47.0); Hemoglobin 9.6 g/dl (12.0-16.0); Mean Corpuscular HGB Conc 32.1 g/dl (31.0-35.0); Mean Corpuscular Volume 87.2 fL (80.0-98.0); Mean Platelet Volume 10.2 fL (9.4-12.3); Platelet Count 260 X10*3/uL (160-400); Red Blood Count 3.43 X10*6/uL (4.20-5.50); Red Cell Distribution Width 14.6 % (11.0-16.0)
[2024-06-10 08:19] LABS: WBC ABN SCTR FOR CBC 1
[2024-06-10 08:28] LABS: Anion Gap 13 (12-20); Blood Urea Nitrogen 9 mg/dL (9-16); Calcium 8.5 mg/dL (8.4-10.2); Carbon Dioxide 28 mmol/L (22-29); Chloride 105 mmol/L (96-108); Creatinine Clr Calc Pharmacy 68.1; Estimated Glomerular Filt Rate > 60; Glucose Random 182 mg/dL (60-115); Potassium 3.9 mmol/L (3.3-5.1); Sodium 142 mmol/L (135-145)
[2024-06-10 08:35] LABS: Prothrombin Time 46.9 SEC (10.9-12.4)
[2024-06-10] MEDS: Sennosides 8.6 MG TABLET PO (08:36)
[2024-06-10] MEDS: metFORMIN HCl 500 MG TABLET PO (08:36)
[2024-06-10] MEDS: Gabapentin 100 MG CAPSULE PO ×4 (08:36→18:21)
[2024-06-10] MEDS: Aspirin Enteric Coated 81 MG TABLET.DR PO (08:36)
[2024-06-10] MEDS: Pravastatin Sodium 40 MG TABLET PO (08:50)
[2024-06-10 08:52] LABS: Eosinophils Absolute Manual 0.1 X10*3/uL (0.0-0.4); Eosinophils Percent Manual 3 % (0-4); Lymphocytes Absolute Manual 0.7 X10*3/uL (1.2-4.9); Lymphocytes Percent Manual 23 % (20-40); Monocytes Absolute Manual 0.5 X10*3/uL (0.1-1.2); Monocytes Percent Manual 16 % (2-11); Neutrophils Percent Manual 58 % (45-73)
[2024-06-10 08:59] LABS: Band Neutrophils Percent 0 % (3-5); Neutrophils Absolute Manual 1.7 X10*3/uL (2.0-8.3); Platelet Estimate NORMAL (NORMAL); Platelet Morphology Comment NORMAL; RBC Morphology NORMAL
--- NOTE | 2024-06-10 09:18 | PC.NURSE ---
This RN assumed care of patient @ 0700 Plan of care on going
[2024-06-10] MEDS: Lactated Ringers 1,000 ML 80 ML IVCONT (11:07)
[2024-06-10] MEDS: amLODIPine Besylate 5 MG TABLET PO (11:14)
--- NOTE | 2024-06-10 12:38 | PC.NURSE ---
Patient c/o headache rated 4/10 pain. Notified provider Enma GAMINO, received one time dose of tylenol to administer. Patient tolerated medication, effectiveness pending.
--- NOTE | 2024-06-10 12:45 | MHC.CM.ED ---
Patient remains in ER. Physical therapy eval was attempted. However, due to elevated blood pressure, eval was not attempted. Enma GAMINO aware. Continue to monitor for d/c needs.
--- NOTE | 2024-06-10 13:58 | PC.NURSE ---
PT came to eval patient, Patient BP too elevated to be assessed by PT at this time, most current BP 195/57. Provider notified aware. Will reassess when BP improves.
--- NOTE | 2024-06-10 15:22 | PHA.MEDREC ---
Pharmacy Consult ? Medication Reconciliation Pharmacy has reviewed the medication reconciliation done by nursing. Also spoke to patient and verified that she is ok with taking generic levothyroxine. Per patient, she takes metformin 500 mg in the morning and 1000 mg at bedtime. Since last coumadin visit, pt has been taking warfarin 4 mg every other day alternating with 6 mg every other day. The last dose of warfarin was 4 mg on 06/07/24.
[2024-06-10] MEDS: metFORMIN HCl 1,000 MG TABLET 1000 MG PO (18:21)
[2024-06-10] MEDS: Metoprolol Tartrate 50 MG TABLET PO (22:19)
[2024-06-10] MEDS: Gabapentin 600 MG TABLET PO (22:19)
[2024-06-11] VITALS (9 sets, daily range): BP systolic 143–179; BP diastolic 62–85; PULSE 69–91; RESP 15–22; TEMP 36.7–38.1; O2SAT 94–99
[2024-06-11] MEDS: Lactated Ringers 1,000 ML 80 ML IVCONT (00:59)
[2024-06-11 06:43] LABS: INTERNATIONAL NORM RATIO 2.2 (0.9-1.1); Prothrombin Time 26.2 SEC (10.9-12.4)
--- NOTE | 2024-06-11 07:59 | PC.NURSE ---
Morning med administration delayed d/t medications not in pyxis. Pharmacy notified, will bring missing medications to unit.
[2024-06-11] MEDS: metFORMIN HCl 500 MG TABLET PO (08:19)
[2024-06-11] MEDS: Gabapentin 100 MG CAPSULE PO ×2 (08:19→13:45)
[2024-06-11] MEDS: Acetaminophen 325 MG TABLET 650 MG PO (08:19)
[2024-06-11] MEDS: Levothyroxine Sodium 100 MCG TABLET PO (08:19)
[2024-06-11] MEDS: Sennosides 8.6 MG TABLET PO (08:20)
[2024-06-11] MEDS: Metoprolol Tartrate 100 MG TABLET PO (08:20)
[2024-06-11] MEDS: Aspirin Enteric Coated 81 MG TABLET.DR PO (08:20)
--- NOTE | 2024-06-11 08:30 | PC.NURSE ---
Pt at bedside for eval with patient.
--- NOTE | 2024-06-11 08:31 | PC.NURSE ---
Assumed care of pt at 0700. Pt resting in bed quietly, a/ox3, speech clear and appropriate, respirations even and unlabored, no increased wob/sob noted, maintaining O2 sat >92% on RA, denies SOB/CP at this time. Pt sitting upright in bed eating breakfast, able to feed herself independently. Pt requesting bedpan- unable to have BM on bedpan. Purewick replaced, linens and pt dry. Vitals updated in worklist- rectal temp 100.6, PO Tylenol given. Call miranda within reach, all needs met at this time.
[2024-06-11] MEDS: Pravastatin Sodium 40 MG TABLET PO (08:41)
[2024-06-11] MEDS: glipiZIDE 10 MG TABLET PO (08:41)
[2024-06-11] MEDS: cefTRIAXone sodium 1 GM VIAL IVPUSH (11:18)
[2024-06-11] MEDS: 0.9 % Sodium Chloride 1,000 ML 999 ML IV (11:24)
[2024-06-11 11:36] LABS: Hematocrit 31.4 % (37.0-47.0); Mean Corpuscular HGB Conc 31.8 g/dl (31.0-35.0); Mean Corpuscular Hemoglobin 27.5 pg (27.0-33.0); Mean Corpuscular Volume 86.5 fL (80.0-98.0); Mean Platelet Volume 10.6 fL (9.4-12.3); Platelet Count 283 X10*3/uL (160-400); Red Blood Count 3.63 X10*6/uL (4.20-5.50); Red Cell Distribution Width 14.5 % (11.0-16.0); White Blood Count 3.5 X10*3/uL (4.8-10.8)
[2024-06-11 11:37] LABS: Appearance Urine Clear; Color Urine Yellow; Glucose Urine UA Negative (Negative); Leukocyte Esterase Urine Negative (Negative); Nitrite Urine Negative (Negative); PH 7.5 (5.0-9.0); Specific Gravity - Urine 1.015 (1.005-1.025); UMIC TRIGGER UACC YES; Urine Blood Trace (Negative); Urine Ketones 15 mg/dL (Negative); Urine Protein 30 (1+) mg/dL (Neg-Trace)
[2024-06-11 12:01] LABS: Atypical Lymph Absolute Manual 0.1 x10*3/uL; Atypical Lymphs Percent Manual 4 % (0-6); Band Neutrophils Percent 1 % (3-5); Eosinophils Absolute Manual 0.1 X10*3/uL (0.0-0.4); Eosinophils Percent Manual 3 % (0-4); Lymphocytes Absolute Manual 0.8 X10*3/uL (1.2-4.9); Lymphocytes Percent Manual 24 % (20-40); Metamyelocytes Percent 1 %; Monocytes Absolute Manual 0.6 X10*3/uL (0.1-1.2); Monocytes Percent Manual 18 % (2-11); Neutrophils Absolute Manual 1.8 X10*3/uL (2.0-8.3); Neutrophils Percent Manual 49 % (45-73)
[2024-06-11 12:02] LABS: Bacteria Urine None Seen (None Seen); Hyaline Casts Urine 0-2 /LPF (0-2); Platelet Estimate NORMAL (NORMAL); Platelet Morphology Comment NORMAL; RBC Morphology NORMAL; Squamous Epithelial Cell Urine 0-2 /HPF (0-2); WBC Urine 0-5 /HPF (0-5)
[2024-06-11 12:03] LABS: Toxic Vacuolation PRESENT
[2024-06-11 12:06] LABS: Anion Gap 15 (12-20); Blood Urea Nitrogen 7 mg/dL (9-16); Calcium 8.6 mg/dL (8.4-10.2); Carbon Dioxide 27 mmol/L (22-29); Chloride 104 mmol/L (96-108); Creatinine Clr Calc Pharmacy 65.6; Estimated Glomerular Filt Rate > 60; Glucose Random 148 mg/dL (60-115); Sodium 142 mmol/L (135-145)
[2024-06-11 12:07] LABS: Lactic Acid 1.1 mmol/L (0.5-2.0)
--- NOTE | 2024-06-11 12:09 | PC.NURSE ---
DEION Walker aware of pt vitals. Sepsis alert called @1051 am. Repeat temp 98.2 orally- skin cool, dry. Cultures sent to lab, abx hung after cultures obtained. Placed on lunchroom monitor, HR 70s, NSR, denies cp. Continuous pulse ox placed on pt, O2 remains above >92% on RA, no increased wob/sob. BP cycling q15 to monitor. 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 Pt repositioned in hospital bed for comfort, call miranda within reach, all needs met at this time.
[2024-06-11 12:41] LABS: Influenza A PCR NEGATIVE (Negative); Influenza B PCR NEGATIVE (Negative); Resp Syncy Virus RNA Qual PCR NEGATIVE (Negative); SARS COV2 PCR INHOUSE NEGATIVE (Negative)
--- NOTE | 2024-06-11 13:59 | MHC.CM.PN ---
CM MET WITH PT/FAMILY AT BEDSIDE IN ED. ALL ACUTE REHABS HAVE DECLINED PT, PT IS UNABLE TO PAY PVT FOR STR. PT IS AGREEABLE TO GO HOME WITH NEW [facility]( FIRST CHOICE) FOR SN/P.T. AND FAMILY SUPPORT. REFERRAL MADE TO [facility] AND PROVIDER AWARE. SON WILL TRANSPORT HOME WITHIN THE HOUR.
[2024-06-11 14:09] LABS: Adenovirus PCR Not Detected (Not Detect.); Bordetella parapertussis PCR Not Detected (Not Detect.); Bordetella pertussis PCR Not Detected (Not Detect.); Chlamydia pneumoniae PCR Not Detected (Not Detect.); Coronavirus 229E PCR Not Detected (Not Detect.); Coronavirus HKU1 PCR Not Detected (Not Detect.); Coronavirus NL63 PCR Not Detected (Not Detect.); Coronavirus OC43 PCR Not Detected (Not Detect.); Human metapneumovirus PCR Not Detected (Not Detect.); Influenza A PCR Not Detected (Not Detect.); Influenza B PCR Not Detected (Not Detect.); Mycoplasma pneumoniae PCR Not Detected (Not Detect.); Parainfluenza 1 PCR Not Detected (Not Detect.); Parainfluenza 2 PCR Not Detected (Not Detect.); Parainfluenza 3 PCR Not Detected (Not Detect.); Parainfluenza 4 PCR Not Detected (Not Detect.); RSV PCR Not Detected (Not Detect.); Rhino/Enterovirus PCR Not Detected (Not Detect.)
[2024-06-11 14:22] LABS: Influenza A H1 PCR Not Detected (Not Detect.); Influenza A H1-2009 PCR Not Detected (Not Detect.); Influenza A H3 PCR Not Detected (Not Detect.); SARS-CoV-2 PCR Not Detected (Not Detect.)
== END 2024-06-11 14:37 | disposition home or self-care (01) ==
PROVIDERS: Nurse Practitioner Family; Physician Assistant Medical; Emergency Provider Emergency Medicine; PCP Internal Medicine
DX: S19.9XXA Unspecified injury of neck, initial encounter (principal); R53.1 Weakness; R79.89 Other specified abnormal findings of blood chemistry; W19.XXXA Unspecified fall, initial encounter; Y93.9 Activity, unspecified; Y92.9 Unspecified place or not applicable; Y99.8 Other external cause status
CPT/HCPCS: 0241U; 36415; 70450; 71045; 71046; 74177; 80048; 80076; 80307; 81001; 81003; 83605; 83735; 83880; 84484; 85007; 85027; 85610; 86140; 87040; 87077; 87086; 87088; 87186; 87205; 87633; 93005; 97162; 99285; J0131; J0696; J7120; Q9967

== ENCOUNTER → 2024-06-09 14:48 | Outpatient (BNV) | payer MEDICARE, SELFPAY | PROVIDERS: Emergency Provider Emergency Medicine; PCP Internal Medicine; Visit Provider Internal Medicine Cardiovascular Disease | DX: I44.0 Atrioventricular block, first degree (principal); I25.2 Old myocardial infarction | CPT/HCPCS: 93010 ==

== ENCOUNTER → 2024-06-09 14:48 | Outpatient (BNV) | payer MEDICARE, SELFPAY | PROVIDERS: Emergency Provider Emergency Medicine; PCP Internal Medicine; Visit Provider Radiology Diagnostic Radiology | DX: M54.9 Dorsalgia, unspecified (principal); R79.89 Other specified abnormal findings of blood chemistry; R51.9 Headache, unspecified; R53.1 Weakness | CPT/HCPCS: 70450; 71045; 74177 ==

== ENCOUNTER 2024-06-12 09:46 | Inpatient (IN) | payer MEDICARE, SELFPAY ==
[2024-06-12] VITALS (9 sets, daily range): BP systolic 144–183; BP diastolic 49–80; PULSE 70–88; RESP 16–18; TEMP 36.6–38.8; O2SAT 92–96; BMI 33.8; BMI 34.5
--- NOTE | ~2024-06-12 | XR_ITS ---
CLINICAL HISTORY: fall, pain 5 views sacrum and coccyx Comparison: None Findings No acute fractures. No significant degenerative change. No erosions. IMPRESSION: No acute findings This document has been electronically signed by: Deborah Calabrese MD on 06/12/2024 13:11:04
--- NOTE | ~2024-06-12 | XR_ITS ---
CLINICAL HISTORY: weakness 1 view chest x-ray Comparison: CR - XR CHEST 2V - 06/11/24 11:37 EDT Findings: Median sternotomy. The lungs are clear. Heart size is normal. No acute fracture. IMPRESSION: 1. No acute findings. This document has been electronically signed by: Deborah Calabrese MD on 06/12/2024 13:10:33
--- NOTE | 2024-06-12 10:41 | ECG_ITS ---
Test Reason : DIZZINESS Blood Pressure : */* mmHG Vent. 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
--- NOTE | 2024-06-12 10:57 | ED.GENADULT ---
HPI - General Adult General Chief complaint: General Medical Stated complaint: +BC/CALL BACK PER EMS Time Seen by Provider: 06/12/24 09:57 Source: patient and EMS Mode of arrival: EMS Limitations: no limitations History of Present Illness ED Provider: Denise Fontenot APRN HPI narrative: 88-year-old female returns to the emergency room with 2/2 blood cultures growing Gram-positive cocci. Of note, the patient is a 88-year-old female with a history of PE who is anticoagulated chronically, hypertension, hyperlipidemia, diabetes who presented to our emergency room on June 09 with complaints of generalized weakness, back pain. Prior to that she had been seen on June 01 with complaints of oral pain after having a dental procedure with tooth extraction. During visit on June 09 there was concern that the patient was too weak to be discharged home and therefore she was seen by case management. Physical therapy did feel that she needed short-term rehab but due to her insurance short-term rehab was not an option. She was discharged home in care of the family. During her ER stay she had an isolated temperature of 100.6 degrees. At that time she had repeat labs, urine testing, chest x-ray and viral testing which were all negative. Her initial urine did grow Klebsiella from June 09 but her repeat urine showed no signs of infection. She did receive a dose of ceftriaxone yesterday on 06/12. Today she is complaining of general headache which she reports that she has had for several days. There is no associated vision changes, vomiting, neck pain with this. On 06/[address] head was negative for ICH. She is also complaining of lower back pain which she reports after her fall. On her visit on June 09 she was noted to have a T12 compression fracture. She has no other complaints. Related Data Home Medications ?Medication ?Instructions ?Recorded ?Confirmed sennosides 8.6 mg tablet 8.6 mg PO DAILY PRN Constipation 08/31/20 06/12/24 (Vegetable Laxative) aspirin 81 mg capsule 81 mg PO DAILY 06/09/24 06/12/24 metformin 500 mg tablet 1,000 mg PO BEDTIME 06/10/24 06/12/24 metformin 500 mg tablet 500 mg PO DAILY 06/10/24 06/12/24 warfarin 4 mg tablet 4 mg PO Q2D@1800 06/10/24 06/12/24 warfarin 4 mg tablet 6 mg PO Q2D@1800 06/10/24 06/12/24 acetaminophen 500 mg tablet 500 mg PO Q6H PRN Pain 06/12/24 06/12/24 gabapentin 100 mg capsule 100 mg PO TID 06/12/24 06/12/24 levothyroxine 100 mcg tablet 100 mcg PO DAILY@0600 06/12/24 06/12/24 (Euthyrox) metoprolol tartrate 50 mg tablet 50 mg PO BEDTIME 06/12/24 06/12/24 metoprolol tartrate 50 mg tablet 100 mg PO DAILY 06/12/24 06/12/24 Previous Rx's ?Medication ?Instructions ?Recorded gabapentin 600 mg tablet 600 mg PO BEDTIME #90 tabs 01/26/24 lovastatin 40 mg tablet 40 mg PO DAILY #90 tabs 01/26/24 glipizide 10 mg tablet 10 mg PO DAILY #90 tabs 04/04/24 Allergies Allergy/AdvReac Type Severity Reaction Status Date / Time duloxetine Allergy Unknown delusions Verified 06/12/24 10:42 procaine [From Novocain] AdvReac Unknown Nausea and Verified 06/12/24 10:42 Vomiting, fainting Review of Systems Review of Systems: Yes all other systems are reviewed and are negative Constitutional: Constitutional: Reports no additional constitutional complaints, Denies body ache(s), Denies chills, Denies fever(s), Reports headache(s) and Reports weakness Eyes: Eyes: Reports no additional eye complaints and Denies change in vision ENT: Reports system reviewed and no additional complaints, except as documented, Denies dizziness, Reports headache(s), Denies nasal congestion, Denies nasal discharge and Denies neck pain Cardiovascular: Cardiovascular: Reports no additional cardiovascular complaints, Denies chest pain, Denies leg edema and Denies dyspnea Respiratory: Respiratory: Reports no additional respiratory complaints, Denies cough and Denies dyspnea Gastrointestinal: Gastrointestinal: Reports no additional gastrointestinal complaints, Denies abdominal pain, Denies diarrhea, Denies nausea and Denies vomiting Genitourinary: Genitourinary: Reports no additional female genitourinary complaints and Denies urinary incontinence Musculoskeletal: Musculoskeletal: Reports no additional musculoskeletal complaints, Reports back pain, Denies arthralgias, Denies joint swelling, Denies neck pain, Denies numbness and Denies tingling Integumentary/Breasts: Skin/Breast: Reports system reviewed and no additional complaints, except as docu and Denies rash Neurologic: Reports system reviewed and no additional complaints, except as documented, Denies Abnormal speech present, Denies dizziness, Reports headache(s), Denies numbness, Denies tingling and Reports weakness PMFSH Past Medical History Attestation statement: The following information was validated with the patient. Source: old records reviewed and nursing notes reviewed Medical History Cerumen impaction Diastolic CHF Hypothyroidism Peripheral neuropathy Recurrent pulmonary embolism CAD (coronary artery disease) Osteoarthritis HTN (hypertension) Type 2 diabetes mellitus Surgical History H/O Spinal surgery S/P three vessel coronary artery bypass Social History Social History Housing: House Alcohol intake: former Patient Tobacco Use Status: Former Tobacco user Tobacco use type: Cigarette Years Smoked: 3 yrs Smoked in Last 30 Days: No e-Cigarette/Vaping Use: Never Used Second Hand Smoke Exposure: No Use of substances other than those prescribed or required for medical reasons: No Advance Directives: Yes Advance Directives on File: Yes Advance Directives Date on File: 06/26/03 service: No Current occupational status: retired and disabled Cognitive needs: No Hearing needs: No Vision needs: Yes Physical Exam ED Vital Signs: Vital Signs - 24 hr 06/12/24 10:40 06/12/24 12:38 06/12/24 13:00 Temperature 101.9 F H 100 F 99.9 F Pulse Rate 85 72 72 Respiratory Rate 18 18 18 Blood Pressure 174/72 H 148/55 H 144/49 H Pulse Oximetry 96 94 92 Oxygen Delivery Method Room Air Room Air Room Air BMI result Body Mass Index 33.8 Const General: cooperative, healthy appearing, comfortable and no acute distress Orientation/consciousness: patient oriented x3 Limitations: no limitations HENMT Head: Yes normal to inspection and No Temporal artery tenderness present Ears: hearing grossly normal bilaterally and TM's normal bilaterally General nose exam: Normal external nose present Face and sinus: Yes normal facial exam Mouth: Normal oral and palatal mucosa present Throat: Yes posterior oropharynx normal, Yes tonsils normal and Yes uvula midline Eyes General: appearance normal, both eyes and all related structures Pupils: Equal, round and reactive pupils present Neck Neck: Yes normal visual inspection, Yes full ROM, Yes no lymphadenopathy and Yes no meningeal signs Chest Chest palpation & inspection: normal inspection of the chest Resp Effort & Inspection: normal respiratory effort Auscultation: clear to auscultation bilaterally Cardio Rate: regular rate Rhythm: regular rhythm Peripheral pulses: Peripheral pulses 2+ throughout GI Inspection: Yes normal to inspection Palpation (GI): Soft to palpation and nontender Auscultation: normal bowel sounds General: Yes no CVA tenderness Back/Spine/Pelvis Back: no CVA tenderness Thoracic/Lumbar Spine: thoracic and lumbar spine normal to inspection Back/spine/pelvis image: 1. Ecchymosis-no step-offs or deformities Skin General skin exam: no rashes or lesions noted Neuro Other: UE 5/5 LE 4/5 General: patient oriented x3, moves all extremities, no meningeal signs, no focal motor deficits, normal sensation to monofilament and Unable to assess gait Cranial nerves: Yes CN's II-XII intact bilaterally, Yes Equal, round and reactive pupils present, Yes Bilaterally intact EOM present, Yes Nystagmus not present, Yes Normal facial strength present and Yes Midline tongue present Cognition (Neuro): normal cognition Speech: No Abnormal speech present Gait exam (Neuro): Unable to assess gait Sensory Exam: Normal double simultaneous stimulation for sensation Extrem General: Yes normal to inspection, Yes no pedal edema and Yes no calf tenderness Medications Administered Generic Name Dose Route Start Last Admin Trade Name Freq PRN Reason Stop Dose Admin Gabapentin 100 mg 06/12/24 15:00 06/12/24 15:41 Gabapentin 100 Mg Capsule PO 100 mg TID YAHIR Administration Discontinued Medications Generic Name Dose Route Start Last Admin Trade Name Freq PRN Reason Stop Dose Admin Acetaminophen 975 mg 06/12/24 10:43 06/12/24 10:58 Acetaminophen 325 Mg Tablet PO 06/12/24 10:44 975 mg ONCE ONE Administration Ceftriaxone Sodium 1 gm 06/12/24 10:42 06/12/24 10:59 Ceftriaxone Sodium 1 Gm Vial IVPUSH 06/12/24 10:43 1 gm ONCE ONE Administration Sodium Chloride 1,000 mls @ 999 mls/hr 06/12/24 10:45 06/12/24 12:33 Ns IV 06/12/24 11:45 Infused .Q1H1M YAHIR Infusion Vancomycin HCl 2,000 mg in 500 mls @ 250 mls/hr 06/12/24 10:42 06/12/24 13:42 Vancomycin/Ns IV 06/12/24 12:41 Infused ONCE ONE Infusion Magnesium Sulfate 2 gm in 50 mls @ 25 mls/hr 06/12/24 11:37 06/12/24 14:14 Magnesium Sulfate/H2o IV 06/12/24 13:36 Infused ONCE ONE Infusion Medical Decision Making Medical Decision Making [facility] Narrative: 88-year-old female returns to the emergency room with 2/2 blood cultures growing Gram-positive cocci. c/o continued lower back pain and generalized headache. On arrival patient has a fever of 101.9. She has mild hypertensive. Her vital signs are otherwise unremarkable. She is alert and oriented x3. She does have some diffuse weakness no focal weakness. Neurological exam is normal. Small area of ecchymosis noted over the sacral area. No step-offs or deformities. Skin normal. Will obtain labs, UA, CXR, viral testing, sacral x-ray At this time infection is suspected. Antibiotics and IVF ordered Will need admission Differential Diagnosis Differential Diagnoses: The differential diagnosis associated with the presentation includes Bacteremia-unknown source Admission/Observation Consideration of admission/observation: Escalation of care including admission/observation considered +BCX 2 of 2 with fever, unknown source requiring admit for IV antibiotics and further evaluation Consult Healthcare Provider Management of the patient was discussed with: Hospitalist John 1300-accepted admit Lab Data [facility] Lab Attestation statement: I reviewed the patient's lab results. 06/12/24 10:57 06/12/24 10:57 Labs: Lab Results 06/12/24 06/12/24 Range/Units 10:57 11:51 WBC 3.7 L (4.8-10.8) X10*3/uL RBC 3.61 L (4.20-5.50) X10*6/uL Hgb 10.0 L (12.0-16.0) g/dl Hct 31.5 L (37.0-47.0) % MCV 87.3 (80.0-98.0) fL MCH 27.7 (27.0-33.0) pg MCHC 31.7 (31.0-35.0) g/dl RDW 14.6 (11.0-16.0) % Plt Count 291 (160-400) X10*3/uL MPV 10.1 (9.4-12.3) fL Immature Gran % (Auto) Cancelled Neut % (Auto) Cancelled Lymph % (Auto) Cancelled Williamson % (Auto) Cancelled Eos % (Auto) Cancelled Baso % (Auto) Cancelled Lymph # (Auto) Cancelled Williamson # (Auto) Cancelled Eos # (Auto) Cancelled Baso # (Auto) Cancelled Abs Immat Gran (auto) Cancelled Absolute Neuts (auto) Cancelled Absolute Nucleated RBC 0.000 (0.0-0.012) X10*3/uL Nucleated RBC % (auto) 0.0 (0.0-0.2) /100WBC Neutrophils % (Manual) 61 (45-73) % Band Neutrophils % 4 (3-5) % Lymphocytes % (Manual) 18 L (20-40) % Atypical Lymphs % (Man) 2 (0-6) % Monocytes % (Manual) 11 (2-11) % Eosinophils % (Manual) 3 (0-4) % Metamyelocytes % 1 % Abs Neuts (Manual) 2.4 (2.0-8.3) X10*3/uL Lymphocytes # (Manual) 0.7 L (1.2-4.9) X10*3/uL Atyp Lymphs # (Manual) 0.1 x10*3/uL Monocytes # (Manual) 0.4 (0.1-1.2) X10*3/uL Eosinophils # (Manual) 0.1 (0.0-0.4) X10*3/uL Toxic Vacuolation PRESENT Platelet Estimate NORMAL (NORMAL) Plt Morphology Comment NORMAL RBC Morphology NOTED Polychromasia 1+ (0-2) /OIF PT 20.1 H D (10.9-12.4) SEC INR 1.7 H (0.9-1.1) Sodium 142 (135-145) mmol/L Potassium 4.1 (3.3-5.1) mmol/L Chloride 106 (96-108) mmol/L Carbon Dioxide 24 (22-29) mmol/L Anion Gap 16 (12-20) BUN 7 L (9-16) mg/dL Creatinine 0.54 (0.5-1.4) mg/dL Estim Creat Clear Calc 65.4 Estimated GFR > 60 Random Glucose 166 H (60-115) mg/dL Lactic Acid 2.2 H* (0.5-2.0) mmol/L Calcium 8.4 (8.4-10.2) mg/dL Magnesium 1.3 L* (1.6-2.6) mg/dL Total Bilirubin 0.9 (0.0-1.0) mg/dL Direct Bilirubin 0.3 (0.0-0.5) mg/dL AST 16 (5-31) U/L ALT < 6 (0-31) U/L Alkaline Phosphatase 55 (39-117) U/L Troponin I High Sens 4.0 (<3.5-17.0) ng/L Total Protein 6.2 L (6.5-8.0) g/dL Albumin 2.9 L (3.5-5.0) g/dL Urine Color Yellow Urine Appearance Clear Urine pH 6.5 (5.0-9.0) Ur Specific Schwertner 1.020 (1.005-1.025) Urine Protein 30 (1+) H (Neg-Trace) mg/dL Urine Glucose (UA) Negative (Negative) mg/dL Urine Ketones Trace (Negative) mg/dL Urine Blood Negative (Negative) Urine Nitrite Negative (Negative) Ur Leukocyte Esterase Trace H (Negative) Urine RBC 0-2 (0-2) /HPF Urine WBC 0-5 (0-5) /HPF Ur Squamous Epith Cells 0-2 (0-2) /HPF Urine Bacteria None Seen (None Seen) Hyaline Casts 3-5 (0-2) /LPF Influenza Type A (PCR) NEGATIVE (Negative) Influenza Type B (PCR) NEGATIVE (Negative) RSV RNA Qual (PCR) NEGATIVE (Negative) SARS-CoV-2 RNA (RT-PCR) NEGATIVE (Negative) Independent Interpretation I performed an independent interpretation of an: EKG and Plain X-Ray Interpretation: I independently reviewed the x-rays and agree with the radiology report I independently viewed the EKG which shows sinus rhythm with a rate of 88 with a first-degree AV block normal QRS normal QT Radiology Impression Discussion of test interpretation with radiology: I have reviewed the radiologist's reading. Radiologist Impression: [address] [address] XRay Report Signed Patient: Shikha Flores MR#: [id number] : 1935 Acct:[id number] Age/Sex: 88 / F ADM Date: 06/12/24 Loc: .ED Attending Dr: Ordering Physician: Denise Fontenot NP Date of Service: 06/12/24 Procedure(s): XR sacrum coccyx min 2V Accession Number(s): [id number] cc: Rissa Bowling MD; Denise Fontenot NP~ CLINICAL HISTORY: fall, pain 5 views sacrum and coccyx Comparison: None Findings No acute fractures. No significant degenerative change. No erosions. IMPRESSION: No acute findings [address] [address] XRay Report Signed Patient: Shikha Flores MR#: [id number] : 1935 Acct:[id number] Age/Sex: 88 / F ADM Date: 06/12/24 Loc: .ED Attending Dr: Ordering Physician: Denise Fontenot NP Date of Service: 06/12/24 Procedure(s): XR chest 1V Accession Number(s): [id number] cc: Rissa Bowling MD; Denise Fontenot NP~ CLINICAL HISTORY: weakness 1 view chest x-ray Comparison: CR - XR CHEST 2V - 06/11/24 11:37 EDT Findings: Median sternotomy. The lungs are clear. Heart size is normal. No acute fracture. IMPRESSION: 1. No acute findings. This document has been electronically signed by: Deborah Calabrese MD on 06/12/2024 13:10:33 Independent Historian Clinical information obtained from an independent historian. History obtained from or confirmed by: EMS Critical Care Time Critical Care Time Critical Care Time: Yes Total Critical Care Time: 60 Attestation: Reviewed medical records, discussion with hospitalist for admission, discussion with family - direct patient care, patient reassessment, coordination of patient care, interpretation of data, review of patient's medical records, medical consultation and documentation of patient care. Discharge Plan Discharge Clinical Impression: Blood bacterial culture positive, Elevated lactic acid level, Hypomagnesemia Patient Disposition: Admitted As Inpatient
[2024-06-12] MEDS: Acetaminophen 325 MG TABLET 975 MG PO (10:58)
[2024-06-12] MEDS: cefTRIAXone sodium 1 GM VIAL IVPUSH (10:59)
[2024-06-12] MEDS: vancomycin/NS 2,000 MG/500 ML PLAST..BAG 250 MG IV (10:59)
[2024-06-12] MEDS: 0.9 % Sodium Chloride 1,000 ML 999 ML IV (11:07)
[2024-06-12 11:09] LABS: Hematocrit 31.5 % (37.0-47.0); Mean Corpuscular HGB Conc 31.7 g/dl (31.0-35.0); Mean Corpuscular Hemoglobin 27.7 pg (27.0-33.0); Mean Corpuscular Volume 87.3 fL (80.0-98.0); Mean Platelet Volume 10.1 fL (9.4-12.3); Platelet Count 291 X10*3/uL (160-400); Red Blood Count 3.61 X10*6/uL (4.20-5.50); Red Cell Distribution Width 14.6 % (11.0-16.0); White Blood Count 3.7 X10*3/uL (4.8-10.8)
[2024-06-12 11:15] LABS: INTERNATIONAL NORM RATIO 1.7 (0.9-1.1); Prothrombin Time 20.1 SEC (10.9-12.4)
[2024-06-12 11:38] LABS: Alanine Aminotransferase < 6 U/L (0-31); Albumin Level 2.9 g/dL (3.5-5.0); Alkaline Phosphatase 55 U/L (39-117); Anion Gap 16 (12-20); Aspartate Amino Transferase 16 U/L (5-31); Bilirubin Direct 0.3 mg/dL (0.0-0.5); Bilirubin Total 0.9 mg/dL (0.0-1.0); Blood Urea Nitrogen 7 mg/dL (9-16); Calcium 8.4 mg/dL (8.4-10.2); Carbon Dioxide 24 mmol/L (22-29); Chloride 106 mmol/L (96-108); Creatinine Clr Calc Pharmacy 65.4; Estimated Glomerular Filt Rate > 60; Glucose Random 166 mg/dL (60-115); Lactic Acid 2.2 mmol/L (0.5-2.0); Magnesium 1.3 mg/dL (1.6-2.6); Potassium 4.1 mmol/L (3.3-5.1); Sodium 142 mmol/L (135-145); Total Protein 6.2 g/dL (6.5-8.0)
[2024-06-12 11:47] LABS: Influenza A PCR NEGATIVE (Negative); Influenza B PCR NEGATIVE (Negative); Resp Syncy Virus RNA Qual PCR NEGATIVE (Negative); SARS COV2 PCR INHOUSE NEGATIVE (Negative)
[2024-06-12] MEDS: Magnesium Sulfate/H2O 2 GM/50 ML PIGGYBACK IV (12:00)
[2024-06-12 12:03] LABS: Atypical Lymph Absolute Manual 0.1 x10*3/uL; Atypical Lymphs Percent Manual 2 % (0-6); Band Neutrophils Percent 4 % (3-5); Eosinophils Absolute Manual 0.1 X10*3/uL (0.0-0.4); Eosinophils Percent Manual 3 % (0-4); Lymphocytes Absolute Manual 0.7 X10*3/uL (1.2-4.9); Lymphocytes Percent Manual 18 % (20-40); Metamyelocytes Percent 1 %; Monocytes Absolute Manual 0.4 X10*3/uL (0.1-1.2); Monocytes Percent Manual 11 % (2-11); Neutrophils Absolute Manual 2.4 X10*3/uL (2.0-8.3); Neutrophils Percent Manual 61 % (45-73)
[2024-06-12 12:06] LABS: Polychromasia 1+ (0-2) /OIF; RBC Morphology NOTED
[2024-06-12 12:06] LABS: Appearance Urine Clear; Color Urine Yellow; Glucose Urine UA Negative (Negative); Leukocyte Esterase Urine Trace (Negative); Nitrite Urine Negative (Negative); PH 6.5 (5.0-9.0); UMIC TRIGGER UACC YES; Urine Blood Negative (Negative); Urine Ketones Trace mg/dL (Negative); Urine Protein 30 (1+) mg/dL (Neg-Trace)
[2024-06-12 12:08] LABS: Platelet Estimate NORMAL (NORMAL); Platelet Morphology Comment NORMAL; Toxic Vacuolation PRESENT
[2024-06-12 12:18] LABS: Bacteria Urine None Seen (None Seen); RBC Urine 0-2 /HPF (0-2); Squamous Epithelial Cell Urine 0-2 /HPF (0-2); WBC Urine 0-5 /HPF (0-5)
--- NOTE | 2024-06-12 12:54 | PM.IMHP ---
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 Pt reports she has been feeling weaker than normal for the past 2 weeks after she underwent dental procedure for extraction of her last remaining 8 teeth from her lower jaw. Reports has been having ongoing pain that has made eating difficult. Pt initially presented to the ED 1 week ago on 06/01 due to weakness and had essentially negative workup. Was treated with IVF and analgesics and discharged home. Pt again presented to the ED yesterday after fall at home where she collapsed in the bathroom and experienced resulting lower back pain. No LOC. Denies head strike. Denies lightheadedness or dizziness. Reports felt weak and her legs ?just gave out?. Yesterday pt had a low-grade temp of 100.6 degrees with again negative workup. Pt initially treated empirically with ceftriaxone and blood cultures were sent out. Was initially a CM pt but did not qualify for STR and was sent home without any new medications. Pt reports pain in her mouth has improved, but still does not feel like eating anything. Has been experiencing intermittent headache and ear pain, though nothing at the moment. Denies shortness or breath, difficulty breathing, or cough. No polyuria or dysuria. Denies nausea, vomiting, abdominal pain. No diarrhea. Denies chest pain/pressure, palpitations. Of note, pt reports taking a 7 day course of amoxicillin 3-4 weeks ago which ended a few days prior to her dental surgery. Antibiotics were prescribed by her PCP due to dental pain and concern for possible dental infection. In the ED pt was febrile up to 101.9 and hypertensive as high as 174/72. Labs were significant for chronic but stable leukopenia of 3.7 and normocytic anemia of 10.0/31.5. INR subtherapeutic at 1.7. Lactic acid 2.2 with repeat 1.1. Magnesium 1.3. Other electrolytes WNL. Renal function baseline. Hepatic function baseline. Troponin 4.0. UA negative for UTI. Tested negative for flu, COVID, RSV. CXR showed no acute findings. Sacral and coccyx x-ray negative for acute findings. EKG demonstrated sinus rhythm with first-degree AV block and occasional PVCs, but no evidence of significant ischemia. Pt was treated in the ED with acetaminophen, IVF, Mag sulfate, ceftriaxone, and vancomycin. Pt is admitted to the hospital for treatment and further evaluation of acute bacteremia possibly secondary to dental infection. Review of Systems Review of Systems: Negative except for that which is stated in the HPI. [facility] Medical History Cerumen impaction Diastolic CHF Hypothyroidism Peripheral neuropathy Recurrent pulmonary embolism CAD (coronary artery disease) Osteoarthritis HTN (hypertension) Type 2 diabetes mellitus Surgical History H/O Spinal surgery S/P three vessel coronary artery bypass Social History Household Members: Family Housing: House Do you presently have visiting nurse or other home services: No Alcohol intake: former Patient Tobacco Use Status: Former Tobacco user Tobacco use type: Cigarette Years Smoked: 3 yrs Smoked in Last 30 Days: No e-Cigarette/Vaping Use: Never Used Patient Interested in Nicotine Replacement: No Patient Given Instructions on How to Stop Smoking: No Second Hand Smoke Exposure: No Use of substances other than those prescribed or required for medical reasons: No Currently Displaying Signs/Symptoms of Drug Intoxication Withdrawal: No Have you been hit, kicked, punched, or otherwise hurt by someone within the past year? If so, by whom?: No Do you feel safe in your current relationship?: Yes Is there a partner from a previous relationship who is making you feel unsafe now?: No Advance Directives: Yes Advance Directives on File: Yes Advance Directives Date on File: 06/26/03 Recently lost weight without trying: Unsure How much weight loss: Unsure Eating poorly because of decreased appetite: Yes Nutrition screen score: 5 Nutrition Risks: Dental problems Patient : No : No Poor oral hygiene: No service: No Current occupational status: retired and disabled Cognitive needs: No Hearing needs: No Vision needs: Yes Meds Allergies Allergy/AdvReac Type Severity Reaction Status Date / Time duloxetine Allergy Unknown delusions Verified 06/12/24 10:42 procaine [From Novocain] AdvReac Unknown Nausea and Verified 06/12/24 10:42 Vomiting, fainting Active Medications: Current Medications Magnesium Sulfate (Magnesium Sulfate/H2o) 2 gm in 50 mls @ 25 mls/hr IV ONCE ONE Stop: 06/12/24 13:36 Last Admin: 06/12/24 12:00 Dose: 25 mls/hr Home Medications ?Medication ?Instructions ?Recorded ?Confirmed ?Last Taken ?Type sennosides 8.6 mg tablet 8.6 mg PO DAILY PRN Constipation 08/31/20 06/12/24 1 Day Ago History (Vegetable Laxative) ~06/08/24 aspirin 81 mg capsule 81 mg PO DAILY 06/09/24 06/12/24 06/11/24 09:00 History metformin 500 mg tablet 1,000 mg PO BEDTIME 06/10/24 06/12/24 06/08/24 History metformin 500 mg tablet 500 mg PO DAILY 06/10/24 06/12/24 06/11/24 09:00 History warfarin 4 mg tablet 4 mg PO Q2D@1800 06/10/24 06/12/24 06/07/24 History warfarin 4 mg tablet 6 mg PO Q2D@1800 06/10/24 06/12/24 06/06/24 History acetaminophen 500 mg tablet 500 mg PO Q6H PRN Pain 06/12/24 06/12/24 Unknown History gabapentin 100 mg capsule 100 mg PO TID 06/12/24 06/12/24 06/11/24 09:00 History levothyroxine 100 mcg tablet 100 mcg PO DAILY@0600 06/12/24 06/12/24 06/11/24 09:00 History (Euthyrox) metoprolol tartrate 50 mg tablet 50 mg PO BEDTIME 06/12/24 06/12/24 Unknown History metoprolol tartrate 50 mg tablet 100 mg PO DAILY 06/12/24 06/12/24 06/11/24 09:00 History Physical Exam Vital Signs and Narrative: Vital Signs: Last Vital Signs Temp 101.9 F H 06/12/24 10:40 Pulse 85 06/12/24 10:40 Resp 18 06/12/24 10:40 BP 174/72 H 06/12/24 10:40 Pulse Ox 96 06/12/24 10:40 O2 Del Method Room Air 06/12/24 10:40 BMI result Body Mass Index 33.8 General: AOx3, no acute distress ENT: Mouth s/p teeth extraction. No clear signs of infection in the mouth. Exterior of lower jaw diffusely tender to palpation. Resp: CTA bilaterally CVS: S1, S2, RRR GI: +BS, NT, no distention Skin: Warm, dry Neuro: Cranial nerves II-XII grossly intact bilaterally. Motor grossly intact bilaterally though global weakness noted. Strength symmetric and 2/5 of lower extremities bilaterally. Extremities: No edema Psych: Appropriate affect Results Labs 06/12/24 10:57 06/12/24 10:57 Labs: Laboratory Results - last 24 hr 06/12/24 06/12/24 10:57 11:51 MCV 87.3 MCH 27.7 MCHC 31.7 RDW 14.6 Plt Count 291 MPV 10.1 Immature Gran % (Auto) Cancelled Neut % (Auto) Cancelled Lymph % (Auto) Cancelled [place] % (Auto) Cancelled Eos % (Auto) Cancelled Baso % (Auto) Cancelled Lymph # (Auto) Cancelled [place] # (Auto) Cancelled Eos # (Auto) Cancelled Baso # (Auto) Cancelled Abs Immat Gran (auto) Cancelled Absolute Neuts (auto) Cancelled Absolute Nucleated RBC 0.000 Nucleated RBC % (auto) 0.0 Neutrophils % (Manual) 61 Band Neutrophils % 4 Lymphocytes % (Manual) 18 L Atypical Lymphs % (Man) 2 Monocytes % (Manual) 11 Eosinophils % (Manual) 3 Metamyelocytes % 1 Abs Neuts (Manual) 2.4 Lymphocytes # (Manual) 0.7 L Atyp Lymphs # (Manual) 0.1 Monocytes # (Manual) 0.4 Eosinophils # (Manual) 0.1 Toxic Vacuolation PRESENT Platelet Estimate NORMAL Plt Morphology Comment NORMAL RBC Morphology NOTED Polychromasia 1+ (0-2) PT 20.1 H D INR 1.7 H Anion Gap 16 Estim Creat Clear Calc 65.4 Estimated GFR > 60 Random Glucose 166 H Lactic Acid 2.2 H* Calcium 8.4 Magnesium 1.3 L* Total Bilirubin 0.9 Direct Bilirubin 0.3 AST 16 ALT < 6 Alkaline Phosphatase 55 Total Protein 6.2 L Albumin 2.9 L Urine Color Yellow Urine Appearance Clear Urine pH 6.5 Ur Specific Baker 1.020 Urine Protein 30 (1+) H Urine Glucose (UA) Negative Urine Ketones Trace Urine Blood Negative Urine Nitrite Negative Ur Leukocyte Esterase Trace H Urine RBC 0-2 Urine WBC 0-5 Ur Squamous Epith Cells 0-2 Urine Bacteria None Seen Hyaline Casts 3-5 Influenza Type A (PCR) NEGATIVE Influenza Type B (PCR) NEGATIVE RSV RNA Qual (PCR) NEGATIVE SARS-CoV-2 RNA (RT-PCR) NEGATIVE Assessment and Plan (1) Bacteremia: Status: Acute Plan Pt is an 88-year-old female with a PMH significant for?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 Pt is admitted to the hospital for treatment and further evaluation of acute bacteremia possibly secondary to dental infection. Bacteremia 2/2 blood cultures positive for gram positive bacteria Unclear source of infection: possibly secondary to dental surgery 2 weeks prior UA, CXR, CT of abd/pelvis negative No sepsis: fever, but chronic leukopenia, no tachycardia or tachypnea; lactic acid 2.2 with repeat 1.1 Pt given IVF and started on broad spectrum abx in the ED Will empirically treat with vancomycin, started 06/12/2024 Follow blood cultures Hypomagnesmia Magnesium 1.3 at time of presentation Pt received mag 2g IV in the ED Follow mag Acute lactic acidosis Initial lactic acid 2.2 with repeat 1.1 after fluids Secondary to metformin use, not sepsis Hx of recurrent DVT/PE Continue warfarin INR subtherapeutic Follow INR Non insulin dependent diabetes Hold metformin SSI Continue glipizide Hypothyroidism Continue levothyroxim HLD Continue statin HTN Continue metoprolol Full Code Attending:?Dr. Lopez DVT Prophylaxis: On warfarin Pt will require a hospitalization of at least two nights for treatment and further evaluation of acute bacteremia possibly secondary to dental infection requiring IV antibiotics while awaiting culture results. Quality Stroke Does the patient have a stroke diagnosis?: No VTE Prior VTE?: No VTE Risk Level:: Medical - moderate - high VTE Device Contraindication: Treatment Not Indicated VTE Drug Contraindication: N/A - Med Ordered
[2024-06-12 13:06] LABS: Reflex Lactate? Lactic Acid Added
[2024-06-12 14:09] LABS: ~Lactic Acid-LAB USE ONLY 1.1 mmol/L (0.5-2.0)
--- NOTE | 2024-06-12 14:43 | PHA.MEDREC ---
Addendum entered by Niesha Segundo RPh 06/12/24 15:28: [facility] reviewed Original Note: Pharmacy Consult ? Medication Reconciliation Pharmacy has completed the medication reconciliation. Spoke to pt to confirm meds. Per pt, not on melatonin or oxycodone anymore. Pt takes gabapentin 100 mg TID + 600 bedtime. Pt takes metoprolol succ 100 mg AM + 50 mg PM. Alternates warfarin 4 mg and 6 mg every other day.
[2024-06-12] MEDS: Gabapentin 100 MG CAPSULE PO ×2 (15:41→20:24)
[2024-06-12] MEDS: 0.9 % Sodium Chloride Flush 3 ML SYRINGE IVFLUSH (15:42)
[2024-06-12 16:49] LABS: Glucose, Whole Blood 75 mg/dL (60-115)
--- NOTE | 2024-06-12 17:11 | PC.NURSE ---
Blood sugar 75, patient drank x 1 cup of orange juice, denies s/s of hypoglycemia. Re check sugar remains 75 , patient does not want any more orange juice states her blood sugar is fine
[2024-06-12 17:15] LABS: Glucose, Whole Blood 75 mg/dL (60-115)
[2024-06-12] MEDS: Warfarin Sodium 6 MG TABLET PO (18:20)
[2024-06-12] MEDS: Gabapentin 600 MG TABLET PO (20:24)
[2024-06-12] MEDS: Metoprolol Tartrate 50 MG TABLET PO (20:24)
[2024-06-12 20:36] LABS: Glucose, Whole Blood 134 mg/dL (60-115)
[2024-06-12] MEDS: Acetaminophen 325 MG TABLET 650 MG PO (23:29)
[2024-06-12] MEDS: vancomycin HCL 750 MG in 0.9 % Sodium Chloride 250 ML 265 MG IV (23:29)
[2024-06-13] VITALS (9 sets, daily range): BP systolic 159–210; BP diastolic 60–71; PULSE 66–76; RESP 16–18; TEMP 36.2–36.8; O2SAT 93–94
[2024-06-13] MEDS: 0.9 % Sodium Chloride Flush 3 ML SYRINGE IVFLUSH ×4 (01:36→20:09)
[2024-06-13] MEDS: Levothyroxine Sodium 100 MCG TABLET PO (05:14)
[2024-06-13 05:44] LABS: Hematocrit 28.6 % (37.0-47.0); Mean Corpuscular HGB Conc 31.5 g/dl (31.0-35.0); Mean Corpuscular Hemoglobin 27.4 pg (27.0-33.0); Mean Corpuscular Volume 87.2 fL (80.0-98.0); Platelet Count 264 X10*3/uL (160-400); Red Blood Count 3.28 X10*6/uL (4.20-5.50); Red Cell Distribution Width 14.8 % (11.0-16.0); White Blood Count 3.5 X10*3/uL (4.8-10.8)
[2024-06-13 05:49] LABS: INTERNATIONAL NORM RATIO 1.9 (0.9-1.1); Prothrombin Time 21.7 SEC (10.9-12.4)
[2024-06-13 06:00] LABS: Anion Gap 11 (12-20); Blood Urea Nitrogen 6 mg/dL (9-16); Calcium 8.1 mg/dL (8.4-10.2); Carbon Dioxide 27 mmol/L (22-29); Chloride 107 mmol/L (96-108); Creatinine Clr Calc Pharmacy 64.9; Estimated Glomerular Filt Rate > 60; Glucose Random 131 mg/dL (60-115); Potassium 3.8 mmol/L (3.3-5.1); Sodium 141 mmol/L (135-145)
[2024-06-13 07:29] LABS: Glucose, Whole Blood 119 mg/dL (60-115)
[2024-06-13] MEDS: Acetaminophen 325 MG TABLET 650 MG PO ×2 (07:49→17:50)
[2024-06-13] MEDS: Gabapentin 100 MG CAPSULE PO ×3 (07:50→20:08)
[2024-06-13] MEDS: Metoprolol Tartrate 100 MG TABLET PO (07:50)
[2024-06-13] MEDS: Aspirin Enteric Coated 81 MG TABLET.DR PO (07:50)
[2024-06-13] MEDS: Omeprazole 20 MG CAPSULE.DR PO (08:16)
[2024-06-13] MEDS: amLODIPine Besylate 5 MG TABLET PO (08:16)
[2024-06-13] MEDS: Ketorolac Tromethamine 15 MG/ML VIAL IVPUSH (08:16)
[2024-06-13 09:38] LABS: Vancomycin Random 15.5 mcg/mL (15-20)
--- NOTE | 2024-06-13 09:44 | HE.PHANOTE ---
re [facility] Patients level came back this morning at 15.5. Will continue with current dose. Predicted AUC 468. AUC within goal. Next draw to be taken 06/14 @0900.
[2024-06-13] MEDS: cefTRIAXone sodium 1 GM VIAL IVPUSH (10:54)
[2024-06-13] MEDS: vancomycin HCL 750 MG in 0.9 % Sodium Chloride 250 ML 265 MG IV ×2 (10:54→22:32)
[2024-06-13 11:24] LABS: Glucose, Whole Blood 156 mg/dL (60-115)
--- NOTE | 2024-06-13 11:27 | MHC.CM.PN ---
IMM 06/13/24, EMR REVIEWED, PT W/BACTEREMIA, CM ATTEMPTED TO MEET W/PT HOWEVER PT REQUERSTED CM CONTACT DTR [facility] (#ON FILE), [facility] REPORTS PT'S SON DAYRON LIVES W/PT AND HOUSE IS IN HIS NAME, PT USES A WALKER AT [employer], ALSO HAS A BEDSIDE COMMODE, RAILING ON BED, LIFT RECLINER WHERE PT TYPICALLY SLEEPS, SHOWER CHAIR, STAIR LIFT AND GRAB BARS IN BR. PT CURRENTLY HAS NO HOME SERVICES. [facility] REPORTS PT WAS IN ED ON 06/11 AND NOT ADMITTED AND DECLINED BY [facility]UTE [facility] HOWEVER WAS SO WEAK SHE COULDN'T EVEN ATAND AND PIVIT, [facility] REPORTS [facility] AND ASKED THEM TO BRING PT BACK D/T BACTEREMIA AND PT ADMITTED TO INPT. [facility] REPORTS PT WILL NEED STR AND THEY PREFER [facility] PT HAS BEEN THERE A FEW TIMES IN PAST. [facility] ALSO REQUESTING A REFERRAL TO [facility] SHE IS UNSURE IF PT'S SON DAYRON WILL BE ABLE TO TO CONT TO CARE FOR PT AND WOULD AT LEAST LIKE FOR HOME SERVICES. REFERRAL PLACED VIA EMAIL. PCP ON FILE VERIFIED, CM HAS REQUESTED A COPY OF HCP [facility] IS ONLY DOCUMENT ON FILE UNDER SCANNED DOC'S.
[2024-06-13] MEDS: Insulin Lispro 100 UNIT/ML 3 ML VIAL SUBCUT ×2 (11:35→20:08)
[2024-06-13] MEDS: Losartan Potassium 25 MG TABLET PO (12:18)
--- NOTE | 2024-06-13 16:30 | HO.PM.IMPN ---
Subjective Subjective Date of Service: 06/13/24 Interval History: Seen and evaluated this morning reporting back pain no feveor chills Review of Systems Review of Systems: Yes all other systems are reviewed and are negative Physical Exam Vital Signs: Vital Signs: Last Vital Signs Temp 98.3 F 06/13/24 15:47 Pulse 66 06/13/24 15:47 Resp 16 06/13/24 15:47 BP 176/70 H 06/13/24 15:26 Pulse Ox 93 06/13/24 15:47 O2 Del Method Room Air 06/13/24 15:47 BMI result Body Mass Index 34.5 Const: Other: Constitutional : interactive, not in distress Cardiovascular : no JVP, no lower extremity edema Respiratory : bilateral chest movement, not in resp distress Gastrointestinal: soft, lax, Non tender Skin : Warm, Dry Neurological : Alert & oriented , No focal deficit Objective Data Active Medications Acetaminophen (Acetaminophen 325 Mg Tablet) 650 mg PO Q6H PRN PRN Reason: Pain, Mild 1-3,fever,headache Last Admin: 06/13/24 07:49 Dose: 650 mg Documented By: IRINA Amlodipine Besylate (Amlodipine Besylate 5 Mg Tablet) 5 mg PO DAILY [facility]; Protocol Last Admin: 06/13/24 08:16 Dose: 5 mg Documented By: IRINA Aspirin (Aspirin Enteric Coated 81 Mg Tablet.) 81 mg PO DAILY [facility] Last Admin: 06/13/24 07:50 Dose: 81 mg Documented By: IRINA Calcium Carbonate (Calcium Carbonate 750 Mg Tab.Chew) 750 mg PO Q4H PRN PRN Reason: Heartburn Ceftriaxone Sodium (Ceftriaxone Sodium 1 Gm Vial) 1 gm IVPUSH Q24H [facility] Last Admin: 06/13/24 10:54 Dose: 1 gm Documented By: IRINA Gabapentin (Gabapentin 600 Mg Tablet) 600 mg PO BEDTIME [facility] Last Admin: 06/12/24 20:24 Dose: 600 mg Documented By: RUFINA Gabapentin (Gabapentin 100 Mg Capsule) 100 mg PO TID [facility] Last Admin: 06/13/24 14:24 Dose: 100 mg Documented By: IRINA Vancomycin HCl 750 mg/ Sodium (Chloride) 265 mls @ 265 mls/hr IV Q12H [facility] Last Infusion: 06/13/24 12:30 Dose: Infused Documented By: IRINA Insulin Human Lispro (Insulin Lispro 100 Unit/Ml 3 Ml Vial) 0 unit SUBCUT QIDACHS [facility]; Protocol Last Admin: 06/13/24 11:35 Dose: 2 unit Documented By: IRINA Ketorolac Tromethamine (Ketorolac Tromethamine 15 Mg/Ml Vial) 15 mg IVPUSH Q6H PRN PRN Reason: Pain, Severe (Pain Scale 7-10) Last Admin: 06/13/24 08:16 Dose: 15 mg Documented By: IRINA Levothyroxine Sodium (Levothyroxine Sodium 100 Mcg Tablet) 100 mcg PO DAILY@0600 [facility] Last Admin: 06/13/24 05:14 Dose: 100 mcg Documented By: RUFINA Losartan Potassium (Losartan Potassium 25 Mg Tablet) 25 mg PO DAILY [facility]; Protocol Last Admin: 06/13/24 12:18 Dose: 25 mg Documented By: IRINA Magnesium Hydroxide (Milk Of Magnesia 30 Ml Oral.Susp) 30 ml PO DAILY PRN PRN Reason: Constipation Melatonin (Melatonin 3 Mg Tablet) 6 mg PO BEDTIME PRN PRN Reason: Insomnia Metoprolol Tartrate (Metoprolol Tartrate 50 Mg Tablet) 50 mg PO BEDTIME [facility]; Protocol Last Admin: 06/12/24 20:24 Dose: 50 mg Documented By: RUFINA Metoprolol Tartrate (Metoprolol Tartrate 100 Mg Tablet) 100 mg PO DAILY [facility]; Protocol Last Admin: 06/13/24 07:50 Dose: 100 mg Documented By: IRINA Omeprazole (Omeprazole 20 Mg Capsule.) 20 mg PO DAILY@0630 [facility] Last Admin: 06/13/24 08:16 Dose: 20 mg Documented By: IRINA Ondansetron HCl (Ondansetron Hcl 4 Mg/2 Ml Vial) 4 mg IVPUSH Q8H PRN PRN Reason: Nausea and Vomiting Pharmacy Consult (Consult Rx Vancomycin Dosing) 1 each MISCELLANE DAILY PRN PRN Reason: Consult order Senna (Sennosides 8.6 Mg Tablet) 8.6 mg PO DAILY PRN PRN Reason: Constipation Sodium Chloride (0.9 % Sodium Chloride Flush 3 Ml Syringe) [facility] Last Admin: 06/13/24 07:51 Dose: 3 ml Documented By: IRINA Warfarin Sodium (Warfarin Sodium 4 Mg Tablet) 4 mg PO Q2D@1800 [facility] Warfarin Sodium (Warfarin Sodium 6 Mg Tablet) 6 mg PO Q2D@1800 [facility] Last Admin: 06/12/24 18:20 Dose: 6 mg Documented By: PODMORP Labs 06/13/24 05:20 06/13/24 05:20 Labs: Laboratory Results - last 24 hr 06/12/24 06/12/24 06/12/24 16:43 17:10 20:28 MCV MCH MCHC RDW Plt Count MPV Absolute Nucleated RBC Nucleated RBC % (auto) PT INR Anion Gap Estim Creat Clear Calc Estimated GFR POC Glucose 75 75 134 H Random Glucose Calcium Random Vancomycin 06/13/24 06/13/24 06/13/24 05:20 07:23 09:15 MCV 87.2 MCH 27.4 MCHC 31.5 RDW 14.8 Plt Count 264 MPV 10.0 Absolute Nucleated RBC 0.000 Nucleated RBC % (auto) 0.0 PT 21.7 H INR 1.9 H Anion Gap 11 L Estim Creat Clear Calc 64.9 Estimated GFR > 60 POC Glucose 119 H Random Glucose 131 H Calcium 8.1 L Random Vancomycin 15.5 06/13/24 11:19 MCV MCH MCHC RDW Plt Count MPV Absolute Nucleated RBC Nucleated RBC % (auto) PT INR Anion Gap Estim Creat Clear Calc Estimated GFR POC Glucose 156 H Random Glucose Calcium Random Vancomycin Microbiology Microbiology Results: Microbiology 06/12/24 10:57 Blood Culture - Preliminary Blood - Venous No growth after 24 hours. 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 Pt is admitted to the hospital for treatment and further evaluation of acute bacteremia possibly secondary to dental infection. Positive blood cultures 2/2 blood cultures positive for gram positive bacteria one finalized as Coag -ve staph Unclear source of infection: possibly secondary to dental surgery 2 weeks prior UA, CXR, CT of abd/pelvis negative empirically treat with vancomycin, started 06/12/2024 until cultures finalized Follow blood cultures follow vanco trough Acute Hypomagnesmia replacement given Follow mag Acute lactic acidosis resolved Secondary to metformin use, not sepsis Hx of recurrent DVT/PE Continue warfarin INR 1.9 Follow INR Non insulin dependent diabetes Hold metformin SSI Continue glipizide Hypothyroidism Continue levothyroxim HLD Continue statin HTN Continue metoprolol Full Code DVT Prophylaxis: On warfarin Pt will require a hospitalization of overnight for treatment and further evaluation of acute bacteremia possibly secondary to dental infection requiring IV antibiotics while awaiting culture results. Quality Stroke Does the patient have a stroke diagnosis?: No VTE Prior VTE?: No VTE Risk Level:: Medical - moderate - high VTE Device Contraindication: Treatment Not Indicated VTE Drug Contraindication: N/A - Med Ordered
[2024-06-13 16:34] LABS: Glucose, Whole Blood 125 mg/dL (60-115)
[2024-06-13] MEDS: Warfarin Sodium 4 MG TABLET PO (17:42)
[2024-06-13 19:40] LABS: Glucose, Whole Blood 191 mg/dL (60-115)
[2024-06-13] MEDS: Gabapentin 600 MG TABLET PO (20:08)
[2024-06-13] MEDS: Metoprolol Tartrate 50 MG TABLET PO (20:08)
[2024-06-14] VITALS (8 sets, daily range): BP systolic 160–200; BP diastolic 70–81; PULSE 67–81; RESP 16–18; TEMP 36.4–37; O2SAT 92–94
[2024-06-14] MEDS: Acetaminophen 325 MG TABLET 650 MG PO ×3 (00:56→20:40)
[2024-06-14] MEDS: Ketorolac Tromethamine 15 MG/ML VIAL IVPUSH (03:25)
--- NOTE | 2024-06-14 03:32 | PC.NURSE ---
BP 171/74 this hour. Pt c/o 08/18 headache that has been intermittent tonight despite prn tylenol and ice packs. Pt medicated with prn toradol with effectiveness pending. Pt denies chest pain, palpitations, vision changes, or other symptoms. +PERRLA 3mm brisk, conjugate gaze, face symmetrical, tongue midline, speech clear. Covering Dr. Azul notified. No new orders advised at this time. Plan of care continues.
[2024-06-14] MEDS: Levothyroxine Sodium 100 MCG TABLET PO (06:16)
[2024-06-14] MEDS: Omeprazole 20 MG CAPSULE.DR PO (06:16)
[2024-06-14 06:27] LABS: Hematocrit 28.1 % (37.0-47.0); Mean Corpuscular Volume 87.3 fL (80.0-98.0); Mean Platelet Volume 10.5 fL (9.4-12.3); Platelet Count 266 X10*3/uL (160-400); Red Blood Count 3.22 X10*6/uL (4.20-5.50); Red Cell Distribution Width 14.9 % (11.0-16.0)
[2024-06-14 06:28] LABS: WBC ABN SCTR FOR CBC 1; White Blood Count 3.3 X10*3/uL (4.8-10.8)
[2024-06-14 06:37] LABS: INTERNATIONAL NORM RATIO 2.5 (0.9-1.1); Prothrombin Time 29.1 SEC (10.9-12.4)
[2024-06-14 06:44] LABS: Anion Gap 13 (12-20); Blood Urea Nitrogen 8 mg/dL (9-16); Calcium 8.1 mg/dL (8.4-10.2); Carbon Dioxide 26 mmol/L (22-29); Chloride 108 mmol/L (96-108); Creatinine Clr Calc Pharmacy 67.4; Estimated Glomerular Filt Rate > 60; Glucose Random 133 mg/dL (60-115); Magnesium 1.5 mg/dL (1.6-2.6); Potassium 3.8 mmol/L (3.3-5.1); Sodium 143 mmol/L (135-145)
[2024-06-14 07:23] LABS: Glucose, Whole Blood 129 mg/dL (60-115)
[2024-06-14] MEDS: Gabapentin 100 MG CAPSULE PO ×3 (07:58→20:40)
[2024-06-14] MEDS: 0.9 % Sodium Chloride Flush 3 ML SYRINGE IVFLUSH ×3 (07:58→21:45)
[2024-06-14] MEDS: Aspirin Enteric Coated 81 MG TABLET.DR PO (07:58)
[2024-06-14] MEDS: amLODIPine Besylate 5 MG TABLET PO (07:58)
[2024-06-14] MEDS: Losartan Potassium 25 MG TABLET PO (07:58)
[2024-06-14] MEDS: Metoprolol Tartrate 100 MG TABLET PO (08:00)
[2024-06-14 08:03] LABS: Atypical Lymph Absolute Manual 0.1 x10*3/uL; Atypical Lymphs Percent Manual 2 % (0-6); Band Neutrophils Percent 1 % (3-5); Basophils Percent Manual 1 % (0-2); Eosinophils Absolute Manual 0.2 X10*3/uL (0.0-0.4); Eosinophils Percent Manual 5 % (0-4); Lymphocytes Absolute Manual 0.8 X10*3/uL (1.2-4.9); Lymphocytes Percent Manual 23 % (20-40); Metamyelocytes Percent 1 %; Monocytes Absolute Manual 0.4 X10*3/uL (0.1-1.2); Monocytes Percent Manual 13 % (2-11); Neutrophils Absolute Manual 1.8 X10*3/uL (2.0-8.3); Neutrophils Percent Manual 54 % (45-73)
[2024-06-14 08:04] LABS: Hypochromasia 1+ (5-14) /OIF; Platelet Estimate NORMAL (NORMAL); Platelet Morphology Comment NORMAL; Polychromasia 1+ (0-2) /OIF; RBC Morphology NOTED
--- NOTE | 2024-06-14 09:02 | HE.PHANOTE ---
RE: VANCO DOSING Trough came back as 16 mg/L and renal function is stable. Continue dose of 750 mg q12h, next trough is scheduled for 06/15/24 @0900.
[2024-06-14 11:23] LABS: Glucose, Whole Blood 154 mg/dL (60-115)
[2024-06-14] MEDS: cefTRIAXone sodium 1 GM VIAL IVPUSH (11:27)
[2024-06-14] MEDS: vancomycin HCL 750 MG in 0.9 % Sodium Chloride 250 ML 265 MG IV ×2 (11:27→22:11)
[2024-06-14] MEDS: Insulin Lispro 100 UNIT/ML 3 ML VIAL SUBCUT ×2 (11:27→22:07)
--- NOTE | 2024-06-14 14:47 | HO.PM.IMPN ---
Subjective Subjective Date of Service: 06/14/24 Interval History: Seen and evaluated this morning reporting back pain BP elevated blood cultures growing Staph Epi. no fever or chills Review of Systems Review of Systems: Yes all other systems are reviewed and are negative Physical Exam Vital Signs: Vital Signs: Last Vital Signs Temp 97.5 F 06/14/24 07:44 Pulse 75 06/14/24 07:44 Resp 16 06/14/24 07:44 BP 160/70 H 06/14/24 09:23 Pulse Ox 92 06/14/24 07:44 O2 Del Method Room Air 06/14/24 07:44 BMI result Body Mass Index 34.5 Const: Other: Constitutional : interactive, not in distress Cardiovascular : no JVP, no lower extremity edema Respiratory : bilateral chest movement, not in resp distress Gastrointestinal: soft, lax, Non tender Skin : Warm, Dry Neurological : Alert & oriented , No focal deficit Objective Data Active Medications Acetaminophen (Acetaminophen 325 Mg Tablet) 650 mg PO Q6H PRN PRN Reason: Pain, Mild 1-3,fever,headache Last Admin: 06/14/24 11:26 Dose: 650 mg Documented By: IRINA Amlodipine Besylate (Amlodipine Besylate 5 Mg Tablet) 5 mg PO DAILY REPLACED BY [facility]; Protocol Last Admin: 06/14/24 07:58 Dose: 5 mg Documented By: IRINA Aspirin (Aspirin Enteric Coated 81 Mg Tablet.) 81 mg PO DAILY REPLACED BY [facility] Last Admin: 06/14/24 07:58 Dose: 81 mg Documented By: IRINA Calcium Carbonate (Calcium Carbonate 750 Mg Tab.Chew) 750 mg PO Q4H PRN PRN Reason: Heartburn Ceftriaxone Sodium (Ceftriaxone Sodium 1 Gm Vial) 1 gm IVPUSH Q24H REPLACED BY [facility] Last Admin: 06/14/24 11:27 Dose: 1 gm Documented By: IRINA Gabapentin (Gabapentin 600 Mg Tablet) 600 mg PO BEDTIME REPLACED BY [facility] Last Admin: 06/13/24 20:08 Dose: 600 mg Documented By: BUSHRA Gabapentin (Gabapentin 100 Mg Capsule) 100 mg PO TID REPLACED BY [facility] Last Admin: 06/14/24 07:58 Dose: 100 mg Documented By: IRINA Vancomycin HCl 750 mg/ Sodium (Chloride) 265 mls @ 265 mls/hr IV Q12H REPLACED BY [facility] Last Infusion: 06/14/24 12:45 Dose: Infused Documented By: IRINA Insulin Human Lispro (Insulin Lispro 100 Unit/Ml 3 Ml Vial) 0 unit SUBCUT QIDACHS REPLACED BY [facility]; Protocol Last Admin: 06/14/24 11:27 Dose: 2 unit Documented By: IRINA Ketorolac Tromethamine (Ketorolac Tromethamine 15 Mg/Ml Vial) 15 mg IVPUSH Q6H PRN PRN Reason: Pain, Severe (Pain Scale 7-10) Last Admin: 06/14/24 03:25 Dose: 15 mg Documented By: BUSHRA Levothyroxine Sodium (Levothyroxine Sodium 100 Mcg Tablet) 100 mcg PO DAILY@0600 REPLACED BY [facility] Last Admin: 06/14/24 06:16 Dose: 100 mcg Documented By: BUSHRA Losartan Potassium (Losartan Potassium 25 Mg Tablet) 25 mg PO DAILY REPLACED BY [facility]; Protocol Last Admin: 06/14/24 07:58 Dose: 25 mg Documented By: IRINA Magnesium Hydroxide (Milk Of Magnesia 30 Ml Oral.Susp) 30 ml PO DAILY PRN PRN Reason: Constipation Melatonin (Melatonin 3 Mg Tablet) 6 mg PO BEDTIME PRN PRN Reason: Insomnia Metoprolol Tartrate (Metoprolol Tartrate 50 Mg Tablet) 50 mg PO BEDTIME REPLACED BY [facility]; Protocol Last Admin: 06/13/24 20:08 Dose: 50 mg Documented By: BUSHRA Metoprolol Tartrate (Metoprolol Tartrate 100 Mg Tablet) 100 mg PO DAILY REPLACED BY [facility]; Protocol Last Admin: 06/14/24 08:00 Dose: 100 mg Documented By: IRINA Omeprazole (Omeprazole 20 Mg Capsule.Dr) 20 mg PO DAILY@0630 REPLACED BY [facility] Last Admin: 06/14/24 06:16 Dose: 20 mg Documented By: BUSHRA Ondansetron HCl (Ondansetron Hcl 4 Mg/2 Ml Vial) 4 mg IVPUSH Q8H PRN PRN Reason: Nausea and Vomiting Pharmacy Consult (Consult Rx Vancomycin Dosing) 1 each MISCELLANE DAILY PRN PRN Reason: Consult order Senna (Sennosides 8.6 Mg Tablet) 8.6 mg PO DAILY PRN PRN Reason: Constipation Sodium Chloride (0.9 % Sodium Chloride Flush 3 Ml Syringe) 3 ml IVFLUSH QSHIFT REPLACED BY [facility] Last Admin: 06/14/24 07:58 Dose: 3 ml Documented By: IRINA Warfarin Sodium (Warfarin Sodium 4 Mg Tablet) 4 mg PO Q2D@1800 REPLACED BY [facility] Last Admin: 06/13/24 17:42 Dose: 4 mg Documented By: IRINA Warfarin Sodium (Warfarin Sodium 6 Mg Tablet) 6 mg PO Q2D@1800 REPLACED BY [facility] Last Admin: 06/12/24 18:20 Dose: 6 mg Documented By: PODMORP Labs 06/14/24 06:07 06/14/24 06:07 Labs: Laboratory Results - last 24 hr 06/13/24 06/13/24 06/14/24 16:30 19:37 06:06 MCV MCH MCHC RDW Plt Count MPV Immature Gran % (Auto) Neut % (Auto) Lymph % (Auto) Pierce % (Auto) Eos % (Auto) Baso % (Auto) Lymph # (Auto) Pierce # (Auto) Eos # (Auto) Baso # (Auto) Abs Immat Gran (auto) Absolute Neuts (auto) Absolute Nucleated RBC Nucleated RBC % (auto) Neutrophils % (Manual) Band Neutrophils % Lymphocytes % (Manual) Atypical Lymphs % (Man) Monocytes % (Manual) Eosinophils % (Manual) Basophils % (Manual) Metamyelocytes % Abs Neuts (Manual) Lymphocytes # (Manual) Atyp Lymphs # (Manual) Monocytes # (Manual) Eosinophils # (Manual) Platelet Estimate Plt Morphology Comment RBC Morphology Polychromasia Hypochromasia PT 29.1 H D INR 2.5 H Anion Gap Estim Creat Clear Calc Estimated GFR POC Glucose 125 H 191 H Random Glucose Calcium Magnesium Random Vancomycin 06/14/24 06/14/24 06/14/24 06:07 07:20 08:27 MCV 87.3 MCH 28.0 MCHC 32.0 RDW 14.9 Plt Count 266 MPV 10.5 Immature Gran % (Auto) Cancelled Neut % (Auto) Cancelled Lymph % (Auto) Cancelled Pierce % (Auto) Cancelled Eos % (Auto) Cancelled Baso % (Auto) Cancelled Lymph # (Auto) Cancelled Pierce # (Auto) Cancelled Eos # (Auto) Cancelled Baso # (Auto) Cancelled Abs Immat Gran (auto) Cancelled Absolute Neuts (auto) Cancelled Absolute Nucleated RBC 0.000 Nucleated RBC % (auto) 0.0 Neutrophils % (Manual) 54 Band Neutrophils % 1 L Lymphocytes % (Manual) 23 Atypical Lymphs % (Man) 2 Monocytes % (Manual) 13 H Eosinophils % (Manual) 5 H Basophils % (Manual) 1 Metamyelocytes % 1 Abs Neuts (Manual) 1.8 L Lymphocytes # (Manual) 0.8 L Atyp Lymphs # (Manual) 0.1 Monocytes # (Manual) 0.4 Eosinophils # (Manual) 0.2 Platelet Estimate NORMAL Plt Morphology Comment NORMAL RBC Morphology NOTED Polychromasia 1+ (0-2) Hypochromasia 1+ (5-14) PT INR Anion Gap 13 Estim Creat Clear Calc 67.4 Estimated GFR > 60 POC Glucose 129 H Random Glucose 133 H Calcium 8.1 L Magnesium 1.5 L Random Vancomycin 16.0 06/14/24 11:18 MCV MCH MCHC RDW Plt Count MPV Immature Gran % (Auto) Neut % (Auto) Lymph % (Auto) Pierce % (Auto) Eos % (Auto) Baso % (Auto) Lymph # (Auto) Pierce # (Auto) Eos # (Auto) Baso # (Auto) Abs Immat Gran (auto) Absolute Neuts (auto) Absolute Nucleated RBC Nucleated RBC % (auto) Neutrophils % (Manual) Band Neutrophils % Lymphocytes % (Manual) Atypical Lymphs % (Man) Monocytes % (Manual) Eosinophils % (Manual) Basophils % (Manual) Metamyelocytes % Abs Neuts (Manual) Lymphocytes # (Manual) Atyp Lymphs # (Manual) Monocytes # (Manual) Eosinophils # (Manual) Platelet Estimate Plt Morphology Comment RBC Morphology Polychromasia Hypochromasia PT INR Anion Gap Estim Creat Clear Calc Estimated GFR POC Glucose 154 H Random Glucose Calcium Magnesium Random Vancomycin Microbiology Microbiology Results: Microbiology 06/12/24 10:57 Blood Culture - Preliminary Blood - Venous No growth after 48 hours. 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 Pt is admitted to the hospital for treatment and further evaluation of acute bacteremia possibly secondary to dental infection. Positive blood cultures 2/2 blood cultures positive for Staph Epi 1 set of repeated cultures growing Bacilus To repeat blood cultures again 06/14 Unclear source of infection: possibly secondary to dental surgery 2 weeks prior UA, CXR, CT of abd/pelvis negative empirically treat with vancomycin, started 06/12/2024 until cultures finalized get ID eval check Echo follow vanco trough Acute Hypomagnesmia Mg 1.5 today replacement given Follow mag Acute lactic acidosis resolved Secondary to metformin use, not sepsis Hx of recurrent DVT/PE Continue warfarin INR 1.9 Follow INR Non insulin dependent diabetes Hold metformin SSI Continue glipizide Hypothyroidism Continue levothyroxim HLD Continue statin HTN Continue metoprolol Full Code DVT Prophylaxis: On warfarin Pt will require a hospitalization of overnight for treatment and further evaluation of acute bacteremia possibly secondary to dental infection requiring IV antibiotics while awaiting culture results and ID consult Quality Stroke Does the patient have a stroke diagnosis?: No VTE Prior VTE?: No VTE Risk Level:: Medical - moderate - high VTE Device Contraindication: Treatment Not Indicated VTE Drug Contraindication: N/A - Med Ordered
[2024-06-14 16:17] LABS: Glucose, Whole Blood 109 mg/dL (60-115)
--- NOTE | 2024-06-14 17:00 | CA_ITS ---
Transthoracic Echocardiogram Patient (Last, First, Middle): Shikha Flores Ann Gender: Female Date of : 1935 Age: 88 Procedure Date: 06/14/2024 Procedure Type: Transthoracic Echocardiogram Location: S3E Height: 152.4 cm Weight: 79.83 kg BSA: 1.77 m2 Heart Rate: bpm BP: 160 / 70 mmHg [employer] Supervisor: Referring MD: Jessie Lopez MD Symptoms: persistent bacteremia r o vegetations Study Quality: Good ECG Rhythm: Sinus Conclusions: - The left ventricular systolic function is normal. The calculated ejection fraction is 57% by biplane method. - There is mild mitral valve regurgitation. - There is mild tricuspid valve regurgitation. - No obvious valvular pathology seen on this study. Findings Left Ventricle Normal left ventricular cavity size. The left ventricular systolic function is normal. The calculated ejection fraction is 57% by biplane method. There is no evidence of regional wall motion abnormalities. Evidence suggests grade I (mild) diastolic dysfunction. There is mild septal asymmetric hypertrophy. Right Ventricle Normal right ventricular cavity size and systolic function. Atria Both atria are normal in size. Aortic Valve The aortic valve was not well visualized. There is no aortic valve regurgitation. No significant aortic stenosis. Mitral Valve The mitral valve appears normal. There is mild mitral valve regurgitation. There is no mitral valve stenosis. Pulmonic Valve The pulmonic valve is likely normal. Tricuspid Valve There is mild tricuspid valve regurgitation. Mild pulmonary hypertension is present. Great Vessels The asc aorta is normal in size. Venous The inferior vena cava is normal in size and collapses greater than 50% with inspiration. Pericardium/Pleural There is a trivial pericardial effusion. Prior Study Comparison No significant change compared to prior study dated: 10/21/2018. Recommendations, Care & Conclusions No obvious valvular pathology seen on this study. Measurements 2D Linear Measurements IVSd: 1.05 0.6-0.9/0.6-1.0 cm LVIDd: 3.72 3.9-5.3/4.2-5.9 cm LVIDd Index: 2.10 2.4-3.2/2.2-3.1 cm/m2 LVIDs: 2.77 2.0-3.6 cm LVPWd: 1.01 0.7-1.1 cm Ao Root: 2.50 2.1-3.5 cm LA Diam: 3.10 2.7-3.8/3.0-4.0 cm LAIDs Index: 1.75 1.5-2.3 cm/m2 LV Mass: 147.29 67-162/88-224 g LV Mass Index: 83.21 43-95/49-115 g/m2 LVOT Diam: 1.90 3.0+(-)1.3 cm 2D Systolic Function EF 4C: 58.40 >55% EF 2C: 55.70 >55% EF BiP: 57.00 >55% Mitral Valve MV Pk E: 0.66 MV PK A: 0.93 MV Decel Time: 138.00 E/A: 0.70 E'Lateral: 6.85 E'Medial: 4.46 E/E' Med: 14.90 E/E' Lat: 9.70 PHT: 40.00 MVA PHT: 5.50 Decel Hall: 4.80 Aortic Valve AoV Pk Savage: 1.71 AoV Mn Savage: 1.19 AoV VTI: 0.45 AoV Pk Grad: 12.00 Aov Mn Grad: 6.00 MAGED Cont.VTI: 1.24 LVOT LVOT Pk Savage: 0.76 LVOT Mn Savage: 0.56 LVOT VTI: 0.20 LVOT Pk Grad: 2.00 LVOT Mn Grad: 1.00 LVOT Diam: 1.90 LVOT Area: 2.84 Diastolic Function MV Pk E: 0.66 MV Pk A: 0.93 E/A: 0.70 E'Medial: 4.46 E/E' Med: 14.90 E' Laterial: 6.85 E/E' Lat: 9.70 Right Ventricle TAPSE (mm): 19.00 Tricuspid Valve TR Pk Savage: 2.59 TR Pk Grad: 27.00 RA Press: 3.00 RVSP: 44.00 Great Vessels Aorta Ao Root-2D: 2.50 2.0-3.7 cm Ao Asc: 3.10 2.1-3.4 cm Pulmonary Valve PV Pk Savage: 1.09 Peak PV Grad: 5.00 Updated in Other Vendor System with Status of Final Vinicio Bravo MD electronically signed on 06/15/2024 12:53:09 PM with status of Final
[2024-06-14] MEDS: Magnesium Oxide 400 MG TABLET PO (17:58)
[2024-06-14] MEDS: Warfarin Sodium 6 MG TABLET PO (17:58)
[2024-06-14] MEDS: Gabapentin 600 MG TABLET PO (20:40)
--- NOTE | 2024-06-14 21:00 | PC.NURSE ---
Pt AOX4 with some forgetfulness, reports headache 10/10, tylenol given with good effect, Lung sounds clear, respirations even and non-labored, BSx4, blanchable redness to left heel foam in place CDI, bruising also noted to lower back & JU, foam to buttocks for protection. No teeth on assessment recently all pulled out to get dentures, Pt on ground diet d/t difficulty chewing. 1X assist with walker to commode, purewick in place d/t moderate weakness. VSS, No distress at this time, call miranda within reach.
--- NOTE | 2024-06-14 21:40 | PC.NURSE ---
Addendum entered by Sherin Pinedo RN 06/15/24 05:52: Late entry: 0330: BP rechecked at 140/40, pt resting comfortably with no apparent distress at this time Addendum entered by Sherin Pinedo RN 06/15/24 05:51: late entry: at 0002: BP rechecked at 190/72, Dr. Azul made aware. New orders placed. Original Note: BP: 200/70 manually, HR; 80, O2:94%, asymptomatic, denies CP/SOB, Dr. Azul made aware, metoprolol given will recheck in hour.
[2024-06-14 21:42] LABS: Glucose, Whole Blood 153 mg/dL (60-115)
[2024-06-14] MEDS: Metoprolol Tartrate 50 MG TABLET PO (21:44)
--- NOTE | 2024-06-14 22:09 | P.CNID_ITS ---
History of Present Illness Data of Consult Service Date: 06/14/24 Requesting physician: Jessie Lopez Primary Care Provider: Rissa Bowling MD HPI Reason for consult: bacteremia She fell and had back pain ,T12 compression fracture. She has been able to move legs however with some discomfort. She had prior Klebsiella urine [id number] colonies. She has no cough or shortness of breath. Blood cultures staph epi x2 and bacillus. Review of Systems 2 Review of Systems: Yes all other systems are reviewed and are negative [facility] Past Medical History Medical History (Updated 06/14/24 @ 22:13 by Radha Tejada MD) UTI (urinary tract infection) Cerumen impaction Diastolic CHF Hypothyroidism Peripheral neuropathy Recurrent pulmonary embolism CAD (coronary artery disease) Osteoarthritis HTN (hypertension) Type 2 diabetes mellitus Family History Family history: reviewed and not pertinent Surgical History Surgical History H/O Spinal surgery S/P three vessel coronary artery bypass Social History Social History Household Members: Family Housing: House Do you presently have visiting nurse or other home services: No Alcohol intake: former Patient Tobacco Use Status: Former Tobacco user Tobacco use type: Cigarette Years Smoked: 3 yrs Smoked in Last 30 Days: No e-Cigarette/Vaping Use: Never Used Patient Interested in Nicotine Replacement: No Patient Given Instructions on How to Stop Smoking: No Second Hand Smoke Exposure: No Use of substances other than those prescribed or required for medical reasons: No Currently Displaying Signs/Symptoms of Drug Intoxication Withdrawal: No Have you been hit, kicked, punched, or otherwise hurt by someone within the past year? If so, by whom?: No Do you feel safe in your current relationship?: Yes Is there a partner from a previous relationship who is making you feel unsafe now?: No Advance Directives: Yes Advance Directives on File: Yes Advance Directives Date on File: 06/26/03 Recently lost weight without trying: Unsure How much weight loss: Unsure Eating poorly because of decreased appetite: Yes Nutrition screen score: 5 Nutrition Risks: Dental problems Patient : No : No Poor oral hygiene: No service: No Current occupational status: retired and disabled Cognitive needs: No Hearing needs: No Vision needs: Yes Meds Allergies Allergy/AdvReac Type Severity Reaction Status Date / Time duloxetine Allergy Unknown delusions Verified 06/12/24 10:42 procaine [From Novocain] AdvReac Unknown Nausea and Verified 06/12/24 10:42 Vomiting, fainting Active Medications: Current Medications Acetaminophen (Acetaminophen 325 Mg Tablet) 650 mg PO Q6H PRN PRN Reason: Pain, Mild 1-3,fever,headache Last Admin: 06/14/24 20:40 Dose: 650 mg Amlodipine Besylate (Amlodipine Besylate 5 Mg Tablet) 5 mg PO DAILY [facility]; Protocol Last Admin: 06/14/24 07:58 Dose: 5 mg Aspirin (Aspirin Enteric Coated 81 Mg Tablet.Dr) 81 mg PO DAILY [facility] Last Admin: 06/14/24 07:58 Dose: 81 mg Calcium Carbonate (Calcium Carbonate 750 Mg Tab.Chew) 750 mg PO Q4H PRN PRN Reason: Heartburn Ceftriaxone Sodium (Ceftriaxone Sodium 1 Gm Vial) 1 gm IVPUSH Q24H [facility] Last Admin: 06/14/24 11:27 Dose: 1 gm Gabapentin (Gabapentin 600 Mg Tablet) 600 mg PO BEDTIME [facility] Last Admin: 06/14/24 20:40 Dose: 600 mg Gabapentin (Gabapentin 100 Mg Capsule) 100 mg PO TID [facility] Last Admin: 06/14/24 20:40 Dose: 100 mg Vancomycin HCl 750 mg/ Sodium (Chloride) 265 mls @ 265 mls/hr IV Q12H [facility] Last Infusion: 06/14/24 12:45 Dose: Infused Insulin Human Lispro (Insulin Lispro 100 Unit/Ml 3 Ml Vial) 0 unit SUBCUT QIDACHS [facility]; Protocol Last Admin: 06/14/24 16:25 Dose: Not Given Ketorolac Tromethamine (Ketorolac Tromethamine 15 Mg/Ml Vial) 15 mg IVPUSH Q6H PRN PRN Reason: Pain, Severe (Pain Scale 7-10) Last Admin: 06/14/24 03:25 Dose: 15 mg Levothyroxine Sodium (Levothyroxine Sodium 100 Mcg Tablet) 100 mcg PO DAILY@0600 [facility] Last Admin: 06/14/24 06:16 Dose: 100 mcg Losartan Potassium (Losartan Potassium 25 Mg Tablet) 25 mg PO DAILY [facility]; Protocol Last Admin: 06/14/24 07:58 Dose: 25 mg Magnesium Hydroxide (Milk Of Magnesia 30 Ml Oral.Susp) 30 ml PO DAILY PRN PRN Reason: Constipation Magnesium Oxide (Magnesium Oxide 400 Mg Tablet) 400 mg PO BIDPC [facility] Last Admin: 06/14/24 17:58 Dose: 400 mg Melatonin (Melatonin 3 Mg Tablet) 6 mg PO BEDTIME PRN PRN Reason: Insomnia Metoprolol Tartrate (Metoprolol Tartrate 50 Mg Tablet) 50 mg PO BEDTIME [facility]; Protocol Last Admin: 06/14/24 21:44 Dose: 50 mg Metoprolol Tartrate (Metoprolol Tartrate 100 Mg Tablet) 100 mg PO DAILY [facility]; Protocol Last Admin: 06/14/24 08:00 Dose: 100 mg Omeprazole (Omeprazole 20 Mg Capsule.Dr) 20 mg PO DAILY@0630 [facility] Last Admin: 06/14/24 06:16 Dose: 20 mg Ondansetron HCl (Ondansetron Hcl 4 Mg/2 Ml Vial) 4 mg IVPUSH Q8H PRN PRN Reason: Nausea and Vomiting Pharmacy Consult (Consult Rx Vancomycin Dosing) 1 each MISCELLANE DAILY PRN PRN Reason: Consult order Senna (Sennosides 8.6 Mg Tablet) 8.6 mg PO DAILY PRN PRN Reason: Constipation Sodium Chloride (0.9 % Sodium Chloride Flush 3 Ml Syringe) 3 ml IVFLUSH QSHIFT [facility] Last Admin: 06/14/24 21:45 Dose: 3 ml Warfarin Sodium (Warfarin Sodium 4 Mg Tablet) 4 mg PO Q2D@1800 [facility] Last Admin: 06/13/24 17:42 Dose: 4 mg Warfarin Sodium (Warfarin Sodium 6 Mg Tablet) 6 mg PO Q2D@1800 [facility] Last Admin: 06/14/24 17:58 Dose: 6 mg Home Medications ?Medication ?Instructions ?Recorded ?Confirmed ?Last Taken ?Type sennosides 8.6 mg tablet 8.6 mg PO DAILY PRN Constipation 08/31/20 06/12/24 1 Day Ago History (Vegetable Laxative) ~06/08/24 aspirin 81 mg capsule 81 mg PO DAILY 06/09/24 06/12/24 06/11/24 09:00 History metformin 500 mg tablet 1,000 mg PO BEDTIME 06/10/24 06/12/24 06/08/24 History metformin 500 mg tablet 500 mg PO DAILY 06/10/24 06/12/24 06/11/24 09:00 History warfarin 4 mg tablet 4 mg PO Q2D@1800 06/10/24 06/12/24 06/07/24 History warfarin 4 mg tablet 6 mg PO Q2D@1800 06/10/24 06/12/24 06/06/24 History acetaminophen 500 mg tablet 500 mg PO Q6H PRN Pain 06/12/24 06/12/24 Unknown History gabapentin 100 mg capsule 100 mg PO TID 06/12/24 06/12/24 06/11/24 09:00 History levothyroxine 100 mcg tablet 100 mcg PO DAILY@0600 06/12/24 06/12/24 06/11/24 09:00 History (Euthyrox) metoprolol tartrate 50 mg tablet 50 mg PO BEDTIME 06/12/24 06/12/24 Unknown History metoprolol tartrate 50 mg tablet 100 mg PO DAILY 06/12/24 06/12/24 06/11/24 09:00 History Physical Exam 2 Vital Signs: Vital Signs: Last Vital Signs Temp 98.6 F 06/14/24 20:00 Pulse 81 06/14/24 21:44 Resp 18 06/14/24 20:00 BP 200/70 H 06/14/24 21:44 Pulse Ox 93 06/14/24 20:00 O2 Del Method Room Air 06/14/24 20:00 BMI result Body Mass Index 34.5 Back/Spine/Pelvis: Other: lower back discomfort Results Labs 06/14/24 06:07 06/14/24 06:07 Labs: Short CBC 06/14/24 Range/Units 06:07 WBC 3.3 L (4.8-10.8) X10*3/uL Hgb 9.0 L (12.0-16.0) g/dl Hct 28.1 L (37.0-47.0) % Plt Count 266 (160-400) X10*3/uL BMP 06/14/24 06:07 Sodium 143 Potassium 3.8 Chloride 108 Carbon Dioxide 26 BUN 8 L Creatinine 0.53 Calcium 8.1 L Microbiology Microbiology Results: Microbiology 06/12/24 10:57 Blood - Venous Blood Culture - Preliminary No growth after 48 hours. 06/12/24 10:57 Blood - Venous Blood Culture - Final Bacillus species Assessment and Plan (1) Bacteremia: Status: Acute (2) Chronic anticoagulation: Status: Acute (3) UTI (urinary tract infection): Status: Acute Plan She has UTI likely cause fever. Blood cultures seem contamination. Will stop Vancomycin. Continue Ceftriaxone and then change to po cephalosporin for total 14 days.
[2024-06-15 00:03] VITALS: BP 190/72
[2024-06-15 00:38] VITALS: BP 190/72
[2024-06-15] MEDS: hydrALAZINE HCl 20 MG/ML VIAL IVPUSH (00:38)
--- NOTE | 2024-06-15 01:57 | PC.NURSE ---
no restraint used at all, non-medical restraint documented on accident, but fixed
[2024-06-15] MEDS: Acetaminophen 325 MG TABLET 650 MG PO ×2 (02:40→08:51)
[2024-06-15 03:38] VITALS: BP 140/40; PULSE 73; RESP 14; TEMP 36.1; O2SAT 93
[2024-06-15 06:11] LABS: INTERNATIONAL NORM RATIO 2.9 (0.9-1.1); Prothrombin Time 33.9 SEC (10.9-12.4)
[2024-06-15] MEDS: Omeprazole 20 MG CAPSULE.DR PO (06:15)
[2024-06-15] MEDS: Levothyroxine Sodium 100 MCG TABLET PO (06:15)
[2024-06-15 06:25] LABS: Creatinine Clr Calc Pharmacy 67.4; Estimated Glomerular Filt Rate > 60
[2024-06-15 07:17] LABS: Glucose, Whole Blood 142 mg/dL (60-115)
[2024-06-15 07:37] VITALS: BP 177/74; PULSE 74; RESP 17; TEMP 36.9; O2SAT 93
[2024-06-15] MEDS: Metoprolol Tartrate 100 MG TABLET PO (08:40)
[2024-06-15] MEDS: amLODIPine Besylate 5 MG TABLET PO (08:40)
[2024-06-15] MEDS: Magnesium Oxide 400 MG TABLET PO (08:40)
[2024-06-15] MEDS: Aspirin Enteric Coated 81 MG TABLET.DR PO (08:41)
[2024-06-15] MEDS: Losartan Potassium 25 MG TABLET PO (08:41)
[2024-06-15] MEDS: 0.9 % Sodium Chloride Flush 3 ML SYRINGE IVFLUSH (08:41)
[2024-06-15] MEDS: Gabapentin 100 MG CAPSULE PO ×2 (08:41→15:10)
[2024-06-15 10:32] VITALS: BP 153/68; PULSE 70
[2024-06-15 11:17] LABS: Glucose, Whole Blood 167 mg/dL (60-115)
[2024-06-15] MEDS: Insulin Lispro 100 UNIT/ML 3 ML VIAL SUBCUT (11:39)
[2024-06-15] MEDS: cefTRIAXone sodium 1 GM VIAL IVPUSH (11:39)
--- NOTE | 2024-06-15 12:33 | PM.DS ---
DS: Providers Provider Date of Service: 06/15/24 Date of admission: 06/12/24 13:14 Date of discharge: 06/15/24 Primary care physician: Rissa Bowling MD Consults: 06/14/24 08:01 Consult to Infectious Diseases Routine Consulting Provider: [facility] Reason for consultation: Positive blood cultures for CoaG Neg Staph 06/15/24 03:38 Consult to Wound Care Routine Reason for consultation: blanchable redness to left heel DS: Diagnosis Discharge Diagnosis (1) Chronic anticoagulation: Status: Acute (2) UTI (urinary tract infection): Status: Acute (3) Uncontrolled hypertension: Status: Acute (4) Hypomagnesemia: Status: Acute (5) Blood bacterial culture positive: Status: Acute (6) Elevated lactic acid level: Status: Acute DS: Summary Hospital Course Hospital Course: Admission note HPI Pt is an 88-year-old female with a PMH significant for?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 Pt reports she has been feeling weaker than normal for the past 2 weeks after she underwent dental procedure for extraction of her last remaining 8 teeth from her lower jaw. Reports has been having ongoing pain that has made eating difficult. Pt initially presented to the ED 1 week ago on 06/01 due to weakness and had essentially negative workup. Was treated with IVF and analgesics and discharged home. Pt again presented to the ED yesterday after fall at home where she collapsed in the bathroom and experienced resulting lower back pain. No LOC. Denies head strike. Denies lightheadedness or dizziness. Reports felt weak and her legs ?just gave out?. Yesterday pt had a low-grade temp of 100.6 degrees with again negative workup. Pt initially treated empirically with ceftriaxone and blood cultures were sent out. Was initially a CM pt but did not qualify for STR and was sent home without any new medications. Pt reports pain in her mouth has improved, but still does not feel like eating anything. Has been experiencing intermittent headache and ear pain, though nothing at the moment. Denies shortness or breath, difficulty breathing, or cough. No polyuria or dysuria. Denies nausea, vomiting, abdominal pain. No diarrhea. Denies chest pain/pressure, palpitations. Of note, pt reports taking a 7 day course of amoxicillin 3-4 weeks ago which ended a few days prior to her dental surgery. Antibiotics were prescribed by her PCP due to dental pain and concern for possible dental infection. In the ED pt was febrile up to 101.9 and hypertensive as high as 174/72. Labs were significant for chronic but stable leukopenia of 3.7 and normocytic anemia of 10.0/31.5. INR subtherapeutic at 1.7. Lactic acid 2.2 with repeat 1.1. Magnesium 1.3. Other electrolytes WNL. Renal function baseline. Hepatic function baseline. Troponin 4.0. UA negative for UTI. Tested negative for flu, COVID, RSV. CXR showed no acute findings. Sacral and coccyx x-ray negative for acute findings. EKG demonstrated sinus rhythm with first-degree AV block and occasional PVCs, but no evidence of significant ischemia. Pt was treated in the ED with acetaminophen, IVF, Mag sulfate, ceftriaxone, and vancomycin. Pt is admitted to the hospital for treatment and further evaluation of acute bacteremia possibly secondary to dental infection. Hospital course # Positive blood cultures The patient was called back to ED for positive blood cultures. 2/2 blood cultures were positive for Gram Positive cocci but finalized as Staph Epidermis and 1 set of repeated cultures growing Bacilus. evaluated by ID specialist who thinks they all were contaminent. CXR, CT of abd/pelvis negative but she has evidence of recent UTI that we treated with IV Ceftriaxone. She was empirically treat with vancomycin, started 06/12/2024 until cultures finalized then Discontinued based on ID recommendations. # Acute Hypomagnesmia was also noted with low Mg 1.5 requiring IV and PO replacement. she will be discharged on PO Magnesium supplement. # Acute lactic acidosis likely related to Metformin use. resolved with IV fluids. # Uncontrolled hypertension noted and requiried increasing doses of Losartan and Amlodipine. To be monitored as outpatient and followed by PCP for further adjustment as needed. # For Hx of recurrent DVT/PE will Continue warfarin on discharge. Discharge plan Continue Ceftin for urine infection Start Amlodipine and Losartan Magnesium supplement Omeprazole daily Repeat blood test next week Time Attestation Discharge Coordination Time (in mins): 41 Quality: Safe Use of Opioids Does Pt have an Active Cancer Diagnosis on the Problem List?: No Quality: Stroke Does the patient have a stroke diagnosis?: No Physical Exam Vital Signs: Vital Signs: Last Vital Signs Temp 98.4 F 06/15/24 07:37 Pulse 70 06/15/24 10:32 Resp 17 06/15/24 07:37 BP 153/68 H 06/15/24 10:32 Pulse Ox 93 06/15/24 07:37 O2 Del Method Room Air 06/15/24 07:37 BMI result Body Mass Index 34.5 Const: Other: Constitutional : interactive, not in distress Cardiovascular : no JVP, no lower extremity edema Respiratory : bilateral chest movement, not in resp distress Gastrointestinal: soft, lax, Non tender Skin : Warm, Dry Neurological : Alert & oriented , No focal deficit DS: Data Data Completed and Pending Labs on day of discharge: Laboratory Results - last 24 hr 06/14/24 06/14/24 06/15/24 16:13 21:32 05:03 Hold Purple Top SEE NOTE PT 33.9 H INR 2.9 H Creatinine 0.53 Estim Creat Clear Calc 67.4 Estimated GFR > 60 POC Glucose 109 153 H 06/15/24 06/15/24 07:10 11:12 Hold Purple Top PT INR Creatinine Estim Creat Clear Calc Estimated GFR POC Glucose 142 H 167 H Preliminary micro results at discharge 06/12/24 10:57 Blood Culture - Preliminary Blood - Venous No growth after 48 hours. Discharge Plan Discharge Anticipated Discharge Date/Time: 06/15/24 12:22 Patient Disposition: Xfer SNF Discharge Diagnosis: Urine infection positive blood culture Referrals: [facility] [Outside] - 1 Day (SHORT TERM REHAB) Rissa Bowling MD [Primary Care Provider] - 1 Week Discharge Medications: New amlodipine 5 mg Tablet 5 mg PO DAILY Qty: 30 0RF Protocol: Hold for SBP< HOLD for SBP < : 90 magnesium oxide 400 mg (241.3 mg magnesium) Tablet 400 mg PO DAILY Qty: 90 0RF losartan 25 mg Tablet 25 mg PO BID Qty: 60 0RF Protocol: Hold for SBP< HOLD for SBP < : 90 omeprazole 20 mg Capsule,Delayed Release(Dr/Ec) 20 mg PO DAILY@0630 Qty: 90 0RF cefuroxime axetil 500 mg tablet 500 mg PO BID Qty: 10 0RF Continued glipizide 10 mg tablet 10 mg PO DAILY Qty: 90 3RF acetaminophen 500 mg tablet 500 mg PO Q6H PRN (Reason: Pain) levothyroxine [Euthyrox] 100 mcg tablet 100 mcg PO DAILY@0600 gabapentin 100 mg capsule 100 mg PO TID metoprolol tartrate 50 mg tablet 50 mg PO BEDTIME metoprolol tartrate 50 mg tablet 100 mg PO DAILY Rx Instructions: 2 tablets in am and 1 tablet in pm aspirin 81 mg Capsule 81 mg PO DAILY warfarin 4 mg tablet 4 mg PO Q2D@1800 warfarin 4 mg tablet 6 mg PO Q2D@1800 metformin 500 mg tablet 500 mg PO DAILY metformin 500 mg tablet 1,000 mg PO BEDTIME sennosides [Vegetable Laxative] 8.6 mg tablet 8.6 mg PO DAILY PRN (Reason: Constipation) lovastatin 40 mg tablet 40 mg PO DAILY Qty: 90 3RF gabapentin 600 mg tablet 600 mg PO BEDTIME Qty: 90 3RF Discharge Orders: Discharge Order (Routine); Ordered 06/15/24 Ordered By: Jessie Lopez Diet: Advance to usual diet Activity on Discharge: As tolerated Stand Alone Forms: Patient Portal Discharge page Print Language: Portuguese Other Ambulatory Orders: Basic Metabolic Panel (Routine) Timeframe: 1 Week Facility: [facility] - Location: Laboratory Ordered By: Jessie Lopez Care Plan Goals: Continue Ceftin for urine infection Start Amlodipine and Losartan Magnesium supplement Omeprazole daily Repeat blood test next week Health Concerns: Uncontrolled hypertension Urine infection Plan of Treatment: Antibiotics Amlodipine, Losartan Assessment: as above
--- NOTE | 2024-06-15 12:35 | MHC.CM.PN ---
PT MEDICALLY CLEARED FOR DC TO STR AT [facility], CM CONTACTED PT'S DTR PREETI AT NUMBER ON FILE AND PREETI WILL LET PT'S SON/HCP KNOW AND HE WILL MEET PT AT [facility] TO SIGN HER INARGELIA FOR TRANSPORT AT 3:30PM
[2024-06-15 15:25] VITALS: BP 174/69; PULSE 71; RESP 18; TEMP 36.4; O2SAT 94
--- NOTE | 2024-06-15 15:58 | HO.WOUND ---
Wound Consult: Initial 88yr old?female admitted to [facility] on 06/12/24 - See progress notes and H&P for detailed history.? Wound consult placed for Left heel.? Patient agreeable to assessment and photo documentation.? Left Heel Etiology: Stage 1 PI??Present on Admission Measurements: 1cm x 1cm x 0cm Wound Bed: red nonblanchable tissue Drainage / Odor: None Edges: ?attached Daniella wound: pink intact blanchable tissue ? No Induration, Fluctuance or Warmth noted Pain: tenderness noted Goals of Treatment: ? Off load pressure - foam dressing in place already - recommend continued use and off load with pillows. Recommendations: 1. Turn and Reposition every 2 hours and as needed for patient comfort.? Use pillows or wedges to support off loading positions. 2. Off Load all bony prominences with use of pillows and heel boots if needed.? Apply Preventative foams where needed. ? 3. Monitor for incontinence and moisture control, use barrier creams when needed for prevention and treatment. 4. Provide adequate and supplemental nutrition.? 5. Order low air loss mattress. 6. When applicable maintain blood glucose levels per Providers order. Left heel - Off Load Pressure from heel with pillows. Apply foam dressing to aid in pressure redistribution. Peel back and assess Q shift and change every 5 days and PRN. Re-consult wound care Nurse for wound deterioration or wound changes.
== END 2024-06-15 15:49 | disposition skilled nursing facility (03) | DRG 690 ==
LOC: HO.ED 13:15 → HO.EDOVER 13:15 → HO.S3 16:19
PROVIDERS: Nurse Practitioner Family; Admitting Provider Student in an Organized Health Care Education/Training Program; Emergency Provider Emergency Medicine; PCP Internal Medicine; Visit Provider Student in an Organized Health Care Education/Training Program
DX: N39.0 Urinary tract infection, site not specified (principal); E87.21 Acute metabolic acidosis; I50.32 Chronic diastolic (congestive) heart failure; I11.0 Hypertensive heart disease with heart failure; E03.9 Hypothyroidism, unspecified; E78.5 Hyperlipidemia, unspecified; R79.1 Abnormal coagulation profile; E83.42 Hypomagnesemia; Z20.822 Contact with and (suspected) exposure to COVID-19; Z86.711 Personal history of pulmonary embolism; Z79.01 Long term (current) use of anticoagulants; Z79.82 Long term (current) use of aspirin; Z79.84 Long term (current) use of oral hypoglycemic drugs; Z79.890 Hormone replacement therapy; Z79.899 Other long term (current) drug therapy
CPT/HCPCS: 0241U; 36415; 70450; 71045; 71046; 72220; 74177; 80048; 80076; 80202; 80307; 81001; 81003; 82565; 82947; 83605; 83735; 83880; 84484; 85007; 85027; 85610; 86140; 87040; 87077; 87086; 87088; 87186; 87205; 87633; 93005; 93306; 97162; 97530; 99285; J0131; J0360; J0696; J1885; J3370; J3475; J7120; Q9967

== ENCOUNTER → 2024-06-12 10:41 | Outpatient (BNV) | payer MEDICARE, SELFPAY | PROVIDERS: Admitting Provider Student in an Organized Health Care Education/Training Program; Emergency Provider Emergency Medicine; PCP Internal Medicine; Visit Provider Internal Medicine | DX: I44.0 Atrioventricular block, first degree (principal); I49.3 Ventricular premature depolarization; I25.2 Old myocardial infarction | CPT/HCPCS: 93010 ==

== ENCOUNTER 2024-06-12 13:14 | Outpatient (BNV) | payer MEDICARE, SELFPAY | END 2024-06-14 17:00 | PROVIDERS: Admitting Provider Student in an Organized Health Care Education/Training Program; Emergency Provider Emergency Medicine; PCP Internal Medicine; Visit Provider Internal Medicine | DX: I27.20 Pulmonary hypertension, unspecified (principal); I34.0 Nonrheumatic mitral (valve) insufficiency; I36.1 Nonrheumatic tricuspid (valve) insufficiency; I42.2 Other hypertrophic cardiomyopathy | CPT/HCPCS: 93306 ==

== ENCOUNTER → 2024-06-12 13:14 | Outpatient (BNV) | payer MEDICARE, SELFPAY | PROVIDERS: Admitting Provider Student in an Organized Health Care Education/Training Program; Emergency Provider Emergency Medicine; PCP Internal Medicine; Visit Provider Internal Medicine | DX: R78.81 Bacteremia (principal); Z79.01 Long term (current) use of anticoagulants; N39.0 Urinary tract infection, site not specified | CPT/HCPCS: 99222 ==

== ENCOUNTER → 2024-06-12 13:14 | Outpatient (BNV) | payer MEDICARE, SELFPAY | PROVIDERS: Admitting Provider Student in an Organized Health Care Education/Training Program; Emergency Provider Emergency Medicine; PCP Internal Medicine; Visit Provider Student in an Organized Health Care Education/Training Program | DX: R78.81 Bacteremia (principal); E83.42 Hypomagnesemia; R79.89 Other specified abnormal findings of blood chemistry; Z79.01 Long term (current) use of anticoagulants | CPT/HCPCS: 99223; 99232; 99239 ==

== ENCOUNTER 2024-06-21 16:44 | Emergency (ER) | payer MEDICARE, SELFPAY ==
--- NOTE | ~2024-06-21 | CT_ITS ---
CLINICAL HISTORY: Headaches, fall and CT june 4th, + thinners CT head without contrast Comparison: 06/09/24 Findings: No acute hemorrhage. No extra-axial fluid collection. Unchanged prominence of the ventricles could be due to atrophy of the brain parenchyma or mild hydrocephalus. No mass-effect or herniation. Abdi-white differentiation is maintained. There is patchy hypoattenuation of the periventricular and deep white matter, which is most likely the sequela of mild chronic small vessel ischemic disease and is similar to the prior study. No acute orbital pathology. No acute soft tissue abnormality. No fracture. Mucosal thickening and fluid in the right sphenoid sinus may indicate sinusitis, unchanged. Osseous thickening likely indicates chronicity. The other visualized paranasal sinuses are predominantly clear. The mastoid air cells are clear. Impression: No acute intracranial findings. This document has been electronically signed by: Cheryl Jansen MD on 06/21/2024 18:40:28
[2024-06-21 16:55] VITALS: BP 155/77; PULSE 86; O2SAT 98
[2024-06-21 17:10] VITALS: BP 126/78; PULSE 80; RESP 12; TEMP 37; O2SAT 96; BMI 27.5
--- OUTSIDE RECORDS SUMMARY | 2024-06-21 17:29 | XMS_ITS ---
Author Organization [facility] Mcclusky Address [address] [place] [address] Care Team Providers Care Ceo Name Role Phone Rissa Bowling MD Primary Care Provider Aleshia Mccracken Unavailable [phone] Allergies Allergen (clinical drug ingredient) Drug/Non Drug [...] Ordered Date Performed Result Body Sit e 06597-MVSOKIS NAIL, 6 OR MORE 06/08/2024 N/A 00149-PFGM SKIN LESIONS, OVER 4 06/08/2024 N/A Encounters Encounter Location Date Provider Diagnosis [facility] [address] [place] [address] 06/08/2024 Aleshia Lagunas Type 2 diabetes mellitus with diabetic polyneuropathy E11.42 and Tinea unguium B35.1 Assessments Encounter Date Diagnosis (ICD Code) Assessment Notes Treatment Notes Treatment Clinical Notes Section Notes 06/08/2024 Type 2 diabetes mellitus with diabetic polyneuropathy (ICD-10 - E11.42) 06/08/2024 Tinea unguium (ICD-10 - B35.1) Plan Of Treatment Pending Test Test Name Order Date 64569-YIKGWDY NAIL, 6 OR MORE 06/08/2024 49017-KXEL SKIN LESIONS, OVER 4 06/09/19 25 Next Appt Details Follow Up: 3 Months, Reason: Provider Name:Aleshia cha, 08/10/2024 11:15:00 AM, [address] [place] [address], [phone], Provider Name:Aleshia cha, 10/17/2024 11:00:00 AM, [address] [place] [address], [phone], Procedure Notes * Category Sub-Category Detail Notes [...] use of a nail nipper and/or dremel-type rubber grinder, to a more viable healthy nail [...] to maintain effectiveness in symptomatic relief - 54274 Keratoma Treatment Parring or Cutting o f [...] instrumentation by the physician of record - 51912 Progress Notes * eDlfino FLORES:[birth year] (88 yo F)Acc No.[id number]:06/08/2024 Progress Note Patient:?Sherry FLORES Provider:?Aleshia Lagunas DPM :1935???Age:88 Y???Sex:Female D ate:06/08/2024 Address:[address] [place], [place] [id number] Pcp:Rissa Bowling MD Subjective: * Chief Complaints: [...] * Hospitalization/Major Diagno stic Procedure:?Patient admitted to [facility] for chest pain. 06/2013lumber fusion 08/04-08/09/16rehab [...] yes. ?Exercise: no. ?Marital status: . 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 ???Drug/Alcohol:?AUDIT-C (Standard)?Did you have a drink containing [...] use of a nail nipper and/or dremel-type rubber grinder, to a more viable healthy nail [...] to maintain effectiveness in symptomatic relief - 04150.?Keratoma Treatment:?Parring or Cutting of Benign Hyperkeratotic Lesion(s)?(-57) [...] instrumentation by the physician of record - 93387.? * Procedure Codes:?74323 DEBRI DE NAIL, 6 OR MORE, Modifiers: XS 16761 TRIM SKIN LESIONS, OVER 4, Modifiers: XS * Follow Up:?3 Months * Images: * Sign off status: Completed true * Provider:Lauren Lagunas DPM Date:?0 06/08/2024 Generated for Karen baird/Han/eTlandy on:?06/21/2024 05:28 PM EDT History and Physical Notes * [...]
--- OUTSIDE RECORDS SUMMARY | 2024-06-21 17:29 | XMS_ITS ---
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 Generated for Printi ng/Faxing/eTransmitting on:?06/21/2024 05:28 PM EDT
--- OUTSIDE RECORDS SUMMARY | 2024-06-21 17:29 | XMS_ITS ---
Author Organization [facility] khris AquinoCheyenne Address [address] [place] [address] Care Team Providers Care Director Workers Compensation Name Role Phone Dash PRAKASH, Rissa Primary Care Provider Aleshia Mccracken Unavailable [phone] Theron Eli Unavailable [phone] Allergies Allergen (clinical drug ingredient) Drug/Non Drug [...] 025 Encounters Encounter Location Date Provider Diagnosis [facility] [address] [address] 04/06/2024 Eli Crump Type 2 diabetes mellitus [...] Reason: Provider Name:Aleshiakenyetta cha, 08/10/2024 11:15:00 AM, [address] [place] [address], [phone], Provider Name:Aleshia Zeinab cha, 10/17/2024 11:00:00 AM, [address] [place] [address], [phone], Procedure Notes * Category Sub-Category Detail Notes [...] use of a nail nipper and/or dremel-type chisel grinder, to a more viable healthy nail [...] to maintain effectiveness in symptomatic relief - 59422 Keratoma Treatment Parring or Cutting o f [...] instrumentation by the physician of record - 18460 Progress Notes * LAVERNESherryDOB:[birth year] (88 yo F)Acc No.[id number]:04/06/2024 Progress Note Patient:?Sherry FLORES Provider:?Eli Crump DPM :1935???Age:88 Y???Sex:Female D ate:04/06/2024 Address:[address] [place], [place] [phone] Pcp:Rissa Bowling MD Subjective: * Chief Complaints: [...] * Hospitalization/Major Diagno stic Procedure:?Patient admitted to [facility] for chest pain. 06/2013lumber fusion 08/04-08/09/16rehab [...] yes. ?Exercise: no. ?Marital status: . 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 * Medications:?TakingVoltaren 1 % Gel as directed [...] use of a nail nipper and/or dremel-type chisel grinder, to a more viable healthy nail [...] to maintain effectiveness in symptomatic relief - 61569.?Keratoma Treatment:?Parring or Cutting of Benign Hyperkeratotic Lesion(s)?(-57) [...] instrumentation by the physician of record - 50285.? * Procedure Codes:?01202 DEBRI DE NAIL, 6 OR MORE, Modifiers: XS 05220 TRIM SKIN LESIONS, OVER 4, Modifiers: XS [...] Crump DPM Date:? Generated for Karen baird/Han/Vincenzo on:?06/21/2024 05:28 PM EDT History and Physical [...]
--- OUTSIDE RECORDS SUMMARY | 2024-06-21 17:29 | XMS_ITS ---
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 Care Team Name Role Address Phone Organization Dates Eri Orozco [address] [facility] [id number], [place], [address], [place] (Office): : : [facility] [place] 06/15/2024 - present Naomy Soto [address], [address], [place] (Office): : : Rena[facility]nelly [facility] [place] 06/15/2024 - present Luis Malik Kae [address] [place], [address], [facility] (Office): : Rena[facility]nel[facility] [place] 06/15/2024 - present Kianna Sherwood [address], [address], [facility] (Office): : : [facility] [place] 06/15/2024 - present Goals Section Description Status Target Date At Risk Goal:Chang will not show signs of skin br eakdown x 90 days Active 09/14/2024 At risk Goal: Chang will amie in free of skin tear and/or bruising x 90 days Active 09/14/2024 Chang will achieve acceptable level of pain control, as defined by the patient x 90 days. Active 09/14/2024 Chang will be free of all sig ns and symptoms of hypo/hyperglycemia such as: sweating, trembling, thirst, fatigue, weakness, blurred vision x 90 days. Active 09/14/2024 Chang will consume 50% of all meals q day x 90 da ys. Active 09/14/2024 Chang will have an ongoing di scharge plan that provides for a safe and effective discharge. Active 09/14/2024 Chang will have no falls with injury x 90 days. A ctive 09/14/2024 Chang will have the smallest most effective dose without side effects X 90 days. Active 09/14/2024 Chang will improve current le jono of function in: bathing, grooming/personal hygiene, dressing, eating, bed mobility, transfer, locomotion, toileting) by next review as evidenced by improved ADL scores Active 09/14/2024 Chang will maintain a stabili zed weight of +/-5% 166# during the next 90 days Active 09/14/2024 Chang will not develop GI complications x 90 days . Active 09/14/2024 Chang will not exhibit signs/ symptoms of b leeding x 90 days. Active 09/14/2024 Chang's wishes as expressed i n Advance Directive will be followed Active 09/14/2024 Functional Status Code Name Recorded Time Value Entered By Chair/cho-sr-[id number] transfer 06/21/2024 Substantial/m aximal assistance RDUPREY Eating 06/21/2024 Setup or clean-up assistance RDUPREY Feeding or Eating 06/21/2024 Independent RDUPREY Indicate the type of wheelchair or scooter used 06/21/2024 Independent RDUPREY Indicate the type of wheelchair or scooter used 06/21/2024 Manual wheelchair (physical object) RDUPREY Lower body dressing 06/21/2024 Dependent RDUPREY Lying to sitting on side of bed 06/21/2024 Substantial/maximal assistance RDUPREY Oral hygiene 06/21/2024 Setup or clean-up assistance RDUPREY Personal hygiene 06/21/2024 Partial/moderate assista nce RDUPREY Putting on/taking off footwear 06/21/2024 Dependent RDUPREY Roll left and right 06/21/2024 Substantial/maximal a ssistance RDUPREY Shower/bathe self 06/21/2024 Substantial/maximal ass istance RDUPREY Sit to lying 06/21/2024 Substantial/maximal assistan ce RDUPREY Sit to stand 06/21/2024 Substantial/maximal assistan ce RDUPREY Toilet transfer 06/21/2024 Substantial/maximal cassy tance RDUPREY Toileting hygiene 06/21/2024 Substantial/maximal ass istance RDUPREY Upper body dressing 06/21/2024 Dependent RDUPREY Walk 10 feet 06/21/2024 Not assessed RDUPREY Walk 150 feet 06/21/2024 Independent RDUPREY Walk 50 feet 06/21/2024 Independent RDUPREY Wheel 150 feet 06/21/2024 Not assessed RDUPREY Wheel 50 feet with two turns 06/21/2024 Dependent RDUPREY Immunizations Immunization Status Vaccine Details Vaccine Code CodeSystem Date Notes Pneumovax Dose 1 cancelled pneumococcal polysaccharide vaccine, 23 valent 33 CVX created date: 08/10/2016 consent date: 08/10/2016 TB 1 Step Mantoux (PPD) completed tuberculin skin test; purified protein derivative solution, intradermal lotNumber: [id number] expiry: 03/11/2027 Mfg: tuberacilin purified protein Given 0.1 ml Left Forearm intradermally 96 CVX created date: 06/16/2024 consent date: 06/15/2024 administer ed date: 06/16/2024 Educated by on 06/18/2024 PCV (Prevnar) 13 cancelled pneumococcal conjugate vaccine, 13 valent 133 CVX created date: 08/10/2016 consent date: 08/10/2016 Influenza (vial) completed Influenza, spli t virus, trivalent, injectable, contains preservative 141 CVX created date: 08/10/2016 administer ed date: 12/11/2015 Educated by Brad on 08/10/2016 Medications Section Medication Name Status Code CodeSystem Dose Route Frequency Admin Type Sig Text Start Date End Date Acetaminophen Tablet 325 MG active 172355 RXNORM 2 tablet Oral as needed PRN Give 2 tablet by mouth every 4 hours as needed for Mild Pain More than 3 doses in 48 hours, notify physic nathalia/ad vanced practi ce provid er(DUNCAN ).Do not exceed 3g/day . (stand ing order) 2024 - Acetaminophen Tablet 325 MG active 725171 RXNORM 2 tablet Oral as needed PRN Give 2 tablet by mouth every 6 hours as needed for Temp 100F or above Notify Physic nathalia/Ad vanced Practi ce provid er. Do not exceed 3g/day 2024 - Tuberculin PPD Solution 5 UNIT/0.1ML active 136608 RXNORM 0.1 ml Intrade rmal one time only One Time Only Inject 0.1 ml intrad ermall y one time only for Screen ing for 1 Day as Step 1, if positi ve obtain chest x-ray AND Inject 0.1 ml intrad ermall y one time only for Screen ing for 1 Day Step 2 admini ster 1 week after the readin g of step 1, if positi ve obtain chest x-ray 06/16 559104 RXNORM 0.1 ml Intrade rmal one time only One Time Only Inject 0.1 ml intrad ermall y one time only for Screen ing for 1 Day as Step 1, if positi ve obtain chest x-ray AND Inject 0.1 ml intrad ermall y one time only for Screen ing for 1 Day Step 2 admini ster 1 week after the readin g of step 1, if positi ve obtain chest x-ray 06/30 Milk of Magnesia Suspension 400 MG/5ML active 633102 RXNORM 30 ml Oral as needed PRN Give 30 ml by mouth as needed for Consti pation give at bedtim e if no BM in 3 days 2024 - Saline Laxative Enema active 1 dose Rectal as needed PRN Insert 1 dose rectal ly as needed for Consti pation if no result from Dulcol ax within 2 hours. If no result s from Saline laxati ve enema, call /robin alcantar ce provid er (DUNCAN) for furthe r orders . 2024 - Dulcolax Suppository 10 MG active 873224 RXNORM 1 suppos itory Rectal as needed PRN Insert 1 suppos itory rectal ly as needed for Consti pation if no result from MOM by next shift 2024 - amLODIPine Besylate Oral Tablet 5 MG active 164836 RXNORM 1 tablet Oral one time a day Routine Give 1 tablet by mouth one time a day for HTN SBP < 90 2024 - Omeprazole Capsule Delayed Release 20 MG active 099630 RXNORM 1 capsul e Oral one time a day Routine Give 1 capsul e by mouth one time a day for acid indige stion 2024 - Losartan Potassium Oral Tablet 25 MG aborted 042879 RXNORM 1 tablet Oral one time a day Routine Give 1 tablet by mouth one time a day for HTN Hold for SBP < 90 06/17 glipiZIDE Oral Tablet 10 MG active 125778 RXNORM 1 tablet Oral one time a day Routine Give 1 tablet by mouth one time a day for DM give 30 mins before food 2024 - Magnesium Oxide Tablet 400 MG active 178608 RXNORM 1 tablet Oral one time a day Routine Give 1 tablet by mouth one time a day for supple ment 2024 - Cefuroxime Axetil Oral Tablet 500 MG complete d 936736 RXNORM 1 tablet Oral two times a day Routine Give 1 tablet by mouth two times a day for infect ion for 5 Days 06/20 Gabapentin Capsule 100 MG active 817736 RXNORM 1 capsul e Oral three times a day Routine Give 1 capsul e by mouth three times a day for nerve pain 2024 - metFORMIN HCl Oral Tablet 500 MG active 350595 RXNORM 1 tablet Oral one time a day Routine Give 1 tablet by mouth one time a day for DMN AND Give 2 tablet by mouth one time a day for DM 2024 - 077454 RXNORM 2 tablet Oral one time a day Routine Give 1 tablet by mouth one time a day for DMN AND Give 2 tablet by mouth one time a day for DM 2024 - Levothyroxine Sodium Tablet 100 MCG active 153233 RXNORM 1 tablet Oral one time a day Routine Give 1 tablet by mouth one time a day for low thyroi d hormon e 2024 - Aspirin Oral Capsule 81 MG aborted 655528 RXNORM 1 capsul e Oral one time a day Routine Give 1 capsul e by mouth one time a day for prophy laxis 06/17 Sennosides Oral Tablet 8.6 MG active 713369 RXNORM 1 tablet Oral as needed PRN Give 1 tablet by mouth every 23 hours as needed for consti pation 2024 - Lovastatin Tablet 40 MG active 395010 RXNORM 1 tablet Oral at bedtime Routine Give 1 tablet by mouth at bedtim e for choles terol contro l 2024 - Metoprolol Tartrate Oral Tablet 50 MG active 396395 RXNORM 100 mg Oral one time a day Routine Give 100 mg by mouth one time a day for HTN AND Give 50 mg by mouth one time a day for HTN 2024 - 924395 RXNORM 50 mg Oral one time a day Routine Give 100 mg by mouth one time a day for HTN AND Give 50 mg by mouth one time a day for HTN 2024 - Gabapentin Oral Tablet 600 MG active 083762 RXNORM 1 tablet Oral in the evening Routine Give 1 tablet by mouth in the evenin g for nerve pain 2024 - Warfarin Sodium Tablet 4 MG aborted 699570 RXNORM 1 tablet Oral at bedtime Routine Give 1 tablet by mouth at bedtim e for treati ng/pre ventin g blood clots. Repeat PT/INR on 06/16/24 and call MD with result s. 06/17 Insta-Glucose Gel 77.4 % active 416782 2 RXNORM 1 dose Oral as needed PRN Give 1 dose by mouth as needed for BG less than 70, Pt arousa ble consci ous and able to swallo w Hold all diabet ic medica tions until provid er author izvahid resump tion. Remain with pt. Keep pt.in bed/ch air for safety . Repeat blood glucos e in 15 min. AND Give 1 dose by mouth as needed for BG less than 70, Pt arousa ble consci ous and able to swallo w If repeat blood glucos e is below 70mg/d l and pt is arousa ble, consci ous and able to swallo w. Contin ue to hold all diabet ic medica tions until provid er author sam resump tion. Remain with pt. Keep pt.in bed/ch air for safety . 2024 - 057794 2 RXNORM 1 dose Oral as needed PRN Give 1 dose by mouth as needed for BG less than 70, Pt arousa ble consci ous and able to swallo w Hold all diabet ic medica tions until provid er author sam resump tion. Remain with pt. Keep pt.in bed/ch air for safety . Repeat blood glucos e in 15 min. AND Give 1 dose by mouth as needed for BG less than 70, Pt arousa ble consci ous and able to swallo w If repeat blood glucos e is below 70mg/d l and pt is arousa ble, consci ous and able to swallo w. Contin ue to hold all diabet ic medica tions until provid er author sam resump tion. Remain with pt. Keep pt.in bed/ch air for safety . 2024 - Glucagon Emergency Kit 1 MG active 685775 RXNORM 1 mg Intramu scular as needed PRN Inject 1 mg intram uscula rly as needed for BG less than 70, Not arousa ble consci ous or able to swallo w Hold all diabet ic meds until provid er author micahvahid resump tion, remain with pt.and keep in bed/ch air for safety . Repeat blood glucos e in 15 min AND Inject 1 mg intram uscula rly as needed for BG less than 70, Not arousa ble consci ous or able to swallo w If repeat blood glucos e is below 70mg/d l and pt is NOT arousa ble, consci ous or able to swallo w. Contin ue to hold all diabet ic medica tions until provid er author izvahid resump tion. Remain with pt. Keep pt. in bed/ch air for safety . 2024 - 582256 RXNORM 1 mg Intramu scular as needed PRN Inject 1 mg intram uscula rly as needed for BG less than 70, Not arousa ble consci ous or able to swallo w Hold all diabet ic meds until provid er author sam resump tion, remain with pt.and keep in bed/ch air for safety . Repeat blood glucos e in 15 min AND Inject 1 mg intram uscula rly as needed for BG less than 70, Not arousa ble consci ous or able to swallo w If repeat blood glucos e is below 70mg/d l and pt is NOT arousa ble, consci ous or able to swallo w. Contin ue to hold all diabet ic medica tions until provid er author sam resump tion. Remain with pt. Keep pt. in bed/ch air for safety . 2024 - Nystatin Powder 388049 UNIT/GM complete d 725338 RXNORM n/a n/a Topical every day and evening shift Routine Apply to abd fold/u nder breast topica lly every day and evenin g shift for fungal for 5 Days X 5 days 06/21 Losartan Potassium Oral Tablet 50 MG active 722838 RXNORM 50 mg Oral one time a day Routine Give 50 mg by mouth one time a day for HTN Hold for SBP less than 90 2024 - Warfarin Sodium Oral Tablet 3 MG complete d 234364 RXNORM 3 mg Oral one time a day Routine Give 3 mg by mouth one time a day for blood thinne r for 2 Days 06/20 Aspirin EC Low Dose Oral Tablet Delayed Release 81 MG active 81 mg Oral one time a day Routine Give 81 mg orally one time a day for cardia c health 2024 - Ondansetron HCl Tablet 4 MG active 126456 RXNORM 1 tablet Oral as needed PRN Give 1 tablet by mouth every 6 hours as needed for Nausea and Vomiti ng 2024 - Warfarin Sodium Oral Tablet 2.5 MG active 209940 RXNORM 2.5 mg Oral one time a day Routine Give 2.5 mg by mouth one time a day for blood thinne r for 3 Days 06/23 Phytoplex Z-Guard Paste 57-17 % active 010031 4 RXNORM n/a n/a Topical every day and evening shift Routine Apply to coccyx topica lly every day and evenin g shift for pressu re to coccyx for 14 Days Apply as direct ed. 07/05 Mental Status Section Date Assessment Total Score Description 08/16/2016 BIMS 15 cognitively int act CAM 0 No delirium ind icated PHQ-9 06 mild depression 08/15/2016 BIMS 15 cognitively int act CAM 0 No delirium ind icated PHQ-9 06 mild depression Problems Problem # Description Date of onset Resolved Date Code CodeSystem Concern Status 1 BACTEREMIA 06/15/[address] active 2 ELEVATION OF LEVELS OF LACTIC ACID DEHYDROGENASE [LDH] 06/15/[address] active 3 ESSENTIAL (PRIMARY) HYPERTENSION 06/15/[address] active 4 HYPOMAGNESEMIA 06/15/[address] ac tive 5 HYPOTHYROIDISM, UNSPECIFIED 06/15/[address] active 6 MCC (CURRENT) USE OF ANTICOAGULANTS 06/15/[address] active 7 PERSONAL HISTORY OF OTHER VENOUS THROMBOSIS AND EMBOLISM 06/15/[address] active 8 TYPE 2 DIABETES MELLITUS WITHOUT COMPLICATIONS 06/15/[address] active 9 UNSTEADINESS ON FEET 06/15/[address] active 10 URINARY TRACT INFECTION, SITE NOT SPECIFIED 06/15/[address] active 11 WEAKNESS 06/15/[address] active 12 DIFFICULTY IN WALKING, NOT ELSEWHERE CLASSIFIED 08/09/2016 08/16/[address] completed 13 LUMBAGO WITH SCIATICA, RIGHT SIDE 08/09/2016 08/16/[address] completed 14 OTHER LACK OF COORDINATION 08/09/2016 08/16/[address] completed Reason for Referral No Reasons for Referral Entered Social History Social History Observation Description Start Date End Date Code Code System Current Smoking Status Tobacco smoking consumption unknown 670541622 SNOMED CT Sex Assigned At Female 1935 25944-2 [facility] Gender Identity Vital Signs Code Code System Vitals Name Values and Units Timing Information 63798-8 [facility] Pain Level Value=9.0 06/21/2024 9279-1 [facility] Respiratory Rate Value=18.0 Units=/m in 06/21/2024 8462-4 [facility] Blood Pressure-Diastolic Value=58 Un its=mmHg 06/21/2024 8480-6 [facility] Blood Pressure-Systolic Knhgq=268 Un its=mmHg 06/21/2024 8310-5 [facility] Body Temperature Value=98.1 Units=?? F 06/21/2024 8867-4 [facility] Heart rate Value=75.0 Units=/min 03850-7 [facility] O2 % BldC Oximetry Value=95.0 Units= % 06/21/2024 2339-0 [facility] Blood Sugar Ggjoy=892.0 Units=mg/dL 06/18/2024 8302-2 [facility] Height Value=60.0 Units=Inches 06/16/2024 57019-5 [facility] Weight Aljjw=283.2 Units=Lbs 08/2024
--- OUTSIDE RECORDS SUMMARY | 2024-06-21 17:29 | XMS_ITS | Encounter Summary ---
Author Organization [facility] Address [address] [place] [address] Care Team Providers Care Bin Packer Name Role Phone Naomy Soto MD Primary Care Provider [phone] Encounter Details Date Type Department Care Team (Late st Contact Info) Description 06/17/2024 Lab Requisition [facility] - Main Lab [address] [facility] [place] [address] Cresencio Isaacs [address] [facility] [phone] [place] [address] halfway (current) use of anticoagulants Social History Tobacco Use Types Packs/Day Years Used Date Smoking Tobacco: Never Smokeless Tobacco: Never Alcohol Use Standard Drinks/Week Comments No 0 (1 standard drink = 0.6 oz pur e alcohol) Comments Unknown Sex and Gender Information Value Date Recorded Sex Assigned at Not on file Legal Sex Female 7:23 AM EST Gender Identity Not on file Sexual Orientation Not on file documented as of this encounter Plan of Treatment Not on file documented as of this encounter Procedures Procedure Name Priority Date/Time Associated Diagnosis Comments PROTHROMBIN TIME WITH INR Routine 06/17/2024 7:21 AM EDT halfway (current) use of anticoagulants documented in this encounter Results * (ABNORMAL) Prothrombin time with INR (06/17/2024 7:21 AM EDT) Protime 58.9(H) 10.6 - 13.9 sec LAB COAGULATION METHOD 06/17/2024 9:11 AM EDT [facility] INR 4.8 LAB COAGULATION METHOD 06/17/2024 9:11 AM T [facility] Blood Venous blood specimen / Unknown Venipuncture / Unknown 06/17/2024 7:21 AM EDT 06/17/2024 8:18 AM EDT us Cresencio Isaacs LAB BLOOD ORDERABLES Final Resul t [facility] [address] [place] [address], documented in this encounter Visit Diagnoses Diagnosis halfway (current) use of anticoagulants Long-term (current) use of anticoagulants documented in this encounter Care Teams Bin Packer Relationship Specialty Start Date End Date Naomy Soto MD [address] [place] [id number] PCP - General Hospitalist Medicine 06/16/24 documented as of this encounter
--- OUTSIDE RECORDS SUMMARY | 2024-06-21 17:29 | XMS_ITS | Clinical Summary ---
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 06/16/2024 Lab Requisition [facility] [address] [place] [phone] Naomy Soto MD Urinary tract infection, site not specified; Hypomagnesemia; Coagulation defect, unspecified ([facility] V24) from Last 3 Months Surgical History Surgery Date Site/Laterality Comments CORONARY ARTERY BYPASS GRAFT 2005 PROCEDURE: HISTORICAL CABG; COMMENT: triple bypass Medical History Medical History Date Comments Heart disease DX:Heart disease Diabetes (CMS/HCC V24, CMS/HCC V28) DX:Diabetes ([facility]) Hypertension DX:Hypertension Thyroid disease DX:Thyroid disea se [...] - 1-dose 75+ series) 2009 COVID-19 Vaccine (1 - 2023-2 5 season) 2023 Depression Screening 06/16/2024 Falls Risk Assessment 06/16/2024 Medicare Annual Wellness Visit 06/16/2024 Osteoporosis Screening (Bone Density Screening) 06/16/2024 Social Influencers of Health Screening 06/16/2024 Influenza Vaccine (Season Ended) 2024 HIB Vaccines [...] on patient's age to complete this topic Procedures Procedure Name Priority Date/Time Associated Diagnosis Comments PROTHROMBIN TIME WITH INR Routine 06/20/2024 7:02 AM EDT 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 Chronic embolism and thrombosis of unspecified vein PROTHROMBIN TIME WITH INR Routine 06/17/2024 7:21 AM EDT 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 COMPREHENSIVE METABOLIC PANEL Routine 06/16/2024 5:27 AM EDT Urinary tract infection, site not specified Hypomagnesemia Coagulation defect, unspecified (CMS/[facility] V24) PROTHROMBIN TIME WITH INR Routine 06/16/2024 5:27 AM EDT Urinary tract infection, site not specified Hypomagnesemia Coagulation defect, unspecified ([facility] V24) COMPLETE BLOOD COUNT Routine 06/16/2024 5:27 AM EDT Urinary tract infection, site not specified Hypomagnesemia Coagulation defect, unspecified ([facility] V24) from Last 3 Months Results * (ABNORMAL) Prothrombin time with INR (06/20/2024 7:02 AM EDT) Only the most recent of3 resultswithin the time period is included. Protime 39.0(H) 10.6 - 13.9 sec LAB COAGULATION METHOD 06/20/2024 1:29 PM EDT [facility] INR 3.2 LAB COAGULATION METHOD 06/20/2024 1:29 PM EDT [facility] Blood Venous blood specimen / Unknown Venipuncture / Unknown 06/20/2024 7:02 AM EDT 06/20/2024 12:19 PM EDT us Naomy Soto MD LAB BLOOD ORDERABLES Final Resul t [facility] [address] [place] [address], * (ABNORMAL) Complete blood count (06/16/2024 5:27 AM EDT) WBC 3.0(L) 4.8 - 10.8 K/mcL LAB HEMETOLOGY METHOD 06/16/2024 8:20 AM EDT [facility] RBC 3.10(L) 3.80 - 4.80 M/mcL LAB HEMETOLOGY METHOD 06/16/2024 8:20 AM EDT [facility] Hemoglobin 8.3(L) 11.5 - 16.0 g/dL LAB HEMETOLOGY METHOD 06/16/2024 8:20 AM EDT [facility] Hematocrit 27.8(L) 35.0 - 47.0 % LAB HEMETOLOGY METHOD 06/16/2024 8:20 AM EDT [facility] MCV 90.3 79.0 - 98.0 FL LAB HEMETOLOGY METHOD 06/16/2024 8:20 AM EDT [facility] MCH 26.9(L) 27.0 - 32.0 pcg LAB HEMETOLOGY METHOD 06/16/2024 8:20 AM EDT [facility] MCHC 29.9(L) 32.0 - 37.0 g/dL LAB HEMETOLOGY METHOD 06/16/2024 8:20 AM EDT [facility] RDW 15.2(H) 11.0 - 15.0 % LAB HEMETOLOGY METHOD 06/16/2024 8:20 AM EDT [facility] Platelets 277 130 - 400 K/mcL LAB HEMETOLOGY METHOD 06/16/2024 8:20 AM EDT [facility] MPV 10.9 7.0 - 11.0 FL LAB HEMETOLOGY METHOD 06/16/2024 8:20 AM EDT [facility] NRBC 0.0 <1.0 % LAB HEMETOLOGY METHOD 06/16/2024 8:20 AM EDT [facility] NRBC Absolute 0.00 <0.10 K/mcL LAB HEMETOLOGY METHOD 06/16/2024 8:20 AM EDT [facility] Blood Venous blood specimen / Unknown Venipuncture / Unknown 06/16/2024 5:27 AM EDT 06/16/2024 6:58 AM EDT us Naomy Soto MD LAB BLOOD ORDERABLES Final Resul t [facility] [address] [place] [address], * (ABNORMAL) Comprehensive metabolic panel (06/16/2024 5:27 AM EDT) Sodium 139 133 - 145 mmol/L LAB CHEMISTRY METHOD 06/16/2024 9:14 AM [facility] Potassium 3.8 3.5 - 5.5 mmol/L LAB CHEMISTRY METHOD 06/16/2024 9:14 AM [facility] Chloride 108 96 - 110 mmol/L LAB CHEMISTRY METHOD 06/16/2024 9:14 AM [facility] CO2 26 21 - 32 mmol/L LAB CHEMISTRY METHOD 06/16/2024 9:14 AM [facility] Anion Gap 5 3 - 11 LAB CHEMISTRY METHOD 06/16/2024 9:14 AM [facility] Glucose 164(H) 70 - 100 mg/dL LAB CHEMISTRY METHOD 06/16/2024 9:14 AM [facility] BUN 11 5 - 25 mg/dL LAB CHEMISTRY METHOD 06/16/2024 9:14 AM [facility] Creatinine 0.47(L) 0.50 - 1.10 mg/dL LAB CHEMISTRY METHOD 06/16/2024 9:14 AM [facility] eGFR 91 >=60 mL/min/1. 73m2 LAB CHEMISTRY METHOD 06/16/2024 9:14 AM [facility] Comment:Calculation based on the Chronic Kidney Disease Epidemiology Collaboration (CKD-EPI) equation refit without adjustment for race. BUN/Creatinine Ratio 23.4 LAB CHEMISTRY METHOD 06/16/2024 9:14 AM [facility] Calcium 8.1(L) 8.5 - 10.5 mg/dL LAB CHEMISTRY METHOD 06/16/2024 9:14 AM [facility] AST (SGOT) 8(L) 10 - 42 unit/L LAB CHEMISTRY METHOD 06/16/2024 9:14 AM EDT [facility] ALT (SGPT) 9(L) 10 - 60 unit/L LAB CHEMISTRY METHOD 06/16/2024 9:14 AM EDT [facility] Alkaline Phosphatase 55 42 - 121 unit/L LAB CHEMISTRY METHOD 06/16/2024 9:14 AM EDT [facility] Total Protein 5.3(L) 6.0 - 8.0 g/dL LAB CHEMISTRY METHOD 06/16/2024 9:14 AM EDT [facility] Albumin 2.0(L) 3.2 - 5.0 g/dL LAB CHEMISTRY METHOD 06/16/2024 9:14 AM EDT [facility] Total Bilirubin 0.5 0.0 - 1.4 mg/dL LAB CHEMISTRY METHOD 06/16/2024 9:14 AM EDT [facility] Blood Venous blood specimen / Unknown Venipuncture / Unknown 06/16/2024 5:27 AM EDT 06/16/2024 6:58 AM EDT us Naomy Soto MD LAB BLOOD ORDERABLES Final Resul t [facility] [address] [place] [address], from Last 3 Months Insurance MEDICARE Care Teams Waste Machine Operator Relationship Specialty Start Date End Date Naomy Soto MD [address] [place] [phone] PCP - General Hospitalist Medicine 06/16/24
--- OUTSIDE RECORDS SUMMARY | 2024-06-21 17:29 | XMS_ITS | Encounter Summary ---
Author Organization [facility] Address [address] [place] [address] Care Team Providers Care Photogravure Press Operator Name Role Phone Naomy Soto MD Primary Care Provider [phone] Encounter Details Date Type Department Care Team (Late st Contact Info) Description 06/16/[address] [facility] Lab [address] [facility] [place] [phone] Naomy Soto MD [address] [place] [address] Urinary tract infection, site not specified; Hypomagnesemia; Coagulation defect, unspecified (CMS/HCC V24) Social History Tobacco Use Types Packs/Day Years [...] Diagnosis Comments PROTHROMBIN TIME WITH INR Routine 06/16/2024 5:27 AM EDT Urinary tract infection, site not specified Hypomagnesemia Coagulation defect, unspecified (CMS/HCC V24) COMPLETE BLOOD COUNT Routine 06/16/2024 5:27 AM EDT Urinary tract infection, site not specified Hypomagnesemia Coagulation defect, unspecified (CMS/HCC V24) COMPREHENSIVE METABOLIC PANEL Routine 06/16/2024 5:27 AM EDT Urinary tract infection, site not specified Hypomagnesemia Coagulation defect, unspecified (CMS/HCC V24) documented in this encounter Results * (ABNORMAL) Comprehensive metabolic panel (06/16/2024 5:27 AM EDT) Sodium 139 133 - 145 mmol/L LAB CHEMISTRY METHOD 06/16/2024 9:14 AM [facility] Potassium 3.8 3.5 - 5.5 mmol/L LAB CHEMISTRY METHOD 06/16/2024 9:14 AM [facility] Chloride 108 96 - 110 mmol/L LAB CHEMISTRY METHOD 06/16/2024 9:14 AM [facility] CO2 26 21 - 32 mmol/L LAB CHEMISTRY METHOD 06/16/2024 9:14 AM [facility] Anion Gap 5 3 - 11 LAB CHEMISTRY METHOD 06/16/2024 9:14 AM [facility] Glucose 164(H) 70 - 100 mg/dL LAB CHEMISTRY METHOD 06/16/2024 9:14 AM [facility] BUN 11 5 - 25 mg/dL LAB CHEMISTRY METHOD 06/16/2024 9:14 AM [facility] Creatinine 0.47(L) 0.50 - 1.10 mg/dL LAB CHEMISTRY METHOD 06/16/2024 9:14 AM [facility] eGFR 91 >=60 mL/min/1. 73m2 LAB CHEMISTRY METHOD 06/16/2024 9:14 AM [facility] Comment:Calculation based on the Chronic Kidney Disease Epidemiology Collaboration (CKD-EPI) equation refit without adjustment for race. BUN/Creatinine Ratio 23.4 LAB CHEMISTRY METHOD 06/16/2024 9:14 AM [facility] Calcium 8.1(L) 8.5 - 10.5 mg/dL LAB CHEMISTRY METHOD 06/16/2024 9:14 AM [facility] AST (SGOT) 8(L) 10 - 42 unit/L LAB CHEMISTRY METHOD 06/16/2024 9:14 AM EDT [facility] ALT (SGPT) 9(L) 10 - 60 unit/L LAB CHEMISTRY METHOD 06/16/2024 9:14 AM EDT [facility] Alkaline Phosphatase 55 42 - 121 unit/L LAB CHEMISTRY METHOD 06/16/2024 9:14 AM EDT [facility] Total Protein 5.3(L) 6.0 - 8.0 g/dL LAB CHEMISTRY METHOD 06/16/2024 9:14 AM EDT [facility] Albumin 2.0(L) 3.2 - 5.0 g/dL LAB CHEMISTRY METHOD 06/16/2024 9:14 AM EDT [facility] Total Bilirubin 0.5 0.0 - 1.4 mg/dL LAB CHEMISTRY METHOD 06/16/2024 9:14 AM EDT [facility] Blood Venous blood specimen / Unknown Venipuncture / Unknown 06/16/2024 5:27 AM EDT 06/16/2024 6:58 AM EDT us Naomy Soto MD LAB BLOOD ORDERABLES Final Resul t [facility] [address] [place] [address], [place] [phone] * (ABNORMAL) Prothrombin time with INR (06/16/2024 5:27 AM EDT) Protime 45.3(H) 10.6 - 13.9 sec LAB COAGULATION METHOD 06/16/2024 8:23 AM EDT [facility] INR 3.7 LAB COAGULATION METHOD 06/16/2024 8:23 AM EDT [facility] Blood Venous blood specimen / Unknown Venipuncture / Unknown 06/16/2024 5:27 AM EDT 06/16/2024 6:58 AM EDT us Naomy Soto MD LAB BLOOD ORDERABLES Final Resul t [facility] [address] [place] [address], * (ABNORMAL) Complete blood count (06/16/2024 5:27 AM EDT) WBC 3.0(L) 4.8 - 10.8 K/mcL LAB HEMETOLOGY METHOD 06/16/2024 8:20 AM EDT [facility] RBC 3.10(L) 3.80 - 4.80 M/mcL LAB HEMETOLOGY METHOD 06/16/2024 8:20 AM EDT [facility] Hemoglobin 8.3(L) 11.5 - 16.0 g/dL LAB HEMETOLOGY METHOD 06/16/2024 8:20 AM EDT [facility] Hematocrit 27.8(L) 35.0 - 47.0 % LAB HEMETOLOGY METHOD 06/16/2024 8:20 AM EDT [facility] MCV 90.3 79.0 - 98.0 FL LAB HEMETOLOGY METHOD 06/16/2024 8:20 AM EDT [facility] MCH 26.9(L) 27.0 - 32.0 pcg LAB HEMETOLOGY METHOD 06/16/2024 8:20 AM EDT [facility] MCHC 29.9(L) 32.0 - 37.0 g/dL LAB HEMETOLOGY METHOD 06/16/2024 8:20 AM EDT [facility] RDW 15.2(H) 11.0 - 15.0 % LAB HEMETOLOGY METHOD 06/16/2024 8:20 AM EDT [facility] Platelets 277 130 - 400 K/mcL LAB HEMETOLOGY METHOD 06/16/2024 8:20 AM EDT [facility] MPV 10.9 7.0 - 11.0 FL LAB HEMETOLOGY METHOD 06/16/2024 8:20 AM EDT [facility] NRBC 0.0 <1.0 % LAB HEMETOLOGY METHOD 06/16/2024 8:20 AM EDT [facility] NRBC Absolute 0.00 <0.10 K/mcL LAB HEMETOLOGY METHOD 06/16/2024 8:20 AM EDT [facility] Blood Venous blood specimen / Unknown Venipuncture / Unknown 06/16/2024 5:27 AM EDT 06/16/2024 6:58 AM EDT us Naomy Soto MD LAB BLOOD ORDERABLES Final Resul t [facility] [address] [place] [address], documented in this encounter Visit Diagnoses Diagnosis Urinary tract infection, site not specified Hypomagnesemia Disorders of magnesium metabolism Coagulation defect, unspecified (CMS/[facility] V24) documented in this encounter Care Teams Photogravure Press Operator Relationship Specialty Start Date End Date Naomy Soto MD [address] [place] [phone] PCP - General Hospitalist Medicine 06/16/24 documented as of this encounter
--- OUTSIDE RECORDS SUMMARY | 2024-06-21 17:29 | XMS_ITS | Encounter Summary ---
Author Organization [facility] Address [address] [place] [address] Care Team Providers Care Supervisor Lime Name Role Phone Naomy Soto MD Primary Care Provider [phone] Encounter Details Date Type Department Care Team (Late st Contact Info) Description 06/20/[address] [facility] Lab [address] [place] [address] Naomy Soto MD [address] [place] [address] superintendent terminal (current) use of anticoagulants; Chronic embolism and thrombosis of unspecified vein Social History Tobacco Use Types Packs/Day Years [...] WITH INR Routine 06/20/2024 7:02 AM EDT senior living (current) use of anticoagulants Chronic embolism and thrombosis of unspecified vein documented in this encounter Results * (ABNORMAL) Prothrombin time with INR (06/20/2024 7:02 AM EDT) Protime 39.0(H) 10.6 - 13.9 sec LAB COAGULATION METHOD 06/20/2024 1:29 PM EDT [facility] INR 3.2 LAB COAGULATION METHOD 06/20/2024 1:29 PM EDT [facility] Blood Venous blood specimen / Unknown Venipuncture / Unknown 06/20/2024 7:02 AM EDT 06/20/2024 12:19 PM EDT Naomy Soto MD LAB BLOOD ORDERABLES Final Resul t [facility] [address] [place] [address], documented in this encounter Visit Diagnoses Diagnosis superintendent terminal (current) use of anticoagulants Long-term (current) use of anticoagulants Chronic embolism and thrombosis of unspecified vein documented in this encounter Care Teams Supervisor Lime Relationship Specialty Start Date End Date Naomy Soto MD [address] [place] [address] PCP - General Hospitalist Medicine 06/16/24 documented as of this encounter
[2024-06-21 17:48] LABS: INTERNATIONAL NORM RATIO 2.8 (0.9-1.1); Prothrombin Time 32.1 SEC (10.9-12.4)
[2024-06-21 17:50] LABS: Anion Gap 17 (12-20); Blood Urea Nitrogen 22 mg/dL (9-16); Calcium 9.3 mg/dL (8.4-10.2); Carbon Dioxide 27 mmol/L (22-29); Chloride 101 mmol/L (96-108); Creatinine Clr Calc Pharmacy 58.7; Estimated Glomerular Filt Rate > 60; Glucose Fasting 119 mg/dL (60-99); Potassium 4.8 mmol/L (3.3-5.1); Sodium 140 mmol/L (135-145)
--- NOTE | 2024-06-21 18:13 | ED_ITS ---
HPI - Headache General Chief Complaint: Headache Stated Complaint: headaches on and off for months Time Seen by Provider: 06/21/24 17:42 Source: patient and EMS Mode of arrival: EMS Limitations: no limitations History of Present Illness ED Provider: Dr. Adriane Morel HPI Narrative: Patient comes to the emergency room complaining of headaches. Patient states that for several months, she has had intermittent headaches. Patient describes that it feels that somebody is pulling her hair on top of her head. Sometimes in the back over the head. Patient was recently seen here a bit over a week ago for a fall. According to the patient, the headaches have been intermittent long before the fall, no change in intensity or frequency after the fall. Patient denies any numbness tingling, denies double vision, denies dizziness Related Data Home Medications ?Medication ?Instructions ?Recorded ?Confirmed sennosides 8.6 mg tablet 8.6 mg PO DAILY PRN Constipation 08/31/20 06/12/24 (Vegetable Laxative) aspirin 81 mg capsule 81 mg PO DAILY 06/09/24 06/12/24 metformin 500 mg tablet 1,000 mg PO BEDTIME 06/10/24 06/12/24 metformin 500 mg tablet 500 mg PO DAILY 06/10/24 06/12/24 warfarin 4 mg tablet 4 mg PO Q2D@1800 06/10/24 06/12/24 warfarin 4 mg tablet 6 mg PO Q2D@1800 06/10/24 06/12/24 acetaminophen 500 mg tablet 500 mg PO Q6H PRN Pain 06/12/24 06/12/24 gabapentin 100 mg capsule 100 mg PO TID 06/12/24 06/12/24 metoprolol tartrate 50 mg tablet 50 mg PO BEDTIME 06/12/24 06/12/24 metoprolol tartrate 50 mg tablet 100 mg PO DAILY 06/12/24 06/12/24 Previous Rx's ?Medication ?Instructions ?Recorded gabapentin 600 mg tablet 600 mg PO BEDTIME #90 tabs 01/26/24 lovastatin 40 mg tablet 40 mg PO DAILY #90 tabs 01/26/24 glipizide 10 mg tablet 10 mg PO DAILY #90 tabs 04/04/24 amlodipine 5 mg tablet 5 mg PO DAILY #30 tabs 06/15/24 cefuroxime axetil 500 mg tablet 500 mg PO BID #10 tabs 06/15/24 levothyroxine 100 mcg tablet 100 mcg PO DAILY #90 tabs 06/15/24 losartan 25 mg tablet 25 mg PO BID #60 tabs 06/15/24 magnesium oxide 400 mg (241.3 mg 400 mg PO DAILY #90 tabs 06/15/24 magnesium) tablet omeprazole 20 mg capsule,delayed 20 mg PO DAILY@0630 #90 caps 06/15/24 release prednisone 10 mg tablet See Rx Instructions .Route 06/21/24 .COMPLEX #126 tabs Allergies Allergy/AdvReac Type Severity Reaction Status Date / Time duloxetine Allergy Unknown delusions Verified 06/21/24 17:11 procaine [From Novocain] AdvReac Unknown Nausea and Verified 06/21/24 17:11 Vomiting, fainting Review of Systems 2 Review of Systems: Constitutional : No Weight loss, No Fever, No Chills, No Night Sweats, No Fatigue, No Malaise ENT/Mouth : patient reports jaw pain Almost at the end of every meal when she chews her food. .No Hearing loss, No Ear Pain, No Nasal Congestion, No Sinus Pain, No Hoarseness, No sore throat, No Rhinorrhea, No Swallowing Difficulty Eyes: No Eye Pain, No Swelling, No Redness, No Foreign Body, No Discharge, Patient reports blurred vision, probably couple of weeks, states she has an eye appointment pending Cardiovascular : No Chest Pain, No SOB, No Dyspnea on Exertion, No Orthopnea, No Edema, No Palpitations Respiratory : No Cough, No Sputum, No Wheezing, No Smoke Exposure, No Dyspnea Gastrointestinal : No Nausea, No Vomiting, No Diarrhea, No Constipation, No abdominal Pain, No Hematochezia, No Melena Genitourinary : no irregular bleeding, No Dysuria, No Urinary Frequency, No Hematuria, No Urinary Incontinence, No Urgency, No Flank Pain, No Urinary Flow Changes, No Hesitancy Musculoskeletal : No joint pain, No Myalgias, No Joint Swelling Skin : No Skin Lesions, No rash Neuro : No Weakness, No Numbness, No Paresthesias, No Loss of Consciousness, No Dizziness, complaining of headache/scalp pain Psych : No Anxiety/Panic, No Depression, No SI/HI/AH/VH, No Social Issues, Heme/Lymph: No Bruising, No Bleeding,No Lymphadenopathy Endocrine : No Polyuria, No Polydipsia, No Temperature Intolerance PMFSH Past Medical History Medical History Chronic anticoagulation UTI (urinary tract infection) Cerumen impaction Diastolic CHF Hypothyroidism Peripheral neuropathy Recurrent pulmonary embolism CAD (coronary artery disease) Osteoarthritis HTN (hypertension) Type 2 diabetes mellitus Surgical History H/O Spinal surgery S/P three vessel coronary artery bypass Social History Social History Household Members: Family Housing: House Do you presently have visiting nurse or other home services: No Alcohol intake: former Patient Tobacco Use Status: Former Tobacco user Tobacco use type: Cigarette Years Smoked: 3 yrs Smoked in Last 30 Days: No e-Cigarette/Vaping Use: Never Used Second Hand Smoke Exposure: No Advance Directives: Yes Advance Directives on File: Yes Advance Directives Date on File: 06/26/03 Do you have a plan to hurt others: No Plan service: No Current occupational status: retired and disabled Cognitive needs: No Hearing needs: No Vision needs: Yes Physical Exam 2 Vital Signs: Vital Signs: Last Vital Signs Temp 97.7 F 06/21/24 20:46 Pulse 77 06/21/24 20:46 Resp 16 06/21/24 20:46 BP 158/60 H 06/21/24 20:46 Pulse Ox 93 06/21/24 20:46 O2 Del Method Room Air 06/21/24 20:46 BMI result Body Mass Index 27.5 Const: Other: Appearance: Alert. Oriented X3. No acute distress. Eyes: Pupils equal, round and reactive to light. ENT: Pharynx normal. Neck: Normal inspection. Neck supple. No lymph nodes noted. No crepitus CVS: Normal heart rate and rhythm. Pulses normal. Normal S1 and S2 Respiratory: No respiratory distress. Breath sounds normal. No Wheezing. No rales Abdomen: Soft and nontender. No rigidity. No distention. Skin: Skin warm and dry. Normal skin color. Normal skin turgor. pain to palpation over the scalp, no rash, no erythema, visual inspection normal Extremities: No lower extremity edema. No Lacerations. No Rash Neuro: Oriented X 3. No motor deficit. No sensory deficit. Moving all extremities. No slurred speech. CN 2 through 12 grossly intact Psych: calm, cooperative, normal affect Course Course Course Narrative: patient reports having intermittent headaches. Seems that the patient is experiencing more scalp pain rather than actual headaches. Patient unable to fully describe what she is actually feeling. On physical exam, patient states that when I touch her scalp it hurts. Patient had a fall, states that the headache that she is experiencing is unrelated since it has been intermittent for several months even before the fall. All of patient's labs pending, including ESR, CRP patient had a CT scan of the head done about a week and a half ago secondary to the fall. We will repeat head CT since she is experiencing now pain. Patient on blood thinners, Coumadin Medical Decision Making Medical Decision Making [facility] Narrative: my interpretation of labs: No significant abnormality in patient's hematology and chemistry, patient is chronically anemic. INR is therapeutic at 2.8. Chemistry within normal limits, glucose [address]: No acute abnormality. Patient states that when she takes Tylenol, the headache/ scalp discomfort does improve. However, patient having recurrent symptoms. Patient's seems to have more scalp tenderness than actual headache after asking more questions to the patient, patient admits that she has been having blurred vision for last couple of weeks. Patient states that she has an appointment pending with her clerk cashier. Also, patient reports that sometimes she gets tired of chewing her food and her just starts hurting. patient's ESR is 113, CRP is 9.47 I discussed the patient with Dr. Terrazas, we will start the patient on prednisone and patient will follow-up with Dr. Terrazas . Discussed with the patient that it is very important that she keeps her appointment, she will likely need a biopsy. Differential Diagnosis Differential Diagnoses: The differential diagnosis associated with the presentation includes ( Intracranial bleed, migraine, dermatitis, giant cell arteritis) Lab Data [facility] Lab Attestation statement: I reviewed the patient's lab results. 06/21/24 17:20 06/21/24 17:20 Labs: Lab Results 06/21/24 Range/Units 17:20 WBC 3.5 L (4.8-10.8) X10*3/uL RBC 3.43 L (4.20-5.50) X10*6/uL Hgb 9.6 L (12.0-16.0) g/dl Hct 30.6 L (37.0-47.0) % MCV 89.2 (80.0-98.0) fL MCH 28.0 (27.0-33.0) pg MCHC 31.4 (31.0-35.0) g/dl RDW 14.9 (11.0-16.0) % Plt Count 294 (160-400) X10*3/uL MPV 11.1 (9.4-12.3) fL Immature Gran % (Auto) Cancelled Neut % (Auto) Cancelled Lymph % (Auto) Cancelled Barnwell % (Auto) Cancelled Eos % (Auto) Cancelled Baso % (Auto) Cancelled Lymph # (Auto) Cancelled Barnwell # (Auto) Cancelled Eos # (Auto) Cancelled Baso # (Auto) Cancelled Abs Immat Gran (auto) Cancelled Absolute Neuts (auto) Cancelled Absolute Nucleated RBC 0.000 (0.0-0.012) X10*3/uL Nucleated RBC % (auto) 0.0 (0.0-0.2) /100WBC Neutrophils % (Manual) 52 (45-73) % Band Neutrophils % 3 (3-5) % Lymphocytes % (Manual) 20 (20-40) % Atypical Lymphs % (Man) 9 H (0-6) % Monocytes % (Manual) 14 H (2-11) % Eosinophils % (Manual) 1 (0-4) % Basophils % (Manual) 1 (0-2) % Abs Neuts (Manual) 1.9 L (2.0-8.3) X10*3/uL Lymphocytes # (Manual) 0.7 L (1.2-4.9) X10*3/uL Atyp Lymphs # (Manual) 0.3 x10*3/uL Monocytes # (Manual) 0.5 (0.1-1.2) X10*3/uL Hypersegmented Neuts PRESENT Smudge Cells PRESENT Toxic Granulation PRESENT Platelet Estimate NORMAL (NORMAL) Large Platelets PRESENT Plt Morphology Comment NOTED RBC Morphology NOTED Microcytosis 1+ (5-14) /OIF Schistocytes 1+ (0-2) /OIF ESR 113 H (0-20) MM/HR PT 32.1 H (10.9-12.4) SEC INR 2.8 H (0.9-1.1) Sodium 140 (135-145) mmol/L Potassium 4.8 D (3.3-5.1) mmol/L Chloride 101 (96-108) mmol/L Carbon Dioxide 27 (22-29) mmol/L Anion Gap 17 (12-20) BUN 22 H (9-16) mg/dL Creatinine 0.61 (0.5-1.4) mg/dL Estim Creat Clear Calc 58.7 Estimated GFR > 60 Fasting Glucose 119 H (60-99) mg/dL Calcium 9.3 D (8.4-10.2) mg/dL C-Reactive Protein 9.47 H (< or = 0.50) mg/dL Independent Interpretation I performed an independent interpretation of an: CT Scan Radiology Impression Discussion of test interpretation with radiology: I have reviewed the radiologist's reading. Radiologist Impression: No acute hemorrhage. No extra-axial fluid collection. Unchanged prominence of the ventricles could be due to atrophy of the brain parenchyma or mild hydrocephalus. No mass-effect or herniation. Abdi-white differentiation is maintained. There is patchy hypoattenuation of the periventricular and deep white matter, which is most likely the sequela of mild chronic small vessel ischemic disease and is similar to the prior study. No acute orbital pathology. No acute soft tissue abnormality. No fracture. Mucosal thickening and fluid in the right sphenoid sinus may indicate sinusitis, unchanged. Osseous thickening likely indicates chronicity. The other visualized paranasal sinuses are predominantly clear. The mastoid air cells are clear. Impression: No acute intracranial findings. Critical Care Time Critical Care Time Critical Care Time: Yes Total Critical Care Time: 45 Attestation: I have personally provided critical care time. Time includes review of lab data, radiology results, discussion with consultants, and monitoring for potential decompensation. Intervention performed as documented. Discharge Plan Discharge Clinical Impression: Headache, Scalp pain Patient Disposition: Home, Self-Care Instructions: Acute Headache (ED) Additional Instructions: It is very important that you keep your appointment with vascular surgery with Dr. Terrazas. Please follow-up with your primary care physician tomorrow. If you have any worsening or new symptoms, please return to the emergency room or call 911 Prescriptions: New prednisone 10 mg tablet See Rx Instructions .ROUTE .COMPLEX Qty: 126 0RF Rx Instructions: for 3 weeks take 40mg daily, for the next week take 30mg, for the next week take 20mg, the last week take 10 mg daily No Action glipizide 10 mg tablet 10 mg PO DAILY Qty: 90 3RF levothyroxine 100 mcg tablet 100 mcg PO DAILY Qty: 90 3RF acetaminophen 500 mg tablet 500 mg PO Q6H PRN (Reason: Pain) gabapentin 100 mg capsule 100 mg PO TID metoprolol tartrate 50 mg tablet 50 mg PO BEDTIME metoprolol tartrate 50 mg tablet 100 mg PO DAILY Rx Instructions: 2 tablets in am and 1 tablet in pm amlodipine 5 mg Tablet 5 mg PO DAILY Qty: 30 0RF Protocol: Hold for SBP< HOLD for SBP < : 90 magnesium oxide 400 mg (241.3 mg magnesium) Tablet 400 mg PO DAILY Qty: 90 0RF losartan 25 mg Tablet 25 mg PO BID Qty: 60 0RF Protocol: Hold for SBP< HOLD for SBP < : 90 omeprazole 20 mg Capsule,Delayed Release(Dr/Ec) 20 mg PO DAILY@0630 Qty: 90 0RF cefuroxime axetil 500 mg tablet 500 mg PO BID Qty: 10 0RF aspirin 81 mg Capsule 81 mg PO DAILY warfarin 4 mg tablet 4 mg PO Q2D@1800 warfarin 4 mg tablet 6 mg PO Q2D@1800 metformin 500 mg tablet 500 mg PO DAILY metformin 500 mg tablet 1,000 mg PO BEDTIME sennosides [Vegetable Laxative] 8.6 mg tablet 8.6 mg PO DAILY PRN (Reason: Constipation) lovastatin 40 mg tablet 40 mg PO DAILY Qty: 90 3RF gabapentin 600 mg tablet 600 mg PO BEDTIME Qty: 90 3RF Referrals: Jose Carlos Terrazas MD [Physician] - 06/22/24 Print Language: Malay
[2024-06-21 18:21] LABS: Hematocrit 30.6 % (37.0-47.0); Hemoglobin 9.6 g/dl (12.0-16.0); Mean Corpuscular HGB Conc 31.4 g/dl (31.0-35.0); Mean Corpuscular Volume 89.2 fL (80.0-98.0); Mean Platelet Volume 11.1 fL (9.4-12.3); Platelet Count 294 X10*3/uL (160-400); Red Blood Count 3.43 X10*6/uL (4.20-5.50); Red Cell Distribution Width 14.9 % (11.0-16.0)
[2024-06-21 18:23] LABS: WBC ABN SCTR FOR CBC 1
[2024-06-21 18:24] LABS: White Blood Count 3.5 X10*3/uL (4.8-10.8)
[2024-06-21 18:48] VITALS: BP 167/58; PULSE 74; TEMP 36.5; O2SAT 97
[2024-06-21 18:51] LABS: Atypical Lymph Absolute Manual 0.3 x10*3/uL; Atypical Lymphs Percent Manual 9 % (0-6); Band Neutrophils Percent 3 % (3-5); Basophils Percent Manual 1 % (0-2); Eosinophils Percent Manual 1 % (0-4); Lymphocytes Absolute Manual 0.7 X10*3/uL (1.2-4.9); Lymphocytes Percent Manual 20 % (20-40); Monocytes Absolute Manual 0.5 X10*3/uL (0.1-1.2); Monocytes Percent Manual 14 % (2-11); Neutrophils Absolute Manual 1.9 X10*3/uL (2.0-8.3); Neutrophils Percent Manual 52 % (45-73)
[2024-06-21 18:52] LABS: Large Platelet PRESENT; Microcytosis 1+ (5-14) /OIF; Platelet Estimate NORMAL (NORMAL); Platelet Morphology Comment NOTED; RBC Morphology NOTED; Schistocytes 1+ (0-2) /OIF
[2024-06-21 18:53] LABS: Hypersegmented Neutrophils PRESENT; Smudge Cells PRESENT; Toxic Granulation PRESENT
[2024-06-21 19:16] LABS: C Reactive Protein 9.47 mg/dL (< or = 0.50)
[2024-06-21 19:49] LABS: Erythrocyte Sedimentation Rate 113 MM/HR (0-20)
[2024-06-21 20:46] VITALS: BP 158/60; PULSE 77; RESP 16; TEMP 36.5; O2SAT 93
[2024-06-21] MEDS: predniSONE 20 MG TABLET 40 MG PO (21:59)
[2024-06-21 22:25] VITALS: BP 136/75; PULSE 83; RESP 20; TEMP 36.5; O2SAT 97
[2024-06-21 22:32] VITALS: BP 136/75; PULSE 83; RESP 20; TEMP 36.5; O2SAT 97
--- NOTE | 2024-06-21 22:32 | PC.NURSE ---
report given to facility
== END 2024-06-21 22:32 | disposition home or self-care (01) ==
PROVIDERS: Emergency Provider Emergency Medicine
DX: R51.9 Headache, unspecified (principal); E11.9 Type 2 diabetes mellitus without complications; I10 Essential (primary) hypertension; E78.5 Hyperlipidemia, unspecified; Z87.891 Personal history of nicotine dependence; Z86.711 Personal history of pulmonary embolism; Z79.01 Long term (current) use of anticoagulants
CPT/HCPCS: 36415; 70450; 80048; 85007; 85027; 85610; 85652; 86140; 99284

== ENCOUNTER 2024-06-23 12:49 | Outpatient (AMB) | payer MEDICARE, SELFPAY ==
--- NOTE | 2024-06-23 13:05 | A.OFFVIS_ITS ---
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 Went to [facility] ED on ThursdayJune 21. Patient has been seeing floaters in her eyes. 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 This has been going on for several months intermittent. She reports that it is throughout the entire head. She actually was seen prior to this for fall in the emergency room. She reports that it has been a persistent think and notes it more so when going from a supine to sitting up position. She had been seen and evaluated by the emergency room. She was started on prednisone which she reports has provided some mild relief but nothing significant. She did have routine labs and now presents to us for vascular evaluation. REPLACED BY [facility] Medical History Chronic anticoagulation UTI (urinary tract infection) Cerumen impaction Diastolic CHF Hypothyroidism Peripheral neuropathy Recurrent pulmonary embolism CAD (coronary artery disease) Osteoarthritis HTN (hypertension) Type 2 diabetes mellitus Surgical History H/O Spinal surgery S/P three vessel coronary artery bypass Social History Household Members: Family Housing: House Do you presently have visiting nurse or other home services: No Alcohol intake: former Patient Tobacco Use Status: Former Tobacco user Tobacco use type: Cigarette Years Smoked: 3 yrs e-Cigarette/Vaping Use: Never Used Second Hand Smoke Exposure: No Advance Directives Date on File: 06/26/03 service: No Current occupational status: retired and disabled Cognitive needs: No Hearing needs: No Vision needs: Yes Review of Systems Const All systems reviewed & are unremarkable except as noted in HPI and below Reports no additional complaints ENT Reports Normal hearing present Card Denies chest pain, Denies chest pain at rest, Denies chest pain with activity and Denies pedal edema Resp Denies cough GI Denies abdominal pain Musc Denies abnormal gait, Denies muscle cramps and Denies radiating pain into limb Skin/Breast Denies skin ulcer and Denies wounds Neuro Reports Normal hearing present and Denies abnormal gait Psych Reports no additional complaints Physical Exam Const General: cooperative, healthy appearing and comfortable Orientation/consciousness: oriented to person, oriented to place and oriented to time HEENT Head: Yes normal to inspection Neck Neck: Yes normal visual inspection Carotids: no bruits Chest Chest palpation & inspection: normal inspection of the chest Resp Effort & Inspection: normal respiratory effort and able to speak in complete sentences Auscultation: clear to auscultation bilaterally, no crackles, no rales, no rhonchi and no wheezes Cardio Rate: regular rate Rhythm: regular rhythm Heart sounds: S1 normal heart sound present and S2 normal heart sound present Bruits: no carotid bruits Peripheral pulses: Peripheral pulses 2+ throughout GI Inspection: Yes normal to inspection Skin Wounds: no wounds Hair: normal Neuro General: oriented to person, oriented to place and oriented to time Cranial nerves: Yes CN's II-XII intact bilaterally and Yes Normal hearing present Cognition (Neuro): normal cognition Motor exam (neuro): 5/5 motor strength present throughout Extrem Other: venous exam: No significant superficial varicosities or spider telangiectasias, minimal edema General: No clubbing, No cyanosis and No edema Psych Appearance: grossly normal Mental Status: mental status grossly normal Speech and movement: Normal speech and movement present Results Reviewed Results Reviewed: ESR is 113 and CRP is 9.47. Assessment & Plan Assessment & Plan (1) Headache: Code(s): R51.9 - Headache, unspecified Category: Medical Qualifiers: Headache type: unspecified Headache chronicity pattern: chronic headache Intractability: not intractable Qualified Code(s): R51.9 - Headache, unspecified; G89.29 - Other chronic pain Plan: In short patient has a chronic headache. The concern here was for temporal arteritis. Unfortunately the pattern and location of the headache does not appear to correlate with this. Due to her overall condition would not even recommend any procedures. At the current time would treat symptomatically. May require repeat follow-up with Cardiology and/or primary care team. May even have an element of orthostatic hypotension. She will follow up with us on an as-needed basis. Thank you for allowing us to assist in his care. If there are any questions or concerns please do not hesitate to contact us. Coding Level of Care Code New Pt Level 4 (48849) Diagnoses Chronic nonintractable headache, unspecified headache type R51.9; G89.29 Headache type: unspecified Headache chronicity pattern: chronic headache Intractability: not intractable
--- OUTSIDE RECORDS SUMMARY | 2024-06-23 13:27 | XMS_ITS | Encounter Summary ---
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; Chronic embolism and [...] Diagnosis Comments PROTHROMBIN TIME WITH INR Routine 06/23/2024 5:18 AM EDT residential (current) use of anticoagulants Chronic embolism and thrombosis of unspecified vein documented in this encounter Results * (ABNORMAL) Prothrombin time with INR (06/23/2024 5:18 AM EDT) Protime 47.0(H) 10.6 - 13.9 sec LAB COAGULATION METHOD 06/23/2024 8:51 AM EDT [facility] INR 3.8 LAB COAGULATION METHOD 06/23/2024 8:51 AM EDT [facility] Blood Venous blood specimen / Unknown Venipuncture / Unknown 06/23/2024 5:18 AM EDT 06/23/2024 7:26 AM EDT Naomy Soto MD LAB BLOOD ORDERABLES Final Resul t [facility] ([facility] [address] [place] [address], documented in this encounter Visit Diagnoses Diagnosis 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
--- OUTSIDE RECORDS SUMMARY | 2024-06-23 13:27 | XMS_ITS ---
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 Generated for Printi ng/Faxing/eTransmitting on:?06/23/2024 01:26 PM EDT
--- OUTSIDE RECORDS SUMMARY | 2024-06-23 13:27 | XMS_ITS ---
Author Organization [facility] [place] Address [address] [place] [address] Care Team Providers Care Cdl Program Coordinator Name Role Phone Rissa Bowling MD Primary Care Provider Aleshia Mccracken Unavailable [phone] Allergies Allergen (clinical drug ingredient) Drug/Non Drug [...] No Points 0 Interpretation Negative Vital Signs Blood pressure systolic 130 mm Hg 06/09/19 25 Blood pressure diastolic 60 mm Hg 025 Height 4ft9in in 06/08/2024 Weight 180 lbs 06/08/2024 BMI 38.95 kg/m2 06/08/2024 Procedures Procedure Date Ordered Date Performed Result Body Sit e 82045-SCNDPNK NAIL, 6 OR MORE 06/08/2024 N/A 81648-DWSX SKIN LESIONS, OVER 4 06/08/2024 N/A Encounters Encounter Location Date Provider Diagnosis [facility] [place] [address] [place] [address] 06/08/2024 Aleshia Lagunas Type 2 diabetes mellitus with diabetic polyneuropathy E11.42 and Tinea unguium B35.1 Assessments Encounter Date Diagnosis (ICD Code) Assessment Notes Treatment Notes Treatment Clinical Notes Section Notes 06/08/2024 Type 2 diabetes mellitus with diabetic polyneuropathy (ICD-10 - E11.42) 06/08/2024 Tinea unguium (ICD-10 - B35.1) Plan Of Treatment Pending Test Test Name Order Date 63390-JXFJQJN NAIL, 6 OR MORE 06/08/2024 64615-FDEC SKIN LESIONS, OVER 4 06/09/19 25 Next Appt Details Follow Up: 3 Months, Reason: Provider Name:Aleshia cha, 08/10/2024 11:15:00 AM, [address] [place] [address], [phone], Provider Name:Aleshia cha, 10/17/2024 11:00:00 AM, [address] [place] [address], [phone], Procedure Notes * Category Sub-Category Detail Notes [...] use of a nail nipper and/or dremel-type grinder operator tool, to a more viable healthy nail plate [...] to maintain effectiveness in symptomatic relief - 46614 Keratoma Treatment Parring or Cutting o f [...] instrumentation by the physician of record - 23066 Progress Notes * Delfino FLORES:[birth year] (88 yo F)Acc No.[id number]:06/08/2024 Progress Note Patient:?Sherry FLORES Provider:?Aleshia Lagunas DPM :1935???Age:88 Y???Sex:Female D ate:06/08/2024 Address:[address] [place], [place] [phone] Pcp:Rissa Bowling MD Subjective: * Chief Complaints: [...] * Hospitalization/Major Diagno stic Procedure:?Patient admitted to [facility] for chest pain. 06/2013lumber fusion 08/04-08/09/16rehab [...] yes. ?Exercise: no. ?Marital status: . 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 ???Drug/Alcohol:?AUDIT-C (Standard)?Did you have a drink containing [...] use of a nail nipper and/or dremel-type grinder operator tool, to a more viable healthy nail plate [...] to maintain effectiveness in symptomatic relief - 71928.?Keratoma Treatment:?Parring or Cutting of Benign Hyperkeratotic Lesion(s)?(-57) [...] instrumentation by the physician of record - 83306.? * Procedure Codes:?62341 DEBRI DE NAIL, 6 OR MORE, Modifiers: XS 84951 TRIM SKIN LESIONS, OVER 4, Modifiers: XS * Follow Up:?3 Months * Images: * Sign off status: Completed true * Provider:Lauren Lagunas DPM Date:?0 06/08/2024 Generated for Karen baird/Han/eTlnady on:?06/23/2024 01:26 PM EDT History and Physical Notes * [...]
--- OUTSIDE RECORDS SUMMARY | 2024-06-23 13:27 | XMS_ITS ---
Author Organization [facility] khris AquinoWeir Address [address] [place] [address] Care Team Providers Care Underwriting Assistant Name Role Phone Dash PRAKASH, Rissa Primary Care Provider Aleshia Mccracken Unavailable [phone] Theron Eli Unavailable [phone] Allergies Allergen (clinical drug ingredient) Drug/Non Drug [...] Answer Notes Tobacco use: Nonsmoker Vital Signs Blood pressure systolic 120 mm Hg 04/06/19 25 Blood pressure diastolic 78 mm Hg 025 Height 4ft9in in 04/06/2024 Weight 180 lbs 04/06/2024 BMI 38.95 kg/m2 04/06/2024 Encounters Encounter Location Date Provider Diagnosis [facility] [address] [address] 04/06/2024 Eli Crump Type 2 diabetes mellitus [...] Reason: Provider Name:Aleshiakenyetta cha, 08/10/2024 11:15:00 AM, [address] [place] [address], [phone], Provider Name:Aleshia Zeinab cha, 10/17/2024 11:00:00 AM, [address] [place] [address], [phone], Procedure Notes * Category Sub-Category Detail Notes [...] of a nail nipper and/or dremel-type grinder operator, to a more viable healthy [...] to maintain effectiveness in symptomatic relief - 71752 Keratoma Treatment Parring or Cutting o f [...] instrumentation by the physician of record - 55578 Progress Notes * LAVERNESherryDOB:[birth year] (88 yo F)Acc No.[id number]:04/06/2024 Progress Note Patient:?Sherry FLORES Provider:?Eli Crump DPM :1935???Age:88 Y???Sex:Female D ate:04/06/2024 Address:[address] [place], [place] [phone] Pcp:Rissa Bowling MD Subjective: * Chief Complaints: [...] stic Procedure:?Patient admitted to [facility] for chest pain. 06/2013lumber fusion 08/04-08/09/16rehab [...] yes. ?Exercise: no. ?Marital status: . 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 * Medications:?TakingVoltaren 1 % Gel as directed [...] of a nail nipper and/or dremel-type grinder operator, to a more viable healthy [...] to maintain effectiveness in symptomatic relief - 68402.?Keratoma Treatment:?Parring or Cutting of Benign Hyperkeratotic Lesion(s)?(-57) [...] instrumentation by the physician of record - 46896.? * Procedure Codes:?95807 DEBRI DE NAIL, 6 OR MORE, Modifiers: XS 73937 TRIM SKIN LESIONS, OVER 4, Modifiers: XS [...] Crump DPM Date:? Generated for Karen baird/Han/Vincenzo on:?06/23/2024 01:26 PM EDT History and Physical [...] footcare Pt States Last PCP Visit: Date: Examination Category Sub-Category Detail Notes Category Not [...]
--- OUTSIDE RECORDS SUMMARY | 2024-06-23 13:27 | XMS_ITS | Patient Health Record ---
Author Organization [facility] Cheyvince Castillo Address [address] [place] [address] Care Team Providers Care Site Supervisor Name Role Phone Rissa Bowling MD Primary Care Provider Unavaila Aleshia Robles Unavailable [phone] Ede Grant Unavailable [phone] Eli Crump Unavailable [phone] Allergies Allergen (clinical drug ingredient) Drug/Non Drug [...] Polyneuropathy due to diabetes mellitus type I (734484309) Type 1 diabetes mellitus with diabetic polyneuropathy (E10.42) Active confirmed Problem Acquired hallux valgus (60811822) Hallux valgus (acquired), right foot (M20.11) Active confirmed Problem Polyneuropathy due to type 2 diabetes mellitus (907979183) Type 2 diabetes mellitus with diabetic polyneuropathy (E11.42) Active confirmed Problem Acquired hammer toe of right foot (9225998141820718 ) Other hammer toe(s) (acquired), right foot (M20.41) Active confirmed Problem Acquired hammer toe of left foot (3148275362002726 ) Other hammer toe(s) (acquired), left foot (M20.42) Active confirmed Vital Signs Blood pressure diastolic 60 mm Hg 06/08/2024 Height 4ft9in in 06/08/2024 Blood pressure systolic 130 mm Hg 06/08/2024 Weight 180 lbs 06/08/2024 BMI 38.95 kg/m2 06/08/2024 Procedures Procedure Date Ordered Date Performed Result Body Sit e 79911-PXZNUKX NAIL, 6 OR MORE 02/01/2024 N/A 56701-DMRB SKIN LESIONS, OVER 4 02/01/2024 N/A 40560-XGBPIEX NAIL, 6 OR MORE 06/08/2024 N/A 14096-OAUW SKIN LESIONS, OVER 4 06/08/2024 N/A Encounters Encounter Location Date Provider Diagnosis [address] [address] 07/16/2023 Ede Grant Tinea unguium B35.1 ; Ingrowing nail L60.0 ; Type 2 diabetes mellitus with diabetic polyneuropathy E11.42 ; Pain in right toe(s) M79.674 ; Pain in left toe(s) M79.675 ; Hallux valgus (acquired), right foot M20.11 ; Other hammer toe(s) (acquired), left foot M20.42 ; Other hammer toe(s) (acquired), right foot M20.41 ; Tinea pedis B35.3 and Dermatitis L30.[address] [address] 09/21/2023 Ede Grant Tinea unguium B35.1 ; Ingrowing nail L60.0 ; Type 2 diabetes mellitus with diabetic polyneuropathy E11.42 ; Pain in right toe(s) M79.674 ; Pain in left toe(s) M79.675 ; Hallux valgus (acquired), right foot M20.11 ; Other hammer toe(s) (acquired), left foot M20.42 ; Other hammer toe(s) (acquired), right foot M20.41 ; Tinea pedis B35.3 and Dermatitis L30.[address] [address] 11/26/2023 EdeLarios Tinea unguium B35.1 ; Ingrowing nail L60.0 ; Type 2 diabetes mellitus with diabetic polyneuropathy E11.42 ; Pain in right toe(s) M79.674 ; Pain in left toe(s) M79.675 ; Hallux valgus (acquired), right foot M20.11 ; Other hammer toe(s) (acquired), left foot M20.42 ; Other hammer toe(s) (acquired), right foot M20.41 ; Tinea pedis B35.3 and Dermatitis L30.[address] [address] 02/01/2024 Aleshia Lagunas Type 2 diabetes mellitus with diabetic polyneuropathy E11.42 ; Tinea unguium B35.1 and Tinea pedis of both feet B35.[address] [address] 04/06/2024 Eli Crump Type 2 diabetes mellitus with diabetic polyneuropathy E11.42 ; Other hammer toe(s) (acquired), left foot M20.42 ; Tinea unguium B35.1 ; Tinea pedis of both feet B35.3 and Other hammer toe(s) (acquired), right foot M20.[address] [address] 06/08/2024 Aleshia Lagunas Type 2 diabetes mellitus with diabetic polyneuropathy E11.42 and Tinea unguium B35.[address] [address] 04/22/2024 Eli Crump Assessments Encounter Date Diagnosis [...] X ray : Foot, right 3V 12/26/2013 77874-QOBODXQ NAIL, 6 OR MORE 01/18/2014 76141-YETLFYZ NAIL, 6 OR MORE 11/16/2013 61277-ARDDRGK NAIL, 6 OR MORE 03/22/2014 45411-NQFZJDI NAIL, 6 OR MORE 06/05/2014 16055-LDEVABM NAIL, 6 OR MORE 08/09/2014 65044-GPJWCZX NAIL, 6 OR MORE 11/13/2014 73722-MZYBOHM NAIL, 6 OR MORE 09/16/2012 82618-RZJATPO NAIL, 6 OR MORE 12/02/2012 95578-EESVRTU NAIL, 6 OR MORE 02/10/2013 11193-DUBDRTP NAIL, 6 OR MORE 04/27/2013 09621-IMXGYLE NAIL, 6 OR MORE 07/13/2013 28920-AZGYPNK NAIL, 6 OR MORE 09/15/2013 52381-IXVIHIK NAIL, 6 OR MORE 10/04/2010 72542-ERYIITL NAIL, 6 OR MORE 12/12/2010 10650-XLYONYJ NAIL, 6 OR MORE 02/19/2011 31056-XXROTFC NAIL, 6 OR MORE 05/12/2011 75919-EKQRJZC NAIL, 6 OR MORE 07/21/2011 17674-YZFFFDL NAIL, 6 OR MORE 10/08/2011 27784-VPWDHJK NAIL, 6 OR MORE 12/10/2011 69664-UEMRBGB NAIL, 6 OR MORE 02/23/2012 28296-PWUHEKN NAIL, 6 OR MORE 05/12/2012 53835-UJQNWQE NAIL, 6 OR MORE 07/14/2012 02694-LAGCYRS NAIL, 6 OR MORE 02/01/2024 43798-PUGAJRM NAIL, 6 OR MORE 06/08/2024 56636-NXNKWIZ NAIL, 6 OR MORE 12/09/2017 17605-KWRAYWD NAIL, 6 OR MORE 01/17/2015 64964-HNQWRXO NAIL, 6 OR MORE 03/22/2015 58476-XEGBSMA NAIL, 6 OR MORE 05/24/2015 42967-FDKHDHW NAIL, 6 OR MORE 08/02/2015 13915-VNRINLG NAIL, 6 OR MORE 10/04/2015 19593-UPYZVUC NAIL, 6 OR MORE 12/06/2015 64431-ZKCOXOU NAIL, 6 OR MORE 04/21/2016 14709-SXABCRM NAIL, 6 OR MORE 02/13/2016 09244-UCADNHI NAIL, 6 OR MORE 08/27/2016 72856-WWNPFVX NAIL, 6 OR MORE 11/05/2016 63817-WGSELYJ NAIL, 6 OR MORE 01/07/2017 20687-IEJIVNB NAIL, 6 OR MORE 03/18/2017 44341-MGWXDZU NAIL, 6 OR MORE 05/20/2017 86960-EGGRIXF NAIL, 6 OR MORE 07/29/2017 91773-LFQVJIA NAIL, 6 OR MORE 09/30/2017 67764-Oggf Destruction, 1-14 07/14/2012 95994-Xllf Destruction, 1-14 05/12/2012 85647-Qngd Destruction, 1-14 12/10/2011 31914-Ucrx Destruction, 1-14 10/08/2011 06427-Lruj Destruction, 1-14 07/21/2011 03776-Fjcq Destruction, 1-14 09/16/2012 79751-Ebasjycd Plate 09/16/2012 84012-Rquejegv Plate 02/10/2013 38230-Isgxsmqx Plate 12/02/2012 50538-Jixulabl Plate 07/13/2013 32037-Uwmnemwx Plate 09/15/2013 62632-Gcwkcyhh Plate 11/13/2014 56645-Ckmflkib Plate 11/16/2013 30605-Qksgoymv Plate 01/18/2014 13114-Mvgquubq Plate 10/08/2011 15852-Jhxgfzfq Plate 02/19/2011 18092-Hlknecht Plate 10/04/2010 99048-Fpcmvqgx Plate 12/12/2010 20425-Mdpugbtl Plate 12/10/2011 50837-Tpxeyvoh Plate 02/23/2012 08310-Qxptetmw Plate 05/12/2011 30126-Xyafybqy Plate 07/21/2011 45901-Pxgpswxl Plate 05/12/2012 32629-Houzyssu Plate 07/14/2012 97416-Uhbeqkta Plate 08/09/2014 54534-YNDUBLG SKIN/TISSUE 04/10/2014 10679 I&D ABSCESS- SIMPLE,SINGLE 015 75631-POHC SKIN LESIONS, OVER 4 06/06/19 15 69715-VVFH SKIN LESIONS, OVER 4 11/14/19 15 75616-NAUO SKIN LESIONS, OVER 4 08/10/19 15 20809-KQGF SKIN LESIONS, OVER 4 01/19/20 14 38150-YIEV SKIN LESIONS, OVER 4 03/22/19 15 50323-SYUU SKIN LESIONS, OVER 4 07/14/19 14 10503-NVLX SKIN LESIONS, OVER 4 04/28/19 14 53378-VWLR SKIN LESIONS, OVER 4 12/03/19 13 26091-UWTQ SKIN LESIONS, OVER 4 02/10/19 14 55760-QKCE SKIN LESIONS, OVER 4 02/22/19 13 35366-JJRC SKIN LESIONS, OVER 4 12/10/19 12 96787-EPUA SKIN LESIONS, OVER 4 12/13/19 11 65264-UDVM SKIN LESIONS, OVER 4 10/05/19 11 75773-NDRV SKIN LESIONS, OVER 4 02/19/19 12 52340-VWWD SKIN LESIONS, OVER 4 10/08/19 12 01775-BJRV SKIN LESIONS, OVER 4 07/21/19 12 16408-BYXN SKIN LESIONS, OVER 4 05/12/19 12 71199-QORF SKIN LESIONS, OVER 4 06/09/19 25 03591-IJFX SKIN LESIONS, OVER 4 02/01/20 24 59738-YDWW SKIN LESIONS, OVER 4 02/17/19 19 61868-GTSU SKIN LESIONS, OVER 4 04/22/19 19 61128-JQFG SKIN LESIONS, OVER 4 06/24/19 19 04139-BOAK SKIN LESIONS, OVER 4 09/02/19 19 66881-IHKU SKIN LESIONS, OVER 4 11/09/19 19 72122-KXMV SKIN LESIONS, OVER 4 01/18/20 19 34175-GUMC SKIN LESIONS, OVER 4 03/21/19 20 26145-RZVJ SKIN LESIONS, OVER 4 06/06/19 20 79372-ZUOY SKIN LESIONS, OVER 4 08/08/19 20 01696-RLHI SKIN LESIONS, OVER 4 10/13/19 20 05861-MSGM SKIN LESIONS, OVER 4 12/22/19 20 19507-FOQL SKIN LESIONS, OVER 4 02/22/19 21 67445-XZGA SKIN LESIONS, OVER 4 04/27/19 21 60443-JCWG SKIN LESIONS, OVER 4 06/29/19 21 71400-VLTO SKIN LESIONS, OVER 4 08/31/19 21 46486-MHXH SKIN LESIONS, OVER 4 11/02/19 21 59124-PFIX SKIN LESIONS, OVER 4 01/08/20 39875-UVOC SKIN LESIONS, OVER 4 03/11/19 47858-ENHJ SKIN LESIONS, OVER 4 05/14/19 84276-GUJY SKIN LESIONS, OVER 4 12/10/19 18 24100-NBSV SKIN LESIONS, OVER 4 10/01/19 18 51988-OFDO SKIN LESIONS, OVER 4 07/30/19 18 14187-NYOY SKIN LESIONS, OVER 4 05/21/19 18 92704-EFWQ SKIN LESIONS, OVER 4 03/18/19 18 67024-KZFK SKIN LESIONS, OVER 4 01/08/20 17 73146-NGJN SKIN LESIONS, OVER 4 11/06/19 17 19456-DLZU SKIN LESIONS, OVER 4 02/12/19 17 05687-IZGB SKIN LESIONS, OVER 4 04/22/19 17 66570-GOBZ SKIN LESIONS, OVER 4 06/24/19 17 78852-LJDH SKIN LESIONS, OVER 4 08/28/19 17 60372-NKEE SKIN LESIONS, OVER 4 12/06/19 16 05396-KYVW SKIN LESIONS, OVER 4 10/04/19 16 83354-ZQPW SKIN LESIONS, OVER 4 08/02/19 16 54893-KIZE SKIN LESIONS, OVER 4 05/24/19 16 76034-QFWR SKIN LESIONS, OVER 4 03/22/19 16 98491-WJDK SKIN LESIONS, 2 TO 4 01/18/20 15 30873-IOAW SKIN LESIONS, 2 TO 4 07/15/19 13 27397-JJDM SKIN LESIONS, 2 TO 4 05/13/19 13 87329-JTEL SKIN LESIONS, 2 TO 4 09/17/19 13 70193-HIJE SKIN LESIONS, 2 TO 4 09/16/19 14 03725-YEOD SKIN LESIONS, 2 TO 4 11/17/19 14 12662- Unna Boot 10/13/2019 65201- Nail Unit Biopsy 05/20/2017 X ray : Ankle, right 3V 07/22/2021 Next Appt Details Provider Name:Aleshia Zeinab cha, 08/10/2024 11:15:00 AM, [address] [place] [address], [phone], Provider Name:Aleshia cha, 10/17/2024 11:00:00 AM, [address] [place] [address], [phone], Insurance Providers Payer Name Payer Address Payer Phone Subscriber Number Group Number Insured Name Patient Relationship to Insured Coverage Start Date Coverage End Date Medicare National Govt [facility] [address] [place] [address] [id number] Sherry Flores Self - patient is the insured 0 [employer] [address] [place] [address] [id number] Sherry Flores Self - patient is the [...] PCP/Walk in clinic -covid-19 meds for co [facility] 2021 Urgent care -Bleeding ear bug in ear rehab lumber fusion 08/09-08/16/16 lumber fusion 08/04-08/09/16 Patient admitted to [facility] for chest p ain. 06/2013
--- OUTSIDE RECORDS SUMMARY | 2024-06-23 13:27 | XMS_ITS | Encounter Summary ---
Author Organization [facility] Address [address] [place] [address] Care Team Providers Care Brim And Crown Presser Name Role Phone Naomy Soto MD Primary Care Provider [phone] Encounter Details Date Type Department Care Team (Late st Contact Info) Description 06/16/2024 Lab Requisition [facility] - Main Lab [address] [facility] [place] [address] Naomy Soto MD [address] [place] [address] Urinary tract infection, site not [...] mmol/L LAB CHEMISTRY METHOD 06/16/2024 9:14 AM [facility] Potassium 3.8 3.5 - 5.5 mmol/L LAB CHEMISTRY METHOD 06/16/2024 9:14 AM [facility] Chloride 108 96 - 110 mmol/L LAB CHEMISTRY METHOD 06/16/2024 9:14 AM [facility] CO2 26 21 - 32 mmol/L LAB CHEMISTRY METHOD 06/16/2024 9:14 AM [facility] Anion Gap 5 3 - 11 LAB CHEMISTRY METHOD 06/16/2024 9:14 AM [facility] Glucose 164(H) 70 - 100 mg/dL LAB CHEMISTRY METHOD 06/16/2024 9:14 AM [facility] BUN 11 5 - 25 mg/dL LAB CHEMISTRY METHOD 06/16/2024 9:14 AM [facility] Creatinine 0.47(L) 0.50 - 1.10 mg/dL LAB CHEMISTRY METHOD 06/16/2024 9:14 AM [facility] eGFR 91 >=60 mL/min/1. 73m2 LAB CHEMISTRY METHOD 06/16/2024 9:14 AM [facility] Comment:Calculation based on the Chronic Kidney Disease Epidemiology Collaboration (CKD-EPI) equation refit without adjustment for race. BUN/Creatinine Ratio 23.4 LAB CHEMISTRY METHOD 06/16/2024 9:14 AM [facility] Calcium 8.1(L) 8.5 - 10.5 mg/dL LAB CHEMISTRY METHOD 06/16/2024 9:14 AM [facility] AST (SGOT) 8(L) 10 - 42 unit/L LAB CHEMISTRY METHOD 06/16/2024 9:14 AM EDT [facility] ALT (SGPT) 9(L) 10 - 60 unit/L LAB CHEMISTRY METHOD 06/16/2024 9:14 AM EDT [facility] Alkaline Phosphatase 55 42 - 121 unit/L LAB CHEMISTRY METHOD 06/16/2024 9:14 AM EDT [facility] Total Protein 5.3(L) 6.0 - 8.0 g/dL LAB CHEMISTRY METHOD 06/16/2024 9:14 AM EDT [facility] Albumin 2.0(L) 3.2 - 5.0 g/dL LAB CHEMISTRY METHOD 06/16/2024 9:14 AM EDT [facility] Total Bilirubin 0.5 0.0 - 1.4 mg/dL LAB CHEMISTRY METHOD 06/16/2024 9:14 AM EDT [facility] Blood Venous blood specimen / Unknown Venipuncture / Unknown 06/16/2024 5:27 AM EDT 06/16/2024 6:58 AM EDT us Naomy Soto MD LAB BLOOD ORDERABLES Final Resul t [facility] [address] [place] [address], [place] [phone] * (ABNORMAL) Prothrombin time with INR (06/16/2024 5:27 AM EDT) Protime 45.3(H) 10.6 - 13.9 sec LAB COAGULATION METHOD 06/16/2024 8:23 AM EDT [facility] INR 3.7 LAB COAGULATION METHOD 06/16/2024 8:23 AM EDT [facility] Blood Venous blood specimen / Unknown Venipuncture / Unknown 06/16/2024 5:27 AM EDT 06/16/2024 6:58 AM EDT us Naomy Soto MD LAB BLOOD ORDERABLES Final Resul t [facility] [address] [place] [address], * (ABNORMAL) Complete blood count (06/16/2024 5:27 AM EDT) WBC 3.0(L) 4.8 - 10.8 K/mcL LAB HEMETOLOGY METHOD 06/16/2024 8:20 AM EDT [facility] RBC 3.10(L) 3.80 - 4.80 M/mcL LAB HEMETOLOGY METHOD 06/16/2024 8:20 AM EDT [facility] Hemoglobin 8.3(L) 11.5 - 16.0 g/dL LAB HEMETOLOGY METHOD 06/16/2024 8:20 AM EDT [facility] Hematocrit 27.8(L) 35.0 - 47.0 % LAB HEMETOLOGY METHOD 06/16/2024 8:20 AM EDT [facility] MCV 90.3 79.0 - 98.0 FL LAB HEMETOLOGY METHOD 06/16/2024 8:20 AM EDT [facility] MCH 26.9(L) 27.0 - 32.0 pcg LAB HEMETOLOGY METHOD 06/16/2024 8:20 AM EDT [facility] MCHC 29.9(L) 32.0 - 37.0 g/dL LAB HEMETOLOGY METHOD 06/16/2024 8:20 AM EDT [facility] RDW 15.2(H) 11.0 - 15.0 % LAB HEMETOLOGY METHOD 06/16/2024 8:20 AM EDT [facility] Platelets 277 130 - 400 K/mcL LAB HEMETOLOGY METHOD 06/16/2024 8:20 AM EDT [facility] MPV 10.9 7.0 - 11.0 FL LAB HEMETOLOGY METHOD 06/16/2024 8:20 AM EDT [facility] NRBC 0.0 <1.0 % LAB HEMETOLOGY METHOD 06/16/2024 8:20 AM EDT [facility] NRBC Absolute 0.00 <0.10 K/mcL LAB HEMETOLOGY METHOD 06/16/2024 8:20 AM EDT [facility] Blood Venous blood specimen / Unknown Venipuncture / Unknown 06/16/2024 5:27 AM EDT 06/16/2024 6:58 AM EDT us Naomy Soto MD LAB BLOOD ORDERABLES Final Resul t [facility] [address] [place] [address], documented in this encounter Visit Diagnoses Diagnosis Urinary tract infection, site not specified Hypomagnesemia Disorders of magnesium metabolism Coagulation defect, unspecified (CMS/[facility] V24) documented in this encounter Care Teams Brim And Crown Presser Relationship Specialty Start Date End Date Naomy Soto MD [address] [place] [address] PCP - General Hospitalist Medicine 06/16/24 documented as of this encounter
--- OUTSIDE RECORDS SUMMARY | 2024-06-23 13:27 | XMS_ITS | Clinical Summary ---
Author Organization [facility] Address [address] [place] [address] Phone Care Team Providers Care Automatic Casting Machine Operator Name Role Phone Naomy Soto MD Primary Care Provider [phone] Encounters Date Type Department Care Team Description 06/23/2024 Lab Requisition [facility] Lab [address] [place] [phone] Naomy Soto MD senior care (current) use of anticoagulants; Chronic embolism and thrombosis of unspecified vein 06/20/2024 Lab Requisition [facility] Lab [address] [place] [phone] Naomy Soto MD senior care (current) use of anticoagulants; Chronic embolism and thrombosis of unspecified vein 06/17/2024 Lab Requisition [facility] Lab [address] [place] [phone] Cresencio Isaacs senior care (current) use of anticoagulants 06/16/2024 Lab Requisition [facility] Lab [address] [place] [phone] Naomy Soto MD Urinary tract infection, site not specified; Hypomagnesemia; Coagulation defect, unspecified (CMS/HCC V24) from Last 3 Months Surgical History Surgery Date Site/Laterality Comments CORONARY ARTERY BYPASS GRAFT 2005 PROCEDURE: HISTORICAL CABG; COMMENT: triple bypass Medical History Medical History Date Comments Heart disease DX:Heart disease Diabetes (CMS/HCC V24, CMS/HCC V28) DX:Diabetes ([facility]) Hypertension DX:Hypertension Thyroid disease DX:Thyroid disea [...] Vaccine ( - 2023-2 5 season) 2023 Depression Screening [...] WITH INR Routine 06/23/2024 5:18 AM EDT [place] (current) use of anticoagulants Chronic embolism and thrombosis of unspecified vein PROTHROMBIN TIME WITH INR Routine 06/20/2024 7:02 AM EDT [place] (current) use of anticoagulants Chronic embolism and thrombosis of unspecified vein PROTHROMBIN TIME WITH INR Routine 06/17/2024 7:21 AM EDT senior care (current) use of anticoagulants COMPREHENSIVE METABOLIC PANEL Routine 06/16/2024 5:27 AM EDT Urinary tract infection, site not specified Hypomagnesemia Coagulation defect, unspecified (CMS/HCC V24) PROTHROMBIN TIME WITH INR Routine 06/16/2024 5:27 AM EDT Urinary tract infection, site not specified Hypomagnesemia Coagulation defect, unspecified (CMS/HCC V24) COMPLETE BLOOD COUNT Routine 06/16/2024 5:27 AM EDT Urinary tract infection, site not specified Hypomagnesemia Coagulation defect, unspecified (CMS/HCC V24) from Last 3 Months Results * (ABNORMAL) Prothrombin time with INR (06/23/2024 5:18 AM EDT) Only the most recent of4 resultswithin the time period is included. Protime 47.0(H) 10.6 - 13.9 sec LAB COAGULATION METHOD 06/23/2024 8:51 AM EDT [facility] INR 3.8 LAB COAGULATION METHOD 06/23/2024 8:51 AM EDT [facility] Blood Venous blood specimen / Unknown Venipuncture / Unknown 06/23/2024 5:18 AM EDT 06/23/2024 7:26 AM EDT us Naomy Soto MD LAB BLOOD ORDERABLES Final Resul t [facility] [address] [place] [address], * (ABNORMAL) Complete blood count (06/16/2024 5:27 AM EDT) WBC 3.0(L) 4.8 - 10.8 K/mcL LAB HEMETOLOGY METHOD 06/16/2024 8:20 AM [facility] RBC 3.10(L) 3.80 - 4.80 M/mcL LAB HEMETOLOGY METHOD 06/16/2024 8:20 AM [facility] Hemoglobin 8.3(L) 11.5 - 16.0 g/dL LAB HEMETOLOGY METHOD 06/16/2024 8:20 AM [facility] Hematocrit 27.8(L) 35.0 - 47.0 % LAB HEMETOLOGY METHOD 06/16/2024 8:20 AM [facility] MCV 90.3 79.0 - 98.0 FL LAB HEMETOLOGY METHOD 06/16/2024 8:20 AM [facility] MCH 26.9(L) 27.0 - 32.0 pcg LAB HEMETOLOGY METHOD 06/16/2024 8:20 AM [facility] MCHC 29.9(L) 32.0 - 37.0 g/dL LAB HEMETOLOGY METHOD 06/16/2024 8:20 AM [facility] RDW 15.2(H) 11.0 - 15.0 % LAB HEMETOLOGY METHOD 06/16/2024 8:20 AM [facility] Platelets 277 130 - 400 K/mcL LAB HEMETOLOGY METHOD 06/16/2024 8:20 AM [facility] MPV 10.9 7.0 - 11.0 FL LAB HEMETOLOGY METHOD 06/16/2024 8:20 AM [facility] NRBC 0.0 <1.0 % LAB HEMETOLOGY METHOD 06/16/2024 8:20 AM [facility] NRBC Absolute 0.00 <0.10 K/mcL LAB [facility] Venous [facility] specimen / Unknown Venipuncture / Unknown 06/16/2024 5:27 AM EDT 06/16/2024 6:58 AM EDT us Naomy Soto MD LAB BLOOD ORDERABLES Final Resul t [facility] [address] [place] [address], * (ABNORMAL) Comprehensive metabolic panel (06/16/2024 5:27 AM EDT) Sodium 139 133 - 145 mmol/L LAB CHEMISTRY METHOD 06/16/2024 9:14 AM [facility] Potassium 3.8 3.5 - 5.5 mmol/L LAB CHEMISTRY METHOD 06/16/2024 9:14 AM [facility] Chloride 108 96 - 110 mmol/L LAB CHEMISTRY METHOD 06/16/2024 9:14 AM [facility] CO2 26 21 - 32 mmol/L LAB CHEMISTRY METHOD 06/16/2024 9:14 AM [facility] Anion Gap 5 3 - 11 LAB CHEMISTRY METHOD 06/16/2024 9:14 AM [facility] Glucose 164(H) 70 - 100 mg/dL LAB CHEMISTRY METHOD 06/16/2024 9:14 AM [facility] BUN 11 5 - 25 mg/dL LAB CHEMISTRY METHOD 06/16/2024 9:14 AM [facility] Creatinine 0.47(L) 0.50 - 1.10 mg/dL LAB CHEMISTRY METHOD 06/16/2024 9:14 AM [facility] eGFR 91 >=60 mL/min/1. 73m2 LAB CHEMISTRY METHOD 06/16/2024 9:14 AM [facility] Comment:Calculation based on the Chronic Kidney Disease Epidemiology Collaboration (CKD-EPI) equation refit without adjustment for race. BUN/Creatinine Ratio 23.4 LAB CHEMISTRY METHOD 06/16/2024 9:14 AM [facility] Calcium 8.1(L) 8.5 - 10.5 mg/dL LAB CHEMISTRY METHOD 06/16/2024 9:14 AM [facility] AST (SGOT) 8(L) 10 - 42 unit/L LAB CHEMISTRY METHOD 06/16/2024 9:14 AM [facility] ALT (SGPT) 9(L) 10 - 60 unit/L LAB CHEMISTRY METHOD 06/16/2024 9:14 AM [facility] Alkaline Phosphatase 55 42 - 121 unit/L LAB CHEMISTRY METHOD 06/16/2024 9:14 AM [facility] Total Protein 5.3(L) 6.0 - 8.0 g/dL LAB CHEMISTRY METHOD 06/16/2024 9:14 AM [facility] Albumin 2.0(L) 3.2 - 5.0 g/dL LAB CHEMISTRY METHOD 06/16/2024 9:14 AM [facility] Total Bilirubin 0.5 0.0 - 1.4 mg/dL LAB CHEMISTRY METHOD 06/16/2024 9:14 AM [facility] Blood Venous blood specimen / Unknown Venipuncture / Unknown 06/16/2024 5:27 AM EDT 06/16/2024 6:58 AM EDT us Naomy Soto MD LAB BLOOD ORDERABLES Final Resul t [facility] [address] [place] [address], from Last 3 Months Insurance MEDICARE Care Teams Automatic Casting Machine Operator Relationship Specialty Start Date End Date Naomy Soto MD [address] [place] [phone] PCP - General Hospitalist Medicine 06/16/24
--- OUTSIDE RECORDS SUMMARY | 2024-06-23 13:27 | XMS_ITS | Encounter Summary ---
Author Organization [facility] Address [address] [place] [address] Care Team Providers Care Rn Birthing Name Role Phone Naomy Soto MD Primary Care Provider [phone] Encounter Details Date Type Department Care Team (Late st Contact Info) Description 06/17/2024 Lab Requisition [facility] [address] [facility] [place] [address] Cresencio Isaacs [address] [facility] [phone] [place] [address] intermediate (current) use of anticoagulants Social History Tobacco [...] WITH INR Routine 06/17/2024 7:21 AM EDT intermediate (current) use of anticoagulants documented in this encounter Results * (ABNORMAL) Prothrombin time with INR (06/17/2024 7:21 AM EDT) Protime 58.9(H) 10.6 - 13.9 sec LAB COAGULATION METHOD 06/17/2024 9:11 AM EDT [facility] INR 4.8 LAB COAGULATION METHOD 06/17/2024 9:11 AM T [facility] Blood Venous blood specimen / Unknown Venipuncture / Unknown 06/17/2024 7:21 AM EDT 06/17/2024 8:18 AM EDT us Cresencio Isaacs LAB BLOOD ORDERABLES Final Resul t [facility] [address] [place] [address], documented in this encounter Visit Diagnoses Diagnosis intermediate (current) use of anticoagulants Long-term (current) use of anticoagulants documented in this encounter Care Teams Rn Birthing Relationship Specialty Start Date End Date Naomy Soto MD [address] [place] [phone] PCP - General Hospitalist Medicine 06/16/24 documented as of this encounter
--- OUTSIDE RECORDS SUMMARY | 2024-06-23 13:27 | XMS_ITS | Encounter Summary ---
Author Organization [facility] Address [address] [place] [address] Care Team Providers Care Police Officer Crime Prevention Name Role Phone Naomy Soto MD Primary Care Provider Encounter Details Date Type Department Care Team (Late st Contact Info) Description 06/20/2024 Lab Requisition [facility] Lab [address] [place] [address] Naomy Soto MD [address] [place] [address] emt intermediate (current) use of anticoagulants; Chronic embolism and [...] LAB COAGULATION METHOD 06/20/2024 1:29 PM EDT [facility] INR 3.2 LAB COAGULATION METHOD 06/20/2024 1:29 PM EDT [facility] Blood Venous blood specimen / Unknown Venipuncture / Unknown 06/20/2024 7:02 AM EDT 06/20/2024 12:19 PM EDT Naomy Soto MD LAB BLOOD ORDERABLES Final Resul t [facility] [address] [place] [address], documented in this encounter Visit Diagnoses Diagnosis emt intermediate (current) use of anticoagulants Long-term (current) use of anticoagulants Chronic embolism and thrombosis of unspecified vein documented in this encounter Care Teams Police Officer Crime Prevention Relationship Specialty Start Date End Date Naomy Soto MD [address] [place] [address] PCP - General Hospitalist Medicine 06/16/24 documented as of this encounter
== END 2024-06-23 14:29 | disposition home or self-care (01) ==
LOC: HO.HVS 12:50
PROVIDERS: Visit Provider Surgery Vascular Surgery
DX: R51.9 Headache, unspecified (principal); G89.29 Other chronic pain
CPT/HCPCS: 99204

== ENCOUNTER → 2024-06-23 12:49 | Outpatient (BNVA) | payer MEDICARE, SELFPAY | PROVIDERS: Visit Provider Surgery Vascular Surgery | DX: R51.9 Headache, unspecified (principal); G89.29 Other chronic pain | CPT/HCPCS: 99202 ==

== ENCOUNTER → 2024-06-28 08:04 | Outpatient (RCR) | payer MEDICARE, SELFPAY | END | disposition home or self-care (01) | LOC: HO.PTCHIC 11-11 10:58 | PROVIDERS: PCP Internal Medicine; Visit Provider Podiatrist | DX: S93.492D Sprain of other ligament of left ankle, subsequent encounter (principal) | CPT/HCPCS: 97033; 97110; 97112 ==

== ENCOUNTER → 2024-07-21 11:55 | Outpatient (BNV) | payer MEDICARE, SELFPAY | PROVIDERS: Emergency Provider Emergency Medicine; PCP Internal Medicine; Visit Provider Internal Medicine Cardiovascular Disease | DX: I44.0 Atrioventricular block, first degree (principal); I49.3 Ventricular premature depolarization; I25.2 Old myocardial infarction | CPT/HCPCS: 93010 ==

== ENCOUNTER → 2024-07-21 12:48 | Outpatient (BNV) | payer MEDICARE, SELFPAY | PROVIDERS: Emergency Provider Emergency Medicine; PCP Internal Medicine; Visit Provider Radiology Diagnostic Radiology | DX: J34.89 Other specified disorders of nose and nasal sinuses (principal) | CPT/HCPCS: 70450 ==

== ENCOUNTER 2024-08-04 07:49 | Outpatient (AMB) | payer MEDICARE, SELFPAY ==
--- NOTE | 2024-08-04 08:05 | A.OFFVIS_ITS ---
Vital Signs 08/04/24 08:11 BP 142/82 H Blood Pressure Location Lt brachial Position Sitting Pulse 63 Pulse Source Pulse Oximeter Pulse Oximetry (%) 87 L Oxygen Delivery Method Room Air Intake Visit Reasons: [employer] - [facility] Required: No Allergies oxycodone Allergy (Mild, Verified 08/04/24 08:19) Nausea and Vomiting duloxetine Allergy (Unknown, Verified 08/04/24 08:19) delusions procaine (From Novocain) Adverse Reaction (Unknown, Verified 08/04/24 08:19) Nausea and Vomiting, fainting HPI Comments Details: History of Present Illness The patient is an 88-year-old female presenting for new patient headache consultation. Patient is accompanied daughter Angélica, and son David, who both assist with history. Patient reports she developed a new severe headache that began after dental procedures in May, where eight lower teeth were extracted under sedation. Specifically, the headache started the same day as this dental procedure. After the dental extraction, she was unable to eat or drink well due to the dental pain in headache, which led to significant weakness and deconditioning. causing weakness, multiple falls. Between May and now, she has had at least 5 ER visits, including when it the beginning of June for bacteremia and UTI. During this time, she was also in and out of short-term rehab and returning home, and is now currently at [facility] for short-term rehab. As patient had had increased ESR results, she was advised to see vascular surgery to evaluate for temporal arteritis, however vascular surgery did not feel that her headache was consistent with a temporal arteritis in this recommended against doing a temporal artery biopsy. Family notes that prior to lower teeth extraction in May , patient was functioning independently at home in her usual state of health. She did have her chronic back pain. However she denies any history of bothersome headaches or migraine. Workup between May and now has shown:Imaging: Unremarkable head CT times 2, showing sphenoid sinus inflammation on the right.- Labs: Elevated ESR noted, indicative of nonspecific inflammation; recent lab results including WBC 3.9, RBC 3.83, hemoglobin 10.2, hematocrit 33.1, MCV 86.4, normal platelet count 286, hemoglobin A1c 6.6%, ESR 67, CRP 4.66- see below for ESR and CRP trends. ESR (normal range 0-20 MM/HR) 07/21/2024- 67 06/21/2024 113 01/26/2024 25 12/23/2023 20 C-Reactive Protein (normal range < or = 0.50 mg/dL) 07/21/2024- 4.66 06/21/2024 9.47 06/09/2024 7.57 06/01/2024 10.08 01/26/2024 0.94 The headache is described as a severe sensation of hair being pulled from her scalp, exacerbated by sitting upright, and is associated with earache and vision changes such as seeing patterns and spots on the ernandez. The patient also reports recently having right ear pain, sore throat, frequent lightheadedness. Family also notes that she has started to have cognitive difficulties, including confusion and difficulty recognizing familiar individuals. The patient has a history of pulmonary embolism following triple bypass in 2015, diastolic heart, hypertension, hyperlipidemia, diabetes, hypothyroidism, major back surgery in 2006, sleep difficulties, restless sleep, nocturnal leg cramps, and arthritis, Review of Systems - Neurological: Reports severe headache with sensation of hair being pulled, vision changes, and episodes of seeing patterns and spots. Denies dizziness or balance issues. - ENT: Reports earache and throat pain. Denies nasal congestion or sinus congestion. - Musculoskeletal: Reports back pain. Denies worsening of chronic back pain. - Gastrointestinal: Denies nausea or vomiting. Usually constipated, currently experiencing increased bowel movements. - Cardiovascular: Denies chest pain or palpitations. Headache Lifestyle Factors - Caffeine intake: None reported, advised to add caffeine such as Diet Mountain Dew 2 to 4 servings a day. - Exercise: Currently unable to participate in rehabilitation exercises due to debility from headaches and weakness. - Sleep: Having difficulties. Exercise The patient is currently unable to participate in rehabilitation exercises due to debilitating headaches and weakness. Nutrition The patient experienced significant weakness and deconditioning due to inadequate nutrition following dental procedures. However, she is now eating and drinking a bit better, aiding in improved energy levels. Substance Use - Alcohol use: Denies - Tobacco use: Denies - Other illicit substance use: Denies Headache questionnaire: Note, patient has difficulty responding to all of the headache questionnaire questions, due to currently having a severe bothersome headache. Onset of initial headache symptoms: After dental procedure in May 2024 Initial precipitating cause of this headache: Dental procedure Previous workup for this headache: Multiple CT scans, no MRI yet Types of headache disorders: New onset, debilitating Typical headache characteristics: Feels like hair being pulled out, worsens when sitting up Prodrome symptoms: Denies Aura: Denies Headache pain intensity: Severe Location, quality, characteristics of this headache: Whole head, worsens when upright Associated migraine symptoms: Photophobia, vision changes, confusion Headache postdrome: Denies Headache aggravating factors: Sitting upright. Headache triggers: sitting upright - Patient is unable to state if pain is exacerbated by chewing, light mechanical stimuli, wind, cold exposure. Time of day this headache usually occurs: No specific time of day Duration of this headache: Persistent Frequency of this headache: Constant How does headache impact your life? Impeding functional ability and nutritional intake Current acute medication use/interventions: Imitrex- ineffective. Tramadol- unclear efficacy. Baclofen 5 mg b.i.d.-unclear efficacy. Current preventative medication use: Baclofen 5 mg twice a day Current non-pharmacological interventions: laying down, ice caps Review of Systems - Neurological: Reports severe headache with sensation of hair being pulled, vision changes, and episodes of seeing patterns and spots. Denies dizziness or balance issues. - ENT: Reports earache and throat pain. Denies nasal congestion or sinus congestion. - Musculoskeletal: Reports back pain. Denies worsening of chronic back pain. - Gastrointestinal: Denies nausea or vomiting. Usually constipated, currently experiencing increased bowel movements. - Cardiovascular: Denies chest pain or palpitations. Headache Lifestyle Factors - Caffeine intake: None reported, advised to add caffeine such as Diet Mountain Dew 2 to 4 servings a day. - Exercise: Currently unable to participate in rehabilitation exercises due to debility from headaches and weakness. - Sleep: Having difficulties. Exercise The patient is currently unable to participate in rehabilitation exercises due to debilitating headaches- worsened by sitting up, and weakness. Nutrition The patient experienced significant weakness and deconditioning due to inadequate nutrition following dental procedures. However, she is now eating and drinking a bit better, aiding in improved energy levels. Substance Use - Alcohol use: Denies - Tobacco use: Denies - Other illicit substance use: Denies Headache questionnaire: Note, patient has difficulty responding to all of the headache questionnaire questions, due to currently having a severe bothersome headache. Onset of initial headache symptoms: After dental procedure in May 2024 Initial precipitating cause of this headache: Dental procedure Previous workup for this headache: Multiple CT scans, no MRI yet Types of headache disorders: New onset, debilitating Typical headache characteristics: Feels like hair being pulled out, worsens when sitting up Prodrome symptoms: Denies Aura: Denies Headache pain intensity: Severe Location, quality, characteristics of this headache: Whole head, worsens when upright Associated migraine symptoms: Photophobia, vision changes, confusion Headache postdrome: Denies Headache aggravating factors: Sitting upright. Headache triggers: sitting upright - Patient is unable to state if pain is exacerbated by chewing, light mechanical stimuli, wind, cold exposure. Time of day this headache usually occurs: No specific time of day Duration of this headache: Persistent Frequency of this headache: Constant How does headache impact your life? Impeding functional ability and nutritional intake Current acute medication use/interventions: Imatrix (Imitrex)- - ineffective. Tramadol- unclear efficacy. Baclofen 5 mg b.i.d.-unclear efficacy. Current preventative medication use: Baclofen 5 mg twice a day Current non-pharmacological interventions: laying down, ice caps [facility] Medical History Chronic anticoagulation UTI (urinary tract infection) Cerumen impaction Diastolic CHF Hypothyroidism Peripheral neuropathy Recurrent pulmonary embolism CAD (coronary artery disease) Osteoarthritis HTN (hypertension) Type 2 diabetes mellitus Surgical History H/O Spinal surgery S/P three vessel coronary artery bypass Social History Household Members: Family Housing: House Do you presently have visiting nurse or other home services: No Alcohol intake: former Patient Tobacco Use Status: Former Tobacco user Tobacco use type: Cigarette Years Smoked: 3 yrs e-Cigarette/Vaping Use: Never Used Second Hand Smoke Exposure: No Advance Directives Date on File: 06/26/03 service: No Current occupational status: retired and disabled Cognitive needs: No Hearing needs: No Vision needs: Yes Physical Exam Vital Signs: Last Vital Signs Pulse 63 08/04/24 08:11 BP 142/82 H 08/04/24 08:11 Pulse Ox 87 L 08/04/24 08:11 Oxygen Delivery Method Room Air 08/04/24 08:11 Neuro Other: Patient sitting with head elevated at 30 degrees on ambulance stretcher for initial part of visit, patient is in visible discomfort, which she states is due to her headache. She holds the right frontal region of her head throughout most of the visit. However, upon lying patient flat, and elevating legs slightly (much as stretcher would allow), headache did seem to improve slightly, and patient was able to doze off. Alert and oriented, however patient's headache pain prevents her from fully participating in conversation. Photophobic EOM intact, however on convergent patient states she sees for of the tip of the reflex hammer. Patient inaccurately describes the red tip of a reflex hammer as black, in both binocular and right and left monocular vision. Otherwise, patient has symmetric facial sensation, strength, shoulder shrug tests.. No nystagmus appreciated Right ear cerumen impaction Left ear TM clear without marked cerumen buildup Right top of head small palpable mass with mild purplish discoloration-tender to touch Diffuse palpable tenderness across bilateral face and head. Palpable tenderness across shoulders, most marked in the left lower posterior cervical paraspinal muscles. Bilateral hand grasp week but symmetric. DTRs 1+ throughout Finger nose (patient finger to patient knows)- intact on right, mild overreach dysmetria on left Pupils: Normal pupillary reactivity/response: bilateral Assessment & Plan Assessment & Plan (1) Positional headache: Comment: Exacerbated by sitting up Code(s): R51.0 - Headache with orthostatic component, not elsewhere classified Category: Medical (2) Vision changes: Code(s): H53.9 - Unspecified visual disturbance Category: Medical (3) Status post fall: Code(s): Z91.81 - History of falling Category: Medical (4) Cerumen impaction: Code(s): H61.20 - Impacted cerumen, unspecified ear Category: Medical Qualifiers: Laterality: right Qualified Code(s): H61.21 - Impacted cerumen, right ear (5) Scalp mass: Code(s): R22.0 - Localized swelling, mass and lump, head Category: Medical Plan Discussion Notes I discussed with the patient and her family the need for a stat MRI of the brain and cervical spine to evaluate the cause of her headaches which which developed after undergoing a lower to dental extraction under sedation, considering the possibility of a low-pressure headache due to a potential cerebrospinal fluid leak. Discuss differential diagnosis also includes concussion status post fall even though patient did not strike her head during any of the recent falls, cer vicogenic, giant cell arteritis. We also discussed the importance of an eye exam to assess her vision changes. Also discuss ordering ultrasound head to assess right upper scalp purplish tender mass. As well as the need to check labs and monitor her ESR levels for any ongoing inflammation. Note made to [facility] to attempt to place patient in Trendelenburg position upon return to the [place] [facility]- to see if this alleviates headache pain. The plan includes starting Tegretol and increasing Baclofen to manage her symptoms, as well as adding caffeine intake (may take 2-4 12 oz servings of diet mountain dew or other caffeinated soda per day, as patient does not drink coffee or tea). Patient was informed and verbally consented to the use of an ambient scribe for clinic note documentation during this visit.- - Proceed with stat MRI of the brain and cervical spine with and without contrast to assess for secondary etiologies, such as low-pressure headache, spontaneous CSF leak, inflammatory process, sphenoid sinus inflammation. - Check ultrasound head to assess right upper frontal mass - Check labs for common etiologies of new onset severe headache- patient completed these today - Order stat/urgent comprehensive ophthalmology evaluation-due to impaired color perception and visual changes. -Start Tegretol ER 100 mg twice a day -Increase baclofen from 5 mg twice a day to 10 mg twice a day. - May continue to use tramadol as needed. - For right ear pain with TM occluded by wax buildup- requested [facility] initiate a Debrox and flush protocol. - Medication contraindications: Ubrelvy/Nurtec, Fioricet- due to Tegretol and/or warfarin use. - Future considerations: Corticosteroid treatment with optimization of diabetic treatment. Patient seen in collaboration with Dr. Dina Pritchett Will follow-up upon review of above and patient to follow-up in clinic in 1-2 months or sooner prn. Orders: Orders Complete Blood Count Auto Diff Today D64.9 - Anemia, unspecified, H53.9 - Unspecified visual disturbance, M19.90 - Unspecified osteoarthritis, unspecified site, R51.0 - Headache with orthostatic component, not elsewhere classified, R70.0 - Elevated erythrocyte sedimentation rate Comprehensive Met. Panel Today D64.9 - Anemia, unspecified, H53.9 - Unspecified visual disturbance, M19.90 - Unspecified osteoarthritis, unspecified site, R51.0 - Headache with orthostatic component, not elsewhere classified, R70.0 - Elevated erythrocyte sedimentation rate Vitamin B12 and Folate Today D64.9 - Anemia, unspecified, H53.9 - Unspecified visual disturbance, M19.90 - Unspecified osteoarthritis, unspecified site, R51.0 - Headache with orthostatic component, not elsewhere classified, R70.0 - Elevated erythrocyte sedimentation rate Erythrocyte Sedimentation Rate Today D64.9 - Anemia, unspecified, H53.9 - Unspecified visual disturbance, M19.90 - Unspecified osteoarthritis, unspecified site, R51.0 - Headache with orthostatic component, not elsewhere classified, R70.0 - Elevated erythrocyte sedimentation rate Lyme IgG/IgM w/reflex to WB Today D64.9 - Anemia, unspecified, H53.9 - Unspecified visual disturbance, M19.90 - Unspecified osteoarthritis, unspecified site, R51.0 - Headache with orthostatic component, not elsewhere classified, R70.0 - Elevated erythrocyte sedimentation rate Vitamin D 25-OH (D2 and D3) Today D64.9 - Anemia, unspecified, H53.9 - Unspecified visual disturbance, M19.90 - Unspecified osteoarthritis, unspecified site, R51.0 - Headache with orthostatic component, not elsewhere classified, R70.0 - Elevated erythrocyte sedimentation rate Complement C3 Today D64.9 - Anemia, unspecified, H53.9 - Unspecified visual disturbance, M19.90 - Unspecified osteoarthritis, unspecified site, R51.0 - Headache with orthostatic component, not elsewhere classified, R70.0 - Elevated erythrocyte sedimentation rate US head/brain Today H53.9 - Unspecified visual disturbance, R22.0 - Localized swelling, mass and lump, head, R51.0 - Headache with orthostatic component, not elsewhere classified MR cervical spine wo/w con Today M54.2 - Cervicalgia, R51.0 - Headache with orthostatic component, not elsewhere classified, Z91.81 - History of falling C Reactive Protein Today D64.9 - Anemia, unspecified, H53.9 - Unspecified visual disturbance, M19.90 - Unspecified osteoarthritis, unspecified site, R51.0 - Headache with orthostatic component, not elsewhere classified, R70.0 - Elevated erythrocyte sedimentation rate AFTAB Reflex Titer and Pattern Today D64.9 - Anemia, unspecified, H53.9 - Unspecified visual disturbance, M19.90 - Unspecified osteoarthritis, unspecified site, R51.0 - Headache with orthostatic component, not elsewhere classified, R70.0 - Elevated erythrocyte sedimentation rate TSH reflex Free T4 Today D64.9 - Anemia, unspecified, H53.9 - Unspecified visual disturbance, M19.90 - Unspecified osteoarthritis, unspecified site, R51.0 - Headache with orthostatic component, not elsewhere classified, R70.0 - Elevated erythrocyte sedimentation rate Rheumatoid Factor Today D64.9 - Anemia, unspecified, H53.9 - Unspecified visual disturbance, M19.90 - Unspecified osteoarthritis, unspecified site, R51.0 - Headache with orthostatic component, not elsewhere classified, R70.0 - Elevated erythrocyte sedimentation rate Methylmalonic Acid Today D64.9 - Anemia, unspecified, H53.9 - Unspecified vi sual disturbance, M19.90 - Unspecified osteoarthritis, unspecified site, R51.0 - Headache with orthostatic component, not elsewhere classified, R70.0 - Elevated erythrocyte sedimentation rate Vitamin B6 Today D64.9 - Anemia, unspecified, H53.9 - Unspecified visual disturbance, M19.90 - Unspecified osteoarthritis, unspecified site, R51.0 - Headache with orthostatic component, not elsewhere classified, R70.0 - Elevated erythrocyte sedimentation rate Vitamin B1 Today D64.9 - Anemia, unspecified, H53.9 - Unspecified visual disturbance, M19.90 - Unspecified osteoarthritis, unspecified site, R51.0 - Headache with orthostatic component, not elsewhere classified, R70.0 - Elevated erythrocyte sedimentation rate Complement C4 Today D64.9 - Anemia, unspecified, H53.9 - Unspecified visual disturbance, M19.90 - Unspecified osteoarthritis, unspecified site, R51.0 - Headache with orthostatic component, not elsewhere classified, R70.0 - Elevated erythrocyte sedimentation rate Anti DNA DS Antibody Today D64.9 - Anemia, unspecified, H53.9 - Unspecified visual disturbance, M19.90 - Unspecified osteoarthritis, unspecified site, R51.0 - Headache with orthostatic component, not elsewhere classified, R70.0 - Elevated erythrocyte sedimentation rate Hepatitis A,B,C Profile Today D64.9 - Anemia, unspecified, H53.9 - Unspecified visual disturbance, M19.90 - Unspecified osteoarthritis, unspecified site, R51.0 - Headache with orthostatic component, not elsewhere classified, R70.0 - Elevated erythrocyte sedimentation rate ANCA Vasculitides Today D64.9 - Anemia, unspecified, H53.9 - Unspecified visual disturbance, M19.90 - Unspecified osteoarthritis, unspecified site, R51.0 - Headache with orthostatic component, not elsewhere classified, R70.0 - Elevated erythrocyte sedimentation rate Angiotensin Converting Enzyme Today D64.9 - Anemia, unspecified, H53.9 - Unspecified visual disturbance, M19.90 - Unspecified osteoarthritis, unspecified site, R51.0 - Headache with orthostatic component, not elsewhere classified, R70.0 - Elevated erythrocyte sedimentation rate MR head/brain wo/w con Today H53.9 - Unspecified visual disturbance, R22.0 - Localized swelling, mass and lump, head, R51.0 - Headache with orthostatic component, not elsewhere classified Referrals Ophthalmology Referral H53.9 - Unspecified visual disturbance, R22.0 - Localized swelling, mass and lump, head, R51.0 - Headache with orthostatic component, not elsewhere classified Medications: New carbamazepine ER (Tegretol XR) 100 mg PO Q12H 60 tabs 0RF 30 days baclofen 10 mg PO BID 60 tabs 3RF 30 days Coding Level of Care Code New Pt Level 4 (04743) Diagnoses Positional headache R51.0 Vision changes H53.9 Status post fall Z91.81 Impacted cerumen of right ear H61.21 Laterality: right Scalp mass R22.0
[2024-08-04 08:11] VITALS: BP 142/82; PULSE 63; O2SAT 87
== END 2024-08-04 09:59 | disposition home or self-care (01) ==
LOC: HO.HSMS 07:49
PROVIDERS: PCP Internal Medicine; Visit Provider Nurse Practitioner Family
DX: R51.0 Headache with orthostatic component, not elsewhere classified (principal); H53.9 Unspecified visual disturbance; Z91.81 History of falling; H61.21 Impacted cerumen, right ear; R22.0 Localized swelling, mass and lump, head
CPT/HCPCS: 99204

== ENCOUNTER 2024-08-04 09:55 | Outpatient (REF) | payer MEDICARE, SELFPAY ==
[2024-08-04 18:02] LABS: Hemoglobin 10.7 g/dl (12.0-16.0); Mean Corpuscular HGB Conc 30.6 g/dl (31.0-35.0); Mean Corpuscular Hemoglobin 27.4 pg (27.0-33.0); Mean Corpuscular Volume 89.7 fL (80.0-98.0); Mean Platelet Volume 11.1 fL (9.4-12.3); Platelet Count 295 X10*3/uL (160-400); Red Cell Distribution Width 16.8 % (11.0-16.0); White Blood Count 6.8 X10*3/uL (4.8-10.8)
[2024-08-04 18:14] LABS: Rheumatoid Factor < 13.0 IU/mL (<15.0)
[2024-08-04 18:20] LABS: Alanine Aminotransferase < 6 U/L (0-31); Albumin Level 3.3 g/dL (3.5-5.0); Alkaline Phosphatase 80 U/L (39-117); Anion Gap 14 (12-20); Aspartate Amino Transferase 22 U/L (5-31); Bilirubin Total 0.5 mg/dL (0.0-1.0); Blood Urea Nitrogen 13 mg/dL (9-16); C Reactive Protein 15.05 mg/dL (< or = 0.50); Calcium 8.8 mg/dL (8.4-10.2); Carbon Dioxide 26 mmol/L (22-29); Chloride 103 mmol/L (96-108); Estimated Glomerular Filt Rate > 60; Glucose Random 181 mg/dL (60-115); Sodium 139 mmol/L (135-145); Total Protein 6.8 g/dL (6.5-8.0)
[2024-08-04 18:38] LABS: Erythrocyte Sedimentation Rate 90 MM/HR (0-20)
[2024-08-04 18:39] LABS: TSH reflex Free T4 1.11 uIU/mL (0.32-4.0)
[2024-08-04 18:42] LABS: Folate 4.9 ng/mL (> or = 4.0); Vitamin B12 546 pg/mL (200-900)
[2024-08-04 20:57] LABS: Lymphocytes Absolute Manual 0.8 X10*3/uL (1.2-4.9); Lymphocytes Percent Manual 12 % (20-40); Monocytes Absolute Manual 0.7 X10*3/uL (0.1-1.2); Monocytes Percent Manual 10 % (2-11); Neutrophils Percent Manual 78 % (45-73)
[2024-08-04 20:58] LABS: Band Neutrophils Percent 0 % (3-5); Neutrophils Absolute Manual 5.3 X10*3/uL (2.0-8.3); Platelet Estimate NORMAL (NORMAL); Platelet Morphology Comment NORMAL; RBC Morphology NORMAL
[2024-08-05 08:31] LABS: HBS Num1 1.37 mIU/mL (0-7.99); HBc Num1 0.11 S/CO (0.00-0.79); HBsAGNum1 0.47 S/CO (0.00-0.99); Hepatitis A Antibody IgM 0.15 Index (0-0.79); Hepatitis B Core Antibody Nonreactive (Nonreactive); Hepatitis B Surface Antigen Negative (Negative); ~HepC Num1 0.11 S/CO (0.00-0.79); ~Hepatitis A Antibody IgM Nonreactive (Nonreactive); ~Hepatitis B Surface Antibody NONREACTIVE (Nonreactive); ~Hepatitis C Antibody Nonreactive (Nonreactive)
[2024-08-05 11:58] LABS: Complement C3 220 mg/dL
[2024-08-05 12:03] LABS: Lyme Abs Screen <0.90 index
[2024-08-05 20:58] LABS: Anti DNA DS Antibody <1 IU/mL; Myeloperoxidase Antibody <1.0 AI; Proteinase 3 PR3 Antibodies <1.0 AI
[2024-08-07 05:24] LABS: Methylmalonic Acid 98 nmol/L (85-423)
[2024-08-07 19:59] LABS: Angiotensin Converting Enzyme 13 U/L (9-67)
[2024-08-08 10:50] LABS: Anti Nuclear Antibody Screen NEGATIVE (NEGATIVE)
[2024-08-08 15:57] LABS: Vitamin D 25-OH, D2 <4 ng/mL; Vitamin D 25-OH, D3 14 ng/mL; Vitamin D 25-OH, Total 14 ng/mL (30-100)
[2024-08-09 16:24] LABS: Vitamin B1 7 nmol/L (8-30)
[2024-08-15 01:33] LABS: Vitamin B6 <2.0 ng/mL (2.1-21.7)
== END 2024-08-04 09:56 | disposition home or self-care (01) ==
LOC: HO.HKASLDS 09:55
PROVIDERS: Visit Provider Nurse Practitioner Family
DX: R70.0 Elevated erythrocyte sedimentation rate (principal); R51.0 Headache with orthostatic component, not elsewhere classified; M19.90 Unspecified osteoarthritis, unspecified site; H53.9 Unspecified visual disturbance; D64.9 Anemia, unspecified
CPT/HCPCS: 36415; 80053; 82164; 82306; 82607; 82746; 83921; 84207; 84425; 84443; 85007; 85027; 85652; 86021; 86038; 86140; 86160; 86225; 86431; 86617; 86618; 86704; 86706; 86709; 86803; 87340